=== PATIENT | female | born 1955 | race Caucasian/White ===

== ENCOUNTER → 2019-12-25 13:21 | Outpatient (BNVA) | payer OTHER, SELFPAY | PROVIDERS: PCP Internal Medicine; Visit Provider Internal Medicine Cardiovascular Disease | DX: Z76.89 Persons encountering health services in other specified circumstances (principal) ==

== ENCOUNTER 2020-01-01 09:31 | Outpatient (REF) | payer OTHER, SELFPAY ==
[2020-01-01 10:15] LABS: COVID-19 Test Negative (Negative)
== END 2020-01-01 09:32 | disposition home or self-care (01) ==
LOC: HO.EMPCOV 09:31
PROVIDERS: PCP Internal Medicine; Visit Provider Internal Medicine
DX: Z20.828 Contact with and (suspected) exposure to other viral communicable diseases (principal)
CPT/HCPCS: 87635; C9803

== ENCOUNTER 2020-01-16 06:07 | Outpatient (REF) | payer OTHER, SELFPAY ==
[2020-01-16 07:12] LABS: Glucose Urine UA NEG (NEG); Leukocyte Esterase Urine NEG (NEG); MANUAL DIFF FLAG NO; Nitrite Urine NEG (NEG); Specific Gravity - Urine 1.025 (1.005-1.025); Urine Blood TRACE (NEG); Urine Ketones NEG (NEG); Urine Protein NEG (NEG-TRACE)
[2020-01-16 07:14] LABS: Basophils Absolute Auto 0.1 X10*3/uL (0.0-0.2); Basophils Percent Auto 1.2 % (0-2); Eosinophils Absolute Auto 0.3 X10*3/uL (0.0-0.4); Eosinophils Percent Auto 4.7 % (0-4); Hematocrit 42.2 % (37-47); Imm Gran Abs Auto 0.03 X10*3/uL (0.00-0.03); Imm Gran Pct Auto 0.5 % (0.0-0.4); Lymphocytes Absolute Auto 2.1 X10*3/uL (1.2-4.9); Lymphocytes Percent Auto 32.9 % (20-40); Mean Corpuscular HGB Conc 33.2 g/dl (31.0-35.0); Mean Corpuscular Hemoglobin 29.3 pg (27.0-33.0); Mean Corpuscular Volume 88.3 fL (80-98); Mean Platelet Volume 10.8 fL (9.4-12.3); Monocytes Absolute Auto 0.6 X10*3/uL (0.1-1.2); Monocytes Percent Auto 8.8 % (2-11); Neutrophils Absolute Auto 3.4 X10*3/uL (2.0-8.3); Neutrophils Percent Auto 51.9 % (45-73); Platelet Count 253 X10*3/uL (160-400); Red Blood Count 4.78 X10*6/uL (4.20-5.50); Red Cell Distribution Width 12.7 % (11.0-16.0); White Blood Count 6.5 X10*3/uL (4.8-10.8)
[2020-01-16 07:27] LABS: Appearance Urine CLOUDY; Color Urine YELLOW
[2020-01-16 07:45] LABS: Alanine Aminotransferase 18 U/L (0-31); Albumin Level 4.5 g/dL (3.5-5.0); Alkaline Phosphatase 61 U/L (39-117); Anion Gap 12 (12-20); Aspartate Amino Transferase 20 U/L (5-31); Blood Urea Nitrogen 16 mg/dL (9-16); Calcium 9.1 mg/dL (8.4-10.2); Carbon Dioxide 24 mmol/L (22-29); Chloride 108 mmol/L (96-108); Cholesterol 146 mg/dL; Estimated Glomerular Filt Rate > 60; Glucose Random 95 mg/dL (60-115); HDL Cholesterol 59 mg/dL; LDL Cholesterol Calculated 69 mg/dl; Potassium 4.3 mmol/l (3.3-5.1); Sodium 140 mmol/L (135-145); Total Protein 6.9 g/dL (6.5-8.0); Triglycerides 91 mg/dL
[2020-01-16 07:55] LABS: Erythrocyte Sedimentation Rate 9 MM/HR (0-20)
[2020-01-16 08:06] LABS: Estimated Average Glucose 114 mg/dL; Hemoglobin A1c % 5.6 %
[2020-01-16 08:09] LABS: Free T4 (Free Thyroxine) 1.13 ng/dL (0.71-1.85)
[2020-01-16 08:19] LABS: Bacteria Urine 1+ /LPF; Squamous Epithelial Cell Urine 4+ /LPF
[2020-01-16 08:20] LABS: Mucus Urine 3+ /LPF
[2020-01-16 08:55] LABS: Folate 17.7 ng/mL (> or = 4.0); Vitamin B12 530 pg/mL (200-900)
== END 2020-01-16 06:08 | disposition home or self-care (01) ==
LOC: HO.LAB 06:07
PROVIDERS: PCP Internal Medicine; Visit Provider Internal Medicine
DX: E78.00 Pure hypercholesterolemia, unspecified (principal); I47.1 Supraventricular tachycardia
CPT/HCPCS: 36415; 80053; 80061; 81001; 82306; 82607; 82746; 83036; 84439; 84443; 85025; 85652

== ENCOUNTER → 2020-01-21 15:00 | Outpatient (BNV) | payer OTHER, SELFPAY | PROVIDERS: PCP Internal Medicine; Visit Provider Internal Medicine Medical Oncology | DX: D47.2 Monoclonal gammopathy (principal) | CPT/HCPCS: 99213; 99214 ==

== ENCOUNTER → 2020-01-23 08:22 | Outpatient (BNVA) | payer OTHER, SELFPAY | PROVIDERS: PCP Internal Medicine; Visit Provider Student in an Organized Health Care Education/Training Program | DX: Z76.89 Persons encountering health services in other specified circumstances (principal) ==

== ENCOUNTER 2020-01-24 06:11 | Outpatient (REF) | payer OTHER, SELFPAY ==
[2020-01-24 06:57] LABS: MANUAL DIFF FLAG NO
[2020-01-24 07:02] LABS: Basophils Absolute Auto 0.1 X10*3/uL (0.0-0.2); Basophils Percent Auto 1.3 % (0-2); Eosinophils Absolute Auto 0.2 X10*3/uL (0.0-0.4); Eosinophils Percent Auto 3.9 % (0-4); Imm Gran Abs Auto 0.02 X10*3/uL (0.00-0.03); Imm Gran Pct Auto 0.3 % (0.0-0.4); Lymphocytes Percent Auto 32.3 % (20-40); Mean Corpuscular HGB Conc 32.6 g/dl (31.0-35.0); Mean Corpuscular Hemoglobin 28.7 pg (27.0-33.0); Mean Corpuscular Volume 88.3 fL (80-98); Mean Platelet Volume 10.3 fL (9.4-12.3); Monocytes Absolute Auto 0.5 X10*3/uL (0.1-1.2); Monocytes Percent Auto 8.3 % (2-11); Neutrophils Absolute Auto 3.3 X10*3/uL (2.0-8.3); Neutrophils Percent Auto 53.9 % (45-73); Platelet Count 252 X10*3/uL (160-400); Red Blood Count 4.87 X10*6/uL (4.20-5.50); White Blood Count 6.2 X10*3/uL (4.8-10.8)
[2020-01-24 07:20] LABS: Appearance Urine HAZY; Color Urine YELLOW; Glucose Urine UA NEG (NEG); Leukocyte Esterase Urine NEG (NEG); Nitrite Urine NEG (NEG); PH 5.5 (5.0-8.0); Specific Gravity - Urine >= 1.030 (1.005-1.025); Urine Blood TRACE (NEG); Urine Ketones NEG (NEG); Urine Protein 1+ MG/DL (NEG-TRACE)
[2020-01-24 07:27] LABS: Squamous Epithelial Cell Urine 2+ /LPF; WBC Urine 0 /HPF (0-4)
[2020-01-24 07:28] LABS: Bacteria Urine TRACE /LPF; Mucus Urine 1+ /LPF
[2020-01-24 07:38] LABS: Alanine Aminotransferase 22 U/L (0-31); Albumin Level 4.5 g/dL (3.5-5.0); Alkaline Phosphatase 59 U/L (39-117); Anion Gap 13 (12-20); Aspartate Amino Transferase 24 U/L (5-31); Bilirubin Total 1.1 mg/dL (0.0-1.0); Blood Urea Nitrogen 16 mg/dL (9-16); C Reactive Protein 0.12 mg/dL (< or = 0.50); Calcium 9.2 mg/dL (8.4-10.2); Carbon Dioxide 24 mmol/L (22-29); Chloride 107 mmol/L (96-108); Estimated Glomerular Filt Rate > 60; Glucose Random 95 mg/dL (60-115); Sodium 140 mmol/L (135-145); Total Protein 7.1 g/dL (6.5-8.0)
[2020-01-24 09:09] LABS: Erythrocyte Sedimentation Rate 10 MM/HR (0-20)
[2020-01-24 09:22] LABS: Creatinine Urine 305.73 mg/dL; Protein/Creatinine Ratio, Ur 0.09 (<0.2); Total Protein Urine Random 26 mg/dL (<12)
--- NOTE | 2020-01-24 10:20 | XR_ITS ---
EXAMINATION: XR CHEST CLINICAL INFORMATION: Spontaneous ecchymosis. COMPARISON: 02/23/2018 chest radiographs. TECHNIQUE: 2 views of the chest were obtained. FINDINGS: No significant abnormality is noted involving the heart, lungs, mediastinum, bony thorax or soft tissues. XR/XR chest 2V IMPRESSION: No acute cardiopulmonary process.
[2020-01-27 13:32] LABS: Antibody to SS-A Antigen <1.0 NEG AI (<1.0 NEG); Antibody to SS-B Antigen <1.0 NEG AI (<1.0 NEG); Myeloperoxidase Antibody <1.0 AI; Proteinase 3 PR3 Antibodies <1.0 AI
[2020-01-27 15:52] LABS: Anti Nuclear Antibody Screen NEGATIVE (NEGATIVE)
[2020-01-28 14:47] LABS: Neutrophil Cyto Ab Screen NEGATIVE (NEGATIVE)
[2020-01-31 03:43] LABS: Cryoglobulin, Qual Negative (Negative)
== END 2020-01-24 06:12 | disposition home or self-care (01) ==
LOC: HO.LAB 06:11
PROVIDERS: PCP Internal Medicine; Visit Provider Student in an Organized Health Care Education/Training Program
DX: R23.3 Spontaneous ecchymoses (principal)
CPT/HCPCS: 36415; 71046; 80053; 81001; 82595; 84156; 85025; 85652; 86021; 86038; 86039; 86140; 86235

== ENCOUNTER 2020-01-30 06:54 | Outpatient (REF) | payer OTHER, SELFPAY ==
[2020-01-31 14:12] LABS: IgA 151 mg/dL (70-320); IgG 1111 mg/dL (600-1540); IgM 52 mg/dL (50-300)
== END 2020-01-30 06:55 | disposition home or self-care (01) ==
LOC: HO.LAB 06:54
PROVIDERS: PCP Internal Medicine; Visit Provider Internal Medicine Medical Oncology
DX: D47.2 Monoclonal gammopathy (principal)
CPT/HCPCS: 36415; 82784; 86334

== ENCOUNTER → 2020-02-05 11:22 | Outpatient (BNVA) | payer OTHER, SELFPAY | PROVIDERS: PCP Internal Medicine; Referring Provider Internal Medicine; Visit Provider Student in an Organized Health Care Education/Training Program | DX: Z76.89 Persons encountering health services in other specified circumstances (principal) ==

== ENCOUNTER → 2020-03-24 14:56 | Outpatient (BNVA) | payer OTHER, SELFPAY | PROVIDERS: PCP Internal Medicine; Visit Provider Internal Medicine Cardiovascular Disease ==

== ENCOUNTER 2020-04-07 09:27 | Outpatient (REF) | payer OTHER, SELFPAY ==
[2020-04-07 10:47] LABS: Glucose Urine UA NEG (NEG); Leukocyte Esterase Urine NEG (NEG); Nitrite Urine NEG (NEG); Specific Gravity - Urine 1.025 (1.005-1.025); Urine Blood NEG (NEG); Urine Ketones NEG (NEG); Urine Protein NEG (NEG-TRACE)
[2020-04-07 10:50] LABS: Appearance Urine HAZY; Color Urine YELLOW
[2020-04-07 11:06] LABS: RBC Urine 0 /HPF (0); Renal Epithelial Cells Urine TRACE /LPF; Squamous Epithelial Cell Urine 3+ /LPF; WBC Urine 0 /HPF (0-4)
[2020-04-07 11:13] LABS: Magnesium 2.1 mg/dL (1.6-2.6)
[2020-04-07 11:52] LABS: Creatinine Urine 138.71 mg/dL; Microalbum/Creatinine Ratio Ur 8.6 ug/mg cr
[2020-04-07 12:04] LABS: Erythrocyte Sedimentation Rate 7 MM/HR (0-20)
== END 2020-04-07 09:28 | disposition home or self-care (01) ==
LOC: HO.LAB 09:27
PROVIDERS: Student in an Organized Health Care Education/Training Program; PCP Internal Medicine; Visit Provider Internal Medicine
DX: E78.00 Pure hypercholesterolemia, unspecified (principal); R23.3 Spontaneous ecchymoses; R80.9 Proteinuria, unspecified; E11.65 Type 2 diabetes mellitus with hyperglycemia; I10 Essential (primary) hypertension
CPT/HCPCS: 36415; 81001; 82043; 83735; 85652

== ENCOUNTER → 2020-05-12 09:32 | Outpatient (REF) | payer OTHER, SELFPAY | LOC: HO.SL 09:32 | PROVIDERS: PCP Internal Medicine; Visit Provider Internal Medicine | DX: G47.10 Hypersomnia, unspecified (principal) | CPT/HCPCS: 95806 ==

== ENCOUNTER → 2020-05-21 15:01 | Outpatient (BNVA) | payer OTHER, SELFPAY | PROVIDERS: PCP Internal Medicine; Visit Provider Hospitalist ==

== ENCOUNTER 2020-05-28 11:01 | Outpatient (REF) | payer OTHER, SELFPAY ==
[2020-05-28 11:44] LABS: MANUAL DIFF FLAG NO
[2020-05-28 11:51] LABS: Basophils Absolute Auto 0.1 X10*3/uL (0.0-0.2); Basophils Percent Auto 1.2 % (0-2); Eosinophils Absolute Auto 0.3 X10*3/uL (0.0-0.4); Eosinophils Percent Auto 2.6 % (0-4); Hemoglobin 14.4 g/dl (12.0-16.0); Imm Gran Abs Auto 0.03 X10*3/uL (0.00-0.03); Imm Gran Pct Auto 0.3 % (0.0-0.4); Lymphocytes Absolute Auto 3.3 X10*3/uL (1.2-4.9); Lymphocytes Percent Auto 35.3 % (20-40); Mean Corpuscular HGB Conc 32.7 g/dl (31.0-35.0); Mean Corpuscular Hemoglobin 29.4 pg (27.0-33.0); Mean Corpuscular Volume 89.8 fL (80-98); Mean Platelet Volume 10.3 fL (9.4-12.3); Monocytes Absolute Auto 0.9 X10*3/uL (0.1-1.2); Monocytes Percent Auto 9.5 % (2-11); Neutrophils Absolute Auto 4.8 X10*3/uL (2.0-8.3); Neutrophils Percent Auto 51.1 % (45-73); Platelet Count 254 X10*3/uL (160-400); White Blood Count 9.5 X10*3/uL (4.8-10.8)
[2020-05-28 12:49] LABS: Erythrocyte Sedimentation Rate 8 MM/HR (0-20)
[2020-05-29 14:01] LABS: Anti Nuclear Antibody Screen NEGATIVE (NEGATIVE)
[2020-06-02 22:56] LABS: Angiotensin Converting Enzyme 22 U/L (9-67)
== END 2020-05-28 11:02 | disposition home or self-care (01) ==
LOC: HO.LAB 11:01
PROVIDERS: PCP Internal Medicine; Visit Provider Hospitalist
DX: R05 Cough (principal); J30.9 Allergic rhinitis, unspecified; R91.1 Solitary pulmonary nodule
CPT/HCPCS: 36415; 82164; 82785; 85025; 85652; 86003; 86038; 86039

== ENCOUNTER → 2020-06-15 19:57 | Outpatient (REF) | payer OTHER, SELFPAY | LOC: HO.SL 19:57 | PROVIDERS: PCP Internal Medicine; Visit Provider Hospitalist | DX: R40.0 Somnolence (principal); G47.34 Idiopathic sleep related nonobstructive alveolar hypoventilation; I47.1 Supraventricular tachycardia | CPT/HCPCS: 95810 ==

== ENCOUNTER 2020-07-02 08:59 | Outpatient (REF) | payer OTHER, SELFPAY ==
--- NOTE | 2020-07-02 13:25 | PFT_ITS ---
Forced vital capacity, FEV1, TOE53-18, and MVV are all normal. Post bronchodilator therapy, there is no change. Total lung capacity and residual volume normal. Diffusion capacity normal. CONCLUSION: Normal pulmonary function test. No evidence of obstructive or restrictive pulmonary disorder. MD DUGLAS Topete/MODL / [id number]
== END 2020-07-02 09:00 | disposition home or self-care (01) ==
LOC: HO.RESP 08:59
PROVIDERS: PCP Internal Medicine; Visit Provider Hospitalist
DX: R05 Cough (principal)
CPT/HCPCS: 94060; 94727; 94729

== ENCOUNTER 2020-07-09 20:59 | Emergency (ER) | payer OTHER, SELFPAY ==
[2020-07-09 21:04] VITALS: BP 170/78; PULSE 84; RESP 18; TEMP 36.8; O2SAT 98; BMI 27.4
[2020-07-09] MEDS: Fluorescein Sodium STRIP 1 STRIP EYE-BOTH (21:40)
[2020-07-09] MEDS: Tetracaine HCl/PF 0.5% Oph Sol 4 ML DROPS 2 DROP EYE-LEFT (21:41)
--- NOTE | 2020-07-09 21:49 | ED.EYEPROB ---
HPI - Eye Problem General Chief complaint: Eye Problems Stated complaint: eye scratch Time Seen by Provider: 07/09/20 21:36 History of Present Illness HPI Narrative: Patient is a 64-year-old female presents today with having right eye pain. Patient was sent to see the arm rest builder this morning. Was noted to have a corneal abrasion. Was given antibiotic ointment. Had some drops at the time. Subsequent to that patient went home and the pain has gotten worse. She has not been taking any pain medicine that she has an allergies NSAIDs. Patient from home. No systemic complaints. No fever no chills. No change in vision. Related Data Home Medications Medication Instructions Recorded Confirmed estradiol 10 mcg vaginal insert mcg VAGINAL 2XW 12/25/19 07/02/20 multivitamin,qv-nexn-opvlblng 1 tab PO DAILY 12/25/19 07/02/20 fexofenadine [Janet] 180 mg PO DAILY 01/21/20 07/02/20 Previous Rx's Medication Instructions Recorded rosuvastatin 5 mg tablet 5 mg PO DAILY #90 tab 02/06/20 eflornithine 13.9 % topical cream 1 appl TOPICAL BID #3 tube 04/02/20 azelastine 205.5 mcg (0.15 %) 2 spray INTRANASAL BID 30 Days #30 05/21/20 nasal spray ml levothyroxine 50 mcg tablet 50 mcg PO QAM #90 tab 05/21/20 montelukast 10 mg tablet 10 mg PO BEDTIME 30 Days #30 tab 05/21/20 metoprolol succinate 25 mg 37.5 mg PO DAILY #135 tab 06/01/20 tablet,extended release 24 hr Allergies Allergy/AdvReac Type Severity Reaction Status Date / Time cefaclor [From Ceclor] Allergy Severe RASH & Verified 07/02/20 10:09 HIVES ibuprofen [Ibuprofen] Allergy Severe HIVES Verified 07/02/20 10:09 NSAIDS (Non-Steroidal Allergy Severe HIVES Verified 07/02/20 10:09 Anti-Inflamma [Nsaids] propantheline Allergy Severe HIVES Verified 07/02/20 10:09 [From Pro-Banthine] aspirin [Aspirin] Allergy Unknown HIVES Verified 07/02/20 10:09 penciclovir [From Denavir] Allergy Unknown THROAT Verified 07/02/20 10:09 SWELLING Review of Systems Review of Systems: Constitutional: No Weight loss, No Fever, No Chills, No Night Sweats, No Fatigue, No Malaise ENT/Mouth: No Hearing loss, No Ear Pain, No Nasal Congestion, No Sinus Pain, No Hoarseness, No sore throat, No Rhinorrhea, No Swallowing Difficulty Eyes: Positive Eye Pain, No Swelling, No Redness, No Foreign Body, No Discharge, No Vision Changes Cardiovascular: No Chest Pain, No SOB, No Dyspnea on Exertion, No Orthopnea, No Edema, No Palpitations Respiratory: No Cough, No Sputum, No Wheezing, No Smoke Exposure, No Dyspnea Gastrointestinal: No Nausea, No Vomiting, No Diarrhea, No Constipation, No abdominal Pain, No Hematochezia, No Melena Genitourinary: no irregular bleeding, No Dysuria, No Urinary Frequency, No Hematuria, No Urinary Incontinence, No Urgency, No Flank Pain, No Urinary Flow Changes, No Hesitancy Musculoskeletal: No joint pain, No Myalgias, No Joint Swelling Skin: No Skin Lesions, No rash Neuro: No Weakness, No Numbness, No Paresthesias, No Loss of Consciousness, No Dizziness, No Headache Psych: No Anxiety/Panic, No Depression, No SI/HI/AH/VH, No Social Issues, Heme/Lymph: No Bruising, No Bleeding,No Lymphadenopathy Endocrine: No Polyuria, No Polydipsia, No Temperature Intolerance PMFSH Past Medical History Medical History Asthma CAD (coronary artery disease) Chronic allergic rhinitis Diverticular disease Has daytime drowsiness HTN (hypertension) Hyperlipidemia Hypothyroid Meniere disease MGUS (monoclonal gammopathy of unknown significance) Nocturnal hypoxia ELLIOT (obstructive sleep apnea) Osteopenia Pulmonary nodule, left PVC (premature ventricular contraction) SVT (supraventricular tachycardia) Surgical History History of cholecystectomy History of endometrial ablation History of laparotomy Hx of section Hx of colonoscopy Family History Family History Father CVD (cardiovascular disease) Mother No problems noted. Brother CVD (cardiovascular disease) Social History Social History Alcohol intake: current Alcohol intake frequency: a few times a month Alcohol type: wine Advance Directives: No Advance Directives Information Provided: Yes Physical Exam Vital Signs: Vital Signs: Last Vital Signs Temp 98.2 F 07/09/20 21:04 Pulse 84 07/09/20 21:04 Resp 18 07/09/20 21:04 BP 170/78 H 07/09/20 21:04 Pulse Ox 98 07/09/20 21:04 Body Mass Index 27.4 Appearance: Alert. Oriented X3. No acute distress. Eyes: Pupils equal, round and reactive to light. Positive corneal abrasion in the right eye at the 6 o'clock position approximately 2 mm x 2 mm in size. ENT: Pharynx normal. Neck: Normal inspection. Neck supple. No lymph nodes noted. No crepitus CVS: Normal heart rate and rhythm. Pulses normal. Normal S1 and S2 Respiratory: No respiratory distress. Breath sounds normal. No Wheezing. No rales Abdomen: Soft and nontender. No rigidity. No distention. good BS x4 Skin: Skin warm and dry. Normal skin color. Normal skin turgor. Extremities: No lower extremity edema. Neurovascular intact to all extremities. No Lacerations. No Rash Neuro: Oriented X 3. No motor deficit. No sensory deficit. Moving all extermities. No slurred speech MDM - Eye Problem MDM Narrative Medical decision making narrative: Patient did not want any narcotics. Positive corneal abrasion. Positive uptake by floor seen staining. Patient's visual acuity grossly intact. Will discharge patient home. Will give additional tetracaine while in the emergency department. Patient already has antibiotic eyedrop. Tetanus is up-to-date. In stable condition. Differential Diagnosis Differential diagnosis: Likely corneal abrasion Discharge Plan Discharge Clinical Impression: Abrasion, corneal Patient Disposition: Home, Self-Care Instructions: Corneal Abrasion (ED) Prescriptions: No Action rosuvastatin 5 mg tablet 5 mg PO DAILY Qty: 90 RF: 3 levothyroxine 50 mcg tablet 50 mcg PO QAM Qty: 90 RF: 3 metoprolol succinate 25 mg tablet extended release 24 hr 37.5 mg PO DAILY Qty: 135 RF: 3 fexofenadine [Janet] 180 mg Tablet 180 mg PO DAILY RF: 0 Vaniqa 13.9 % cream 1 appl topical BID Qty: 3 RF: 0 montelukast [Singulair] 10 mg tablet 10 mg PO BEDTIME 30 Days Qty: 30 RF: 11 azelastine 205.5 mcg (0.15 %) spray,non-aerosol 2 spray intranasal BID 30 Days Qty: 30 RF: 11 Imvexxy Maintenance Pack 10 mcg insert vaginal 2XW RF: 0 Complete Multivitamin Tablet 1 tab PO DAILY RF: 0 Referrals: Physician,Unknown [Physician] - 2 days (Your eye doctor)
--- NOTE | 2020-07-09 22:17 | PC.NURSE ---
DR ALEJO AT BEDSIDE TO PERFORM EYE EXAM WITH WOODLAMP.
== END 2020-07-09 22:20 | disposition home or self-care (01) ==
PROVIDERS: Emergency Provider Emergency Medicine Emergency Medical Services; PCP Internal Medicine
DX: S05.01XA Injury of conjunctiva and corneal abrasion without foreign body, right eye, initial encounter (principal); H57.11 Ocular pain, right eye; I25.10 Atherosclerotic heart disease of native coronary artery without angina pectoris; X58.XXXA Exposure to other specified factors, initial encounter; Y93.9 Activity, unspecified; Y92.9 Unspecified place or not applicable; Y99.9 Unspecified external cause status; Z79.899 Other long term (current) drug therapy
CPT/HCPCS: 99284

== ENCOUNTER 2020-07-23 12:03 | Outpatient (REF) | payer OTHER, SELFPAY ==
--- NOTE | ~2020-07-23 | CT_ITS ---
EXAMINATION: CT ABDOMEN AND PELVIS WITH CONTRAST CLINICAL INFORMATION: Diarrhea, left lower quadrant abdominal pain. History of diverticulitis. COMPARISON: CT abdomen and pelvis 10/29/2018 TECHNIQUE: Multidetector volumetric images were obtained from the superior aspect of the liver through the pubic symphysis following administration 85 mL of Omnipaque 350 intravenous contrast. Sagittal and coronal reformatted images were obtained on the technologist's workstation. Oral contrast: No This CT examination was performed using dose optimization techniques as appropriate, variously including the following: *Automated exposure control *Adjustment of mA and/or kV according to patient size (this includes techniques or standardized protocols for targeted exams where dose is matched to indication/reason for exam; i.e. extremities or head) *Use of iterative reconstruction technique DLP: 440 mGy-cm FINDINGS: LUNG BASES: The visualized lung bases are unremarkable. LIVER, GALLBLADDER, AND BILIARY TREE: The liver is normal in size, shape, and attenuation. No focal hepatic lesion or biliary ductal dilatation is present. The gallbladder has been surgically removed. PANCREAS: Unremarkable. SPLEEN: Unremarkable. There is small accessory splenule inferior to the hilum ADRENAL GLANDS: Unremarkable. KIDNEYS AND URETERS: The kidneys are normal in size, shape, and attenuation. No hydronephrosis, hydroureter, or calculi seen. No perinephric stranding. BLADDER: Unremarkable. GASTROINTESTINAL TRACT: There is diffuse sigmoid and scattered rest of colon diverticulosis without mural thickening or pericolic fat stranding. The small bowel loops are normal caliber. The stomach is distended with oral contrast and recently ingested food. ABDOMINAL WALL: No significant hernia is appreciated. LYMPH NODES: Normal. VASCULAR: Unremarkable. PELVIC VISCERA: The uterus is anteverted and appears unremarkable. No adnexal mass or free fluid seen. OSSEOUS STRUCTURES: Degenerative disc changes with vacuum disc phenomena L4-L5, L3-L4 disc levels with facet arthropathy at the L5-S1 and L4-L5 disc levels. There is mild dextrorotoscoliosis of dorso-lumbar spine. CT/CT abdomen pelvis w con IMPRESSION: No acute intra-abdominal process seen. Diffuse sigmoid and scattered rest of colon diverticulosis. No evidence of diverticulitis. No bowel obstruction, free air or fluid levels.
[2020-07-23 13:00] LABS: MANUAL DIFF FLAG NO
[2020-07-23 13:06] LABS: Basophils Absolute Auto 0.1 X10*3/uL (0.0-0.2); Basophils Percent Auto 0.8 % (0-2); Eosinophils Absolute Auto 0.2 X10*3/uL (0.0-0.4); Eosinophils Percent Auto 1.9 % (0-4); Hematocrit 43.9 % (37-47); Hemoglobin 14.4 g/dl (12.0-16.0); Imm Gran Abs Auto 0.02 X10*3/uL (0.00-0.03); Imm Gran Pct Auto 0.2 % (0.0-0.4); Lymphocytes Absolute Auto 2.4 X10*3/uL (1.2-4.9); Lymphocytes Percent Auto 27.8 % (20-40); Mean Corpuscular HGB Conc 32.8 g/dl (31.0-35.0); Mean Corpuscular Hemoglobin 29.1 pg (27.0-33.0); Mean Corpuscular Volume 88.9 fL (80-98); Mean Platelet Volume 10.4 fL (9.4-12.3); Monocytes Absolute Auto 0.7 X10*3/uL (0.1-1.2); Monocytes Percent Auto 8.3 % (2-11); Neutrophils Absolute Auto 5.2 X10*3/uL (2.0-8.3); Platelet Count 272 X10*3/uL (160-400); Red Blood Count 4.94 X10*6/uL (4.20-5.50); Red Cell Distribution Width 12.6 % (11.0-16.0); White Blood Count 8.6 X10*3/uL (4.8-10.8)
[2020-07-23 13:49] LABS: Appearance Urine HAZY; Color Urine YELLOW; Erythrocyte Sedimentation Rate 7 MM/HR (0-20); Glucose Urine UA NEG (NEG); Leukocyte Esterase Urine NEG (NEG); Nitrite Urine NEG (NEG); PH 5.5 (5.0-8.0); Specific Gravity - Urine 1.025 (1.005-1.025); Urine Blood NEG (NEG); Urine Ketones 5 MG/DL (NEG); Urine Protein NEG (NEG-TRACE)
[2020-07-23 13:52] LABS: Alanine Aminotransferase 17 U/L (0-31); Albumin Level 4.6 g/dL (3.5-5.0); Alkaline Phosphatase 67 U/L (39-117); Amylase 92 U/L (28-100); Anion Gap 13 (12-20); Aspartate Amino Transferase 23 U/L (5-31); Bilirubin Direct 0.5 mg/dL (0.0-0.5); Bilirubin Total 1.1 mg/dL (0.0-1.0); Blood Urea Nitrogen 14 mg/dL (9-16); C Reactive Protein 0.11 mg/dL (< or = 0.50); Calcium 9.9 mg/dL (8.4-10.2); Carbon Dioxide 26 mmol/L (22-29); Chloride 105 mmol/L (96-108); Estimated Glomerular Filt Rate > 60; Glucose Random 70 mg/dL (60-115); Lipase 72 U/L (8-78); Potassium 3.8 mmol/L (3.3-5.1); Sodium 140 mmol/L (135-145); Total Protein 7.2 g/dL (6.5-8.0)
[2020-07-23 14:10] LABS: Squamous Epithelial Cell Urine 2+ /LPF
[2020-07-23] MEDS: Barium Sulfate Oral (Berry) 450 ML ORAL.SUSP 900 ML PO (16:30)
== END 2020-07-23 12:04 | disposition home or self-care (01) ==
LOC: HO.CT 12:03
PROVIDERS: PCP Internal Medicine; Visit Provider Internal Medicine
DX: E11.65 Type 2 diabetes mellitus with hyperglycemia (principal); I10 Essential (primary) hypertension; R80.9 Proteinuria, unspecified; R19.7 Diarrhea, unspecified; R10.32 Left lower quadrant pain; Z87.19 Personal history of other diseases of the digestive system
CPT/HCPCS: 36415; 74177; 80048; 80076; 81001; 82150; 83690; 85025; 85652; 86140

== ENCOUNTER 2020-09-11 14:53 | Outpatient (REF) | payer OTHER, SELFPAY ==
--- NOTE | ~2020-09-11 | MM_ITS ---
EXAMINATION: BONE DENSITOMETRY CLINICAL INDICATION: Osteoporosis. COMPARISON: Previous BD dated 05/22/2015 and baseline BD dated 10/16/2008. TECHNIQUE: Using a [employer] DXA System (software version: 13.1) manufactured by [employer], dual-energy x-ray absorptiometry was performed of the lumbar spine and left hip. The images are of good technical quality. Summary results are attached. FINDINGS: AP SPINE L1-L2 (excluding L3 and L4): The data of L1-L4 has been changed to exclude the L3 and L4 vertebral bodies, because dextrocurvature and degenerative changes at these levels may cause overestimation of lumbar spine density. Current: BMD 0.996 g/cm2, Z-score 0.0, T-score -1.4, osteopenia, 3.1% decrease from previous, 9.6% decrease from baseline (<5% change is not significant). Prior: BMD 1.028 g/cm2. Baseline: BMD 1.102 g/cm2. LEFT FEMUR, NECK: Current: BMD 0.699 g/cm2, Z-score -1.1, T-score -2.4, osteopenia. Prior: BMD 0.778 g/cm2. Baseline: BMD 0.872 g/cm2. LEFT FEMUR, TOTAL: Current: BMD 0.831 g/cm2, Z-score -0.3, T-score -1.4, osteopenia, 4.2% decrease from previous, 12.2% decrease from baseline (<5% change is not significant). Prior: BMD 0.867 g/cm2. Baseline: BMD 0.946 g/cm2. IDENTIFIED RISK FACTORS: Height loss, secondary osteoporosis, menopause. HISTORY OF FRACTURE: None listed. MEDICATIONS: Vitamin D. MM/XR DEXA axial skeleton IMPRESSION: 1. DIAGNOSIS: Osteopenia based on the lowest T-score value of -2.4 in the femoral neck applying World Health Organization criteria. 2. 10-YEAR FRACTURE RISK PREDICTION, FRAX: Major osteoporotic fracture (clinical spine, forearm, hip or shoulder) 12.9%. Hip fracture 2.7%. 3. Treatment Recommendations: NOF guidelines recommend consideration for treatment in postmenopausal women and men age 50 and older presenting with the following: -A hip or vertebral (clinical or morphometric) fracture. -T-score less than or equal to -2.5 at the femoral neck or spine after appropriate evaluation to exclude secondary causes. -Low bone mass at the hip or spine and a 10-year fracture probability by FRAX of greater than or equal to 3% for hip fracture or greater than or equal to 20% for major osteoporotic fracture based on the [place] adapted WHO algorithm. 4. Other Recommendations: All treatment decisions require clinical judgment and consideration of individual patient factors, including patient preferences, comorbidities, previous drug use, risk factors not captured in the FRAX model (e.g. frailty, falls, vitamin D deficiency, increased bone turnover, interval significant decline in bone density) and possible under or overestimation of fracture risk by FRAX. Additional medical evaluation for secondary cause of low bone mineral density may be appropriate. FUTURE SCAN RECOMMENDATION: People with diagnosed cases of osteoporosis or at high risk for fracture should have regular bone mineral density tests. For patients eligible for Medicare, routine testing is allowed once every 2 years. The testing frequency can be increased to one year for patients who have rapidly progressing disease, those who are receiving or discontinuing medical therapy to restore bone mass, or have additional risk factors.
== END 2020-09-11 14:54 | disposition home or self-care (01) ==
LOC: HO.MAMMO 14:53
PROVIDERS: Visit Provider Obstetrics & Gynecology Female Pelvic Medicine and Reconstructive Surgery
DX: Z13.820 Encounter for screening for osteoporosis (principal); M85.80 Other specified disorders of bone density and structure, unspecified site; Z78.0 Asymptomatic menopausal state; Z79.899 Other long term (current) drug therapy
CPT/HCPCS: 77080

== ENCOUNTER 2020-12-01 15:27 | Outpatient (REF) | payer OTHER, SELFPAY ==
--- NOTE | ~2020-12-01 | MM_ITS ---
EXAMINATION: MM SCREENING DIGITAL BREAST TOMOSYNTHESIS, BILATERAL CLINICAL INFORMATION: Screening. Asymptomatic. Family history breast cancer, sister. Due for yearly. The lifetime risk of breast cancer based on the Tyrer-Cuzick Model is 10%. COMPARISON: Mammography: 10/25/2019, 10/29/2018, 10/12/2017, 10/11/2016 TECHNIQUE: Digital breast tomosynthesis is performed in both the craniocaudal and mediolateral oblique views along with computer-aided detection (CAD). Synthesized 2D images are generated from the tomosynthesis. FINDINGS: There are scattered areas of fibroglandular density (ACR BI-RADS breast composition Category b). There are no significant masses, abnormal calcifications, or other abnormalities. Parenchymal pattern is similar to prior exams. There is no developing density or architectural abnormality. Incidental deodorant artifact is seen overlying the upper right axilla on MLO view. Otherwise, the axilla and skin contours are unremarkable. MM/MM tomosynthesis screening BI IMPRESSION: No mammographic evidence of malignancy. ASSESSMENT: BI-RADS 2: Benign RECOMMENDATION: Routine annual mammography screening. This patient's information was entered into a reminder system with a target due date for their next mammogram.
== END 2020-12-01 15:28 | disposition home or self-care (01) ==
LOC: HO.MAMMO 15:27
PROVIDERS: PCP Internal Medicine; Visit Provider Internal Medicine
DX: Z12.31 Encounter for screening mammogram for malignant neoplasm of breast (principal)
CPT/HCPCS: 77063; 77067

== ENCOUNTER 2020-12-31 07:26 | Outpatient (REF) | payer OTHER, SELFPAY ==
[2020-12-31 07:36] LABS: MANUAL DIFF FLAG NO
[2020-12-31 08:21] LABS: Basophils Absolute Auto 0.1 X10*3/uL (0.0-0.2); Basophils Percent Auto 1.5 % (0-2); Eosinophils Absolute Auto 0.4 X10*3/uL (0.0-0.4); Eosinophils Percent Auto 5.3 % (0-4); Hematocrit 40.9 % (37.0-47.0); Hemoglobin 13.5 g/dl (12.0-16.0); Imm Gran Abs Auto 0.02 X10*3/uL (0.00-0.03); Imm Gran Pct Auto 0.3 % (0.0-0.4); Lymphocytes Absolute Auto 1.9 X10*3/uL (1.2-4.9); Lymphocytes Percent Auto 28.8 % (20-40); Mean Corpuscular Hemoglobin 29.1 pg (27.0-33.0); Mean Corpuscular Volume 88.1 fL (80.0-98.0); Mean Platelet Volume 10.5 fL (9.4-12.3); Monocytes Absolute Auto 0.7 X10*3/uL (0.1-1.2); Neutrophils Absolute Auto 3.6 x10*3/uL (2.0-8.3); Neutrophils Percent Auto 54.1 % (45-73); Platelet Count 237 X10*3/uL (160-400); Red Blood Count 4.64 X10*6/uL (4.20-5.50); White Blood Count 6.6 X10*3/uL (4.8-10.8)
[2020-12-31 08:36] LABS: Estimated Average Glucose 108 mg/dL; Hemoglobin A1c % 5.4 %
[2020-12-31 08:46] LABS: Alanine Aminotransferase 25 U/L (0-31); Albumin Level 4.4 g/dL (3.5-5.0); Alkaline Phosphatase 67 U/L (39-117); Anion Gap 12 (12-20); Aspartate Amino Transferase 26 U/L (5-31); Blood Urea Nitrogen 14 mg/dL (9-16); C Reactive Protein 0.21 mg/dL (< or = 0.50); Calcium 9.5 mg/dL (8.4-10.2); Carbon Dioxide 25 mmol/L (22-29); Chloride 107 mmol/L (96-108); Cholesterol 149 mg/dL; Estimated Glomerular Filt Rate > 60; Glucose Random 97 mg/dL (60-115); HDL Cholesterol 57 mg/dL; LDL Cholesterol Calculated 74 mg/dl; Potassium 4.2 mmol/L (3.3-5.1); Sodium 140 mmol/L (135-145); Triglycerides 91 mg/dL
[2020-12-31 09:07] LABS: Thyroid Stimulating Hormone 2.08 uIU/mL (0.32-4.0); Vitamin D 25-OH Total 37.1 ng/mL (>30)
[2020-12-31 09:08] LABS: Erythrocyte Sedimentation Rate 7 MM/HR (0-20)
[2020-12-31 09:43] LABS: Folate > 20.0 ng/mL (> or = 4.0); Vitamin B12 610 pg/mL (200-900)
== END 2020-12-31 07:27 | disposition home or self-care (01) ==
LOC: HO.LAB 07:26
PROVIDERS: PCP Internal Medicine; Visit Provider Internal Medicine
DX: I10 Essential (primary) hypertension (principal); E78.00 Pure hypercholesterolemia, unspecified
CPT/HCPCS: 36415; 80053; 80061; 82306; 82607; 82746; 83036; 84439; 84443; 85025; 85652; 86140

== ENCOUNTER → 2021-01-14 15:25 | Outpatient (BNVA) | payer OTHER, SELFPAY | PROVIDERS: PCP Internal Medicine; Visit Provider Hospitalist ==

== ENCOUNTER → 2021-03-09 11:25 | Outpatient (REF) | payer OTHER, SELFPAY ==
--- NOTE | 2021-03-09 11:30 | HM_ITS ---
Total monitoring time 13 days and 21 hours. Underlying rhythm is sinus. Minimum heart rate 54/Min. Maximum 125/Min. Average 75/Min. Rare supraventricular ectopy with minimal burden. 25 supraventricular episodes noted. Longest 8 beats. Rare ventricular ectopy with minimal burden. No patient events. MTDD
== END ==
LOC: HO.CARD 11:25
PROVIDERS: PCP Internal Medicine; Visit Provider Internal Medicine Cardiovascular Disease
DX: I49.3 Ventricular premature depolarization (principal); I47.1 Supraventricular tachycardia; R00.2 Palpitations
CPT/HCPCS: 93246

== ENCOUNTER → 2021-05-05 09:43 | Outpatient (BNVA) | payer OTHER, SELFPAY | PROVIDERS: PCP Internal Medicine; Visit Provider Hospitalist | DX: G47.33 Obstructive sleep apnea (adult) (pediatric) (principal); J30.9 Allergic rhinitis, unspecified | CPT/HCPCS: 99212 ==

== ENCOUNTER 2021-09-09 08:00 | Outpatient (RCR) | payer OTHER, SELFPAY ==
[2021-08-04 08:58] VITALS: BP 142/79; PULSE 72; O2SAT 96
--- NOTE | 2021-08-04 12:46 | MHC.PT.EP ---
[facility] [place] Office [place] Office [place] Office [address] Radha Llanos [address] [phone] F: [phone] F: [phone] F: [phone] F: [phone] Physical Therapy Plan of Care Date of Evaluation: Date of Surgery: Diagnosis: STIFFNESS IN Rt THORACIC / LB Assessment: 65 YO FEMALE REF TO PT FOR Rt THORACIC STIFFNESS AND PAIN. SHE HAS A H/O SCOLIOSIS , C-CURVE LEFT WITH RESULTANT MECHANICAL AND SOFT TISSUE IMBALANCE. 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 OBJECTIVE FINDINGS INCLUDE: DECR POSTURAL AWARENESS, (+) SOFT TISSUE RESTRICTION Rt THORACOLUMBAR PS MM / Rt QL; DECR LOBO HIP ROTAT FLEXIB, AND FLUCTUATING SHARP TO ACHY PAIN. FUNCTIONALLY, Pt IS LIMITED W STANDING, IN/OUT OF SHOWER, STAIR MGMT, RESISTIVE THER EXER, FITNESS WALKING, AND TRANSITIONAL MVMTS. Pt WOULD BENEFIT FROM PT TO ADDRESS THE ABOVE FINDINGS, PAIN MGMT, PROGR HEP, AND DEV SELF- SX MGMT STRATEGIES. Frequency and Duration: The patient will be seen 2 X wk X 5 wks Short Term Goals: *Pt'S Rt THORACOLUMB PAIN AND TISSUE TENSION DECR (INFLUENCED BY SCOLIOSIS) TO 2-3/10 IN 2 WKS *Pt DEMON WFL AROM IN LOBO HIP ROTAT , TRUNK AROM IN 2 WKS * Pt DEMON IMPROVED FUNCT SQUAT AND POSTURAL SELF-CORRECT TECHN IN 2 WKS *Pt SIMUL 3:3 ADLs /BED MOB/ WORK POSITIONING W PROPER MECHANICS IN 2 WKS Retirement Goals: Pt INDEP W HEP PROGRESSION AND SELF-SX MGMT STRATEGIES IN 5 WKS Pt RESUME REG ADLs/ FITNESS EVIDENT W IMPROVED OSWESTRY SCORE BY 5-8 POINTS (AT EVAL 18/50 ) IN 5 WKS Treatment Plan: Modalities to reduce pain, spasms and effusion. Manual therapy to restore motion and function. Therapeutic exercise to improve strength and flexibility. Neuromuscular re-education for posture and balance. Therapeutic activities to return to functional activities of daily living. Electronically signed by: Nancy Greco,PT Please sign and return to therapist. Thank you for your referral.
--- NOTE | 2021-09-09 10:36 | MHC.PT.DC ---
[facility] [place] Office [place] Office [place] Office [address] Radha Llanos [address] [phone] F: [phone] F: [phone] F: [phone] F: [phone] Physical Therapy Discharge Report Diagnosis: STIFFNESS IN Rt THORACIC / LB Date of Surgery: Date of Evaluation: 08/04/21 Date of Discharge: 09/09/21 Treatments to Date: 5 Cancellations to Date: No Shows to Date: Discharge Status: Achieved Goals Improved Function Independent with HEP Discharge Summary: Pt PROGRESSED WELL IN PT- [facility]NA HAS MET HER PT GOALS, NOTING HER THORACOLUMBAR PAIN HAS RELATIVELY RESOLVED- HER OSWESTRY SCORE TODAY WAS 12/50, AT EVAL 18/50. SHE BENEFITTED FROM ADD'L REVIEW OF PROGR HEP AND REALLY EMPHASIZED SELF-PACING TO ENHANCE ECCENTRIC COMPONENETS OF STRENGTHENING- SHE IS MOTIVATED AND COMPLIANT W HER SELF- MGMT. Electronically signed by: Nancy Greco,PT Please sign and return to therapist. Thank you for your referral.
== END 2021-09-09 10:38 | disposition home or self-care (01) ==
LOC: HO.PT 08:00
PROVIDERS: Visit Provider Nurse Practitioner Family
DX: M25.69 Stiffness of other specified joint, not elsewhere classified (principal)
CPT/HCPCS: 97110; 97112; 97162; 97530

== ENCOUNTER 2021-09-10 14:29 | Outpatient (REF) | payer OTHER, SELFPAY ==
--- NOTE | ~2021-09-10 | XR_ITS ---
EXAMINATION: XR KNEE, RIGHT XR KNEE, LEFT CLINICAL INFORMATION: Pain right knee COMPARISON: Left knee radiograph from 04/03/2019 TECHNIQUE: 3 views of the right knee 3 views of the left neck FINDINGS: RIGHT: No acute visible fracture or dislocation. Mild multicompartment degenerative changes. Periarticular aspect along the superior inferior margins of the patella. A fabella is noted in the posterior compartment. Mild narrowing of the lateral patellofemoral compartment. Joint spaces and alignment are otherwise maintained. Trace knee joint effusion. Soft tissues are unremarkable. LEFT: No acute visible fracture or dislocation. Mild multicompartment degenerative changes. Mild spurring the tibial spines. Mild narrowing of the lateral patellofemoral compartment. Periarticular osteophyte along the superior margin of the patella. A fabella is noted in the posterior compartment. Joint spaces and alignment are maintained. Trace knee joint effusion. Soft tissues are unremarkable. XR/XR knee LT 3V IMPRESSION: 1. No acute visible fracture or dislocation. 2. Bilateral mild multicompartment degenerative changes. 3. Bilateral trace knee joint effusions.
--- NOTE | ~2021-09-10 | XR_ITS ---
EXAMINATION: XR KNEE, RIGHT XR KNEE, LEFT CLINICAL INFORMATION: Pain right knee COMPARISON: Left knee radiograph from 04/03/2019 TECHNIQUE: 3 views of the right knee 3 views of the left neck FINDINGS: RIGHT: No acute visible fracture or dislocation. Mild multicompartment degenerative changes. Periarticular aspect along the superior inferior margins of the patella. A fabella is noted in the posterior compartment. Mild narrowing of the lateral patellofemoral compartment. Joint spaces and alignment are otherwise maintained. Trace knee joint effusion. Soft tissues are unremarkable. LEFT: No acute visible fracture or dislocation. Mild multicompartment degenerative changes. Mild spurring the tibial spines. Mild narrowing of the lateral patellofemoral compartment. Periarticular osteophyte along the superior margin of the patella. A fabella is noted in the posterior compartment. Joint spaces and alignment are maintained. Trace knee joint effusion. Soft tissues are unremarkable. XR/XR knee RT 3V IMPRESSION: 1. No acute visible fracture or dislocation. 2. Bilateral mild multicompartment degenerative changes. 3. Bilateral trace knee joint effusions.
--- NOTE | ~2021-09-10 | XR_ITS ---
EXAMINATION: XR ANKLE, LEFT CLINICAL INFORMATION: Instability left ankle COMPARISON: None TECHNIQUE: AP, lateral, and mortise views of the left ankle. FINDINGS: No acute visible fracture or dislocation. The ankle mortise is symmetric. Joint spaces and alignment are maintained. No large ankle joint effusion. Soft tissues are unremarkable. XR/XR ankle LT min 3V IMPRESSION: No acute visible fracture or dislocation.
[2021-09-10 15:35] LABS: TSH reflex Free T4 1.56 uIU/mL (0.32-4.0); Vitamin D 25-OH Total 43.1 ng/mL (>30)
== END 2021-09-10 14:30 | disposition home or self-care (01) ==
LOC: HO.LAB 14:29
PROVIDERS: PCP Internal Medicine; Visit Provider Nurse Practitioner Family
DX: E03.9 Hypothyroidism, unspecified (principal); M25.561 Pain in right knee; M25.562 Pain in left knee; M25.372 Other instability, left ankle
CPT/HCPCS: 36415; 73562; 73610; 82306; 83735; 84443

== ENCOUNTER 2021-09-22 08:23 | Outpatient (REF) | payer OTHER, SELFPAY ==
[2021-09-22 08:46] LABS: MANUAL DIFF FLAG NO
[2021-09-22 09:14] LABS: Basophils Absolute Auto 0.1 X10*3/uL (0.0-0.2); Basophils Percent Auto 1.8 % (0-2); Eosinophils Absolute Auto 0.2 X10*3/uL (0.0-0.4); Eosinophils Percent Auto 3.2 % (0-4); Imm Gran Abs Auto 0.02 X10*3/uL (0.00-0.03); Imm Gran Pct Auto 0.3 % (0.0-0.4); Lymphocytes Absolute Auto 1.9 X10*3/uL (1.2-4.9); Lymphocytes Percent Auto 30.9 % (20-40); Mean Corpuscular HGB Conc 32.6 g/dl (31.0-35.0); Mean Corpuscular Hemoglobin 28.9 pg (27.0-33.0); Mean Corpuscular Volume 88.8 fL (80.0-98.0); Mean Platelet Volume 10.6 fL (9.4-12.3); Monocytes Absolute Auto 0.6 X10*3/uL (0.1-1.2); Monocytes Percent Auto 8.8 % (2-11); Neutrophils Absolute Auto 3.4 x10*3/uL (2.0-8.3); Platelet Count 242 X10*3/uL (160-400); Red Blood Count 4.84 X10*6/uL (4.20-5.50); Red Cell Distribution Width 12.8 % (11.0-16.0); White Blood Count 6.2 X10*3/uL (4.8-10.8)
[2021-09-22 09:43] LABS: Alanine Aminotransferase 18 U/L (0-31); Albumin Level 4.4 g/dL (3.5-5.0); Alkaline Phosphatase 70 U/L (39-117); Anion Gap 13 (12-20); Aspartate Amino Transferase 20 U/L (5-31); Bilirubin Total 0.9 mg/dL (0.0-1.0); Blood Urea Nitrogen 14 mg/dL (9-16); C Reactive Protein 0.19 mg/dL (< or = 0.50); Calcium 9.5 mg/dL (8.4-10.2); Carbon Dioxide 27 mmol/L (22-29); Chloride 104 mmol/L (96-108); Estimated Glomerular Filt Rate > 60; Glucose Random 104 mg/dL (60-115); Iron 99 mcg/dL (30-160); Percent Iron Saturation 33 % (15-50); Potassium 4.1 mmol/L (3.3-5.1); Sodium 140 mmol/L (135-145); Total Iron Binding Capacity 300 mcg/dL (228-428); Total Protein 7.1 g/dL (6.5-8.0); Unsaturated Iron Binding 201 ug/dL
[2021-09-22 10:16] LABS: Erythrocyte Sedimentation Rate 9 MM/HR (0-20)
[2021-09-22 11:59] LABS: Appearance Urine CLEAR; Color Urine YELLOW; Glucose Urine UA NEG (NEG); Leukocyte Esterase Urine TRACE (NEG); Nitrite Urine NEG (NEG); Specific Gravity - Urine 1.025 (1.005-1.025); Urine Blood NEG (NEG); Urine Ketones 5 MG/DL (NEG); Urine Protein NEG (NEG-TRACE)
[2021-09-22 12:16] LABS: Creatinine Urine 197.27 mg/dL; Protein/Creatinine Ratio, Ur 0.07 (<0.2); Total Protein Urine Random 13 mg/dL (<12)
[2021-09-22 12:52] LABS: Squamous Epithelial Cell Urine 3+ /LPF
[2021-09-22 12:53] LABS: Bacteria Urine 1+ /LPF; RBC Urine 0 /HPF (0); WBC Urine 0-2 /HPF (0-4)
== END 2021-09-22 08:24 | disposition home or self-care (01) ==
LOC: HO.LAB 08:23
PROVIDERS: PCP Internal Medicine; Visit Provider Internal Medicine Rheumatology
DX: M79.604 Pain in right leg (principal); M79.605 Pain in left leg; D47.2 Monoclonal gammopathy
CPT/HCPCS: 36415; 80053; 81001; 82550; 83540; 84156; 85025; 85652; 86140

== ENCOUNTER 2021-10-06 10:44 | Outpatient (REF) | payer OTHER, SELFPAY ==
--- NOTE | ~2021-10-06 | XR_ITS ---
EXAMINATION: XR LUMBOSACRAL SPINE CLINICAL INFORMATION: Stiffness. COMPARISON: None TECHNIQUE: AP and lateral views of the lumbar spine and lateral view of the lumbosacral junction. FINDINGS: There is bony demineralization. There is a moderately severe rotatory lumbar dextroscoliosis. There is multi-level thoracolumbar degenerative disc disease. This is particularly pronounced at L3-L4 and L4-L5, with vacuum disc phenomenon. No acute fracture or spondylolisthesis is seen. This multi-level thoracolumbar spondylosis. The posterior elements are intact. There is facet arthropathy at L5-S1. There are right upper quadrant surgical clips. XR/XR lumbar spine 2-3V IMPRESSION: 1. There is multi-level thoracolumbar degenerative disc disease, most pronounced at L3-L4 and L4-L5, where it is marked. 2. There is facet arthropathy at L5-S1. 3. There is a moderately severe rotatory lumbar dextroscoliosis.
== END 2021-10-06 10:45 | disposition home or self-care (01) ==
LOC: HO.XRAY 10:44
PROVIDERS: PCP Internal Medicine; Visit Provider Nurse Practitioner Family
DX: M25.69 Stiffness of other specified joint, not elsewhere classified (principal)
CPT/HCPCS: 72100

== ENCOUNTER 2021-11-05 13:01 | Outpatient (REF) | payer OTHER, SELFPAY ==
--- NOTE | ~2021-11-05 | MR_ITS ---
EXAMINATION: MR THORACIC AND LUMBAR SPINE WITHOUT CONTRAST CLINICAL INFORMATION: Pain in right leg. COMPARISON: None TECHNIQUE: Multiplanar multisequence MRI of the thoracic and lumbar spine were performed without contrast. FINDINGS: Thoracic spine: The thoracic vertebral bodies maintain normal heights and alignment. There is levoscoliotic curvature within the mid thoracic spine and dextroscoliotic curvature at the thoracolumbar junction. There is mild disc height loss which is accentuated along the inner margin of the curvature. There is no bone marrow edema. The thoracic cord signal appears normal. Several prominent perineural cysts are noted bilaterally. There is no significant disc herniation. The spinal canal is patent. No cord compression is seen. There is no significant narrowing of the neural foramina. The imaged extraspinal soft tissues are unremarkable. Lumbar spine: The lumbar vertebral bodies maintain normal heights. There is dextroscoliotic curvature at the thoracolumbar junction and levoscoliotic curvature at the lumbosacral junction. There is multilevel intervertebral disc height loss most significantly at L3-L4 and L4-L5, accentuated along the inner margins of the curvature. Subchondral endplate edema seen at L3-L4 and L4-L5. The distal spinal cord appears normal. The conus medullaris terminates normally at the L2 level. The extraspinal soft tissues are within normal limits. L1-L2: Right-sided foraminal/extraforaminal fissuring. No spinal canal or neural foraminal stenosis. L2-L3: Mild disc bulging with mild facet arthropathy. No spinal canal stenosis. No neural foraminal stenosis. L3-L4: Disc bulging with facet arthropathy resulting in mild narrowing of the right subarticular zone. Mild to moderate right and mild left neural foraminal stenosis. No spinal canal stenosis. L4-L5: Disc bulging with moderate right facet arthropathy. Moderate right neural foraminal stenosis with compression of the exiting right L4 nerve root. No spinal canal stenosis. L5-S1: Disc bulging with severe facet arthropathy. Prominent osteophytic ridging contacts the extraforaminal right L5 nerve root segment. Moderate right neural foraminal stenosis with abutment of the exiting right L5 nerve root. MR/MR thoracic spine wo con IMPRESSION: Thoracic spine: Mild degenerative spondylosis without significant narrowing of the spinal canal or neural foramina. Normal cord signal. Lumbar spine: Multilevel degenerative spondylosis without significant narrowing of the spinal canal. At L3-L4 there is mild to moderate right neural foraminal stenosis. At L4-L5 there is moderate right neural foraminal stenosis with compression of the exiting right L4 nerve root. At L5-S1 there is osteophytic ridging contacting the extraforaminal right L5 nerve root segment and moderate right-sided neural foraminal stenosis.
== END 2021-11-05 13:02 | disposition home or self-care (01) ==
LOC: HO.MRI 13:01
PROVIDERS: Visit Provider Nurse Practitioner Family
DX: M25.69 Stiffness of other specified joint, not elsewhere classified (principal); M79.605 Pain in left leg; M79.604 Pain in right leg
CPT/HCPCS: 72146; 72148

== ENCOUNTER 2021-11-17 11:42 | Outpatient (REF) | payer OTHER, SELFPAY ==
--- NOTE | ~2021-11-17 | XR_ITS ---
EXAMINATION: XR LUMBOSACRAL SPINE WITH OBLIQUES CLINICAL INFORMATION: M25.69 - Stiffness of other specified joint, not elsewhere classified COMPARISON: MR lumbar spine 11/05/2021, radiographs lumbar spine 10/06/2021. TECHNIQUE: Lumbar spine is imaged in 7 views including lateral projections in flexion and extension. FINDINGS: There is prominent dextrocurvature lumbar spine with straightening of the lumbar lordosis. There are multilevel degenerative disc changes with disc narrowing and variable lumbar vertebral body spurring. There is multilevel facet degeneration. Disc narrowing greatest L4-L5 and L5-S1. There is no vertebral compression or destructive process. There is borderline spondylolisthesis at L2 on L3 which is similar between flexion and extension. No instability with flexion or extension. No spondylolysis. The SI joints and visualized sacrum are unremarkable. XR/XR lumbar spine 6V w bending IMPRESSION: -Prominent dextrocurvature with multilevel degenerative disc and degenerative facet changes. -Borderline grade 0-1 spondylolisthesis L2-L3. No instability with flexion or extension. No spondylolysis.
== END 2021-11-17 11:43 | disposition home or self-care (01) ==
LOC: HO.XRAY 11:42
PROVIDERS: Absent Provider Internal Medicine Rheumatology; PCP Internal Medicine; Visit Provider Internal Medicine
DX: M25.69 Stiffness of other specified joint, not elsewhere classified (principal)
CPT/HCPCS: 72114

== ENCOUNTER 2021-12-02 15:43 | Outpatient (REF) | payer OTHER, SELFPAY ==
--- NOTE | ~2021-12-02 | MM_ITS ---
EXAMINATION: MM SCREENING DIGITAL BREAST TOMOSYNTHESIS, BILATERAL CLINICAL INFORMATION: Screening. Asymptomatic. Family history breast cancer, sister. The lifetime risk of breast cancer based on the Tyrer-Cuzick Model is 9%. COMPARISON: Mammography: 12/01/2020, 10/25/2019, 10/19/2018, 10/12/2017, 10/11/2016 TECHNIQUE: Digital breast tomosynthesis is performed in both the craniocaudal and mediolateral oblique views along with computer-aided detection (CAD). Synthesized 2D images are generated from the tomosynthesis. FINDINGS: There are scattered areas of fibroglandular density (ACR BI-RADS breast composition Category b). Parenchymal pattern is similar to prior studies and there is no interval mass or developing density or architectural abnormality. Smooth nodular asymmetry medial periareolar left breast on CC view is stable from prior studies. There are no abnormal calcifications. The axilla and skin contours are unremarkable. No significant changes. MM/MM tomosynthesis screening BI IMPRESSION: No mammographic evidence of malignancy. ASSESSMENT: BI-RADS 2: Benign RECOMMENDATION: Routine annual mammography screening. This patient's information was entered into a reminder system with a target due date for their next mammogram.
== END 2021-12-02 15:44 | disposition home or self-care (01) ==
LOC: HO.MAMMO 15:43
PROVIDERS: PCP Internal Medicine; Visit Provider Obstetrics & Gynecology Female Pelvic Medicine and Reconstructive Surgery
DX: Z12.31 Encounter for screening mammogram for malignant neoplasm of breast (principal)
CPT/HCPCS: 77063; 77067

== ENCOUNTER 2022-01-03 12:58 | Outpatient (REF) | payer OTHER, SELFPAY ==
--- NOTE | ~2022-01-03 | US_ITS ---
EXAMINATION: US LOWER EXTREMITY VENOUS (REFLUX EXAM), BILATERAL CLINICAL INDICATION: Chronic venous insufficiency with lower extremity varicose veins COMPARISON: None. TECHNIQUE: Color flow triplex imaging and compression Doppler was performed to evaluate both the deep and the superficial systems bilaterally. To evaluate the superficial system, the examination was performed in the upright position. Color-flow Doppler ultrasound and compression ultrasound were utilized. In addition, maneuvers were utilized to demonstrate reflux. FINDINGS: 1. DEEP VENOUS ULTRASOUND OF THE RIGHT LOWER EXTREMITY: Common Femoral Vein: Compressible, normal respiratory variation and augmented flow. Femoral Vein: Compressible, normal color flow and augmentation. Popliteal Vein: Compressible, normal augmentation. Deep Reflux: There is no evidence of reflux in the deep system in either the common femoral vein or the popliteal vein. There is no evidence of a Markham's cyst. 2. SUPERFICIAL ULTRASOUND WITH DOPPLER OF RIGHT LOWER EXTREMITY: GREAT SAPHENOUS VEIN: Saphenofemoral Junction: 0.8 cm; Reflux: 0 ms Proximal Thigh: 0.6 cm; Reflux: 0 ms Mid Thigh: 0.6 cm; Reflux: 1252 ms Above Knee: 0.5 cm; Reflux: 0 ms At Knee: 0.5 cm; Reflux: 0 ms Below Knee: 0.5 cm; Reflux: 0 ms Mid Calf: 0.4 cm; Reflux: 0 ms Ankle: 0.3 cm; Reflux: 2648 ms DUPLICATED MEDIAL GREAT SAPHENOUS VEIN: Diameter: 0.4 cm Reflux: None DUPLICATED LATERAL GREAT SAPHENOUS VEIN: Diameter: 0.4 cm Reflux: None SMALL SAPHENOUS VEIN: Proximal: 0.3 cm; Reflux: 0 ms Distal: 0.2 cm; Reflux: 0 ms VEIN OF GIACOMINI: None Imaged. PERFORATORS: Location: None Imaged Size: NA Reflux: NA VARICOSITIES: Location: None significant Size: NA Reflux: NA 3. DEEP VENOUS ULTRASOUND OF THE LEFT LOWER EXTREMITY: Common Femoral Vein: Compressible, normal respiratory variation and augmented flow. Femoral Vein: Compressible, normal color flow and augmentation. Popliteal Vein: Compressible, normal augmentation. Deep Reflux: There is no evidence of reflux in the deep system in either the common femoral vein or the popliteal vein. There is no evidence of a Markham's cyst. 4. SUPERFICIAL ULTRASOUND WITH DOPPLER OF LEFT LOWER EXTREMITY: GREAT SAPHENOUS VEIN: Saphenofemoral Junction: 0.7 cm; Reflux: 0 ms Proximal Thigh: 0.7 cm; Reflux: 0 ms Mid Thigh: 0.4 cm; Reflux: 0 ms Above Knee: 0.5 cm; Reflux: 0 ms At Knee: 0.5 cm; Reflux: 0 ms Below Knee: 0.4 cm; Reflux: 0 ms Mid Calf: 0.3 cm; Reflux: 0 ms Ankle: 0.2 cm; Reflux: 0 ms DUPLICATED MEDIAL GREAT SAPHENOUS VEIN: Diameter: None Imaged Reflux: NA DUPLICATED LATERAL GREAT SAPHENOUS VEIN: Diameter: 0.3 cm Reflux: None SMALL SAPHENOUS VEIN: Proximal: 0.2 cm; Reflux: 0 ms Distal: 0.2 cm; Reflux: 0 ms VEIN OF GIACOMINI: None Imaged. PERFORATORS: Location: Calf Size: 0.2 cm Reflux: None VARICOSITIES: Location: None Imaged Size: NA Reflux: NA US/US venous duplex LE BI IMPRESSION: Right: Focal areas of reflux seen in the right great saphenous vein in the mid thigh and ankle. No significant varicose veins Left: No significant superficial venous reflux in the left lower extremity
== END 2022-01-03 12:59 | disposition home or self-care (01) ==
LOC: HO.US 12:58
PROVIDERS: Visit Provider Surgery Vascular Surgery
DX: I83.12 Varicose veins of left lower extremity with inflammation (principal)
CPT/HCPCS: 93970

== ENCOUNTER 2022-01-19 07:18 | Outpatient (REF) | payer OTHER, SELFPAY ==
[2022-01-19 07:56] LABS: MANUAL DIFF FLAG NO
[2022-01-19 08:11] LABS: Basophils Absolute Auto 0.1 X10*3/uL (0.0-0.2); Basophils Percent Auto 1.2 % (0-2); Eosinophils Absolute Auto 0.2 X10*3/uL (0.0-0.4); Eosinophils Percent Auto 2.7 % (0-4); Imm Gran Abs Auto 0.06 X10*3/uL (0.00-0.03); Imm Gran Pct Auto 0.7 % (0.0-0.4); Lymphocytes Absolute Auto 2.9 X10*3/uL (1.2-4.9); Lymphocytes Percent Auto 33.4 % (20-40); Mean Corpuscular HGB Conc 33.3 g/dl (31.0-35.0); Mean Corpuscular Volume 86.9 fL (80.0-98.0); Mean Platelet Volume 9.9 fL (9.4-12.3); Monocytes Absolute Auto 0.8 X10*3/uL (0.1-1.2); Monocytes Percent Auto 9.1 % (2-11); Neutrophils Absolute Auto 4.6 x10*3/uL (2.0-8.3); Neutrophils Percent Auto 52.9 % (45-73); Platelet Count 278 X10*3/uL (160-400); Red Blood Count 5.18 X10*6/uL (4.20-5.50); Red Cell Distribution Width 12.9 % (11.0-16.0); White Blood Count 8.7 X10*3/uL (4.8-10.8)
[2022-01-19 08:42] LABS: Alanine Aminotransferase 23 U/L (0-31); Albumin Level 4.7 g/dL (3.5-5.0); Alkaline Phosphatase 67 U/L (39-117); Anion Gap 11 (12-20); Aspartate Amino Transferase 25 U/L (5-31); Blood Urea Nitrogen 17 mg/dL (9-16); C Reactive Protein 0.13 mg/dL (< or = 0.50); Calcium 9.6 mg/dL (8.4-10.2); Carbon Dioxide 27 mmol/L (22-29); Chloride 105 mmol/L (96-108); Cholesterol 145 mg/dL; Estimated Glomerular Filt Rate > 60; Glucose Random 94 mg/dL (60-115); HDL Cholesterol 63 mg/dL; LDL Cholesterol Calculated 65 mg/dl; Potassium 4.2 mmol/L (3.3-5.1); Sodium 139 mmol/L (135-145); Total Protein 7.3 g/dL (6.5-8.0); Triglycerides 88 mg/dL
[2022-01-19 08:54] LABS: Erythrocyte Sedimentation Rate 5 MM/HR (0-20)
[2022-01-19 08:57] LABS: Thyroid Stimulating Hormone 1.79 uIU/mL (0.32-4.0); Vitamin D 25-OH Total 41.6 ng/mL (>30)
[2022-01-19 09:27] LABS: Bilirubin Total 1.1 mg/dL (0.0-1.0); Free T4 (Free Thyroxine) 1.17 ng/dL (0.71-1.85)
[2022-01-19 09:30] LABS: Folate 17.3 ng/mL (> or = 4.0); Vitamin B12 555 pg/mL (200-900)
== END 2022-01-19 07:19 | disposition home or self-care (01) ==
LOC: HO.LAB 07:18
PROVIDERS: PCP Internal Medicine; Visit Provider Internal Medicine
DX: E78.00 Pure hypercholesterolemia, unspecified (principal)
CPT/HCPCS: 36415; 80053; 80061; 82306; 82607; 82746; 84439; 84443; 85025; 85652; 86140

== ENCOUNTER → 2022-01-27 10:53 | Outpatient (BNVA) | payer OTHER, SELFPAY | PROVIDERS: PCP Internal Medicine; Visit Provider Dietitian, Registered | DX: E66.9 Obesity, unspecified (principal) | CPT/HCPCS: 97802 ==

== ENCOUNTER → 2022-02-09 07:23 | Outpatient (REF) | payer OTHER, SELFPAY ==
--- NOTE | 2022-02-09 07:27 | HM_ITS ---
* Total monitoring time 3 days. * Underlying rhythm is sinus. Average ventricular rate 78/Min. Range 56 to 121/Min. * No significant bradycardia or pauses. * Rare PACs and PVCs. * No sustained arrhythmias. * No events in patient diary. MTDD
== END ==
LOC: HO.CARD 07:23
PROVIDERS: PCP Internal Medicine; Visit Provider Nurse Practitioner Family
DX: R00.2 Palpitations (principal)
CPT/HCPCS: 93242

== ENCOUNTER 2022-02-09 11:00 | Outpatient (RCR) | payer OTHER, SELFPAY ==
--- NOTE | 2021-12-29 11:58 | MHC.PT.EP ---
[facility] [place] Office [place] Office [place] Office [address] Radha Llanos [address] [phone] F: [phone] F: [phone] F: [phone] F: [phone] Physical Therapy Plan of Care Date of Evaluation: Date of Surgery: Diagnosis: intervertebral disc disorders with radiculopathy, lumbar region core strengthening for LBP Assessment: 66 y/o LHD female referred to PT with LBP. She has a PMH significant for scoliosis, osteopenia, , and asthma. REcent MRI shows disc herniations impacting L4 and L5 nerve roots. Currently she reports most pain and difficulty with sleeping, standing, and lifting. Examination shows decreased postural awareness, scoliosis, decreased hip/core strength, decreased hip/lumbar AROM, and increased pain. S/s consistent with lumbar derangement and poor lumbar stability. Recommend PT 2x/week for 6 weeks to address impairments, implement HEP, and optimize functional mobility. Frequency and Duration: The patient will be seen 2x/week for 6 weeks Short Term Goals: 3 weeks 1. Compliant with HEP 2. Demonstrate proper TrA activation without cues in hooklying to faciliate decrease in back pain 3. Reports 50% decrease in back pain with standing and lifting Usp Goals: 6 weeks Pt I with HEP and self management of sx Improve Oswestry to < 12/50 demonstrating improved funcitonal status (IR 17/50) Pt will be able to stand to wash dishes with pain < 3/10 Treatment Plan: Modalities to reduce pain, spasms and effusion. Manual therapy to restore motion and function. Therapeutic exercise to improve strength and flexibility. Neuromuscular re-education for posture and balance. Therapeutic activities to return to functional activities of daily living. Electronically signed by: Amina Berman PT Please sign and return to therapist. Thank you for your referral.
--- NOTE | 2022-02-09 11:55 | MHC.PT.DC ---
[facility] [place] Office [place] Office [place] Office [address] Radha Llanos [address] [phone] F: [phone] F: [phone] F: [phone] F: [phone] Physical Therapy Discharge Report Diagnosis: intervertebral disc disorders with radiculopathy, lumbar region core strengthening for LBP Date of Surgery: Date of Evaluation: 12/29/21 Date of Discharge: 02/09/22 Treatments to Date: 6 Cancellations to Date: 0 No Shows to Date: 0 Discharge Status: Improved Function Independent with HEP Discharge Summary: We reviewed HEP and minimal corrections needed for correct MERCY technique. SHe demonstrates improved TrA activation as well as less pain overall, however she still gets pain with prolonged standing. Placing a foot on a step stool has helped decreased pain with washing dishes but if she does not have the stool, pain returns. Discussed importance of continuing with HEP and performing counter stretch when she needs to be standing for prolonged periods. Oswestry has improved to 8/50 from 17. No further questions at this time and she is appropriate for d/c. Electronically signed by: Amina Berman PT Please sign and return to therapist. Thank you for your referral.
== END 2022-02-09 11:55 | disposition home or self-care (01) ==
LOC: HO.PT 11:00
PROVIDERS: Visit Provider Internal Medicine
DX: M51.16 Intervertebral disc disorders with radiculopathy, lumbar region (principal)
CPT/HCPCS: 97014; 97110; 97112; 97162

== ENCOUNTER → 2022-02-22 11:11 | Outpatient (BNVA) | payer OTHER, SELFPAY | PROVIDERS: PCP Internal Medicine; Referring Provider Internal Medicine; Visit Provider Internal Medicine Cardiovascular Disease | DX: Z13.89 Encounter for screening for other disorder (principal) ==

== ENCOUNTER → 2022-02-25 09:54 | Outpatient (BNVA) | payer OTHER, SELFPAY | PROVIDERS: PCP Internal Medicine; Visit Provider Internal Medicine | DX: M51.16 Intervertebral disc disorders with radiculopathy, lumbar region (principal) ==

== ENCOUNTER → 2022-03-02 09:00 | Outpatient (REF) | payer OTHER, SELFPAY ==
--- NOTE | 2022-03-02 09:03 | CA_ITS ---
Acquisition Time: 2022-03-02 09:13:17 Total Exercise Time: 00:06:19 Test Indications: I25.10 Medications: See H Protocol: GENE Max HR: 153 BPM 100% of Pred: 153 BPM Max BP: 162/090 mmHG Max Work Load: 7.4 METS Exercise stress test with exercise 6 min 19 sec of Gene protocol, achieving 100% MPHR, with mild sob, no chest discomfort, with islated PACs and atrial cuplets, with normotensive response to exercise, without EKG changes meeting criteria for ischemia. Test reviewed with Dr Almendarez Referred By: Jose Almendarez Overread By: YADY KRISHNA
== END ==
LOC: HO.CARD 09:00
PROVIDERS: PCP Internal Medicine; Visit Provider Internal Medicine Cardiovascular Disease
DX: I25.10 Atherosclerotic heart disease of native coronary artery without angina pectoris (principal)
CPT/HCPCS: 93017

== ENCOUNTER → 2022-04-15 10:40 | Outpatient (BNVA) | payer OTHER, SELFPAY | PROVIDERS: PCP Internal Medicine; Visit Provider Internal Medicine | DX: M47.816 Spondylosis without myelopathy or radiculopathy, lumbar region (principal); M25.69 Stiffness of other specified joint, not elsewhere classified; M41.9 Scoliosis, unspecified | CPT/HCPCS: 64450 ==

== ENCOUNTER → 2022-05-06 09:10 | Outpatient (BNVA) | payer OTHER, SELFPAY | PROVIDERS: PCP Internal Medicine; Visit Provider Internal Medicine | DX: Z13.89 Encounter for screening for other disorder (principal) ==

== ENCOUNTER 2022-06-15 05:56 | Outpatient (REF) | payer OTHER, SELFPAY ==
--- NOTE | ~2022-06-15 | FL_ITS ---
EXAMINATION: XR FLUOROSCOPY WITH IMAGES CLINICAL INFORMATION: M53.3 - Sacrococcygeal disorders, not elsewhere classified COMPARISON: Radiographs lumbar spine 11/17/2021 TECHNIQUE: Fluoroscopy Supervised By: Dr. Reed Sauceda. Fluoroscopy Time: 0.1 minutes. Cumulative Dose: 1.80 mGy. DAP: 0.178 Gycm2. Images: 2. FINDINGS: Spinal needle overlies mid left SI joint. There are degenerative changes lower lumbar spine with disc narrowing and vertebral spurring. FL/FL guidance in treatment room IMPRESSION: Fluoroscopy for pain management procedure.
== END 2022-06-15 05:57 | disposition home or self-care (01) ==
LOC: CF 05:56
PROVIDERS: Visit Provider Internal Medicine
DX: M53.3 Sacrococcygeal disorders, not elsewhere classified (principal)
CPT/HCPCS: 27096; J1040; J2795; Q9965

== ENCOUNTER → 2022-06-29 09:52 | Outpatient (BNVA) | payer OTHER, SELFPAY | PROVIDERS: PCP Internal Medicine; Visit Provider Neurological Surgery ==

== ENCOUNTER → 2022-07-15 08:14 | Outpatient (BNVA) | payer OTHER, SELFPAY | PROVIDERS: PCP Internal Medicine; Visit Provider Internal Medicine ==

== ENCOUNTER 2022-08-17 07:43 | Outpatient (REF) | payer OTHER, SELFPAY ==
--- NOTE | ~2022-08-17 | FL_ITS ---
EXAMINATION: XR FLUOROSCOPY WITH IMAGES CLINICAL INFORMATION: Pain COMPARISON: None available. TECHNIQUE: Fluoroscopy Supervised By: Dr. Sauceda. Fluoroscopy Time: 0.5 minutes. Cumulative Dose: 9.60 mGy. DAP: 0.912 Gycm2. Images: 4. FINDINGS: Sequential imaging demonstrates needle placement. The Lumbosacral junction of bilateral pedicles. FL/FL guidance in treatment room IMPRESSION: Fluoroscopy for pain management procedure.
== END 2022-08-17 07:44 | disposition home or self-care (01) ==
LOC: CF 07:43
PROVIDERS: PCP Internal Medicine; Visit Provider Internal Medicine
DX: M47.816 Spondylosis without myelopathy or radiculopathy, lumbar region (principal)
CPT/HCPCS: 64493; 64494; J1040

== ENCOUNTER 2022-08-30 11:00 | Outpatient (RCR) | payer OTHER, SELFPAY | END 2022-10-06 09:36 | disposition home or self-care (01) | LOC: HO.PT 11:00 | PROVIDERS: PCP Internal Medicine; Visit Provider Internal Medicine | DX: M53.3 Sacrococcygeal disorders, not elsewhere classified (principal); M51.16 Intervertebral disc disorders with radiculopathy, lumbar region; M47.816 Spondylosis without myelopathy or radiculopathy, lumbar region | CPT/HCPCS: 97110; 97140; 97162; 97530 ==

== ENCOUNTER 2022-09-14 08:56 | Day surgery (SDC) | payer OTHER, SELFPAY ==
--- NOTE | ~2022-09-14 | FL_ITS ---
EXAMINATION: XR FLUOROSCOPY WITH IMAGES CLINICAL INFORMATION: L3 medial branch SPRINT, right. COMPARISON: None available. TECHNIQUE: Fluoroscopy Supervised By: Dr. Reed Sauceda. Fluoroscopy Time: 0.2 minutes. Cumulative Dose: 2.74 mGy. DAP: 0.424 Gycm2. Images: 2. FINDINGS: Images demonstrate needle placement and wire projecting over the right posterior lateral lower lumbar spine overlying L5 and S1 FL/FL guidance in OR IMPRESSION: Fluoroscopic guidance for pain management procedure.
[2022-09-14 09:15] VITALS: BMI 29.7
[2022-09-14] MEDS: LORazepam 1 MG TABLET PO (09:37)
[2022-09-14 09:53] VITALS: BP 150/73; PULSE 71; RESP 18; TEMP 36.6; O2SAT 99
--- NOTE | 2022-09-14 09:59 | MHC.SHP ---
Pre-Procedural Eval Section A Date of Service: 09/14/22 The patient is an INPATIENT: No Changes since office visit: Yes Patient answered all questions The History & Physical has been completed within 30 days and I have reviewed it.: No Section B Chief Complaint: Spondylosis, lumbar, intractable back pain Relevant Family History (Specify if Yes): No Relevant Social History: Other (specify) Present Medications: see Short Stay Collaborative assessment Medical History: No relevant PMH History of Previous Operations: No relevant previous surgery Allergies: Allergies Allergy/AdvReac Type Severity Reaction Status Date / Time cefaclor [From Ceclor] Allergy Severe RASH & Verified 08/17/22 07:55 HIVES ibuprofen [Ibuprofen] Allergy Severe HIVES Verified 08/17/22 07:55 NSAIDS (Non-Steroidal Allergy Severe HIVES Verified 08/17/22 07:55 Anti-Inflamma [Nsaids] propantheline Allergy Severe HIVES Verified 08/17/22 07:55 [From Pro-Banthine] aspirin [Aspirin] Allergy Unknown HIVES Verified 08/17/22 07:55 Review of Systems Sugical H&P ROS: Negative: Constitution, Cardiovascular and Respiratory Exam Surgical H&P Exam: Normal: HEENT, Normal: Heart and Normal: Lungs Plan Diagnosis/Plan: Unchanged I have reviewed the history and physical and performed a pertinent physical examination on my patient. No changes have occurred unless specified. Proceed with right temporary L3 medial branch nerve stimulator placement. Time Spent With Patient Time: Total time managing care of this patient today ____ minutes.
--- NOTE | 2022-09-14 10:00 | P.BOP_ITS ---
Brief Operative Note Date of Service: 09/14/22 Pre-op diagnosis: Lumbar spondylosis, intractable low back pain Post-op diagnosis: same Procedure: Temporary right L4 medial branch nerve stimulator placement Implants: Sprint temporary PNS system Surgeon: Reed Sauceda MD Anesthesia: local Was an Advertising Production Manager used for this Procedure?: No Estimated blood loss (mL): 1 Pathology: none sent Condition: stable Disposition: same day
--- NOTE | 2022-09-14 10:00 | W.PM.OPN ---
Operative Note Operative Note Date of Service: 09/14/22 Narrative: Lumbar Medial Branch Nerve Stimulation Lead Placement, SPR (Sprint) System, right L4 ? After the risks, benefits and alternatives were discussed with the patient and informed consent was obtained, patient was placed in the prone position and padded to foster comfort. The skin overlying the lumbosacral spine was prepped and draped in sterile fashion. Fluoroscopy was used to identify the spinous process and lamina in the center of the patient?s region of pain. After identifying and marking the intended target along the course of the medial branch nerve, the skin around the planned entry point and the subcutaneous tissues were injected with lidocaine 1%. An introducer needle and stimulating probe were assembled, inserted and advanced along the intended course of the medial branch nerve as it traverses the lamina medial and inferior to the zygapophyseal joint, taking care to maintain the proper depth of insertion as the introducer is advanced under fluoroscopic guidance. The introducer needle was delivered to a location in proximity to the nerve. Multiple stimulation parameters were used to deliver stimulation to the target medial branch nerve in concert with stimulating at multiple positions around the nerve. Nerve target acquisition was confirmed noting generation of paresthesias in the paravertebral regions corresponding to the level being stimulated. Various electrical parameter combinations were tested, and the lead location was adjusted (physically relocated) until the patient indicated paresthesia/muscle tension overlapping the distribution of the patient?s typical region of pain. The introducer needle was first placed at the right L3 medial branch followed by the right L4 medial branch. The patient endorsed more comprehensive coverage of her usual pain at the right L4 level. The stimulating probe was removed from the introducer and a percutaneous lead was guided through the needle and delivered to a location in similar proximity to the right L4 nerve. Final location was verified with electrical stimulation and documented with fluoroscopy. The introducer needle was removed, and the exposed end of the percutaneous lead was attached to an external stimulator unit. Various electrical parameter combinations were again tested until the patient indicated paresthesia or muscle tension overlapping the distribution of the patient?s typical region of pain. After confirming that lead impedance was in the normal range, the external unit was detached, the needle was removed, and the lead was anchored at the skin. The lead was threaded into the connector block and electrical continuity and desired patient response was confirmed. The connector block was attached to the external stimulator unit. The site was covered with a sterile occlusive dressing. The patient was observed for stability of vital signs and comfort.
[2022-09-14 10:45] VITALS: BP 129/74; PULSE 63; RESP 16; TEMP 37.4; O2SAT 97
== END 2022-09-14 11:23 | disposition home or self-care (01) ==
PROVIDERS: PCP Internal Medicine; Visit Provider Internal Medicine
PROC: (CPT 64555; principal; 2022-09-14 10:30)
DX: M47.816 Spondylosis without myelopathy or radiculopathy, lumbar region (principal); G89.4 Chronic pain syndrome; I25.10 Atherosclerotic heart disease of native coronary artery without angina pectoris; I10 Essential (primary) hypertension; J45.909 Unspecified asthma, uncomplicated; G47.33 Obstructive sleep apnea (adult) (pediatric); Z88.1 Allergy status to other antibiotic agents; Z88.8 Allergy status to other drugs, medicaments and biological substances
CPT/HCPCS: 64555; C1778

== ENCOUNTER → 2022-09-14 08:56 | Outpatient (BNV) | payer OTHER, SELFPAY | PROVIDERS: PCP Internal Medicine; Visit Provider Internal Medicine | DX: M47.816 Spondylosis without myelopathy or radiculopathy, lumbar region (principal) | CPT/HCPCS: 64555 ==

== ENCOUNTER 2022-09-19 08:17 | Outpatient (AMB) | payer OTHER, SELFPAY ==
--- NOTE | 2022-09-19 08:24 | MHC.OFFVIS ---
Intake Vital Signs 09/19/22 08:25 Height 5 ft 1.5 in Weight 160 lb BMI 29.7 BP 185/92 H Blood Pressure Location Lt brachial Position Sitting Respiration 14 Pulse 74 Pulse Source Pulse Oximeter Pulse Oximetry (%) 93 Oxygen Delivery Method Room Air Intake Visit Reasons: s/p arlet facet/ Right L3 Sprint Allergies cefaclor [From Ceclor] Allergy (Severe, Verified 09/19/22 08:26) RASH & HIVES ibuprofen [Ibuprofen] Allergy (Severe, Verified 09/19/22 08:26) HIVES NSAIDS (Non-Steroidal Anti-Inflamma [Nsaids] Allergy (Severe, Verified 09/19/22 08:26) HIVES propantheline [From Pro-Banthine] Allergy (Severe, Verified 09/19/22 08:26) HIVES aspirin [Aspirin] Allergy (Unknown, Verified 09/19/22 08:26) HIVES Medication List - Last Reconciled 09/19/22 by Gisele Torres LPN cholecalciferol (vitamin D3) 25 mcg PO DAILY levothyroxine 50 mcg PO QAM loratadine (Claritin) 10 mg PO DAILY metoprolol succinate ER 37.5 mg (1.5 x 25 mg) PO DAILY 90 days multivitamin 1 tab PO DAILY omeprazole 20 mg PO DAILY penciclovir 1% (Denavir) 1 appl topical Q2H PRN rosuvastatin 5 mg PO DAILY HPI s/p arlet facet/ Right L3 Sprint HPI Details 66-year-old female presenting today for a status post bilateral facet injection and Right L3 Sprint. The patient reports excellent relief following the procedure the next day which has since worn off. She keeps the device functional for about 12 hours a day. She changed the dressing the day at home. She endorses appropriate paresthesia coverage at an intensity of 58. She noticed a mild pressure sensation from the device. The paresthesia in her lower back and upper thighs region becomes more unbearable if she increases the device intensity. Past procedures: 09/14/22: Lumbar Medial Branch Nerve Stimulation Lead Placement, SPR (Sprint) System, right L4: Therapy ongoing 08/17/22: Lumbar Intra-articular Facet Injections, Bilateral, L4/L5, L5/S1: More than 70% relief for 3 weeks 06/15/2022: Sacroiliac Joint Injection, Left: 90% relief. 04/15/2022: Left middle cluneal nerve block, ultrasound-guided- >70% relief for 2 weeks. [facility] Medical History (Updated 07/21/22 @ 15:55 by Glory Varghese MD) Asthma CAD (coronary artery disease) Chronic allergic rhinitis Diverticular disease Has daytime drowsiness HTN (hypertension) Hyperlipidemia Hypothyroid Meniere disease MGUS (monoclonal gammopathy of unknown significance) Nocturnal hypoxia ELLIOT (obstructive sleep apnea) Osteopenia Pulmonary nodule, left PVC (premature ventricular contraction) SVT (supraventricular tachycardia) Surgical History History of cholecystectomy History of endometrial ablation History of laparotomy Hx of section Hx of colonoscopy Family History Father CVD (cardiovascular disease) Mother No problems noted. Brother CVD (cardiovascular disease) Sister Breast cancer Social History Household Members: Spouse Housing: House Are you a primary neonatal intensive care unit nurse to a significant other at home: No Do you presently have visiting nurse or other home services: No Alcohol intake: current Alcohol intake frequency: a few times a month Alcohol type: wine Patient Tobacco Use Status: Never used Tobacco e-Cigarette/Vaping Use: Never Used Second Hand Smoke Exposure: No service: No Current occupational status: employed Cognitive needs: No Hearing needs: No Vision needs: Yes Review of Systems Const All systems reviewed & are unremarkable except as noted in HPI and below Physical Exam Vital Signs: Last Vital Signs Pulse 74 09/19/22 08:25 Resp 14 09/19/22 08:25 BP 185/92 H 09/19/22 08:25 Pulse Ox 93 09/19/22 08:25 Oxygen Delivery Method Room Air 09/19/22 08:25 BMI result Body Mass Index 29.7 General: Appears afebrile. Alert and oriented. Mood and affect appropriate. Follows and participates in conversation appropriately. Respiratory effort is unlabored. Able to transition from sit to stand unassisted. Ambulates with bilaterally normal heel strike and toe off. Site is clean, dry and intact. Results Reviewed Results Reviewed: No imaging is available for review. Assessment & Plan Assessment & Plan (1) Lumbar spondylosis: Code(s): M47.816 - Spondylosis without myelopathy or radiculopathy, lumbar region Plan Ordered a lumbar x-ray to assess lead position in setting of loss of efficacy as well as proximal thigh paresthesias. If lead is in position, the patient will follow up in seven weeks for Sprint removal. On evaluation today, the site is clean, dry and intact. The dressing was changed today in the office. Scribed for Dr. Sauceda by Case Metcalf, medical office assistant, on 09/19/2022. I, Dr. Sauceda, have personally reviewed and agree with the information entered by the scribe. Orders: Orders XR lumbar spine 1V Today M47.816 - Spondylosis without myelopathy or radiculopathy, lumbar region Coding Level of Care Code Est Pt Level 3 (00004) Diagnoses Lumbar spondylosis M47.816
[2022-09-19 08:25] VITALS: BP 185/92; PULSE 74; RESP 14; O2SAT 93; BMI 29.7
== END 2022-09-19 09:02 | disposition home or self-care (01) ==
PROVIDERS: PCP Internal Medicine; Visit Provider Internal Medicine
DX: M47.816 Spondylosis without myelopathy or radiculopathy, lumbar region (principal)
CPT/HCPCS: 99024

== ENCOUNTER 2022-09-19 08:17 | Outpatient (REF) | payer OTHER, SELFPAY ==
--- NOTE | ~2022-09-19 | XR_ITS ---
EXAMINATION: XR LUMBOSACRAL SPINE CLINICAL INFORMATION: Lumbar spondylosis without myelopathy. COMPARISON: Lumbar spine radiographs dated 11/17/2021. TECHNIQUE: AP and lateral views of the lumbosacral spine. FINDINGS: There is bony demineralization. There is a marked thoracolumbar rotatory dextroscoliosis. There is mild leftward disc space narrowing at L1-L2 and L2-L3. There is marked disc space narrowing at L3-L4 and L4-L5, with vacuum disc phenomenon. At L5-S1, there is a 4 mm anterolisthesis. No acute fracture or spondylolisthesis is seen. There is multi-level thoracolumbar spondylosis. There is facet arthropathy, most pronounced at L4-L5 and L5-S1. There are right upper quadrant surgical clips. Electrodes overlap the abdomen and pelvis. XR/XR lumbar spine 2-3V IMPRESSION: 1. There is a marked thoracolumbar rotatory dextroscoliosis. 2. There is multi-level thoracolumbar degenerative disc disease and spondylosis. Degenerative disc disease is most pronounced at L3-L4 and L4-L5, where it is severe, with vacuum phenomenon. 3. Facet arthropathy is most pronounced at L4-L5 and L5-S1.
== END 2022-09-19 08:18 | disposition home or self-care (01) ==
LOC: HO.XRAY 08:17
PROVIDERS: PCP Internal Medicine; Visit Provider Internal Medicine
DX: M47.816 Spondylosis without myelopathy or radiculopathy, lumbar region (principal); Z79.899 Other long term (current) drug therapy
CPT/HCPCS: 72100

== ENCOUNTER 2022-10-12 10:28 | Day surgery (SDC) | payer OTHER, SELFPAY ==
[2022-10-10 09:31] VITALS: BMI 29.7
--- NOTE | ~2022-10-12 | FL_ITS ---
INDICATION: Intraoperative fluoroscopy. FLUOROSCOPY: Fluoroscopy Time: 0.3 minutes Dose/air kerma: 6.07 mGy Images saved: 4 FINDINGS: Multiple intraoperative fluoroscopic images are submitted during reported lumbar medial branch block. Correlation with operative report.. Evaluation is limited secondary to fluoroscopic technique. IMPRESSION: Intra-operative fluoroscopic imaging provided by radiology during reported lumbar medial branch block. Please refer to operative note for further information.
[2022-10-12 11:16] VITALS: BP 148/89; PULSE 76; RESP 15; TEMP 37.1; O2SAT 95
[2022-10-12] MEDS: Lactated Ringers 1,000 ML 100 ML IVCONT (11:19)
--- NOTE | 2022-10-12 11:30 | P.CONAN_ITS ---
Documented by User: Cynthia Cedillo NP 10/10/22 13:21 HPI - Anesthesia Eval Consult details Narrative: 67yo F for Left Lumbar three medial branch SPRINT PNS Follows [facility] cardio for palps/SVT. Last seen 02/2022. Stable for 1 year f/u. [facility] Active Problems Active Problems: All Active Problems (Updated 07/21/22 @ 15:55 by Glory Varghese MD) Sacroiliac joint pain (Acute) CAD (coronary artery disease) (Acute) SVT (supraventricular tachycardia) (Acute) Obesity (BMI 30.0-34.9) (Acute) Bilateral leg pain (Acute) Annual physical exam (Acute) Lumbar spondylosis (Acute) Scoliosis deformity of spine (Acute) Intervertebral disc disorder with radiculopathy of lumbar region (Acute) Varicose veins of left lower extremity with inflammation (Acute) Varicose veins of leg with pain (Acute) Bilateral knee pain (Acute) Back stiffness (Acute) Left ankle gives out (Acute) Impacted cerumen, bilateral (Acute) GERD (gastroesophageal reflux disease) (Acute) Hypothyroid (Acute) Annual physical exam (Acute) Oral ulcer (Acute) ELLIOT (obstructive sleep apnea) (Acute) Nocturnal hypoxia (Acute) Chronic allergic rhinitis (Acute) Has daytime drowsiness (Acute) Hypersomnia (Acute) Proteinuria (Acute) Petechial rash (Acute) MGUS (monoclonal gammopathy of unknown significance) (Acute) Cough (Acute) Palpitations (Acute) SVT (supraventricular tachycardia) (Acute) PVC (premature ventricular contraction) (Acute) Hyperlipidemia (Acute) HTN (hypertension) (Acute) Past Medical History Medical History Asthma CAD (coronary artery disease) Chronic allergic rhinitis Diverticular disease GERD (gastroesophageal reflux disease) Has daytime drowsiness HTN (hypertension) Hyperlipidemia Hypothyroid Meniere disease MGUS (monoclonal gammopathy of unknown significance) Nocturnal hypoxia ELLIOT (obstructive sleep apnea) Osteopenia Pulmonary nodule, left PVC (premature ventricular contraction) SVT (supraventricular tachycardia) Family History Family History Father CVD (cardiovascular disease) Mother No problems noted. Brother CVD (cardiovascular disease) Sister Breast cancer Surgical History Surgical History History of cholecystectomy History of endometrial ablation History of laparotomy Hx of section Hx of colonoscopy Social History Social History Household Members: Spouse Housing: House Are you a primary daytime caregiver to a significant other at home: No Do you presently have visiting nurse or other home services: No Alcohol intake: current Alcohol intake frequency: a few times a month Alcohol type: wine Patient Tobacco Use Status: Never used Tobacco e-Cigarette/Vaping Use: Never Used Second Hand Smoke Exposure: No Use of substances other than those prescribed or required for medical reasons: No Are you DNR?: No Advance Directives: No Advance Directives Information Provided: Yes service: No Current occupational status: employed Cognitive needs: No Hearing needs: No Vision needs: Yes Meds Allergies Allergy/AdvReac Type Severity Reaction Status Date / Time cefaclor [From Ceclor] Allergy Severe RASH & Verified 10/12/22 10:43 HIVES NSAIDS (Non-Steroidal Allergy Severe HIVES Verified 10/12/22 10:43 Anti-Inflamma [Nsaids] propantheline Allergy Severe HIVES Verified 10/12/22 10:43 [From Pro-Banthine] aspirin [Aspirin] Allergy Unknown HIVES Verified 10/12/22 10:43 Home Medications Medication Instructions Recorded Confirmed Last Taken Type penciclovir 1 % topical cream 1 appl topical Q2H PRN Cold Sores 01/26/21 10/12/22 Unknown History (Denavir) omeprazole 20 mg capsule,delayed 20 mg PO DAILY 05/05/21 10/12/22 Unknown History release multivitamin 1 tab PO DAILY 11/15/21 10/12/22 Unknown History cholecalciferol (vitamin D3) 25 25 mcg PO DAILY 01/13/22 10/12/22 Unknown History mcg (1,000 unit) capsule loratadine 10 mg tablet (Claritin) 10 mg PO DAILY 01/20/22 10/12/22 10/12/22 07:15 History Exam Exam Date and Time: October 10, 2022 1317 Height,Weight and Vital Signs: Height 5 ft 1.5 in Weight 72.575 kg Narrative Narrative: Exercise Stress 02/2022 Protocol: AURELIANO ? Max HR: 153 BPM? 100% of? Pred: 153 BPM Max BP: 162/090 mmHG Max Work Load: 7.4 METS ? Exercise stress test with exercise 6 min 19 sec of Aureliano protocol, achieving ?100% MPHR, with mild sob, no chest discomfort, with islated PACs and atrial ?cuplets, with normotensive response to exercise, without EKG changes meeting ?criteria for ischemia. Test reviewed with Dr Erickson Britton 01/2022 * Total monitoring time 3 days. * Underlying rhythm is sinus.? Average ventricular rate 78/Min.? Range 56 to 121/Min. * No significant bradycardia or pauses. * Rare PACs and PVCs. * No sustained arrhythmias. * No events in patient diary. Assessment and Plan Assessment Anesthesia Assessment: Chart Reviewed Documented by User: Diamond Stewart DO 10/12/22 11:35 [facility] Past Medical History Medical History Asthma CAD (coronary artery disease) Chronic allergic rhinitis Diverticular disease GERD (gastroesophageal reflux disease) Has daytime drowsiness HTN (hypertension) Hyperlipidemia Hypothyroid Meniere disease MGUS (monoclonal gammopathy of unknown significance) Nocturnal hypoxia ELLIOT (obstructive sleep apnea) Osteopenia Pulmonary nodule, left PVC (premature ventricular contraction) SVT (supraventricular tachycardia) Family History Family History Father CVD (cardiovascular disease) Mother No problems noted. Brother CVD (cardiovascular disease) Sister Breast cancer Family history of problems with anesthesia: No Surgical History Surgical History History of cholecystectomy History of endometrial ablation History of laparotomy Hx of section Hx of colonoscopy History of Problems with Anesthesia: Yes (PONV with GA) Social History Social History Household Members: Spouse Housing: House Are you a primary daytime caregiver to a significant other at home: No Do you presently have visiting nurse or other home services: No Alcohol intake: current Alcohol intake frequency: a few times a month Alcohol type: wine Patient Tobacco Use Status: Never used Tobacco e-Cigarette/Vaping Use: Never Used Second Hand Smoke Exposure: No Use of substances other than those prescribed or required for medical reasons: No Are you DNR?: No Advance Directives: No Advance Directives Information Provided: Yes service: No Current occupational status: employed Cognitive needs: No Hearing needs: No Vision needs: Yes Meds Allergies Allergy/AdvReac Type Severity Reaction Status Date / Time cefaclor [From Ceclor] Allergy Severe RASH & Verified 10/12/22 10:43 HIVES NSAIDS (Non-Steroidal Allergy Severe HIVES Verified 10/12/22 10:43 Anti-Inflamma [Nsaids] propantheline Allergy Severe HIVES Verified 10/12/22 10:43 [From Pro-Banthine] aspirin [Aspirin] Allergy Unknown HIVES Verified 10/12/22 10:43 Home Medications Medication Instructions Recorded Confirmed Last Taken Type penciclovir 1 % topical cream 1 appl topical Q2H PRN Cold Sores 01/26/21 10/12/22 Unknown History (Denavir) omeprazole 20 mg capsule,delayed 20 mg PO DAILY 05/05/21 10/12/22 Unknown History release multivitamin 1 tab PO DAILY 11/15/21 10/12/22 Unknown History cholecalciferol (vitamin D3) 25 25 mcg PO DAILY 01/13/22 10/12/22 Unknown History mcg (1,000 unit) capsule loratadine 10 mg tablet (Claritin) 10 mg PO DAILY 01/20/22 10/12/22 10/12/22 07:15 History Exam Exam Date and Time: October 12, 2022 1130 Height,Weight and Vital Signs: Height 5 ft 1.5 in Weight 72.575 kg Vital Signs Temperature 98.7 F 10/12/22 11:16 Pulse Rate 76 10/12/22 11:16 Respiratory Rate 15 10/12/22 11:16 Blood Pressure 148/89 H 10/12/22 11:16 Pulse Oximetry 95 10/12/22 11:16 Oxygen Delivery Method Room Air 10/12/22 11:16 Temperature 98.7 F 10/12/22 11:16 Pulse Rate 76 10/12/22 11:16 Respiratory Rate 15 10/12/22 11:16 Blood Pressure 148/89 H 08/30/23 11:16 Pulse Oximetry 95 10/12/22 11:16 Oxygen Delivery Method Room Air 10/12/22 11:16 Airway Mallampati Class: I TM Dist: >3cm Neck ROM: Full Loose/Missing/Broken Teeth: No Heart: S1S2 Lungs: CTAB Assessment and Plan Assessment Anesthesia Assessment: Anesthesia Plan Discussed and Chart Reviewed Final Anesthetic Review Family History of Problems with Anesthesia: No History of Problems with Anesthesia: Yes (PONV with GA) NPO: Yes ASA Class: III Final Preanesthetic Review: No Changes in Pt Med Stat, Meds/Allgs Chart Reviewed, Consent Obtained/Reviewed and Anes Risks/Benef Reviewed Patient Risk: Intermediate Procedure Risk: Low Anesthetic Plan Anesthetic Plan: MAC: and Agree w/ Assess. and Plan Disposition: Standard PACU
--- NOTE | 2022-10-12 11:48 | MHC.SHP ---
Pre-Procedural Eval Section A Date of Service: 10/12/22 The patient is an INPATIENT: No Changes since office visit: Yes Patient answered all questions The History & Physical has been completed within 30 days and I have reviewed it.: No Section B Chief Complaint: Spondylosis without myelopathy or radiculopathy, Relevant Family History (Specify if Yes): No Relevant Social History: None Present Medications: see Short Stay Collaborative assessment Medical History: No relevant PMH History of Previous Operations: No relevant previous surgery Allergies: Allergies Allergy/AdvReac Type Severity Reaction Status Date / Time cefaclor [From Ceclor] Allergy Severe RASH & Verified 10/12/22 10:43 HIVES NSAIDS (Non-Steroidal Allergy Severe HIVES Verified 10/12/22 10:43 Anti-Inflamma [Nsaids] propantheline Allergy Severe HIVES Verified 10/12/22 10:43 [From Pro-Banthine] aspirin [Aspirin] Allergy Unknown HIVES Verified 10/12/22 10:43 Review of Systems Sugical H&P ROS: Negative: Constitution, Cardiovascular and Respiratory Exam Surgical H&P Exam: Normal: HEENT, Normal: Heart and Normal: Lungs Plan Diagnosis/Plan: Unchanged I have reviewed the history and physical and performed a pertinent physical examination on my patient. No changes have occurred unless specified. Proceed with left L3 versus L4 medial branch nerve stimulator placement. Time Spent With Patient Time: Total time managing care of this patient today ____ minutes.
--- NOTE | 2022-10-12 11:49 | PM.OP ---
Brief Operative Note Date of Service: 10/12/22 Pre-op diagnosis: Intractable back pain Post-op diagnosis: same Procedure: Temporary left L4 medial branch nerve stimulator placement Surgeon: Reed Sauceda MD Anesthesia: MAC Was an Log Chain Worker used for this Procedure?: No Estimated blood loss (mL): 1 Pathology: none sent Condition: stable Disposition: PACU
[2022-10-12 12:40] VITALS: BP 112/70; PULSE 69; RESP 16; TEMP 36.1; O2SAT 97
[2022-10-12 12:55] VITALS: BP 113/68; PULSE 70; RESP 14; O2SAT 97
--- NOTE | 2022-10-12 12:59 | W.PM.OPN ---
Operative Note Operative Note Date of Service: 10/12/22 Narrative: Lumbar Medial Branch Nerve Stimulation Lead Placement, SPR (Sprint) System, Left L4 ? After the risks, benefits and alternatives were discussed with the patient and informed consent was obtained, patient was placed in the prone position and padded to foster comfort. The skin overlying the lumbosacral spine was prepped and draped in sterile fashion. Fluoroscopy was used to identify the spinous process and lamina in the center of the patient?s region of pain. After identifying and marking the intended target along the course of the medial branch nerve, the skin around the planned entry point and the subcutaneous tissues were injected with lidocaine 1%. An introducer needle and stimulating probe were assembled, inserted and advanced along the intended course of the medial branch nerve as it traverses the lamina medial and inferior to the zygapophyseal joint, taking care to maintain the proper depth of insertion as the introducer is advanced under fluoroscopic guidance. The introducer needle was delivered to a location in proximity to the nerve. Multiple stimulation parameters were used to deliver stimulation to the target medial branch nerve in concert with stimulating at multiple positions around the nerve. Nerve target acquisition was confirmed noting generation of paresthesias in the paravertebral regions corresponding to the level being stimulated. Various electrical parameter combinations were tested, and the lead location was adjusted (physically relocated) until the patient indicated paresthesia/muscle tension overlapping the distribution of the patient?s typical region of pain. The stimulating probe was removed from the introducer and a percutaneous lead was guided through the needle and delivered to a location in similar proximity to the nerve. Final location was verified with electrical stimulation and documented with fluoroscopy. The introducer needle was removed, and the exposed end of the percutaneous lead was attached to an external stimulator unit. Various electrical parameter combinations were again tested until the patient indicated paresthesia or muscle tension overlapping the distribution of the patient?s typical region of pain. After confirming that lead impedance was in the normal range, the external unit was detached, the needle was removed, and the lead was anchored at the skin. The lead was threaded into the connector block and electrical continuity and desired patient response was confirmed. The connector block was attached to the external stimulator unit. The site was covered with a sterile occlusive dressing. The patient was observed for stability of vital signs and comfort.
[2022-10-12 13:10] VITALS: BP 128/69; PULSE 71; RESP 16; TEMP 36.4; O2SAT 98
== END 2022-10-12 13:30 | disposition home or self-care (01) ==
PROVIDERS: PCP Internal Medicine; Visit Provider Internal Medicine
PROC: (CPT 64555; principal; 2022-10-12 12:10)
DX: M47.816 Spondylosis without myelopathy or radiculopathy, lumbar region (principal); I25.10 Atherosclerotic heart disease of native coronary artery without angina pectoris; D47.2 Monoclonal gammopathy; I10 Essential (primary) hypertension; I47.1 Supraventricular tachycardia; H81.09 Meniere's disease, unspecified ear; J45.909 Unspecified asthma, uncomplicated; G47.33 Obstructive sleep apnea (adult) (pediatric); E66.9 Obesity, unspecified; Z68.29 Body mass index [BMI] 29.0-29.9, adult; Z79.899 Other long term (current) drug therapy; Z88.1 Allergy status to other antibiotic agents; Z88.8 Allergy status to other drugs, medicaments and biological substances; Z98.890 Other specified postprocedural states
CPT/HCPCS: 64555; C1778; J2250

== ENCOUNTER → 2022-10-12 10:28 | Outpatient (BNV) | payer OTHER, SELFPAY | PROVIDERS: PCP Internal Medicine; Visit Provider Internal Medicine | DX: M47.816 Spondylosis without myelopathy or radiculopathy, lumbar region (principal) | CPT/HCPCS: 64555 ==

== ENCOUNTER 2022-10-21 08:25 | Outpatient (AMB) | payer OTHER, SELFPAY ==
--- NOTE | 2022-10-21 08:53 | MHC.OFFVIS ---
Intake Vital Signs 10/21/22 09:11 BP 132/84 Blood Pressure Location Rt brachial Position Sitting Respiration 14 Pulse 86 Pulse Source Pulse Oximeter Pulse Oximetry (%) 96 Oxygen Delivery Method Room Air Intake Visit Reasons: s/p Left L3 Sprint Allergies cefaclor [From Ceclor] Allergy (Severe, Verified 10/12/22 10:43) RASH & HIVES NSAIDS (Non-Steroidal Anti-Inflamma [Nsaids] Allergy (Severe, Verified 10/12/22 10:43) HIVES propantheline [From Pro-Banthine] Allergy (Severe, Verified 10/12/22 10:43) HIVES aspirin [Aspirin] Allergy (Unknown, Verified 10/12/22 10:43) HIVES HPI s/p Left L3 Sprint HPI Details 67-year-old female who presents today to the office for a status post left L3 Sprint. The patient reports about 50% relief following the procedure. She states that her pain has improved. She had a fall on the carpeted stairs while climbing. She denies any injuries from the fall. She used to catch the stair railing but failed to do so this time. She suspects that her fall and gait issues are secondary to her knees, ankles, or back. She has also visited Dr. Paiz, who reviewed her imaging. She has been performing back stretching exercises at home. Past procedures: 10/12/22: Lumbar Medial Branch Nerve Stimulation Lead Placement, SPR (Sprint) System, Left L4: 50% relief. 09/14/22: Lumbar Medial Branch Nerve Stimulation Lead Placement, SPR (Sprint) System, right L4: Therapy ongoing 08/17/22: Lumbar Intra-articular Facet Injections, Bilateral, L4/L5, L5/S1: More than 70% relief for 3 weeks 06/15/2022: Sacroiliac Joint Injection, Left: 90% relief. 04/15/2022: Left middle cluneal nerve block, ultrasound-guided- >70% relief for 2 weeks. [facility] Medical History Asthma CAD (coronary artery disease) Chronic allergic rhinitis Diverticular disease GERD (gastroesophageal reflux disease) Has daytime drowsiness HTN (hypertension) Hyperlipidemia Hypothyroid Meniere disease MGUS (monoclonal gammopathy of unknown significance) Nocturnal hypoxia ELLIOT (obstructive sleep apnea) Osteopenia Pulmonary nodule, left PVC (premature ventricular contraction) SVT (supraventricular tachycardia) Surgical History History of cholecystectomy History of endometrial ablation History of laparotomy Hx of section Hx of colonoscopy Family History Father CVD (cardiovascular disease) Mother No problems noted. Brother CVD (cardiovascular disease) Sister Breast cancer Social History Household Members: Spouse Housing: House Are you a primary personal care service provider to a significant other at home: No Do you presently have visiting nurse or other home services: No Alcohol intake: current Alcohol intake frequency: a few times a month Alcohol type: wine Patient Tobacco Use Status: Never used Tobacco e-Cigarette/Vaping Use: Never Used Second Hand Smoke Exposure: No service: No Current occupational status: employed Cognitive needs: No Hearing needs: No Vision needs: Yes Review of Systems Const All systems reviewed & are unremarkable except as noted in HPI and below Physical Exam Vital Signs: Last Vital Signs Pulse 86 10/21/22 09:11 Resp 14 10/21/22 09:11 BP 132/84 10/21/22 09:11 Pulse Ox 96 10/21/22 09:11 Oxygen Delivery Method Room Air 10/21/22 09:11 General: Appears afebrile. Alert and oriented. Mood and affect appropriate. Follows and participates in conversation appropriately. Respiratory effort is unlabored. Able to transition from sit to stand unassisted. Ambulates with bilaterally normal heel strike and toe off. Able to stand on the toes and heels but feels subjectively different on the right side compared to the left side. Site is clean, dry and intact. Results Reviewed Results Reviewed: 09/19/22: XR LUMBOSACRAL SPINE FINDINGS: There is bony demineralization. There is a marked thoracolumbar rotatory dextroscoliosis. There is mild leftward disc space narrowing at L1-L2 and L2-L3. There is marked disc space narrowing at L3-L4 and L4-L5, with vacuum disc phenomenon. At L5-S1, there is a 4 mm anterolisthesis. No acute fracture or spondylolisthesis is seen. There is multi-level thoracolumbar spondylosis. There is facet arthropathy, most pronounced at L4-L5 and L5-S1. There are right upper quadrant surgical clips. Electrodes overlap the abdomen and pelvis. IMPRESSION: 1. There is a marked thoracolumbar rotatory dextroscoliosis. 2. There is multi-level thoracolumbar degenerative disc disease and spondylosis. Degenerative disc disease is most pronounced at L3-L4 and L4-L5, where it is severe, with vacuum phenomenon. 3. Facet arthropathy is most pronounced at L4-L5 and L5-S1. Assessment & Plan Assessment & Plan (1) Lumbar spondylosis: Code(s): M47.816 - Spondylosis without myelopathy or radiculopathy, lumbar region (2) Scoliosis deformity of spine: Code(s): M41.9 - Scoliosis, unspecified (3) Intervertebral disc disorder with radiculopathy of lumbar region: Code(s): M51.16 - Intervertebral disc disorders with radiculopathy, lumbar region Plan The site is clean, dry and intact. Dressing was changed today in the office. We will reach out to Dr. Paiz to discuss limited decompression at the right L3-L4 fragment as possible treatment options to improve back and gait imbalance issues. For time being, the patient can continue gentle exercises at home. Scribed for Dr. Sauceda by Case Metcalf, medical sales consultant, on 10/21/2022. I, Dr. Sauceda, have personally reviewed and agree with the information entered by the scribe. Coding Level of Care Code Est Pt Level 4 (90200) Diagnoses Lumbar spondylosis M47.816 Scoliosis deformity of spine M41.9 Intervertebral disc disorder with radiculopathy of lumbar region M51.16
[2022-10-21 09:11] VITALS: BP 132/84; PULSE 86; RESP 14; O2SAT 96
== END 2022-10-21 09:23 | disposition home or self-care (01) ==
PROVIDERS: PCP Internal Medicine; Visit Provider Internal Medicine
DX: M47.816 Spondylosis without myelopathy or radiculopathy, lumbar region (principal); M41.9 Scoliosis, unspecified; M51.16 Intervertebral disc disorders with radiculopathy, lumbar region
CPT/HCPCS: 99024

== ENCOUNTER → 2022-10-21 08:25 | Outpatient (BNVA) | payer OTHER, SELFPAY | PROVIDERS: PCP Internal Medicine; Visit Provider Internal Medicine ==

== ENCOUNTER → 2022-10-25 10:07 | Outpatient (BNVA) | payer OTHER, SELFPAY | PROVIDERS: PCP Internal Medicine; Visit Provider Nurse Practitioner Family ==

== ENCOUNTER → 2022-10-28 08:29 | Outpatient (BNVA) | payer OTHER, SELFPAY | PROVIDERS: PCP Internal Medicine; Visit Provider Internal Medicine ==

== ENCOUNTER 2022-10-28 08:36 | Outpatient (AMB) | payer OTHER, SELFPAY ==
--- NOTE | 2022-10-28 08:39 | A.OFFVIS_ITS ---
Intake Intake Visit Reasons: Sprint Dressing Change Allergies cefaclor [From Ceclor] Allergy (Severe, Verified 10/28/22 08:39) RASH & HIVES NSAIDS (Non-Steroidal Anti-Inflamma [Nsaids] Allergy (Severe, Verified 10/28/22 08:39) HIVES propantheline [From Pro-Banthine] Allergy (Severe, Verified 10/28/22 08:39) HIVES aspirin [Aspirin] Allergy (Unknown, Verified 10/28/22 08:39) HIVES HPI Sprint Dressing Change HPI Details 67-year-old female who presents today to the office for a sprint dressing change. Past procedures: 10/12/22: Lumbar Medial Branch Nerve Sti mulation Lead Placement, SPR (Sprint) System, Left L4: 50% relief. 09/14/22: Lumbar Medial Branch Nerve Sti mulation Lead Placement, SPR (Sprint) System, right L4: Therapy ongoing 08/17/22: Lumbar Intra-articular Facet I njections, Bilateral, L4/L5, L5/S1: More than 70% relief for 3 weeks 06/15/2022: Sacroiliac Joint Injection, Left: 90% relief. 04/15/2022: Left middle cluneal nerve bl ock, ultrasound-guided- >70% relief for 2 weeks. [facility] Medical History Asthma CAD (coronary artery disease) Chronic allergic rhinitis Diverticular disease GERD (gastroesophageal reflux disease) Has daytime drowsiness HTN (hypertension) Hyperlipidemia Hypothyroid Meniere disease MGUS (monoclonal gammopathy of unknown significance) Nocturnal hypoxia ELLIOT (obstructive sleep apnea) Osteopenia Pulmonary nodule, left PVC (premature ventricular contraction) SVT (supraventricular tachycardia) Surgical History History of cholecystectomy History of endometrial ablation History of laparotomy Hx of section Hx of colonoscopy Family History Father CVD (cardiovascular disease) Mother No problems noted. Brother CVD (cardiovascular disease) Sister Breast cancer Social History Household Members: Spouse Housing: House Are you a primary healthcare network pricing consultant to a significant other at home: No Do you presently have visiting nurse or other home services: No Alcohol intake: current Alcohol intake frequency: a few times a month Alcohol type: wine Patient Tobacco Use Status: Never used Tobacco e-Cigarette/Vaping Use: Never Used Second Hand Smoke Exposure: No service: No Current occupational status: employed Cognitive needs: No Hearing needs: No Vision needs: Yes Review of Systems Const All systems reviewed & are unremarkable except as noted in HPI and below Physical Exam General: Appears afebrile. Alert and oriented. Mood and affect appropriate. Follows and participates in conversation appropriately. Respiratory effort is unlabored. Able to transition from sit to stand unassisted. Ambulates with bilaterally normal heel strike and toe off. Redness and small amount of purulent discharge noted on the left lead site. Left lead removed with tip intact. No tenderness to palpation around the site. Results Reviewed Results Reviewed: No imaging is available for review. Assessment & Plan Assessment & Plan (1) Lumbar spondylosis: Code(s): M47.816 - Spondylosis without myelopathy or radiculopathy, lumbar region (2) Scoliosis deformity of spine: Code(s): M41.9 - Scoliosis, unspecified Qualifiers: Spinal region: thoracolumbar Scoliosis type: idiopathic Plan Left lead removed with tip intact. Right lead dressed. Recommend continuing amoxicillin 500 mg twice daily for a total of 10 days. We will revisit left lead placement 1 her superficial infection has cleared. Scribed for Dr. Sauceda by Case Metcalf, medical claims representative, on 10/28/2022. I, Dr. Sauceda, have personally reviewed and agree with the information entered by the scribe. Medications: Refilled amoxicillin 500 mg PO BID 10 tabs 0RF Coding Level of Care Code Est Pt Level 3 (40838) Diagnoses Lumbar spondylosis M47.816 Scoliosis deformity of spine M41.9 Spinal region: thoracolumbar Scoliosis type: idiopathic
== END 2022-10-28 08:51 | disposition home or self-care (01) ==
PROVIDERS: PCP Internal Medicine; Visit Provider Internal Medicine
DX: M47.816 Spondylosis without myelopathy or radiculopathy, lumbar region (principal); M41.9 Scoliosis, unspecified
CPT/HCPCS: 99213

== ENCOUNTER → 2022-11-01 08:31 | Outpatient (BNVA) | payer OTHER, SELFPAY | PROVIDERS: PCP Internal Medicine; Visit Provider Internal Medicine ==

== ENCOUNTER → 2022-11-03 16:00 | Outpatient (BNVA) | payer OTHER, SELFPAY | PROVIDERS: PCP Internal Medicine; Visit Provider Internal Medicine | DX: Z48.01 Encounter for change or removal of surgical wound dressing (principal) | CPT/HCPCS: 99211 ==

== ENCOUNTER → 2022-11-11 08:18 | Outpatient (BNVA) | payer OTHER, SELFPAY | PROVIDERS: PCP Internal Medicine; Visit Provider Internal Medicine ==

== ENCOUNTER 2022-12-05 14:58 | Outpatient (REF) | payer OTHER, SELFPAY | END 2022-12-05 14:59 | disposition home or self-care (01) | LOC: HO.MAMMO 14:58 | PROVIDERS: PCP Internal Medicine; Visit Provider Internal Medicine | DX: Z12.31 Encounter for screening mammogram for malignant neoplasm of breast (principal) | CPT/HCPCS: 77063; 77067 ==

== ENCOUNTER → 2022-12-05 15:00 | Outpatient (BNV) | payer OTHER, SELFPAY | PROVIDERS: PCP Internal Medicine; Visit Provider Radiology Diagnostic Radiology | DX: Z12.31 Encounter for screening mammogram for malignant neoplasm of breast (principal) | CPT/HCPCS: 77063; 77067 ==

== ENCOUNTER 2023-01-04 11:44 | Day surgery (SDC) | payer OTHER, SELFPAY ==
[2023-01-02 10:57] VITALS: BMI 29.7
--- NOTE | 2023-01-03 09:14 | HO.ANESPROP2 ---
HPI - Anesthesia Eval Consult details Narrative: 67yo F for Left REPEAT L3 Medial Branch SPRINT PNS s/p same 09/2022 with MAC Follows [facility] cardio for palps/SVT. Last seen 02/2022. Stable for 1 year f/u. [facility] Active Problems All Active Problems (Updated 10/28/22 @ 10:07 by Reed Sauceda MD) Sacroiliac joint pain (Acute) SVT (supraventricular tachycardia) (Acute) Obesity (BMI 30.0-34.9) (Acute) Bilateral leg pain (Acute) Annual physical exam (Acute) Lumbar spondylosis (Acute) Scoliosis deformity of spine (Acute) Intervertebral disc disorder with radiculopathy of lumbar region (Acute) Varicose veins of left lower extremity with inflammation (Acute) Varicose veins of leg with pain (Acute) Bilateral knee pain (Acute) Back stiffness (Acute) Left ankle gives out (Acute) Impacted cerumen, bilateral (Acute) GERD (gastroesophageal reflux disease) (Acute) Annual physical exam (Acute) Oral ulcer (Acute) Hypersomnia (Acute) Proteinuria (Acute) Petechial rash (Acute) MGUS (monoclonal gammopathy of unknown significance) (Acute) Cough (Acute) Palpitations (Acute) CAD (coronary artery disease) (Acute) Hypothyroid (Acute) ELLIOT (obstructive sleep apnea) (Acute) Nocturnal hypoxia (Acute) Chronic allergic rhinitis (Acute) Has daytime drowsiness (Acute) SVT (supraventricular tachycardia) (Acute) PVC (premature ventricular contraction) (Acute) Hyperlipidemia (Acute) HTN (hypertension) (Acute) Past Medical History Medical History Asthma CAD (coronary artery disease) Chronic allergic rhinitis Diverticular disease GERD (gastroesophageal reflux disease) Has daytime drowsiness HTN (hypertension) Hyperlipidemia Hypothyroid Meniere disease MGUS (monoclonal gammopathy of unknown significance) Nocturnal hypoxia ELLIOT (obstructive sleep apnea) Osteopenia Pulmonary nodule, left PVC (premature ventricular contraction) SVT (supraventricular tachycardia) Family History Family History Father CVD (cardiovascular disease) Mother No problems noted. Brother CVD (cardiovascular disease) Sister Breast cancer Family history of problems with anesthesia: No Surgical History Surgical History History of cholecystectomy History of endometrial ablation History of laparotomy Hx of section Hx of colonoscopy History of Problems with Anesthesia: Yes (PONV with GA) Social History Household Members: Spouse Housing: House Are you a primary residential care facility manager to a significant other at home: No Do you presently have visiting nurse or other home services: No Alcohol intake: current Alcohol intake frequency: a few times a month Alcohol type: wine Patient Tobacco Use Status: Never used Tobacco e-Cigarette/Vaping Use: Never Used Second Hand Smoke Exposure: No Advance Directives: No Advance Directives Information Provided: Yes service: No Current occupational status: employed Cognitive needs: No Hearing needs: No Vision needs: Yes Meds Allergies Allergy/AdvReac Type Severity Reaction Status Date / Time cefaclor [From Ceclor] Allergy Severe RASH & Verified 10/28/22 08:39 HIVES NSAIDS (Non-Steroidal Allergy Severe HIVES Verified 10/28/22 08:39 Anti-Inflamma [Nsaids] propantheline Allergy Severe HIVES Verified 10/28/22 08:39 [From Pro-Banthine] aspirin [Aspirin] Allergy Unknown HIVES Verified 10/28/22 08:39 Home Medications Medication Instructions Recorded Confirmed Last Taken Type omeprazole 20 mg capsule,delayed 20 mg PO DAILY 05/05/21 01/02/23 Unknown History release multivitamin 1 tab PO DAILY 11/15/21 01/02/23 Unknown History cholecalciferol (vitamin D3) 25 25 mcg PO DAILY 01/13/22 01/02/23 Unknown History mcg (1,000 unit) capsule loratadine 10 mg tablet (Claritin) 10 mg PO DAILY 01/20/22 01/02/23 10/12/22 07:15 History Exam Height,Weight and Vital Signs: Height 5 ft 1.5 in Weight 72.575 kg Pertinent Lab Results Pertinent Lab Results: Laboratory Tests 07/21/22 14:31 WBC 8.1 RBC 4.77 Hgb 14.0 Hct 42.3 Plt Count 250 Sodium 142 Potassium 4.0 Chloride 107 Carbon Dioxide 27 BUN 17 H Creatinine 0.78 Narrative Narrative: Exercise Stress 02/2022 Protocol: AURELIANO ? Max HR: 153 BPM? 100% of? Pred: 153 BPM Max BP: 162/090 mmHG Max Work Load: 7.4 METS ? Exercise stress test with exercise 6 min 19 sec of Aureliano protocol, achieving ?100% MPHR, with mild sob, no chest discomfort, with islated PACs and atrial ?cuplets, with normotensive response to exercise, without EKG changes meeting ?criteria for ischemia. Test reviewed with Dr Almendarez Holrosalino 01/2022 Total monitoring time 3 days. Underlying rhythm is sinus.? Average ventricular rate 78/Min.? Range 56 to 121/Min. No significant bradycardia or pauses. Rare PACs and PVCs. No sustained arrhythmias. No events in patient diary. Assessment and Plan Assessment Anesthesia Assessment: Chart Reviewed Final Anesthetic Review Family History of Problems with Anesthesia: No History of Problems with Anesthesia: Yes (PONV with GA)
--- NOTE | ~2023-01-04 | FL_ITS ---
EXAMINATION: XR FLUOROSCOPY WITH IMAGES CLINICAL INFORMATION: SPRINT. COMPARISON: None available. TECHNIQUE: Fluoroscopy Supervised By: Dr. Reed Sauceda. Fluoroscopy Time: 0.1 minute. Cumulative Dose: 3.85 mGy. DAP: 0.573 Gycm2. Images: 3. FINDINGS: Initial image demonstrates needle projecting over the posterior elements at the L4 level. Second image does not demonstrate surgical instrument. Third image demonstrates lead or wire projecting over a lower lumbar vertebral body. FL/FL guidance in OR IMPRESSION: Fluoroscopy guidance for pain management procedure
[2023-01-04 12:02] VITALS: BMI 29.6
[2023-01-04] MEDS: Lactated Ringers 1,000 ML 100 ML IVCONT (12:07)
[2023-01-04 12:21] VITALS: BP 150/84; PULSE 75; RESP 18; TEMP 36.8; O2SAT 97
--- NOTE | 2023-01-04 12:51 | P.CONAN_ITS ---
[facility] Active Problems Active Problems: All Active Problems (Updated 10/28/22 @ 10:07 by Reed Sauceda MD) Sacroiliac joint pain (Acute) SVT (supraventricular tachycardia) (Acute) Obesity (BMI 30.0-34.9) (Acute) Bilateral leg pain (Acute) Annual physical exam (Acute) Lumbar spondylosis (Acute) Scoliosis deformity of spine (Acute) Intervertebral disc disorder with radiculopathy of lumbar region (Acute) Varicose veins of left lower extremity with inflammation (Acute) Varicose veins of leg with pain (Acute) Bilateral knee pain (Acute) Back stiffness (Acute) Left ankle gives out (Acute) Impacted cerumen, bilateral (Acute) GERD (gastroesophageal reflux disease) (Acute) Annual physical exam (Acute) Oral ulcer (Acute) Hypersomnia (Acute) Proteinuria (Acute) Petechial rash (Acute) MGUS (monoclonal gammopathy of unknown significance) (Acute) Cough (Acute) Palpitations (Acute) CAD (coronary artery disease) (Acute) Hypothyroid (Acute) ELLIOT (obstructive sleep apnea) (Acute) Nocturnal hypoxia (Acute) Chronic allergic rhinitis (Acute) Has daytime drowsiness (Acute) SVT (supraventricular tachycardia) (Acute) PVC (premature ventricular contraction) (Acute) Hyperlipidemia (Acute) HTN (hypertension) (Acute) Past Medical History Medical History GERD (gastroesophageal reflux disease) ELLIOT (obstructive sleep apnea) Nocturnal hypoxia Chronic allergic rhinitis Has daytime drowsiness Asthma MGUS (monoclonal gammopathy of unknown significance) Diverticular disease Osteopenia Hypothyroid Meniere disease Pulmonary nodule, left PVC (premature ventricular contraction) Hyperlipidemia HTN (hypertension) CAD (coronary artery disease) SVT (supraventricular tachycardia) Family History Family History Father CVD (cardiovascular disease) Mother No problems noted. Brother CVD (cardiovascular disease) Sister Breast cancer Family history of problems with anesthesia: No Surgical History Surgical History Hx of section History of cholecystectomy History of laparotomy Hx of colonoscopy History of endometrial ablation History of Problems with Anesthesia: Yes (PONV with GA) Social History Household Members: Spouse Housing: House Are you a primary manager intensive care to a significant other at home: No Do you presently have visiting nurse or other home services: No Alcohol intake: current Alcohol intake frequency: a few times a month Alcohol type: wine Patient Tobacco Use Status: Former Tobacco user e-Cigarette/Vaping Use: Never Used Second Hand Smoke Exposure: No Are you DNR?: No Advance Directives: No Advance Directives Information Provided: Yes Nutrition Risks: No Nutritional Risk service: No Current occupational status: employed Cognitive needs: No Hearing needs: No Vision needs: Yes Meds Allergies Allergy/AdvReac Type Severity Reaction Status Date / Time cefaclor [From Ceclor] Allergy Severe RASH & Verified 01/04/23 12:21 HIVES NSAIDS (Non-Steroidal Allergy Severe HIVES Verified 01/04/23 12:21 Anti-Inflamma [Nsaids] propantheline Allergy Severe HIVES Verified 01/04/23 12:21 [From Pro-Banthine] aspirin [Aspirin] Allergy Unknown HIVES Verified 01/04/23 12:21 Active Medications: Current Medications Albuterol Sulfate (Albuterol Sulfate (0.083%) 2.5 Mg/3 Ml Vial.Neb) 2.5 mg INHALE ONCE PRN PRN Reason: Shortness of Breath/Wheezing Lactated Ringer's (Lr) 1,000 mls @ 100 mls/hr IVCONT .Q10H RYLAN Last Admin: 01/04/23 12:07 Dose: 100 mls/hr Home Medications Medication Instructions Recorded Confirmed Last Taken Type omeprazole 20 mg capsule,delayed 20 mg PO DAILY 05/05/21 01/02/23 Unknown History release multivitamin 1 tab PO DAILY 11/15/21 01/02/23 Unknown History cholecalciferol (vitamin D3) 25 25 mcg PO DAILY 01/13/22 01/02/23 Unknown History mcg (1,000 unit) capsule loratadine 10 mg tablet (Claritin) 10 mg PO DAILY 01/20/22 01/02/23 10/12/22 07:15 History Exam Height,Weight and Vital Signs: Height 5 ft 1.5 in Weight 72.121 kg Last Vital Signs Temp 98.2 F 01/04/23 12:21 Pulse 75 01/04/23 12:21 Resp 18 01/04/23 12:21 BP 150/84 H 01/04/23 12:21 Pulse Ox 97 01/04/23 12:21 O2 Del Method Room Air 01/04/23 12:21 Airway Mallampati Class: II TM Dist: >3cm Neck ROM: Full Loose/Missing/Broken Teeth: No Heart: RRR Lungs: CTA Assessment and Plan Assessment Anesthesia Assessment: Anesthesia Plan Discussed and Chart Reviewed Final Anesthetic Review Family History of Problems with Anesthesia: No History of Problems with Anesthesia: Yes (PONV with GA) NPO: Yes ASA Class: III Final Preanesthetic Review: Meds/Allgs Chart Reviewed, Consent Obtained/Reviewed and Anes Risks/Benef Reviewed Patient Risk: Intermediate Procedure Risk: Low Anesthetic Plan Anesthetic Plan: MAC: Disposition: Standard PACU
--- NOTE | 2023-01-04 13:39 | PC.NURSE ---
patient had poor venous access. needed to use AC for placement. one attempt, one insertion.
[2023-01-04 14:13] VITALS: BP 128/72; PULSE 74; RESP 18; TEMP 36.8; O2SAT 96
[2023-01-04 14:28] VITALS: BP 123/76; PULSE 76; RESP 18; TEMP 36.8; O2SAT 99
--- NOTE | 2023-01-04 16:55 | P.BOP_ITS ---
Brief Operative Note Date of Service: 01/04/23 Pre-op diagnosis: Intractable low back pain Post-op diagnosis: same Procedure: Temporary left L3 medial branch nerve stimulator placement Implants: Sprint temporary PNS system Surgeon: Reed Sauceda MD Anesthesia: MAC Was an Repairer Typewriter used for this Procedure?: No Estimated blood loss (mL): 1 Pathology: none sent Condition: stable Disposition: PACU
--- NOTE | 2023-01-04 16:55 | MHC.SHP ---
Pre-Procedural Eval Section A Date of Service: 01/04/23 The patient is an INPATIENT: No Changes since office visit: Yes Patient answered all questions The History & Physical has been completed within 30 days and I have reviewed it.: No Section B Chief Complaint: Spondylosis without myelopathy or radiculopathy, Relevant Family History (Specify if Yes): No Relevant Social History: None Present Medications: see Short Stay Collaborative assessment Medical History: No relevant PMH History of Previous Operations: No relevant previous surgery Allergies: Allergies Allergy/AdvReac Type Severity Reaction Status Date / Time cefaclor [From Ceclor] Allergy Severe RASH & Verified 01/04/23 12:21 HIVES NSAIDS (Non-Steroidal Allergy Severe HIVES Verified 01/04/23 12:21 Anti-Inflamma [Nsaids] propantheline Allergy Severe HIVES Verified 01/04/23 12:21 [From Pro-Banthine] aspirin [Aspirin] Allergy Unknown HIVES Verified 01/04/23 12:21 Review of Systems Sugical H&P ROS: Negative: Constitution, Cardiovascular and Respiratory Exam Surgical H&P Exam: Normal: HEENT, Normal: Heart and Normal: Lungs Plan Diagnosis/Plan: Unchanged I have reviewed the history and physical and performed a pertinent physical examination on my patient. No changes have occurred unless specified. Time Spent With Patient Time: Total time managing care of this patient today ____ minutes.
--- NOTE | 2023-01-04 16:56 | W.PM.OPN ---
Operative Note Operative Note Date of Service: 01/04/23 Narrative: Lumbar Medial Branch Nerve Stimulation Lead Placement, SPR (Sprint) System, left L3 medial branch ? After the risks, benefits and alternatives were discussed with the patient and informed consent was obtained, patient was placed in the prone position and padded to foster comfort. The skin overlying the lumbosacral spine was prepped and draped in sterile fashion. Fluoroscopy was used to identify the spinous process and lamina in the center of the patient?s region of pain. After identifying and marking the intended target along the course of the medial branch nerve, the skin around the planned entry point and the subcutaneous tissues were injected with lidocaine 1%. An introducer needle and stimulating probe were assembled, inserted and advanced along the intended course of the medial branch nerve as it traverses the lamina medial and inferior to the zygapophyseal joint, taking care to maintain the proper depth of insertion as the introducer is advanced under fluoroscopic guidance. The introducer needle was delivered to a location in proximity to the nerve. Multiple stimulation parameters were used to deliver stimulation to the target medial branch nerve in concert with stimulating at multiple positions around the nerve. Nerve target acquisition was confirmed noting generation of paresthesias in the paravertebral regions corresponding to the level being stimulated. Various electrical parameter combinations were tested, and the lead location was adjusted (physically relocated) until the patient indicated paresthesia/muscle tension overlapping the distribution of the patient?s typical region of pain. The stimulating probe was removed from the introducer and a percutaneous lead was guided through the needle and delivered to a location in similar proximity to the nerve. Final location was verified with electrical stimulation and documented with fluoroscopy. The introducer needle was removed, and the exposed end of the percutaneous lead was attached to an external stimulator unit. Various electrical parameter combinations were again tested until the patient indicated paresthesia or muscle tension overlapping the distribution of the patient?s typical region of pain. After confirming that lead impedance was in the normal range, the external unit was detached, the needle was removed, and the lead was anchored at the skin. The lead was threaded into the connector block and electrical continuity and desired patient response was confirmed. The connector block was attached to the external stimulator unit. The site was covered with a sterile occlusive dressing. The patient was observed for stability of vital signs and comfort.
== END 2023-01-04 15:11 | disposition home or self-care (01) ==
PROVIDERS: PCP Internal Medicine; Visit Provider Internal Medicine
PROC: (CPT 64555; principal; 2023-01-04 13:20)
DX: M47.816 Spondylosis without myelopathy or radiculopathy, lumbar region (principal); M41.9 Scoliosis, unspecified; M51.16 Intervertebral disc disorders with radiculopathy, lumbar region; G47.33 Obstructive sleep apnea (adult) (pediatric); I25.10 Atherosclerotic heart disease of native coronary artery without angina pectoris; J45.909 Unspecified asthma, uncomplicated; I10 Essential (primary) hypertension; D47.2 Monoclonal gammopathy; M85.80 Other specified disorders of bone density and structure, unspecified site; H81.09 Meniere's disease, unspecified ear; E78.5 Hyperlipidemia, unspecified; E03.9 Hypothyroidism, unspecified; Z79.1 Long term (current) use of non-steroidal anti-inflammatories (NSAID); Z79.899 Other long term (current) drug therapy; Z98.890 Other specified postprocedural states; Z88.8 Allergy status to other drugs, medicaments and biological substances; Z88.1 Allergy status to other antibiotic agents
CPT/HCPCS: 64555; C1778; J2250; J2704; J3010

== ENCOUNTER → 2023-01-04 11:44 | Outpatient (BNV) | payer OTHER, SELFPAY | PROVIDERS: PCP Internal Medicine; Visit Provider Internal Medicine | DX: M47.816 Spondylosis without myelopathy or radiculopathy, lumbar region (principal) | CPT/HCPCS: 64555 ==

== ENCOUNTER 2023-01-13 08:41 | Outpatient (AMB) | payer OTHER, SELFPAY ==
--- NOTE | 2023-01-13 08:55 | A.OFFVIS_ITS ---
Intake Vital Signs 01/13/23 08:56 Height 5 ft 1.5 in BP 135/84 Blood Pressure Location Lt brachial Position Sitting Respiration 12 Pulse 63 Pulse Source Pulse Oximeter Pulse Oximetry (%) 97 Oxygen Delivery Method Room Air Intake Visit Reasons: S/p (L) L3 MB Sprint 01/04/23/lvm Allergies cefaclor [From Ceclor] Allergy (Severe, Verified 01/13/23 09:00) RASH & HIVES NSAIDS (Non-Steroidal Anti-Inflamma [Nsaids] Allergy (Severe, Verified 01/13/23 09:00) HIVES propantheline [From Pro-Banthine] Allergy (Severe, Verified 01/13/23 09:00) HIVES aspirin [Aspirin] Allergy (Unknown, Verified 01/13/23 09:00) HIVES Medication List - Last Reconciled 01/13/23 by Gisele Torres LPN amlodipine 2.5 mg PO DAILY cholecalciferol (vitamin D3) 25 mcg PO DAILY levothyroxine (Synthroid) 50 mcg PO QAM loratadine (Claritin) 10 mg PO DAILY metoprolol succinate ER 37.5 mg (1.5 x 25 mg) PO DAILY 90 days multivitamin 1 tab PO DAILY omeprazole 20 mg PO DAILY penciclovir 1% (Denavir) 1 appl topical Q2H PRN rosuvastatin 5 mg PO DAILY HPI S/p (L) L3 MB Sprint 01/04/23/lvm HPI Details 67-year-old female who presents today to the office for a status post left L3 MB sprint. The patient reports moderate relief following the procedure. She states that her pain is improved and tolerable. She discontinued using the device for three days since 01/07/2023. The patient reports redness around the dressing on the left side. She changed the dressing at home. She reports pain in her shoulder. She has a history of arthritis. She had two injections in the past with moderate benefit. She is not able to take NSAIDs medication. Past procedures: 01/04/23: Lumbar Medial Branch Nerve Sti mulation Lead Placement, SPR (Sprint) System, left L3 medial branch: 10/12/22: Lumbar Medial Branch Nerve Sti mulation Lead Placement, SPR (Sprint) System, Left L4: 50% relief. 09/14/22: Lumbar Medial Branch Nerve Sti mulation Lead Placement, SPR (Sprint) System, right L4: Therapy ongoing 08/17/22: Lumbar Intra-articular Facet I njections, Bilateral, L4/L5, L5/S1: More than 70% relief for 3 weeks 06/15/2022: Sacroiliac Joint Injection, Left: 90% relief. 04/15/2022: Left middle cluneal nerve bl ock, ultrasound-guided- >70% relief for 2 weeks. [facility] Medical History GERD (gastroesophageal reflux disease) ELLIOT (obstructive sleep apnea) Nocturnal hypoxia Chronic allergic rhinitis Has daytime drowsiness Asthma MGUS (monoclonal gammopathy of unknown significance) Diverticular disease Osteopenia Hypothyroid Meniere disease Pulmonary nodule, left PVC (premature ventricular contraction) Hyperlipidemia HTN (hypertension) CAD (coronary artery disease) SVT (supraventricular tachycardia) Surgical History Hx of section History of cholecystectomy History of laparotomy Hx of colonoscopy History of endometrial ablation Family History Father CVD (cardiovascular disease) Mother No problems noted. Brother CVD (cardiovascular disease) Sister Breast cancer Social History Household Members: Spouse Housing: House Are you a primary care management associate to a significant other at home: No Do you presently have visiting nurse or other home services: No Alcohol intake: current Alcohol intake frequency: a few times a month Alcohol type: wine Patient Tobacco Use Status: Former Tobacco user e-Cigarette/Vaping Use: Never Used Second Hand Smoke Exposure: No service: No Current occupational status: employed Cognitive needs: No Hearing needs: No Vision needs: Yes Review of Systems Const All systems reviewed & are unremarkable except as noted in HPI and below Physical Exam Vital Signs: Last Vital Signs Pulse 63 01/13/23 08:56 Resp 12 01/13/23 08:56 BP 135/84 01/13/23 08:56 Pulse Ox 97 01/13/23 08:56 Oxygen Delivery Method Room Air 01/13/23 08:56 General: Appears afebrile. Alert and oriented. Mood and affect appropriate. Follows and participates in conversation appropriately. Respiratory effort is unlabored. Able to transition from sit to stand unassisted. Ambulates with bilaterally normal heel strike and toe off. Discharge noted around lead insertion site with surrounding erythema. Results Reviewed Results Reviewed: No imaging is available for review. Assessment & Plan Assessment & Plan (1) Lumbar spondylosis: Code(s): M47.816 - Spondylosis without myelopathy or radiculopathy, lumbar region Plan The dressing was changed today. Recommend amoxicillin 875 B.I.D. The patient will take amoxicillin (875 BID) for the next seven days. The patient will follow up on 01/16/2023 to check the improvement in the discharge and redness. If it is not better, we will plan on removing the lead.? Scribed for Dr. Sauceda by Case Metcalf, pediatrician/medical doctor, on 01/13/2023. I, Dr. Sauceda, have personally reviewed and agree with the information entered by the scribe. Medications: New amoxicillin 875 mg PO BID 14 tabs 0RF Coding Level of Care Code Est Pt Level 3 (07856) Diagnoses Lumbar spondylosis M47.816
[2023-01-13 08:56] VITALS: BP 135/84; PULSE 63; RESP 12; O2SAT 97
== END 2023-01-13 09:19 | disposition home or self-care (01) ==
PROVIDERS: PCP Internal Medicine; Visit Provider Internal Medicine
DX: M47.816 Spondylosis without myelopathy or radiculopathy, lumbar region (principal)
CPT/HCPCS: 99024

== ENCOUNTER → 2023-01-13 08:41 | Outpatient (BNVA) | payer OTHER, SELFPAY | PROVIDERS: PCP Internal Medicine; Visit Provider Internal Medicine ==

== ENCOUNTER 2023-01-31 14:50 | Outpatient (AMB) | payer OTHER, SELFPAY ==
[2023-01-31 14:52] VITALS: BP 120/76; PULSE 69; O2SAT 97; BMI 29.7
--- NOTE | 2023-01-31 14:52 | MHC.PC.OV ---
Vital Signs 01/31/23 14:52 Height 5 ft 1.5 in Weight 160 lb BMI 29.7 BP 120/76 Blood Pressure Location Lt brachial Position Sitting Pulse 69 Pulse Source Pulse Oximeter Pulse Oximetry (%) 97 Oxygen Delivery Method Room Air Intake Visit Reasons: Annual physical Librarian Assistant Required: No Accompanied by: Self / Same As Patient Allergies cefaclor [From Ceclor] Allergy (Severe, Verified 01/31/23 14:52) RASH & HIVES NSAIDS (Non-Steroidal Anti-Inflamma [Nsaids] Allergy (Severe, Verified 01/31/23 14:52) HIVES propantheline [From Pro-Banthine] Allergy (Severe, Verified 01/31/23 14:52) HIVES aspirin [Aspirin] Allergy (Unknown, Verified 01/31/23 14:52) HIVES Medication List - Last Reconciled 01/31/23 by Edward Webber MD amlodipine 2.5 mg PO DAILY cholecalciferol (vitamin D3) 25 mcg PO DAILY levothyroxine (Synthroid) 50 mcg PO QAM loratadine (Claritin) 10 mg PO DAILY metoprolol succinate ER 37.5 mg (1.5 x 25 mg) PO DAILY 90 days multivitamin 1 tab PO DAILY omeprazole 20 mg PO DAILY penciclovir 1% (Denavir) 1 appl topical Q2H PRN rosuvastatin 5 mg PO DAILY Tobacco use date assessed: 01/31/23 Fall risk assessment: No Falls in past year Last assessed Fall Risk: 01/31/23 Dental Screening Dental Screen Date: 01/31/23 Did you have a dental visit in the last 12 months?: Yes Did you have a dental problem in the last 6 months where you did not have access to dental care?: No Was dental information given to patient?: Patient has dentist HPI Annual physical HPI Details 67-year-old overweight female with hypertension obstructive sleep apnea hypercholesterolemia hypothyroidism GERD and MGUS coming in for physical exam last seen in January 2022. Patient's colonoscopy is up-to-date September 2017 mammogram up-to-date bone density last done in August 2020 having osteopenia. Patient has chronic low back pain and found to have lumbar spondylosis patient goes to pain management has had injections and has had nerve stimulation lead placement. Patient follows up with hematology oncology also seen July 2022 continue to monitor checking for immunoglobulins. In February patient did have a stress test done negative history of SVT on metoprolol- stimulators taken out L side had infection so taken out. cannot tolerate CPAP PFS Medical History (Updated 01/31/23 @ 15:20 by Edward Webber MD) GERD (gastroesophageal reflux disease) ELLIOT (obstructive sleep apnea) Nocturnal hypoxia Chronic allergic rhinitis Has daytime drowsiness Asthma MGUS (monoclonal gammopathy of unknown significance) Diverticular disease Osteopenia Hypothyroid Meniere disease Pulmonary nodule, left PVC (premature ventricular contraction) Hyperlipidemia HTN (hypertension) CAD (coronary artery disease) SVT (supraventricular tachycardia) Surgical History Hx of section History of cholecystectomy History of laparotomy Hx of colonoscopy History of endometrial ablation Family History Father CVD (cardiovascular disease) Mother No problems noted. Brother CVD (cardiovascular disease) Sister Breast cancer Social History (Updated 01/31/23 @ 15:22 by Edward Webber MD) Household Members: Spouse Housing: House Are you a primary workforce investment act career manager to a significant other at home: No Do you presently have visiting nurse or other home services: No Alcohol intake: current Alcohol intake frequency: a few times a month Alcohol type: wine Comment: 1 drink 3-4 x a week Patient Tobacco Use Status: Former Tobacco user Years Smoked: 1969 e-Cigarette/Vaping Use: Never Used Second Hand Smoke Exposure: No service: No Current occupational status: employed Cognitive needs: No Hearing needs: No Vision needs: Yes Questionnaire PHQ-9 Over the last 2 weeks, how often have you been bothered by any of the following problems? 1. Little interest or pleasure in doing things: not at all 2. Feeling down, depressed, or hopeless: not at all 3. Trouble falling or staying asleep, or sleeping too much: not at all 4. Feeling tired or having little energy: not at all 5. Poor appetite or overeating: not at all 6. Feeling bad about yourself - or that you are a failure or have let yourself or your family down: not at all 7. Trouble concentrating on things, such as reading the newspaper or watching television: not at all 8. Moving or speaking so slowly that other people could have noticed. Or the opposite - being so fidgety or restless that you have been moving around a lot more than usual: not at all 9. Thoughts that you would be better off or of hurting yourself in some way: not at all Total score: 0 03852 - PHQ-9 Billing: Yes Source: Developed by Drs. Wesley Covarrubias, Shanika Smart, Corona Collado and colleagues, with an educational grazyna from [email or web address]. Thrive Questionnaire Date Thrive assessed: 01/31/23 I am a: Patient What is your living situation today?: I have a steady place to live Within the past 12 months, did the food you bought not last and you didn't have the money to get more?: Never true Within the past 12 months, did you worry whether your food would run out before you got money to buy more?: Never true Do you have trouble paying for medicines?: No Do you have trouble getting transportation to medical appointments?: No Do you have trouble paying your heating and electricity bill?: No Do you have trouble taking care of your child, family member or friend?: No Do you have trouble with day-to-day activities such as bathing, preparing meals, shopping, managing finances, etc.?: No Are you currently unemployed and looking for a job?: No Are you interested in more education?: No Please select the resources that you would like help with: None Currently or been in a relationship where the following occur: no concerns reported AUDIT C Alcohol Use Questionnaire (AUDIT-C) 1. How often do you have a drink containing alcohol?: 2-3 times a week 2. How many drinks containing alcohol do you have on a typical day when you are drinking?: 1 or 2 3. How often do you have six or more drinks on one occasion?: Never Total Score: 3 NAHOMY-7 AMB Questionnaire NAHOMY-7 Date NAHOMY - 7 assessed: 01/31/23 Feeling nervous, anxious, or on edge: 0 = Not at all Not being able to stop or control worryin = Not at all Worrying too much about different things: 0 = Not at all Trouble relaxin = Not at all Being so restless that it is hard to sit still: 0 = Not at all Becoming easily annoyed or irritable: 0 = Not at all Feeling afraid as if something awful might happen: 0 = Not at all Total NAHOMY-7 score (0-4 normal; 5-9 mild; 10-14 moderate; 15-21 severe): 0 Source: Developed by Drs. Wesley Covarrubias, Shanika Smart, Corona Collado and colleagues, with an educational grazyna from [email or web address]. NAHOMY-7 Assessment Billing NAHOMY-7 Assessment Tool: NAHOMY-7 Assessment 88260 Review of Systems Const Denies poor appetite and Denies weakness Eyes Denies no additional complaints ENT Reports Normal hearing present, Denies dizziness, Denies nasal congestion, Denies tinnitus and Denies sore throat Card Denies chest pain, Denies syncope, Denies rapid heart rate and Denies dyspnea Resp Denies cough and Denies dyspnea GI Denies change in stool character, Reports constipation, Denies diarrhea, Denies nausea and Denies vomiting Denies urinary frequency, Denies difficulty voiding and Denies dysuria Neuro Reports Normal hearing present, Denies confusion, Denies dizziness, Denies syncope and Denies weakness Psych Denies confusion Physical exam (Primary Care) Vital Signs: Last Vital Signs Pulse 69 01/31/23 14:52 BP 120/76 01/31/23 14:52 Pulse Ox 97 01/31/23 14:52 Oxygen Delivery Method Room Air 01/31/23 14:52 BMI result Body Mass Index 29.7 Tobacco/Smoking Status: Tobacco use Status Tobacco use date assessed 01/31/23 01/31/23 14:55 Patient Tobacco Use Status Former Tobacco user 01/31/23 14:55 e-Cigarette/Vaping Use Never Used 01/31/23 14:55 PHQ-9: PHQ-9 Score PHQ-9: Total score 0 01/31/23 15:01 Thrive Assessment: Date of Thrive Assessment Date Thrive assessed 01/31/23 01/31/23 15:01 Currently or been in a relationship where the following occur: no concerns reported Const General: No confusion Orientation/consciousness: No confusion HENMT Head: Yes normocephalic Ears: external ears normal and TM's normal bilaterally Face and sinus: Yes normal facial exam Mouth: moist mucous membranes Throat: Yes tonsils normal Eyes Conjunctivae: conjunctivae normal Pupils: Equal, round and reactive pupils present and Pupil accommodation reflex normal Direct Ophthalmoscopy: normal light reflex Neck Neck: No lymphadenopathy Thyroid: Thyroid normal Chest Chest palpation & inspection: normal inspection of the chest Resp Effort & Inspection: normal respiratory effort and no audible wheezes Auscultation: clear to auscultation bilaterally, no crackles, no wheezes and lung sounds not diminished Cardio Rate: regular rate Rhythm: regular rhythm Peripheral pulses: radial pulses present and dorsalis pedis present GI Other: Guaiac negative stools Palpation (GI): no masses Auscultation: normal bowel sounds and normoactive bowel sounds Skin General skin exam: no rashes or lesions noted Rashes: no rashes Neuro General: No confusion Cranial nerves: Yes Equal, round and reactive pupils present and Yes Normal hearing present Cognition (Neuro): normal cognition Gait exam (Neuro): Normal gait present Motor exam (neuro): 5/5 motor strength present throughout Deep tendon reflexes (DTR's): Right brachioradialis reflex intensity grade: 2+, Left brachioradialis reflex intensity grade: 2+, Right patellar reflex intensity grade: 2+ and Left patellar reflex intensity grade: 2+ Extrem General: No edema Assessment and Plan Assessment & Plan (1) Annual physical exam: Code(s): Z00.00 - Encounter for general adult medical examination without abnormal findings (2) Hypothyroid: Code(s): E03.9 - Hypothyroidism, unspecified Plan: Continue with thyroid medication (3) ELLIOT (obstructive sleep apnea): Code(s): G47.33 - Obstructive sleep apnea (adult) (pediatric) (4) SVT (supraventricular tachycardia): Code(s): I47.1 - Supraventricular tachycardia Plan: Follows up with Cardiology on metoprolol 37.5 mg once a day (5) HTN (hypertension): Code(s): I10 - Essential (primary) hypertension Qualifiers: Hypertension type: essential hypertension Qualified Code(s): I10 - Essential (primary) hypertension Plan: Continue with blood pressure medication. Decrease salt intake and exercise continue with metoprolol and amlodipine 2.5 mg once a day (6) Hyperlipidemia: Code(s): E78.5 - Hyperlipidemia, unspecified Qualifiers: Hyperlipidemia type: pure hypercholesterolemia Qualified Code(s): E78.00 - Pure hypercholesterolemia, unspecified Plan: Avoid fried foods, chicken skin, eggs, butter margarine, pastries and meat. Be it pork or beef they have a lot of cholesterol LDL goal of less than 100 and triglyceride of less than 150 on rosuvastatin 5 mg once a day (7) MGUS (monoclonal gammopathy of unknown significance): Code(s): D47.2 - Monoclonal gammopathy Plan: Patient follows up for surveillance under hematology oncology (8) GERD (gastroesophageal reflux disease): Code(s): K21.9 - Gastro-esophageal reflux disease without esophagitis Plan: Avoid the foods that causes that usually spicy foods, tomato products, juices, coffee, soda and foods that your sensitive to. After eating do not lie down, allow 3-4 hours before in lie down. And keep the head of bed above 30 degrees to avoid the acid from going up. On omeprazole (9) Lumbar spondylosis: Code(s): M47.816 - Spondylosis without myelopathy or radiculopathy, lumbar region Plan: Patient being followed up by pain management for lead placement on the nerve (10) Osteopenia: Code(s): M85.80 - Other specified disorders of bone density and structure, unspecified site Orders: Orders Complete Blood Count Auto Diff Today K21.9 - Gastro-esophageal reflux disease without esophagitis Comprehensive Met. Panel Today K21.9 - Gastro-esophageal reflux disease without esophagitis Vitamin B12 and Folate Today K21.9 - Gastro-esophageal reflux disease without esophagitis Vitamin D 25-OH Total Today K21.9 - Gastro-esophageal reflux disease without esophagitis C Reactive Protein Today M47.816 - Spondylosis without myelopathy or radiculopathy, lumbar region Magnesium Today M47.816 - Spondylosis without myelopathy or radiculopathy, lumbar region XR DEXA axial skeleton Today M81.0 - Age-related osteoporosis without current pathological fracture, M85.80 - Other specified disorders of bone density and structure, unspecified site Free T4 (Free Thyroxine) Today K21.9 - Gastro-esophageal reflux disease without esophagitis Thyroid Stimulating Hormone Today K21.9 - Gastro-esophageal reflux disease without esophagitis Lipid Panel Today E78.00 - Pure hypercholesterolemia, unspecified, K21.9 - Gastro-esophageal reflux disease without esophagitis Erythrocyte Sedimentation Rate Today M47.816 - Spondylosis without myelopathy or radiculopathy, lumbar region Phosphorus Today M47.816 - Spondylosis without myelopathy or radiculopathy, lumbar region Coding Level of Care Code Est Pt Prev Care >65y(55705) Diagnoses Annual physical exam Z00.00 Hypothyroid E03.9 ELLIOT (obstructive sleep apnea) G47.33 SVT (supraventricular tachycardia) I47.1 Essential hypertension I10 Hypertension type: essential hypertension Pure hypercholesterolemia E78.00 Hyperlipidemia type: pure hypercholesterolemia MGUS (monoclonal gammopathy of unknown significance) D47.2 GERD (gastroesophageal reflux disease) K21.9 Lumbar spondylosis M47.816 Osteopenia M85.80 Additional Codes NAHOMY-7 Assessment Billing - NAHOMY-7 Assessment Tool: NAHOMY-7 Assessment [id number] ([id number])
== END 2023-01-31 15:47 | disposition home or self-care (01) ==
PROVIDERS: PCP Internal Medicine; Visit Provider Internal Medicine
DX: Z00.00 Encounter for general adult medical examination without abnormal findings (principal); E03.9 Hypothyroidism, unspecified; G47.33 Obstructive sleep apnea (adult) (pediatric); I47.1 Supraventricular tachycardia; I10 Essential (primary) hypertension; E78.00 Pure hypercholesterolemia, unspecified; D47.2 Monoclonal gammopathy; K21.9 Gastro-esophageal reflux disease without esophagitis; M47.816 Spondylosis without myelopathy or radiculopathy, lumbar region; M85.80 Other specified disorders of bone density and structure, unspecified site
CPT/HCPCS: 99397

== ENCOUNTER 2023-02-01 07:17 | Outpatient (REF) | payer OTHER, SELFPAY ==
[2023-02-01 07:29] LABS: MANUAL DIFF FLAG NO
[2023-02-01 07:50] LABS: Basophils Absolute Auto 0.1 X10*3/uL (0.0-0.2); Basophils Percent Auto 1.1 % (0-2); Eosinophils Absolute Auto 0.2 X10*3/uL (0.0-0.4); Eosinophils Percent Auto 2.3 % (0-4); Hematocrit 42.8 % (37.0-47.0); Hemoglobin 14.2 g/dl (12.0-16.0); Imm Gran Abs Auto 0.02 X10*3/uL (0.00-0.03); Imm Gran Pct Auto 0.3 % (0.0-0.4); Lymphocytes Percent Auto 30.4 % (20-40); Mean Corpuscular HGB Conc 33.2 g/dl (31.0-35.0); Mean Corpuscular Hemoglobin 28.9 pg (27.0-33.0); Mean Corpuscular Volume 87.2 fL (80.0-98.0); Mean Platelet Volume 10.6 fL (9.4-12.3); Monocytes Absolute Auto 0.7 X10*3/uL (0.1-1.2); Neutrophils Absolute Auto 3.7 x10*3/uL (2.0-8.3); Neutrophils Percent Auto 55.9 % (45-73); Platelet Count 246 X10*3/uL (160-400); Red Blood Count 4.91 X10*6/uL (4.20-5.50); Red Cell Distribution Width 12.9 % (11.0-16.0); White Blood Count 6.6 X10*3/uL (4.8-10.8)
[2023-02-01 08:13] LABS: Alanine Aminotransferase 18 U/L (0-31); Albumin Level 4.4 g/dL (3.5-5.0); Alkaline Phosphatase 70 U/L (39-117); Anion Gap 11 (12-20); Aspartate Amino Transferase 21 U/L (5-31); Bilirubin Total 1.1 mg/dL (0.0-1.0); Blood Urea Nitrogen 16 mg/dL (9-16); C Reactive Protein 0.22 mg/dL (< or = 0.50); Calcium 9.7 mg/dL (8.4-10.2); Carbon Dioxide 27 mmol/L (22-29); Chloride 107 mmol/L (96-108); Cholesterol 149 mg/dL (<200); Estimated Glomerular Filt Rate > 60; Glucose Random 102 mg/dL (60-115); HDL Cholesterol 55 mg/dL (>40); LDL Cholesterol Calculated 73 mg/dL (<100); Magnesium 2.1 mg/dL (1.6-2.6); Potassium 3.9 mmol/L (3.3-5.1); Sodium 141 mmol/L (135-145); Total Protein 7.4 g/dL (6.5-8.0); Triglycerides 106 mg/dL (<150)
[2023-02-01 08:31] LABS: Free T4 (Free Thyroxine) 1.02 ng/dL (0.71-1.85); Thyroid Stimulating Hormone 1.87 uIU/mL (0.32-4.0); Vitamin D 25-OH Total 42.8 ng/mL (>30)
[2023-02-01 08:34] LABS: Erythrocyte Sedimentation Rate 6 MM/HR (0-20)
[2023-02-01 08:42] LABS: Folate 14.1 ng/mL (> or = 4.0); Vitamin B12 531 pg/mL (200-900)
== END 2023-02-01 07:18 | disposition home or self-care (01) ==
LOC: HO.LAB 07:17
PROVIDERS: PCP Internal Medicine; Visit Provider Internal Medicine
DX: K21.9 Gastro-esophageal reflux disease without esophagitis (principal); E78.00 Pure hypercholesterolemia, unspecified; M47.816 Spondylosis without myelopathy or radiculopathy, lumbar region
CPT/HCPCS: 36415; 80053; 80061; 82306; 82607; 82746; 83735; 84100; 84439; 84443; 85025; 85652; 86140

== ENCOUNTER 2023-03-02 08:24 | Outpatient (AMB) | payer OTHER, SELFPAY ==
[2023-03-02 08:28] VITALS: BP 120/74; PULSE 68; BMI 30.3
--- NOTE | 2023-03-02 08:28 | MHC.OFFVIS ---
Intake Vital Signs 03/02/23 08:28 Height 5 ft 1.5 in Weight 163 lb 2.273 oz BMI 30.3 BP 120/74 Blood Pressure Location Lt brachial Position Sitting Pulse 68 Intake Visit Reasons: 1 yr fu Intake Note: 1 year follow=up with ekg feeling ok Communication Skills Instructor Required: No Allergies cefaclor [From Ceclor] Allergy (Severe, Verified 01/31/23 14:52) RASH & HIVES NSAIDS (Non-Steroidal Anti-Inflamma [Nsaids] Allergy (Severe, Verified 01/31/23 14:52) HIVES propantheline [From Pro-Banthine] Allergy (Severe, Verified 01/31/23 14:52) HIVES aspirin [Aspirin] Allergy (Unknown, Verified 01/31/23 14:52) HIVES Medication List - Last Reconciled 03/02/23 by Jose Almendarez MD amlodipine 2.5 mg PO DAILY cholecalciferol (vitamin D3) 25 mcg PO DAILY levothyroxine (Synthroid) 50 mcg PO QAM loratadine (Claritin) 10 mg PO DAILY metoprolol succinate ER 37.5 mg (1.5 x 25 mg) PO DAILY multivitamin 1 tab PO DAILY omeprazole 20 mg PO DAILY penciclovir 1% (Denavir) 1 appl topical Q2H PRN rosuvastatin 5 mg PO DAILY HPI HPI Comments History of Present Illness Details Nori comes for follow up. She has been doing well. She occasionally gets prolonged palpitations about every 2 weeks. Symptoms subside usually very quickly. She also gets occasional fluttering in her chest. EKG strip shows PACs. She also has intermittent episodes of chest tightness not exertional in nature happens randomly. Sometimes after exposure to cold air sometimes while she is cooking. She is taking all her medications. Dealing with back issues. Her last LDL was 73. Blood pressure is generally well controlled on low-dose amlodipine. [facility] Medical History (Updated 03/02/23 @ 08:56 by Jose Almendarez MD) GERD (gastroesophageal reflux disease) ELLIOT (obstructive sleep apnea) Nocturnal hypoxia Chronic allergic rhinitis Has daytime drowsiness Asthma MGUS (monoclonal gammopathy of unknown significance) Diverticular disease Osteopenia Hypothyroid Meniere disease Pulmonary nodule, left PVC (premature ventricular contraction) Hyperlipidemia HTN (hypertension) CAD (coronary artery disease) Surgical History Hx of section History of cholecystectomy History of laparotomy Hx of colonoscopy History of endometrial ablation Family History Father CVD (cardiovascular disease) Mother No problems noted. Brother CVD (cardiovascular disease) Sister Breast cancer Social History Household Members: Spouse Housing: House Are you a primary rn complex care to a significant other at home: No Do you presently have visiting nurse or other home services: No Alcohol intake: current Alcohol intake frequency: a few times a month Alcohol type: wine Comment: 1 drink 3-4 x a week Patient Tobacco Use Status: Former Tobacco user Years Smoked: 1969 e-Cigarette/Vaping Use: Never Used Second Hand Smoke Exposure: No service: No Current occupational status: employed Cognitive needs: No Hearing needs: No Vision needs: Yes Review of Systems Const Denies chills, Denies fatigue, Denies fever(s), Denies frequent falls, Denies weakness, Denies weight gain and Denies weight loss ENT Denies dizziness Card Denies chest pain, Denies leg edema, Denies lightheadedness, Denies palpitations, Denies dyspnea, Denies dyspnea on exertion, Denies orthopnea and Denies other (loss of consciousness) Resp Denies cough, Denies dyspnea and Denies dyspnea on exertion GI Denies hematochezia and Denies change in stool character Musc Denies abnormal gait, Denies muscle weakness, Denies numbness, Denies radiating pain into limb and Denies tingling Neuro Denies abnormal gait, Denies dizziness, Denies frequent falls, Denies numbness, Denies tingling and Denies weakness Endo Denies fatigue and Denies palpitations Physical Exam Vital Signs: Last Vital Signs Pulse 68 03/02/23 08:28 BP 120/74 03/02/23 08:28 BMI result Body Mass Index 30.3 Const General: cooperative, comfortable, alert and awake Nutritional Appearance: overweight Orientation/consciousness: patient oriented x3 Limitations: no limitations Resp Effort & Inspection: normal respiratory effort Auscultation: clear to auscultation bilaterally Cardio Jugular venous distension: no JVD Rate: regular rate Rhythm: regular rhythm Heart sounds: S1 normal heart sound present and S2 normal heart sound present Neuro General: patient oriented x3 and no focal motor deficits Psych Appearance: grossly normal Office Procedures EKG Details: EKG shows normal sinus rhythm with poor R-wave progression [id number], Complete Assessment & Plan Assessment & Plan (1) CAD (coronary artery disease): Comment: nonobstructive by CTA March 2017 Code(s): I25.10 - Atherosclerotic heart disease of [place] coronary artery without angina pectoris Plan: Nonobstructive CAD without any new symptoms. Her intermittent chest tightness could be due to muscular spasm and/or coronary spasm. She had a stress test last year which was within normal limits. She has no exertional concerning symptoms at current point in time. Continue current therapy. Continue aggressive risk factor modification. Blood pressure is well optimized. Continue current statin therapy with well optimized LDL. Continue low-dose aspirin therapy. Encouraged to continue to participate in physical activity to improve aerobic capacity. (2) SVT (supraventricular tachycardia): Code(s): I47.1 - Supraventricular tachycardia Plan: Supraventricular tachycardia with persistent intermittent symptoms. She is done well overall with metoprolol therapy. She has had no markedly prolonged episodes or ED presentation for SVT. We discussed about vagal maneuvers. Avoidance of stimulants was discussed. Continue metoprolol therapy. She also has symptoms related to isolated PACs, these are benign and no further workup is indicated. Will follow up in the clinic 1 year's time after an echocardiogram. Thank you for allowing me to partake in her care Coding Level of Care Code Est Pt Level 4 (64739) Diagnoses CAD (coronary artery disease) I25.10 SVT (supraventricular tachycardia) I47.1 CPT Codes EKG - CPT: 86985-[id number], Complete ([id number])
== END 2023-03-02 08:55 | disposition home or self-care (01) ==
PROVIDERS: Visit Provider Internal Medicine Cardiovascular Disease
DX: I25.10 Atherosclerotic heart disease of native coronary artery without angina pectoris (principal); I47.10 Supraventricular tachycardia, unspecified
CPT/HCPCS: 93010; 99214

== ENCOUNTER → 2023-03-02 08:24 | Outpatient (BNVA) | payer OTHER, SELFPAY | PROVIDERS: Visit Provider Internal Medicine Cardiovascular Disease | DX: I25.10 Atherosclerotic heart disease of native coronary artery without angina pectoris (principal); I47.10 Supraventricular tachycardia, unspecified | CPT/HCPCS: 93005 ==

== ENCOUNTER 2023-03-14 14:56 | Outpatient (REF) | payer OTHER, SELFPAY ==
--- NOTE | ~2023-03-14 | MM_ITS ---
EXAMINATION: BONE DENSITOMETRY CLINICAL INDICATION: Age-related osteoporosis without current pathological fracture. COMPARISON: Previous BD dated 09/11/2020 and baseline BD dated 10/16/2008. TECHNIQUE: Using a [employer]works DXA System (software version: 13.1) manufactured by [employer], dual-energy x-ray absorptiometry was performed of the lumbar spine and left hip. The images are of good technical quality. Summary results are attached. FINDINGS: LEFT FEMUR, NECK: Current: BMD 0.533 g/cm2, Z-score -2.2, T-score -3.6, osteoporosis. Prior: BMD 0.699 g/cm2. Baseline: BMD 0.872 g/cm2. LEFT FEMUR, TOTAL: Current: BMD 0.710 g/cm2, Z-score -1.2, T-score -2.4, osteopenia, 14.6% decrease from previous, 24.9% decrease from baseline (<5% change is not significant). Prior: BMD 0.831 g/cm2. Baseline: BMD 0.946 g/cm2. AP SPINE L1-L2 (excluding L3 and L4): The data of L1-L4 has been changed to exclude the L3 and L4 vertebral bodies, because degenerative sclerosis at these levels may cause overestimation of lumbar spine density. Current: BMD 0.923 g/cm2, Z-score -0.7, T-score -2.0, osteopenia, 7.3% decrease from previous, 16.2% decrease from baseline (<5% change is not significant). Prior: BMD 0.996 g/cm2. Baseline: BMD 1.102 g/cm2. IDENTIFIED RISK FACTORS: Menopause, height loss, intestinal/bowel disease. HISTORY OF FRACTURE: None listed. MEDICATIONS: Vitamin D. MM/XR DEXA axial skeleton IMPRESSION: 1. DIAGNOSIS: Osteoporosis based on the lowest T-score value of -3.6 in the femoral neck applying World Health Organization criteria. 2. 10-YEAR FRACTURE RISK PREDICTION, FRAX: According to the guidelines, FRAX calculation should only be performed on patients in the osteopenia bone density category. Therefore, FRAX was not performed on this patient. 3. Treatment Recommendations: NOF guidelines recommend consideration for treatment in postmenopausal women and men age 50 and older presenting with the following: -A hip or vertebral (clinical or morphometric) fracture. -T-score less than or equal to -2.5 at the femoral neck or spine after appropriate evaluation to exclude secondary causes. -Low bone mass at the hip or spine and a 10-year fracture probability by FRAX of greater than or equal to 3% for hip fracture or greater than or equal to 20% for major osteoporotic fracture based on the [place] adapted WHO algorithm. 4. Other Recommendations: All treatment decisions require clinical judgment and consideration of individual patient factors, including patient preferences, comorbidities, previous drug use, risk factors not captured in the FRAX model (e.g. frailty, falls, vitamin D deficiency, increased bone turnover, interval significant decline in bone density) and possible under or overestimation of fracture risk by FRAX. Additional medical evaluation for secondary cause of low bone mineral density may be appropriate. FUTURE SCAN RECOMMENDATION: People with diagnosed cases of osteoporosis or at high risk for fracture should have regular bone mineral density tests. For patients eligible for Medicare, routine testing is allowed once every 2 years. The testing frequency can be increased to one year for patients who have rapidly progressing disease, those who are receiving or discontinuing medical therapy to restore bone mass, or have additional risk factors.
== END 2023-03-14 14:57 | disposition home or self-care (01) ==
LOC: HO.MAMMO 14:56
PROVIDERS: PCP Internal Medicine; Visit Provider Internal Medicine
DX: Z13.820 Encounter for screening for osteoporosis (principal); Z78.0 Asymptomatic menopausal state; M81.0 Age-related osteoporosis without current pathological fracture; M85.80 Other specified disorders of bone density and structure, unspecified site
CPT/HCPCS: 77080

== ENCOUNTER 2023-06-27 14:42 | Outpatient (REF) | payer OTHER, SELFPAY ==
[2023-06-27 14:54] LABS: MANUAL DIFF FLAG NO
[2023-06-27 15:29] LABS: Basophils Absolute Auto 0.1 X10*3/uL (0.0-0.2); Eosinophils Absolute Auto 0.2 X10*3/uL (0.0-0.4); Eosinophils Percent Auto 2.6 % (0-4); Hematocrit 42.3 % (37.0-47.0); Hemoglobin 14.1 g/dl (12.0-16.0); Imm Gran Abs Auto 0.04 X10*3/uL (0.00-0.03); Imm Gran Pct Auto 0.5 % (0.0-0.4); Lymphocytes Absolute Auto 2.6 X10*3/uL (1.2-4.9); Lymphocytes Percent Auto 30.9 % (20-40); Mean Corpuscular HGB Conc 33.3 g/dl (31.0-35.0); Mean Corpuscular Hemoglobin 29.3 pg (27.0-33.0); Mean Corpuscular Volume 87.8 fL (80.0-98.0); Mean Platelet Volume 10.7 fL (9.4-12.3); Monocytes Absolute Auto 0.7 X10*3/uL (0.1-1.2); Monocytes Percent Auto 7.9 % (2-11); Neutrophils Absolute Auto 4.8 x10*3/uL (2.0-8.3); Neutrophils Percent Auto 57.1 % (45-73); Platelet Count 242 X10*3/uL (160-400); Red Blood Count 4.82 X10*6/uL (4.20-5.50); Red Cell Distribution Width 13.2 % (11.0-16.0); White Blood Count 8.4 X10*3/uL (4.8-10.8)
[2023-06-27 15:53] LABS: Alanine Aminotransferase 18 U/L (0-31); Albumin Level 4.5 g/dL (3.5-5.0); Alkaline Phosphatase 67 U/L (39-117); Anion Gap 12 (12-20); Aspartate Amino Transferase 21 U/L (5-31); Bilirubin Direct 0.2 mg/dL (0.0-0.5); Bilirubin Total 0.6 mg/dL (0.0-1.0); Blood Urea Nitrogen 18 mg/dL (9-16); Calcium 9.9 mg/dL (8.4-10.2); Carbon Dioxide 25 mmol/L (22-29); Chloride 109 mmol/L (96-108); Estimated Glomerular Filt Rate > 60; Glucose Random 111 mg/dL (60-115); Lipase 50 U/L (8-78); Potassium 3.8 mmol/L (3.3-5.1); Sodium 142 mmol/L (135-145); Total Protein 7.4 g/dL (6.5-8.0)
[2023-06-27 16:00] LABS: Appearance Urine Clear; Color Urine Yellow; Glucose Urine UA Negative (Negative); Leukocyte Esterase Urine Negative (Negative); Nitrite Urine Negative (Negative); PH 5.5 (5.0-9.0); Specific Gravity - Urine 1.025 (1.005-1.025); Urine Blood Negative (Negative); Urine Ketones Negative (Negative); Urine Protein Negative (Neg-Trace)
== END 2023-06-27 14:43 | disposition home or self-care (01) ==
LOC: HO.LAB 14:42
PROVIDERS: Visit Provider Internal Medicine
DX: R10.32 Left lower quadrant pain (principal)
CPT/HCPCS: 36415; 80048; 80076; 81003; 83690; 85025

== ENCOUNTER 2023-06-28 11:28 | Outpatient (REF) | payer OTHER, SELFPAY ==
--- NOTE | ~2023-06-28 | CT_ITS ---
EXAMINATION: CT ABDOMEN AND PELVIS WITH CONTRAST CLINICAL INFORMATION: LLQ pain COMPARISON: CT abdomen/pelvis 07/23/2020 TECHNIQUE: Multidetector volumetric images were obtained from the superior aspect of the liver through the pubic symphysis following administration 85 mL of Omnipaque 350 intravenous contrast. Sagittal and coronal reformatted images were obtained on the technologist's workstation. Oral contrast: Yes This CT examination was performed using dose optimization techniques as appropriate, variously including the following: *Automated exposure control *Adjustment of mA and/or kV according to patient size (this includes techniques or standardized protocols for targeted exams where dose is matched to indication/reason for exam; i.e. extremities or head) *Use of iterative reconstruction technique DLP: 559 mGy-cm FINDINGS: LUNG BASES: Bibasilar atelectasis. No pleural effusion. Normal-sized heart without pericardial effusion. Mild coronary arterial calcifications. LIVER, GALLBLADDER, AND BILIARY TREE: The liver is normal in size, shape, and attenuation. No focal hepatic lesion or biliary ductal dilatation is present. Status post cholecystectomy. PANCREAS: Unremarkable. SPLEEN: Unremarkable. ADRENAL GLANDS: Unremarkable. KIDNEYS AND URETERS: The kidneys are normal in size, shape, and attenuation. No hydronephrosis, hydroureter, or calculi seen. No perinephric stranding. BLADDER: Unremarkable. GASTROINTESTINAL TRACT: The small and large bowel are nondilated. Mild scattered sigmoid diverticulosis without evidence for acute diverticulitis. Normal appendix. ABDOMINAL WALL: No significant hernia is appreciated. LYMPH NODES: Normal. VASCULAR: Tortuous abdominal aorta is nonaneurysmal. Mild scattered atheromatous calcifications. PELVIC VISCERA: CT appearance of the uterus. No adnexal masses. OSSEOUS STRUCTURES: No acute or suspicious osseous abnormality. Moderate multilevel thoracolumbar spondylosis. CT/CT abdomen pelvis w IV con IMPRESSION: 1. No acute abnormality within the abdomen or pelvis. 2. Mild scattered sigmoid diverticulosis without evidence for acute diverticulitis. Fleischner guidelines were followed.
[2023-06-28] MEDS: iohexoL 350 MG/ML 100 ML INFUS..BTL 85 ML IV (14:37)
[2023-06-28] MEDS: Barium Sulfate Oral (Vanilla) 450 ML ORAL.SUSP 900 ML PO (14:39)
== END 2023-06-28 11:29 | disposition home or self-care (01) ==
LOC: HO.CT 11:28
PROVIDERS: PCP Internal Medicine; Visit Provider Internal Medicine
DX: R10.32 Left lower quadrant pain (principal)
CPT/HCPCS: 74177; Q9967

== ENCOUNTER 2023-07-24 12:57 | Outpatient (REF) | payer OTHER, SELFPAY ==
--- NOTE | ~2023-07-24 | US_ITS ---
EXAMINATION: US PELVIS CLINICAL INFORMATION: Postmenopausal bleeding, CT abdomen and pelvis 06/28/2023 COMPARISON: None available. TECHNIQUE: Transabdominal ultrasound images only were obtained. Patient declined transvaginal ultrasound images. Limited visualization due to bowel gas. FINDINGS: The uterus is anteverted and measures 7.4 x 2.4 x 3.3 cm. No discrete fibroids are appreciated. Endometrium is poorly visualized, but the mid segment of endometrium appears to contain a small amount of free fluid and demonstrates a double wall thickness of 2 mm. No significant free fluid. Right ovary measures 1.4 x 0.8 x 0.8 cm, volume 0.5 mL. Left ovary measures 1.4 x 1.5 x 0.8 cm, volume 0.91 mL. Bilateral ovaries are grossly unremarkable on limited images. US/US pelvic complete IMPRESSION: Endometrium is poorly visualized, but the mid segment of endometrium appears to contain a small amount of free fluid and demonstrates a double wall thickness of 2 mm. Transvaginal ultrasound images recommended for further evaluation. Per roof bolter patient declined transvaginal exam and will discuss with provider and reschedule for transvaginal if agrees to consent.
== END 2023-07-24 12:58 | disposition home or self-care (01) ==
LOC: HO.US 12:57
PROVIDERS: PCP Internal Medicine; Visit Provider Obstetrics & Gynecology Female Pelvic Medicine and Reconstructive Surgery
DX: N95.0 Postmenopausal bleeding (principal)
CPT/HCPCS: 76856

== ENCOUNTER 2023-07-27 12:01 | Outpatient (REF) | payer OTHER, SELFPAY ==
[2023-07-27 12:24] LABS: MANUAL DIFF FLAG NO
[2023-07-27 12:46] LABS: Basophils Absolute Auto 0.1 X10*3/uL (0.0-0.2); Basophils Percent Auto 1.1 % (0-2); Eosinophils Absolute Auto 0.2 X10*3/uL (0.0-0.4); Eosinophils Percent Auto 2.3 % (0-4); Hematocrit 42.6 % (37.0-47.0); Hemoglobin 14.1 g/dl (12.0-16.0); Imm Gran Abs Auto 0.04 X10*3/uL (0.00-0.03); Imm Gran Pct Auto 0.5 % (0.0-0.4); Lymphocytes Absolute Auto 2.2 X10*3/uL (1.2-4.9); Lymphocytes Percent Auto 26.3 % (20-40); Mean Corpuscular HGB Conc 33.1 g/dl (31.0-35.0); Mean Corpuscular Hemoglobin 29.4 pg (27.0-33.0); Mean Corpuscular Volume 88.8 fL (80.0-98.0); Mean Platelet Volume 10.6 fL (9.4-12.3); Monocytes Absolute Auto 0.6 X10*3/uL (0.1-1.2); Monocytes Percent Auto 6.9 % (2-11); Neutrophils Absolute Auto 5.2 x10*3/uL (2.0-8.3); Neutrophils Percent Auto 62.9 % (45-73); Platelet Count 241 X10*3/uL (160-400); Red Cell Distribution Width 13.2 % (11.0-16.0); White Blood Count 8.3 X10*3/uL (4.8-10.8)
[2023-07-27 13:26] LABS: Alanine Aminotransferase 20 U/L (0-31); Albumin Level 4.4 g/dL (3.5-5.0); Alkaline Phosphatase 68 U/L (39-117); Anion Gap 10 (12-20); Aspartate Amino Transferase 23 U/L (5-31); Bilirubin Total 0.9 mg/dL (0.0-1.0); Blood Urea Nitrogen 21 mg/dL (9-16); Calcium 9.6 mg/dL (8.4-10.2); Carbon Dioxide 28 mmol/L (22-29); Chloride 105 mmol/L (96-108); Estimated Glomerular Filt Rate > 60; Glucose Random 163 mg/dL (60-115); Potassium 3.8 mmol/L (3.3-5.1); Sodium 139 mmol/L (135-145); Total Protein 7.3 g/dL (6.5-8.0)
[2023-07-27 13:37] LABS: Free T4 (Free Thyroxine) 1.18 ng/dL (0.71-1.85); Thyroid Stimulating Hormone 1.44 uIU/mL (0.32-4.0)
== END 2023-07-27 12:02 | disposition home or self-care (01) ==
LOC: HO.LAB 12:01
PROVIDERS: PCP Internal Medicine; Visit Provider Internal Medicine
DX: E03.9 Hypothyroidism, unspecified (principal)
CPT/HCPCS: 36415; 80053; 84439; 84443; 85025

== ENCOUNTER 2023-08-08 17:49 | Emergency (ER) | payer OTHER, SELFPAY ==
--- NOTE | ~2023-08-08 | CT_ITS ---
EXAMINATION: CT ABDOMEN AND PELVIS WITH CONTRAST CLINICAL INFORMATION: Left lower quadrant pain; history of diverticulitis COMPARISON: CT abdomen/pelvis 06/28/2023 TECHNIQUE: Multiple axial images were obtained from the superior aspect of the liver through the pubic symphysis after the administration of 85 mL of intravenous Omnipaque. Images were evaluated on independent dedicated 3-D workstation and 3-D images were reconstructed with concurrent radiologist supervision and subsequently interpreted. Oral contrast was not administered. This CT examination was performed using dose optimization techniques as appropriate, variously including the following: *Automated exposure control *Adjustment of mA and/or kV according to patient size (this includes techniques or standardized protocols for targeted exams where dose is matched to indication/reason for exam; i.e. extremities or head) *Use of iterative reconstruction technique DLP: 580 mGy-cm FINDINGS: LUNG BASES: Bibasilar atelectatic changes. CARDIOMEDIASTINUM: The visualized heart is normal in size without pericardial effusion. No coronary artery calcification. LIVER: Homogeneous in attenuation. Normal in size. GALLBLADDER: Absent BILIARY SYSTEM: No intrahepatic or extrahepatic biliary ductal dilation, likely related to postcholecystectomy state. CBD measures up to 1 cm. PANCREAS: Homogeneous in attenuation. SPLEEN: Normal in size. GENITOURINARY: Bilateral kidneys demonstrate symmetric enhancement. No perinephric fluid collection. No renal calculi. No hydroureteronephrosis. ADRENAL GLANDS: Unremarkable. REPRODUCTIVE: Uterus and and bilateral adnexa are unremarkable. GASTROINTESTINAL: The visualized alimentary tract is normal in course. Descending and sigmoid diverticular disease without diverticulitis. No evidence of obstruction. APPENDIX: The appendix is seen in its entirety and is unremarkable. PERITONEUM: No pneumoperitoneum. No intra-abdominal fluid collection. VASCULATURE: The abdominal aorta is normal in course and caliber. LYMPH NODES: No pathologically enlarged abdominal or pelvic lymph nodes. SOFT TISSUES/MUSCULOSKELETAL: Multilevel degenerative changes of the lumbar spine, worst at L4-S1 with mild extra scoliosis resulting in moderate right L4-L5 and L5-S1 neural foraminal stenosis. No acute fracture or focal osseous lesion. CT/CT abdomen pelvis w IV con IMPRESSION: 1. No acute abdominal or pelvic pathology. 2. Diverticular disease without diverticulitis. Fleischner guidelines were followed.
--- NOTE | 2023-08-08 18:07 | ED.GENADULT ---
HPI - General Adult General Chief complaint: Abdominal Pain Stated complaint: abd pain Time Seen by Provider: 08/08/23 18:28 Source: patient Mode of arrival: ambulatory Limitations: no limitations History of Present Illness ED Provider: jayla GARCIA narrative: Patient with history of diverticulosis, IBS complaining of increased left lower quadrant pain with diarrhea for last 3 days having 7-8 times watery stool no blood in the stool patient does have IBS but feel this pain is different than usual IBS pain more localized to left lower quadrant does have chills no fever does have nausea no vomiting patient does not feel hungry patient had a CT scan done on 07/06 which was negative for diverticulitis Related Data Home Medications ?Medication ?Instructions ?Recorded ?Confirmed omeprazole 20 mg capsule,delayed 20 mg PO DAILY 05/05/21 07/24/23 release multivitamin 1 tab PO DAILY 11/15/21 07/24/23 cholecalciferol (vitamin D3) 25 25 mcg PO DAILY 01/13/22 07/24/23 mcg (1,000 unit) capsule loratadine 10 mg tablet (Claritin) 10 mg PO DAILY 01/20/22 07/24/23 Previous Rx's ?Medication ?Instructions ?Recorded rosuvastatin 5 mg tablet 5 mg PO DAILY #90 tabs 01/24/23 amlodipine 2.5 mg tablet 2.5 mg PO DAILY #90 tabs 01/31/23 metoprolol succinate 25 mg 50 mg (2 x 25 mg) PO DAILY 90 days 03/22/23 tablet,extended release 24 hr #180 ea levothyroxine 50 mcg tablet 50 mcg PO QAM #90 tabs 06/08/23 (Synthroid) penciclovir 1 % topical cream 1 appl topical Q2H PRN Cold Sores 06/12/23 (Denavir) #5 grams Allergies Allergy/AdvReac Type Severity Reaction Status Date / Time cefaclor [From Ceclor] Allergy Severe RASH & Verified 08/08/23 18:14 HIVES NSAIDS (Non-Steroidal Allergy Severe HIVES Verified 08/08/23 18:14 Anti-Inflamma [Nsaids] propantheline Allergy Severe HIVES Verified 08/08/23 18:14 [From Pro-Banthine] aspirin [Aspirin] Allergy Unknown HIVES Verified 08/08/23 18:14 Review of Systems Review of Systems: Yes all other systems are reviewed and are negative PMFSH Past Medical History Medical History GERD (gastroesophageal reflux disease) ELLIOT (obstructive sleep apnea) Nocturnal hypoxia Chronic allergic rhinitis Has daytime drowsiness Asthma MGUS (monoclonal gammopathy of unknown significance) Diverticular disease Osteopenia Hypothyroid Meniere disease Pulmonary nodule, left PVC (premature ventricular contraction) Hyperlipidemia HTN (hypertension) CAD (coronary artery disease) Surgical History Hx of section History of cholecystectomy History of laparotomy Hx of colonoscopy History of endometrial ablation Family History Family History Father CVD (cardiovascular disease) Mother No problems noted. Brother CVD (cardiovascular disease) Sister Breast cancer Social History Social History Household Members: Spouse Housing: House Are you a primary manager home healthcare to a significant other at home: No Do you presently have visiting nurse or other home services: No Alcohol intake: current Alcohol intake frequency: a few times a month Alcohol type: wine Comment: 1 drink 3-4 x a week Patient Tobacco Use Status: Former Tobacco user Years Smoked: 1970 Smoked in Last 30 Days: No e-Cigarette/Vaping Use: Never Used Second Hand Smoke Exposure: No Advance Directives: No Advance Directives Information Provided: No Do you have a plan to hurt others: No Plan service: No Current occupational status: employed Cognitive needs: No Hearing needs: No Vision needs: Yes Physical Exam ED Vital Signs: Vital Signs - 24 hr 08/08/23 18:09 08/08/23 19:04 08/08/23 21:36 Temperature 98.5 F 97.9 F Pulse Rate 88 95 Respiratory Rate 18 16 16 Blood Pressure 201/91 H 147/89 H Pulse Oximetry 100 95 Oxygen Delivery Method Room Air Room Air 08/08/23 22:04 08/08/23 22:33 08/08/23 22:43 Temperature 97.9 F 97.9 F 97.9 F Pulse Rate 97 98 98 Respiratory Rate 13 15 15 Blood Pressure 143/81 H 140/84 H 140/84 H Pulse Oximetry 98 94 94 Oxygen Delivery Method Room Air Room Air Room Air BMI result Body Mass Index 31.4 Appearance: Alert. Oriented X3. No acute distress. Eyes: No pallor or icterus ENT: Pharynx normal. Oral Mucosa moist Neck: Normal inspection. Neck supple. CVS: Normal heart rate and rhythm. Pulses normal. Respiratory: No respiratory distress. Equal air entry bilateral, no wheezing/rales/rhonchi Abdomen: Soft and deep tenderness left lower quadrant with guarding no rebound tenderness. Bowel sounds are present, no mass palpable, no CVA tenderness Skin: Skin warm and dry. Normal skin color. Normal skin turgor. Extremities: No lower extremity edema. No calf tenderness Neuro: Oriented X 3. No motor deficit. No sensory deficit.No cerebellar signs , cranial nerves II-XII intact Course Course Course Narrative: This is a rapid medical exam performed by Falguni Mcallister NP: Additional HPI, ROS, PE not included below will be deferred to primary provider. Patient is a 67-year-old female with history of SVT, GERD, CAD, hypothyroid, ELLIOT, HTN, HLD, PVCs presenting to the ED with complaint of left lower quadrant abdominal pain, diarrhea for the past 2 days. Hx of diverticulitis in the past. Feels dizzy, fatigued. Chills, no fever. Hypertensive in triage but due to take medications now. Plan: labs, UA Medications Administered Discontinued Medications Generic Name Dose Route Start Last Admin Trade Name Freq PRN Reason Stop Dose Admin Sodium Chloride 1,000 mls @ 999 mls/hr 08/08/23 18:46 08/08/23 22:07 Ns IV 08/08/23 19:46 Infused .Q1H1M ONE Infusion Iohexol 85 ml 08/08/23 19:53 08/08/23 19:54 Iohexol 350 Mg/Ml 100 Ml Infus..Btl IV 08/08/23 19:54 85 ml ONCE ONE Administration Morphine Sulfate 4 mg 08/08/23 18:49 08/08/23 19:04 Morphine Sulfate 4 Mg/Ml Cartridge IVPUSH 08/08/23 18:50 4 mg ONCE ONE Administration Protocol Morphine Sulfate 4 mg 08/08/23 22:20 08/08/23 22:36 Morphine Sulfate 4 Mg/Ml Cartridge IVPUSH 08/08/23 22:21 4 mg ONCE ONE Administration Protocol Ondansetron HCl 4 mg 08/08/23 18:46 08/08/23 19:04 Ondansetron Hcl 4 Mg/2 Ml Vial IVPUSH 08/08/23 18:47 4 mg ONCE ONE Administration Medical Decision Making Medical Decision Making [facility] Narrative: Patient with left lower quadrant tenderness with history of diverticulosis suspected diverticulitis but had normal lactic acid and CBC count CT scan was done with IV contrast which was negative just showed diverticulosis will discharge patient home on supportive treatment advised to continue dicyclomine and follow-up with the surgeon Differential Diagnosis Differential Diagnoses: The differential diagnosis associated with the presentation includes Diverticulitis/kidney stone/colitis/UTI/mesenteric ischemia Lab Data [facility] Lab Attestation statement: I reviewed the patient's lab results. 08/08/23 18:47 08/08/23 18:47 Labs: Lab Results 08/08/23 Range/Units 18:47 WBC 9.9 (4.8-10.8) X10*3/uL RBC 4.81 (4.20-5.50) X10*6/uL Hgb 14.4 (12.0-16.0) g/dl Hct 41.9 (37.0-47.0) % MCV 87.1 (80.0-98.0) fL MCH 29.9 (27.0-33.0) pg MCHC 34.4 (31.0-35.0) g/dl RDW 13.2 (11.0-16.0) % Plt Count 219 (160-400) X10*3/uL MPV 10.3 (9.4-12.3) fL Immature Gran % (Auto) 0.5 H (0.0-0.4) % Neut % (Auto) 70.5 (45-73) % Lymph % (Auto) 19.4 L (20-40) % [place] % (Auto) 7.2 (2-11) % Eos % (Auto) 1.7 (0-4) % Baso % (Auto) 0.7 (0-2) % Lymph # (Auto) 1.9 (1.2-4.9) X10*3/uL [place] # (Auto) 0.7 (0.1-1.2) X10*3/uL Eos # (Auto) 0.2 (0.0-0.4) X10*3/uL Baso # (Auto) 0.1 (0.0-0.2) X10*3/uL Abs Immat Gran (auto) 0.05 H (0.00-0.03) X10*3/uL Absolute Neuts (auto) 7.0 (2.0-8.3) x10*3/uL Absolute Nucleated RBC 0.000 (0.0-0.012) X10*3/uL Nucleated RBC % (auto) 0.0 (0.0-0.2) /100WBC PT 11.1 (11.1-13.3) SEC INR 0.9 (0.9-1.1) Sodium 142 (135-145) mmol/L Potassium 3.5 (3.3-5.1) mmol/L Chloride 108 (96-108) mmol/L Carbon Dioxide 24 (22-29) mmol/L Anion Gap 14 (12-20) BUN 19 H (9-16) mg/dL Creatinine 0.79 (0.5-1.4) mg/dL Estim Creat Clear Calc 63.2 Estimated GFR > 60 Random Glucose 117 H (60-115) mg/dL Lactic Acid 1.1 (0.5-2.0) mmol/L Calcium 9.8 (8.4-10.2) mg/dL Total Bilirubin 0.8 (0.0-1.0) mg/dL AST 21 (5-31) U/L ALT 17 (0-31) U/L Alkaline Phosphatase 71 (39-117) U/L Total Protein 7.7 (6.5-8.0) g/dL Albumin 4.7 (3.5-5.0) g/dL Urine Color Yellow Urine Appearance Clear Urine pH 6.0 (5.0-9.0) Ur Specific [place] <= 1.005 (1.005-1.025) Urine Protein Negative (Neg-Trace) mg/dL Urine Glucose (UA) Negative (Negative) mg/dL Urine Ketones Negative (Negative) mg/dL Urine Blood Negative (Negative) Urine Nitrite Negative (Negative) Ur Leukocyte Esterase Trace H (Negative) Urine RBC 0-2 (0-2) /HPF Urine WBC 0-5 (0-5) /HPF Ur Squamous Epith Cells 0-2 (0-2) /HPF Urine Bacteria None Seen (None Seen) Hyaline Casts 0-2 (0-2) /LPF Independent Interpretation I performed an independent interpretation of an: CT Scan Radiology Impression Discussion of test interpretation with radiology: I have reviewed the radiologist's reading. Discharge Plan Discharge Clinical Impression: Acute colitis, Diverticulosis large intestine w/o perforation or abscess w/bleeding Patient Disposition: Home, Self-Care Instructions: Diverticulosis (ED), Colitis (ED) Additional Instructions: Drink plenty of fluids Continue dicyclomine for pain Report to ER if worsening of the pain/fever/blood in stool Prescriptions: No Action rosuvastatin 5 mg tablet 5 mg PO DAILY Qty: 90 3RF amlodipine 2.5 mg tablet 2.5 mg PO DAILY Qty: 90 3RF metoprolol succinate 25 mg tablet extended release 24 hr 50 mg PO DAILY 90 Days Qty: 180 3RF levothyroxine [Synthroid] 50 mcg tablet 50 mcg PO QAM Qty: 90 1RF penciclovir [Denavir] 1 % cream 1 appl topical Q2H PRN (Reason: Cold Sores) Qty: 5 2RF loratadine [Claritin] 10 mg Tablet 10 mg PO DAILY cholecalciferol (vitamin D3) 25 mcg (1,000 unit) capsule 25 mcg PO DAILY multivitamin Tablet 1 tab PO DAILY omeprazole 20 mg capsule,delayed release(DR/EC) 20 mg PO DAILY Interventions: ED Discharge Assessment Last Done: 08/08/23 22:43 Discharge Date/Time: 08/08/23 22:44 Print Language: Icelandic
[2023-08-08 18:09] VITALS: BP 201/91; PULSE 88; RESP 18; TEMP 36.9; O2SAT 100; BMI 31.4
[2023-08-08 18:56] LABS: MANUAL DIFF FLAG NO
[2023-08-08 19:01] LABS: Basophils Absolute Auto 0.1 X10*3/uL (0.0-0.2); Basophils Percent Auto 0.7 % (0-2); Eosinophils Absolute Auto 0.2 X10*3/uL (0.0-0.4); Eosinophils Percent Auto 1.7 % (0-4); Hematocrit 41.9 % (37.0-47.0); Hemoglobin 14.4 g/dl (12.0-16.0); Imm Gran Abs Auto 0.05 X10*3/uL (0.00-0.03); Imm Gran Pct Auto 0.5 % (0.0-0.4); Lymphocytes Absolute Auto 1.9 X10*3/uL (1.2-4.9); Lymphocytes Percent Auto 19.4 % (20-40); Mean Corpuscular HGB Conc 34.4 g/dl (31.0-35.0); Mean Corpuscular Hemoglobin 29.9 pg (27.0-33.0); Mean Corpuscular Volume 87.1 fL (80.0-98.0); Mean Platelet Volume 10.3 fL (9.4-12.3); Monocytes Absolute Auto 0.7 X10*3/uL (0.1-1.2); Monocytes Percent Auto 7.2 % (2-11); Neutrophils Percent Auto 70.5 % (45-73); Platelet Count 219 X10*3/uL (160-400); Red Blood Count 4.81 X10*6/uL (4.20-5.50); Red Cell Distribution Width 13.2 % (11.0-16.0); White Blood Count 9.9 X10*3/uL (4.8-10.8)
[2023-08-08 19:03] LABS: Appearance Urine Clear; Color Urine Yellow; Glucose Urine UA Negative (Negative); Leukocyte Esterase Urine Trace (Negative); Nitrite Urine Negative (Negative); Specific Gravity - Urine <= 1.005 (1.005-1.025); UMIC TRIGGER UACC YES; Urine Blood Negative (Negative); Urine Ketones Negative (Negative); Urine Protein Negative (Neg-Trace)
[2023-08-08 19:04] VITALS: RESP 16
[2023-08-08] MEDS: Morphine Sulfate 4 MG/ML CARTRIDGE IVPUSH ×2 (19:04→22:36)
[2023-08-08] MEDS: ondansetron HCL 4 MG/2 ML VIAL IVPUSH (19:04)
[2023-08-08] MEDS: 0.9 % Sodium Chloride 1,000 ML 999 ML IV (19:05)
[2023-08-08 19:06] LABS: Bacteria Urine None Seen (None Seen); Hyaline Casts Urine 0-2 /LPF (0-2); RBC Urine 0-2 /HPF (0-2); Squamous Epithelial Cell Urine 0-2 /HPF (0-2); WBC Urine 0-5 /HPF (0-5)
[2023-08-08 19:08] LABS: INTERNATIONAL NORM RATIO 0.9 (0.9-1.1); Prothrombin Time 11.1 SEC (11.1-13.3)
[2023-08-08 19:10] LABS: Lactic Acid 1.1 mmol/L (0.5-2.0)
[2023-08-08 19:20] LABS: Alanine Aminotransferase 17 U/L (0-31); Albumin Level 4.7 g/dL (3.5-5.0); Alkaline Phosphatase 71 U/L (39-117); Anion Gap 14 (12-20); Aspartate Amino Transferase 21 U/L (5-31); Bilirubin Total 0.8 mg/dL (0.0-1.0); Blood Urea Nitrogen 19 mg/dL (9-16); Calcium 9.8 mg/dL (8.4-10.2); Carbon Dioxide 24 mmol/L (22-29); Chloride 108 mmol/L (96-108); Creatinine Clr Calc Pharmacy 63.2; Estimated Glomerular Filt Rate > 60; Glucose Random 117 mg/dL (60-115); Potassium 3.5 mmol/L (3.3-5.1); Sodium 142 mmol/L (135-145); Total Protein 7.7 g/dL (6.5-8.0)
[2023-08-08] MEDS: iohexoL 350 MG/ML 100 ML INFUS..BTL 85 ML IV (19:54)
--- NOTE | 2023-08-08 21:07 | PC.NURSE ---
Pt took Metoprolol 50mg from home per MD.
--- NOTE | 2023-08-08 21:21 | MHC.EDTECH ---
pt ambulated to commode without assistance
[2023-08-08 21:36] VITALS: BP 147/89; PULSE 95; RESP 16; TEMP 36.6; O2SAT 95
[2023-08-08 22:04] VITALS: BP 143/81; PULSE 97; RESP 13; TEMP 36.6; O2SAT 98
[2023-08-08 22:33] VITALS: BP 140/84; PULSE 98; RESP 15; TEMP 36.6; O2SAT 94
[2023-08-08 22:43] VITALS: BP 140/84; PULSE 98; RESP 15; TEMP 36.6; O2SAT 94
== END 2023-08-08 22:44 | disposition home or self-care (01) ==
PROVIDERS: Registered Nurse Emergency; Emergency Provider Internal Medicine; PCP Internal Medicine
DX: K52.9 Noninfective gastroenteritis and colitis, unspecified (principal); K57.30 Diverticulosis of large intestine without perforation or abscess without bleeding; R10.32 Left lower quadrant pain; R11.2 Nausea with vomiting, unspecified; Z87.891 Personal history of nicotine dependence; Z79.899 Other long term (current) drug therapy
CPT/HCPCS: 36415; 74177; 80053; 81001; 81003; 83605; 85025; 85610; 87040; 96361; 96374; 96375; 96376; 99284; 99285; J2270; J2405; Q9967

== ENCOUNTER 2023-08-10 10:51 | Outpatient (REF) | payer OTHER, SELFPAY ==
--- NOTE | ~2023-08-10 | US_ITS ---
EXAMINATION: US PELVIS CLINICAL INFORMATION: Postmenopausal bleeding. COMPARISON: CT abdomen/pelvis 08/08/2023. Pelvic ultrasound 07/24/2023. TECHNIQUE: Ultrasound of the pelvis is performed using both transabdominal and transvaginal transducers along with Doppler. Transvaginal imaging is performed due to inadequate visualization transabdominally. FINDINGS: Anteverted anteflexed uterus measuring 5.2 x 2.2 x 2.8 cm. No discrete uterine mass is seen. The endometrium is not well delineated, suboptimally visualized. There is a 0.2 x 0.2 x 0.4 cm cystic appearing observation along the central uterus, uncertain if this is within the myometrium vs endometrium. The ovaries are symmetric and atrophic with preserved color flow at the moment of this examination. The right ovary measures 1.1 x 1.2 x 1.2 cm, 0.8 mL. The left ovary measures 1.6 x 0.8 x 1.1 cm, 0.7 mL. No adnexal mass. No free fluid. US/US pelvic and transvaginal IMPRESSION: 1. Nondiagnostic evaluation of the endometrium. 2. Indeterminate cystic appearing observation in the central uterus, uncertain if location is endometrial or myometrial. Recommend further evaluation with a pelvic MRI with and without IV contrast.
[2023-08-10 12:41] LABS: C Reactive Protein 0.17 mg/dL (< or = 0.50); Erythrocyte Sedimentation Rate 10 MM/HR (0-20)
== END 2023-08-10 10:52 | disposition home or self-care (01) ==
LOC: HO.US 10:51
PROVIDERS: Absent Provider Internal Medicine; PCP Internal Medicine; Visit Provider Obstetrics & Gynecology Female Pelvic Medicine and Reconstructive Surgery
DX: R19.7 Diarrhea, unspecified (principal); N95.0 Postmenopausal bleeding
CPT/HCPCS: 36415; 76830; 76856; 85652; 86140

== ENCOUNTER 2023-08-10 15:34 | Outpatient (REF) | payer OTHER, SELFPAY ==
[2023-08-10 16:46] LABS: CDiff Gene PCR NEGATIVE (Negative)
[2023-08-10 18:09] LABS: Leukocytes Stool Qualitative NEGATIVE (NEGATIVE)
[2023-08-11 12:18] LABS: Adenovirus F 40/41 Not Detected (Not Detect.); Astrovirus Not Detected (Not Detect.); Campylobacter Not Detected (Not Detect.); Cryptosporidium Not Detected (Not Detect.); Cyclospora cayetanensis Not Detected (Not Detect.); E. coli EAEC Not Detected (Not Detect.); E. coli EPEC Not Detected (Not Detect.); E. coli ETEC Not Detected (Not Detect.); E. coli STEC Not Detected (Not Detect.); Entamoeba histolytica Not Detected (Not Detect.); Giardia lamblia Not Detected (Not Detect.); Norovirus GI/GII Not Detected (Not Detect.); Plesiomonas shigelloides Not Detected (Not Detect.); Rotavirus A Not Detected (Not Detect.); Salmonella Not Detected (Not Detect.); Sapovirus Not Detected (Not Detect.); Shigella sp./EIEC Not Detected (Not Detect.); Vibrio Not Detected (Not Detect.); Vibrio Cholerae Not Detected (Not Detect.); Yersinia enterocolitica Not Detected (Not Detect.)
[2023-08-21 18:08] LABS: Calprotectin, Fecal 60 mcg/g
== END 2023-08-10 15:35 | disposition home or self-care (01) ==
LOC: HO.LNP 15:34
PROVIDERS: Visit Provider Internal Medicine
DX: R19.7 Diarrhea, unspecified (principal)
CPT/HCPCS: 83993; 87329; 87493; 87507; 89055

== ENCOUNTER 2023-08-23 10:17 | Outpatient (REF) | payer OTHER, SELFPAY ==
--- NOTE | ~2023-08-23 | FL_ITS ---
EXAMINATION: XR FLUOROSCOPY WITH IMAGES CLINICAL INFORMATION: Sacrococcygeal disorder. COMPARISON: None available. TECHNIQUE: Fluoroscopy Supervised By: Dr. Reed Sauceda. Fluoroscopy Time: 0.1 minutes. Cumulative Dose: 2.35 mGy. DAP: 0.0198 Gy-cm2. Images: 2. FINDINGS: Intraoperative fluoroscopy and spot films were performed during a procedure in the OR. Single needle seen overlying the region of the mid left SI joint. Please correlate with Dr. Rede Sauceda' report for complete details. FL/FL guidance in treatment room IMPRESSION: Intraoperative fluoroscopy and spot films were obtained. Please see Dr. Reed Sauceda' report for complete details.
== END 2023-08-23 10:18 | disposition home or self-care (01) ==
LOC: HO.LNP 10:17
PROVIDERS: Visit Provider Internal Medicine
DX: R19.7 Diarrhea, unspecified (principal)
CPT/HCPCS: 87329

== ENCOUNTER 2023-08-24 13:51 | Outpatient (AMB) | payer OTHER, SELFPAY ==
[2023-08-24 14:05] VITALS: BP 167/88; PULSE 72; O2SAT 99
--- NOTE | 2023-08-24 14:05 | MHC.OFFVIS ---
Vital Signs 08/24/23 14:05 08/24/23 14:31 BP 167/88 H 158/93 H Blood Pressure Location Lt brachial Rt brachial Position Sitting Sitting Pulse 72 76 Pulse Source Pulse Oximeter Pulse Oximeter Pulse Oximetry (%) 99 96 Oxygen Delivery Method Room Air Room Air Comment pre-op post-op Intake Visit Reasons: (L) L4-L5 Facet Joint Inj AND SI Inj Intake Note: pain 6/10 Allergies cefaclor [From Ceclor] Allergy (Severe, Verified 08/08/23 18:14) RASH & HIVES NSAIDS (Non-Steroidal Anti-Inflamma [Nsaids] Allergy (Severe, Verified 08/08/23 18:14) HIVES propantheline [From Pro-Banthine] Allergy (Severe, Verified 08/08/23 18:14) HIVES aspirin [Aspirin] Allergy (Unknown, Verified 08/08/23 18:14) HIVES HPI HPI (L) L4-L5 Facet Joint Inj AND SI Inj: Details: Patient presents for scheduled procedure. Denies any recent cough, cold, infection, fever or other significant changes in medical history since last office visit. [facility] Medical History GERD (gastroesophageal reflux disease) ELLIOT (obstructive sleep apnea) Nocturnal hypoxia Chronic allergic rhinitis Has daytime drowsiness Asthma MGUS (monoclonal gammopathy of unknown significance) Diverticular disease Osteopenia Hypothyroid Meniere disease Pulmonary nodule, left PVC (premature ventricular contraction) Hyperlipidemia HTN (hypertension) CAD (coronary artery disease) Surgical History Hx of section History of cholecystectomy History of laparotomy Hx of colonoscopy History of endometrial ablation Family History Father CVD (cardiovascular disease) Mother No problems noted. Brother CVD (cardiovascular disease) Sister Breast cancer Social History Household Members: Spouse Housing: House Are you a primary healthcare sales representative to a significant other at home: No Do you presently have visiting nurse or other home services: No Alcohol intake: current Alcohol intake frequency: a few times a month Alcohol type: wine Comment: 1 drink 3-4 x a week Patient Tobacco Use Status: Former Tobacco user Years Smoked: 1969 e-Cigarette/Vaping Use: Never Used Second Hand Smoke Exposure: No service: No Current occupational status: employed Cognitive needs: No Hearing needs: No Vision needs: Yes Physical Exam Vital Signs: Last Vital Signs Pulse 76 08/24/23 14:31 BP 158/93 H 08/24/23 14:31 Pulse Ox 96 08/24/23 14:31 Oxygen Delivery Method Room Air 08/24/23 14:31 Office Procedures Joint Injection/Drain Joint Injection/Drain Details: Sacroiliac Joint Injection, Left The procedure, its benefits, and its risks were explained and written informed consent was obtained from the patient. Immediately prior to starting the procedure, a time-out safety check was conducted. The patient's identification, procedure name, procedure site, and procedure laterality were confirmed with the patient. ? Patient was placed prone on the fluoroscopy table and the lumbosacral area was prepped using ChloraPrep and draped with sterile drapein standard fashion. The C-arm was rotated in a contralateral oblique fashion until the medial border of the iliac crest no longer foreshadowed the posterior sacroiliac joint line. The skin and subcutaneous tissue was anesthetized using 1 mL of 0.75% plain lidocaine with 1.5-inch 25-gauge needle in the middle region of the joint line.?A 3.5-inch 22-gauge spinal needle with small bend on the tip was slowly advanced towards the joint line, coaxial to the x-ray beam. Once bony content was obtained, the needle was easily slid into the intra-articular space.? Intra-articular needle position was confirmed using lateral fluoroscopy.? A total volume of 2.5mL of solution containing 40 mg triamcinilone and rest 0.5% of ropivacaine was injected intra-articularly. The stylet was reinserted and needle was removed. The patient tolerated the procedure well. Patient denied any lower extremity weakness or numbness. Patient was observed for 30 min and was discharged after fulfilling the standard discharge criteria. Coding 37781 - Sacroiliac Procedure code (CPT) selection complete Assessment & Plan Assessment & Plan (1) Sacroiliac joint pain: Code(s): M53.3 - Sacrococcygeal disorders, not elsewhere classified Category: Medical (2) Lumbar spondylosis: Code(s): M47.816 - Spondylosis without myelopathy or radiculopathy, lumbar region Category: Medical Plan Patient is status post left therapeutic SIJ injection. Patient tolerated procedure well and was discharged home in stable condition with discharge instructions. All questions were answered. We will follow-up via telephone or in clinic to assess response to therapy. A follow-up appointment was made during today's visit. Orders: Orders FL guidance in treatment room Today M47.816 - Spondylosis without myelopathy or radiculopathy, lumbar region, M53.3 - Sacrococcygeal disorders, not elsewhere classified Coding Level of Care Code Procedure Only Diagnoses Sacroiliac joint pain M53.3 Lumbar spondylosis M47.816 CPT Codes Coding - Joint 9: 01898 - Sacroiliac ([id number])
[2023-08-24 14:31] VITALS: BP 158/93; PULSE 76; O2SAT 96
== END 2023-08-24 14:31 | disposition home or self-care (01) ==
LOC: HO.PMCPRC 13:51
PROVIDERS: PCP Internal Medicine; Visit Provider Internal Medicine
DX: M53.3 Sacrococcygeal disorders, not elsewhere classified (principal); M47.816 Spondylosis without myelopathy or radiculopathy, lumbar region
CPT/HCPCS: 27096

== ENCOUNTER → 2023-08-24 13:51 | Outpatient (BNVA) | payer OTHER, SELFPAY | PROVIDERS: PCP Internal Medicine; Visit Provider Internal Medicine | DX: M53.3 Sacrococcygeal disorders, not elsewhere classified (principal); M47.816 Spondylosis without myelopathy or radiculopathy, lumbar region | CPT/HCPCS: 27096; J2795; J3301; Q9967 ==

== ENCOUNTER 2023-09-09 10:53 | Observation (INO) | payer OTHER, SELFPAY ==
[2023-09-09] VITALS (9 sets, daily range): BP systolic 114–165; BP diastolic 66–91; PULSE 71–88; RESP 16–20; TEMP 36.3–36.9; O2SAT 93–98; BMI 30.5
--- NOTE | ~2023-09-09 | CT_ITS ---
CT ANGIOGRAM WITH CONTRAST CT ANGIOGRAM BRAIN WITH CONTRAST CLINICAL INFORMATION: Left eye vision loss. COMPARISON: None available. TECHNIQUE: Test bolus sequences followed by intravenous administration 70 mL of Omnipaque 350. Helical imaging was performed in the axial plane from the thoracic inlet to the skull vertex. Delayed postcontrast imaging of the head was also performed. The data was processed at the chemical engineering technologist workstation for generation of MIP sequences. Angled MIPs and volume rendered reformatted images were also generated at an offline 3D workstation under concurrent supervision. Stenoses are assessed in accordance with NASCET criteria unless otherwise indicated. This CT examination was performed using dose optimization techniques as appropriate, variously including the following: *Automated exposure control *Adjustment of mA and/or kV according to patient size (this includes techniques or standardized protocols for targeted exams where dose is matched to indication/reason for exam; i.e. extremities or head) *Use of iterative reconstruction technique FINDINGS: BRAIN: [There is no intracranial hemorrhage, hydrocephalus, extra-axial surface collection, midline shift, or other herniation pattern. Hu to white matter differentiation is diffusely maintained without evidence of an evolved acute territorial infarct. The basilar cisterns are preserved. No significant soft tissue abnormality. No acute osseous abnormality. The paranasal sinuses and the mastoid air cells are well aerated.] CERVICAL SOFT TISSUES AND LUNG APICES: The imaged upper lungs are clear. There is multilevel cervical spondylosis. No significant soft tissue findings within the neck. NECK CTA: [There is a classic 3 vessel configuration of the aortic arch. Proximal arch vessels are non-stenotic. The vertebral arteries are codominant. No significant ostial stenosis is visualized on either side. Both vertebral arteries are widely patent throughout their extracranial cervical course. Both common and internal carotid arteries are normal in course and caliber.] BRAIN CTA: [There is normal opacification of major intracranial arteries. No focal flow-limiting stenosis nor discrete proximal large artery occlusion. No aneurysm. Timing of the contrast bolus allows assessment of the major dural venous sinuses, which all opacify normally] CT/CT angio head neck IMPRESSION: * No acute intracranial findings. No acute territorial infarcts and no intracranial hemorrhage. * No acute arterial occlusions and no significant arterial stenoses within the head or neck.
--- NOTE | ~2023-09-09 | MR_ITS ---
EXAMINATION: MR BRAIN WITHOUT CONTRAST CLINICAL INFORMATION: TIA versus CVA. Left eye vision loss. COMPARISON: CT angiography head and neck 09/09/2023. TECHNIQUE: MRI of the brain was obtained using routine sequences without contrast. FINDINGS: Diffusion-weighted images demonstrate no evidence of acute infarcts. No intrarenal hemorrhage or tumors are noted. Mild diffuse commensurate prominence of ventricles and sulci is visualized. A minimal number scattered supratentorial subcortical and periventricular white matter punctate T2 hyperintensities are visualized and are of uncertain clinical significance as similar findings are a frequently encountered asymptomatic finding. Susceptibility weighted images reveal no evidence of acute or chronic hemorrhage within the brain parenchyma. The craniocervical junction cerebellar tonsils are normal in appearance. Normal appearance of the pituitary. No suspicious marrow abnormalities identified. Normal flow-related signal intensity is identified in the major intracranial vessels and dural sinuses. The orbits and globes are normal in appearance. No significant mucosal thickening or retained secretions noted within the paranasal sinuses, mastoid air cells and middle ear cavities. MR/MR head/brain wo con IMPRESSION: Normal unenhanced MRI of the brain. No intracranial hemorrhage or acute infarcts.
--- NOTE | 2023-09-09 10:56 | ECG_ITS ---
Test Reason : STROKE SYMPTOMS Blood Pressure : / mmHG Vent. Rate : 089 BPM Atrial Rate : 089 BPM P-R Int : 172 ms QRS Dur : 078 ms QT Int : 350 ms P-R-T Axes : 046 018 059 degrees QTc Int : 425 ms Sinus rhythm with Premature atrial complexes Possible Anterior infarct , age undetermined Abnormal ECG When compared with ECG of 24-FEB-2018 07:53, Premature atrial complexes are now Present Vent. rate has increased BY 32 BPM Referred By: Eva Lopez Electronically Signed By:MARCOS LEE
--- NOTE | 2023-09-09 11:24 | ED_ITS ---
HPI - Neuro Symptoms/Deficit General Chief Complaint: Stroke Stated Complaint: vision problems Time Seen by Provider: 09/09/23 10:56 Source: patient and old records reviewed Mode of arrival: ambulatory Limitations: no limitations History of Present Illness ED Provider: STEPHANIE GARCIA Narrative: 67 yo female with PMH of SVT, GERD, MGUS, CAD, hypothyroidism, ELLIOT, PVC, HTN, HLD not on thinners or aspirin who reports around 10am she bent down to pick something up when she suddenly loss vision in L center of eye it was completely black and lasted 20 seconds. She denies headache, numbness, weakness, nausea. She has never had issues with her eyes or loss of vision before. It was central and did not move. She notes 1 week of mild R foot tingling she attributed to chronic back issues. She notes the loss of vision lasted 20 seconds and has resolved Onset (ago): hour(s) (10am) Timing confirmed by: other (self) Location: other (eye) History of same: No Severity: mild Quality: other (non moving central loss of vision) Relieving factors: none Exacerbating factors: time Context: sudden onset On Anticoagulants: No Associated symptoms: denies other symptoms Treatments Prior to Arrival: none Related Data Home Medications ?Medication ?Instructions ?Recorded ?Confirmed omeprazole 20 mg capsule,delayed 20 mg PO DAILY 05/05/21 07/24/23 release multivitamin 1 tab PO DAILY 11/15/21 07/24/23 cholecalciferol (vitamin D3) 25 25 mcg PO DAILY 01/13/22 07/24/23 mcg (1,000 unit) capsule loratadine 10 mg tablet (Claritin) 10 mg PO DAILY 01/20/22 07/24/23 Previous Rx's ?Medication ?Instructions ?Recorded rosuvastatin 5 mg tablet 5 mg PO DAILY #90 tabs 01/24/23 metoprolol succinate 25 mg 50 mg (2 x 25 mg) PO DAILY 90 days 03/22/23 tablet,extended release 24 hr #180 ea levothyroxine 50 mcg tablet 50 mcg PO QAM #90 tabs 06/08/23 (Synthroid) penciclovir 1 % topical cream 1 appl topical Q2H PRN Cold Sores 06/12/23 (Denavir) #5 grams oxycodone 10 mg tablet 10 mg PO ONCE PRN pain #1 tab 08/25/23 lorazepam 1 mg tablet (Ativan) 1 mg PO BID PRN anxiety #5 tabs 08/28/23 Allergies Allergy/AdvReac Type Severity Reaction Status Date / Time cefaclor [From Ceclor] Allergy Severe RASH & Verified 09/09/23 11:02 HIVES NSAIDS (Non-Steroidal Allergy Severe HIVES Verified 09/09/23 11:02 Anti-Inflamma [Nsaids] propantheline Allergy Severe HIVES Verified 09/09/23 11:02 [From Pro-Banthine] aspirin [Aspirin] Allergy Unknown HIVES Verified 09/09/23 11:02 adhesive tape Allergy Rash Verified 09/09/23 11:02 Review of Systems 2 Review of Systems: Constitutional : No Fever, No Chills, No Fatigue ENT/Mouth : No sore throat, No Rhinorrhea Eyes: No Eye Pain, No Swelling, No Redness, pos loss of vision Cardiovascular : No Chest Pain, No SOB, No Dyspnea on Exertion Respiratory : No Cough, No Sputum Gastrointestinal : No Nausea, No Vomiting, No Diarrhea, No abdominal Pain Genitourinary : No Dysuria, No Urinary Frequency, No Hematuria, Musculoskeletal : No joint pain, No Myalgias, No Joint Swelling Skin : No Skin Lesions, No rash Neuro : No Weakness, No Numbness, No Dizziness, no Headache Psych : No Anxiety/Panic, No Depression All other systems reviewed and are negative PMFSH Past Medical History Medical History GERD (gastroesophageal reflux disease) ELLIOT (obstructive sleep apnea) Nocturnal hypoxia Chronic allergic rhinitis Has daytime drowsiness Asthma MGUS (monoclonal gammopathy of unknown significance) Diverticular disease Osteopenia Hypothyroid Meniere disease Pulmonary nodule, left PVC (premature ventricular contraction) Hyperlipidemia HTN (hypertension) CAD (coronary artery disease) Surgical History Hx of section History of cholecystectomy History of laparotomy Hx of colonoscopy History of endometrial ablation Family History Family History Father CVD (cardiovascular disease) Mother No problems noted. Brother CVD (cardiovascular disease) Sister Breast cancer Social History Social History Household Members: Spouse Housing: House Are you a primary healthcare architect to a significant other at home: No Do you presently have visiting nurse or other home services: No Alcohol intake: current Alcohol intake frequency: a few times a month Alcohol type: wine Comment: 1 drink 3-4 x a week Patient Tobacco Use Status: Former Tobacco user Years Smoked: 1969 e-Cigarette/Vaping Use: Never Used Second Hand Smoke Exposure: No Advance Directives: No Advance Directives Information Provided: Yes Do you have a plan to hurt others: No Plan service: No Current occupational status: employed Cognitive needs: No Hearing needs: No Vision needs: Yes Physical Exam 2 Vital Signs: Vital Signs: Last Vital Signs Temp 98.4 F 09/09/23 12:15 Pulse 83 09/09/23 12:15 Resp 18 09/09/23 12:15 BP 165/91 H 09/09/23 12:15 Pulse Ox 98 09/09/23 12:15 O2 Del Method Room Air 09/09/23 12:15 BMI result Body Mass Index 30.5 Appearance: Alert. Oriented X3. No acute distress. Eyes: Pupils equal, round and reactive to light. ENT: Pharynx normal. Neck: Normal inspection. Neck supple. CVS: Normal heart rate and rhythm. Pulses normal. Respiratory: No respiratory distress. Breath sounds normal. Abdomen: Soft and nontender. Skin: Skin warm and dry. Normal skin color. Normal skin turgor. Extremities: No lower extremity edema. No calf ttp Neuro: Oriented X 3. No motor deficit. No sensory deficit. Course Course Course Narrative: allergy to aspirin held Medications Administered Discontinued Medications Generic Name Dose Route Start Last Admin Trade Name Mendel PRN Reason Stop Dose Admin Iohexol 100 ml 09/09/23 13:01 09/09/23 13:01 Iohexol 350 Mg/Ml 100 Ml Infus..Btl IV 09/09/23 13:02 70 ml ONCE ONE Administration Lorazepam 0.5 mg 09/09/23 11:29 09/09/23 11:36 Lorazepam 2 Mg/Ml Vial IVPUSH 09/09/23 11:30 0.5 mg STAT STA Administration Lorazepam 1 mg 09/09/23 12:14 09/09/23 12:19 Lorazepam 2 Mg/Ml Vial IVPUSH 09/09/23 12:15 1 mg STAT STA Administration Procedures Procedure Narrative Procedure Narrative: nedside US - no retinal detachment or vitreous hemorrhage noted L eye on bedside US Medical Decision Making Medical Decision Making [facility] Narrative: 67 yo female with PMH of SVT, GERD, MGUS, CAD, hypothyroidism, ELLIOT, PVC, HTN, HLD not on thinners or aspirin who comes in with c/o transient central loss of vision when she bent forward outside no headache n/v no numbness or weakness lasted 15 seconds. This has never happened before. At this time eye pressure 20 no eye pain, NIH 0, EKG, no afib, CTA head and neck, no vitreous hemorrhage or retinal detachment seen on US - will work up as possible TIA/stroke. NIH 0 not a candidate for TNK and no symptoms now Differential Diagnosis Differential Diagnoses: The differential diagnosis associated with the presentation includes TIA, emboli, retinal detachment, vitreous hemorrhage, ocular migraine Admission/Observation Consideration of admission/observation: Escalation of care including admission/observation considered admit for further workup Consult Healthcare Provider Management of the patient was discussed with: Hospitalist (will admit) Lab Data [facility] Lab Attestation statement: I reviewed the patient's lab results. 09/09/23 11:20 09/09/23 11:20 Labs: Lab Results 09/09/23 Range/Units 11:20 WBC 10.7 (4.8-10.8) X10*3/uL RBC 5.32 (4.20-5.50) X10*6/uL Hgb 15.6 (12.0-16.0) g/dl Hct 46.9 (37.0-47.0) % MCV 88.2 (80.0-98.0) fL MCH 29.3 (27.0-33.0) pg MCHC 33.3 (31.0-35.0) g/dl RDW 13.2 (11.0-16.0) % Plt Count 250 (160-400) X10*3/uL MPV 9.8 (9.4-12.3) fL Immature Gran % (Auto) 0.7 H (0.0-0.4) % Neut % (Auto) 70.7 (45-73) % Lymph % (Auto) 18.2 L (20-40) % [place] % (Auto) 7.7 (2-11) % Eos % (Auto) 1.8 (0-4) % Baso % (Auto) 0.9 (0-2) % Lymph # (Auto) 1.9 (1.2-4.9) X10*3/uL [place] # (Auto) 0.8 (0.1-1.2) X10*3/uL Eos # (Auto) 0.2 (0.0-0.4) X10*3/uL Baso # (Auto) 0.1 (0.0-0.2) X10*3/uL Abs Immat Gran (auto) 0.07 H (0.00-0.03) X10*3/uL Absolute Neuts (auto) 7.6 (2.0-8.3) x10*3/uL Absolute Nucleated RBC 0.000 (0.0-0.012) X10*3/uL Nucleated RBC % (auto) 0.0 (0.0-0.2) /100WBC ESR 7 (0-20) MM/HR PT 11.8 (11.1-13.3) SEC INR 1.0 (0.9-1.1) Sodium 140 (135-145) mmol/L Potassium 3.6 (3.3-5.1) mmol/L Chloride 106 (96-108) mmol/L Carbon Dioxide 21 L (22-29) mmol/L Anion Gap 17 (12-20) BUN 18 H (9-16) mg/dL Creatinine 0.87 (0.5-1.4) mg/dL Estim Creat Clear Calc 56.6 Estimated GFR > 60 Random Glucose 140 H (60-115) mg/dL Estimat Average Glucose 111 mg/dL Hemoglobin A1c % 5.5 (<6.0) % Calcium 9.9 (8.4-10.2) mg/dL Magnesium 1.9 (1.6-2.6) mg/dL Total Bilirubin 1.3 H (0.0-1.0) mg/dL Direct Bilirubin 0.4 (0.0-0.5) mg/dL AST 30 (5-31) U/L ALT 33 H (0-31) U/L Alkaline Phosphatase 69 (39-117) U/L Troponin I High Sens < 2.7 (<3.5-17.0) ng/L C-Reactive Protein < 0.10 (< or = 0.50) mg/dL Total Protein 7.4 (6.5-8.0) g/dL Albumin 4.4 (3.5-5.0) g/dL Triglycerides 106 (<150) mg/dL Cholesterol 161 (<200) mg/dL LDL Cholesterol, Calc 74 (<100) mg/dL HDL Cholesterol 66 (>40) mg/dL Lipase 51 (8-78) U/L TSH 2.15 (0.32-4.0) uIU/mL Independent Interpretation I performed an independent interpretation of an: EKG, Ultrasound and CT Scan (normal ) Interpretation: Rate: 89 Rhythm: NSR [place]: normal Normal P waves. Normal TUCKER. Normal QRS complex. ST T wave : no MARGARITO, normal qTC: 425 prior studies: no acute ischemia The study has been interpreted contemporaneously by me. . Radiology Impression Discussion of test interpretation with radiology: I have reviewed the radiologist's reading. External Record Review External record reviewed: Inpatient record NIH Stroke Scale Internal: Initial- Upon Arrival Level of Consciousness: Alert Level of Consciousness Questions: Answers both questions correctly Level of Consciousness Commands: Performs both tasks correctly Best Gaze: Normal Visual: No visual loss Facial Palsy: Normal Motor Arm (Right): No drift Motor Arm (Left): No drift Motor Leg (Right): No drift Motor Leg (Left): No drift Limb Ataxia: Absent Sensory: Normal Best Language: No aphasia Dysarthia: Normal Extinction and Inattention: No abnormality Score: 0 Discharge Plan Discharge Clinical Impression: Transient visual loss of left eye Patient Disposition: Admitted As Inpatient Prescriptions: No Action rosuvastatin 5 mg tablet 5 mg PO DAILY Qty: 90 3RF metoprolol succinate 25 mg tablet extended release 24 hr 50 mg PO DAILY 90 Days Qty: 180 3RF levothyroxine [Synthroid] 50 mcg tablet 50 mcg PO QAM Qty: 90 1RF penciclovir [Denavir] 1 % cream 1 appl topical Q2H PRN (Reason: Cold Sores) Qty: 5 2RF oxycodone 10 mg tablet 10 mg PO ONCE PRN (Reason: pain) Qty: 1 0RF Rx Instructions: Partial Fill upon patient request. lorazepam [Ativan] 1 mg tablet 1 mg PO BID PRN (Reason: anxiety) Qty: 5 0RF loratadine [Claritin] 10 mg Tablet 10 mg PO DAILY cholecalciferol (vitamin D3) 25 mcg (1,000 unit) capsule 25 mcg PO DAILY multivitamin Tablet 1 tab PO DAILY omeprazole 20 mg capsule,delayed release(DR/EC) 20 mg PO DAILY Print Language: Nigerien
[2023-09-09 11:31] LABS: MANUAL DIFF FLAG NO
[2023-09-09 11:32] LABS: Basophils Absolute Auto 0.1 X10*3/uL (0.0-0.2); Basophils Percent Auto 0.9 % (0-2); Eosinophils Absolute Auto 0.2 X10*3/uL (0.0-0.4); Eosinophils Percent Auto 1.8 % (0-4); Hematocrit 46.9 % (37.0-47.0); Hemoglobin 15.6 g/dl (12.0-16.0); Imm Gran Abs Auto 0.07 X10*3/uL (0.00-0.03); Imm Gran Pct Auto 0.7 % (0.0-0.4); Lymphocytes Absolute Auto 1.9 X10*3/uL (1.2-4.9); Lymphocytes Percent Auto 18.2 % (20-40); Mean Corpuscular HGB Conc 33.3 g/dl (31.0-35.0); Mean Corpuscular Hemoglobin 29.3 pg (27.0-33.0); Mean Corpuscular Volume 88.2 fL (80.0-98.0); Mean Platelet Volume 9.8 fL (9.4-12.3); Monocytes Absolute Auto 0.8 X10*3/uL (0.1-1.2); Monocytes Percent Auto 7.7 % (2-11); Neutrophils Absolute Auto 7.6 x10*3/uL (2.0-8.3); Neutrophils Percent Auto 70.7 % (45-73); Platelet Count 250 X10*3/uL (160-400); Red Blood Count 5.32 X10*6/uL (4.20-5.50); Red Cell Distribution Width 13.2 % (11.0-16.0); White Blood Count 10.7 X10*3/uL (4.8-10.8)
[2023-09-09] MEDS: LORazepam 2 MG/ML VIAL 0.5 MG IVPUSH (11:36)
[2023-09-09 11:37] LABS: Prothrombin Time 11.8 SEC (11.1-13.3)
[2023-09-09 12:04] LABS: Troponin-I High Sensitivity < 2.7 ng/L (<3.5-17.0)
[2023-09-09 12:06] LABS: Alanine Aminotransferase 33 U/L (0-31); Albumin Level 4.4 g/dL (3.5-5.0); Alkaline Phosphatase 69 U/L (39-117); Anion Gap 17 (12-20); Aspartate Amino Transferase 30 U/L (5-31); Bilirubin Direct 0.4 mg/dL (0.0-0.5); Bilirubin Total 1.3 mg/dL (0.0-1.0); Blood Urea Nitrogen 18 mg/dL (9-16); C Reactive Protein < 0.10 mg/dL (< or = 0.50); Calcium 9.9 mg/dL (8.4-10.2); Carbon Dioxide 21 mmol/L (22-29); Chloride 106 mmol/L (96-108); Creatinine Clr Calc Pharmacy 56.6; Estimated Glomerular Filt Rate > 60; Glucose Random 140 mg/dL (60-115); Lipase 51 U/L (8-78); Magnesium 1.9 mg/dL (1.6-2.6); Potassium 3.6 mmol/L (3.3-5.1); Sodium 140 mmol/L (135-145); Total Protein 7.4 g/dL (6.5-8.0)
[2023-09-09 12:16] LABS: TSH reflex Free T4 2.15 uIU/mL (0.32-4.0)
[2023-09-09] MEDS: LORazepam 2 MG/ML VIAL 1 MG IVPUSH (12:19)
[2023-09-09 12:20] LABS: Erythrocyte Sedimentation Rate 7 MM/HR (0-20)
[2023-09-09 12:32] LABS: Cholesterol 161 mg/dL (<200); HDL Cholesterol 66 mg/dL (>40); LDL Cholesterol Calculated 74 mg/dL (<100); Triglycerides 106 mg/dL (<150)
[2023-09-09 12:40] LABS: Estimated Average Glucose 111 mg/dL; Hemoglobin A1C 149.2118 umol/L; Hemoglobin A1c % 5.5 % (<6.0)
[2023-09-09] MEDS: iohexoL 350 MG/ML 100 ML INFUS..BTL IV (13:01)
--- NOTE | 2023-09-09 14:13 | PM.IMHP ---
History of Present Illness Date of Service: 09/09/23 Attending physician on admission: Gera Gonsalez Chief Complaint: Acute vision loss Pt is a 67-year-old female with a PMH significant for?HTN, HLD/CAD, hypothyroidism, IBS, diverticulitis, Meniere disease, scoliosis, degenerative joint disease, lumbar spondylolysis, and MGUS who presents to the ED for evaluation of acute sided central vision loss. Patient returned yesterday from a vacation to [place] for which she took a direct flight to and from [place]. This morning patient went outside to get accumulated mail that her neighbor dropped off. She notes it was very bright outside. 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 Reports it looked like a round [place] river in the center of her vision that was 3/4 black. Full effect of episode lasted approximately 20-30 seconds, after which vision slowly started to return. Reports vision back to baseline after approximately 20-30 minutes. Denies any other acute medical complaints. Denies sudden headache at time of vision loss, but reports later a very mild headache. No concomitant numbness, tingling, or weakness in extremities. Denies dysarthria, facial droop, fogginess and thinking. No chest pain/pressure, palpitations. No fever, chills, nausea, vomiting, abdominal pain. Patient reports has had chronic intermittent right lower extremity numbness and tingling for the past year that she has attributed to her chronic back issues. Of note, pt has allergy to aspirin. Also reports remote hx of multiple intractable nose bleeds in 2007 that spontaneoulsy resolved without clear etiology. Last saw surveyor in November where I exam, including dilation, was unremarkable. In the ED pt was hypertensive up to 165/91, vitals otherwise WNL. Labs were grossly unremarkable and around baseline for patient. No leukocytosis. Stable H&H. No significant electrolyte abnormalities. Renal function baseline. Mildly elevated bilirubin of 1.3, around baseline. Lipid profile WNL. CT of head negative for acute intracranial findings including acute territorial infarct or intracranial hemorrhage. CTA of head/neck found no acute arterial occlusions in the significant arterial stenosis. EKG demonstrated sinus rhythm with PACs but no evidence of significant ST elevations or depressions. Pt was treated with lorazepam. Pt will be admitted to the hospital under observation for treatment and further evaluation of transient acute vision loss concerning for TIA vs CVA vs ocular migraine. Review of Systems Review of Systems: Painless central left vision loss Mild headache Chronic intermittent right lower extremity numbness and tingling Denies hemiparesis, currently no numbness or tingling in extremities No dysarthria, difficulty word finding, facial droop, or fogginess thinking Denies chest pain/pressure, palpitations Shortness a breath or difficulty breathing Denies fever, chills, nausea, vomiting, abdominal pain [facility] Medical History GERD (gastroesophageal reflux disease) ELLIOT (obstructive sleep apnea) Nocturnal hypoxia Chronic allergic rhinitis Has daytime drowsiness Asthma MGUS (monoclonal gammopathy of unknown significance) Diverticular disease Osteopenia Hypothyroid Meniere disease Pulmonary nodule, left PVC (premature ventricular contraction) Hyperlipidemia HTN (hypertension) CAD (coronary artery disease) Family History Father CVD (cardiovascular disease) Mother No problems noted. Brother CVD (cardiovascular disease) Sister Breast cancer Surgical History Hx of section History of cholecystectomy History of laparotomy Hx of colonoscopy History of endometrial ablation Social History Household Members: Spouse Housing: House Are you a primary care connector to a significant other at home: No Do you presently have visiting nurse or other home services: No Alcohol intake: current Alcohol intake frequency: a few times a month Alcohol type: wine Comment: 1 drink 3-4 x a week Patient Tobacco Use Status: Former Tobacco user Years Smoked: 1969 e-Cigarette/Vaping Use: Never Used Second Hand Smoke Exposure: No Advance Directives: No Advance Directives Information Provided: Yes Do you have a plan to hurt others: No Plan service: No Current occupational status: employed Cognitive needs: No Hearing needs: No Vision needs: Yes Meds Allergies Allergy/AdvReac Type Severity Reaction Status Date / Time cefaclor [From Ceclor] Allergy Severe RASH & Verified 09/09/23 11:02 HIVES NSAIDS (Non-Steroidal Allergy Severe HIVES Verified 09/09/23 11:02 Anti-Inflamma [Nsaids] propantheline Allergy Severe HIVES Verified 09/09/23 11:02 [From Pro-Banthine] aspirin [Aspirin] Allergy Unknown HIVES Verified 09/09/23 11:02 adhesive tape Allergy Rash Verified 09/09/23 11:02 Home Medications ?Medication ?Instructions ?Recorded ?Confirmed ?Last Taken ?Type omeprazole 20 mg capsule,delayed 20 mg PO DAILY@0630 05/05/21 07/24/23 Unknown History release multivitamin 1 tab PO DAILY 11/15/21 07/24/23 Unknown History cholecalciferol (vitamin D3) 25 25 mcg PO DAILY 01/13/22 07/24/23 Unknown History mcg (1,000 unit) capsule loratadine 10 mg tablet (Claritin) 10 mg PO DAILY 01/20/22 07/24/23 10/12/22 07:15 History levothyroxine 50 mcg tablet 50 mcg PO DAILY@0600 09/09/23 Unknown History (Synthroid) Physical Exam Vital Signs and Narrative: Vital Signs: Last Vital Signs Temp 98.4 F 09/09/23 12:15 Pulse 83 09/09/23 12:15 Resp 18 09/09/23 12:15 BP 165/91 H 09/09/23 12:15 Pulse Ox 98 09/09/23 12:15 O2 Del Method Room Air 09/09/23 12:15 BMI result Body Mass Index 30.5 Constitutional: Alert, in no acute distress. Mental Status: Oriented to person, place and time. Eyes: Pupils are equal, round, and reactive to light. Ear, Nose, and Throat: Oropharynx clear, mucous membranes moist. Ears and nose without deformities. Trachea midline. Respiratory: Clear to auscultation bilaterally. No wheezing, rales, or rhonchi. Cardiovascular: S1, S2 regular. No murmurs, rubs, or gallops. Gastrointestinal: Abdomen soft, non-tender, non-distended. Normal bowel sounds. Neurologic: Cranial nerves II-XII are grossly intact bilaterally. No focal neurological deficits. Moves all extremities spontaneously. Sensation to light touch intact of face, upper and lower extremities bilaterally. Strength of upper and lower extremities intact and symmetrical bilaterally. Skin: Warm, dry. Extremities: No edema. Psychiatric: Normal mood and affect. Results Labs 09/09/23 11:20 09/09/23 11:20 Labs: Laboratory Results - last 24 hr 09/09/23 11:20 MCV 88.2 MCH 29.3 MCHC 33.3 RDW 13.2 Plt Count 250 MPV 9.8 Immature Gran % (Auto) 0.7 H Neut % (Auto) 70.7 Lymph % (Auto) 18.2 L [place] % (Auto) 7.7 Eos % (Auto) 1.8 Baso % (Auto) 0.9 Lymph # (Auto) 1.9 [place] # (Auto) 0.8 Eos # (Auto) 0.2 Baso # (Auto) 0.1 Abs Immat Gran (auto) 0.07 H Absolute Neuts (auto) 7.6 Absolute Nucleated RBC 0.000 Nucleated RBC % (auto) 0.0 ESR 7 PT 11.8 INR 1.0 Anion Gap 17 Estim Creat Clear Calc 56.6 Estimated GFR > 60 Random Glucose 140 H Estimat Average Glucose 111 Hemoglobin A1c % 5.5 Calcium 9.9 Magnesium 1.9 Total Bilirubin 1.3 H Direct Bilirubin 0.4 AST 30 ALT 33 H Alkaline Phosphatase 69 Troponin I High Sens < 2.7 C-Reactive Protein < 0.10 Total Protein 7.4 Albumin 4.4 Triglycerides 106 Cholesterol 161 LDL Cholesterol, Calc 74 HDL Cholesterol 66 Lipase 51 TSH 2.15 Imaging Radiologist's Impressions: Impressions Head/Neck CTA 09/09/23 13:00 IMPRESSION: * No acute intracranial findings. No acute territorial infarcts and no intracranial hemorrhage. * No acute arterial occlusions and no significant arterial stenoses within the head or neck. Assessment and Plan (1) Transient visual loss of left eye: Status: Acute Plan Pt is a 67-year-old female with a PMH significant for?HTN, HLD/CAD, hypothyroidism, IBS, diverticulitis, Meniere disease, scoliosis, degenerative joint disease, lumbar spondylolysis, and MGUS who presents to the ED for evaluation of acute sided central vision loss. Pt will be admitted to the hospital under observation for treatment and further evaluation of transient acute vision loss concerning for TIA vs CVA vs ocular migraine. Transient vision loss of left eye Pt with acute painless central vision loss Full effect of episode last 20-30 seconds, vision fully restored after 20-30 minutes Patient denies any other acute medical complaint Concerning for TIA vs CVA vs ocular/complex migraine CT head negative CTA of head/neck negative Lipid profile WNL Patient allergic to aspirin Continue statin MRI of head/brain Echocardiogram bubble study PT/OT evaluation Neurology consult Monitor on telemetry HTN Continue metoprolol HLD/CAD Continue statin IBS Continue PPI Hypothyroidism Continue levothyroxine Full Code Attending:?Dr. Gonsalez DVT Prophylaxis: Lovenox Patient be admitted to the hospital under observation for treatment and further workup for transient acute vision loss concerning for TIA versus CVA versus ocular/complex migraine. Quality Stroke Does the patient have a stroke diagnosis?: No VTE Prior VTE?: No VTE Risk Level:: Medical - moderate - high VTE Device Contraindication: Treatment Not Indicated VTE Drug Contraindication: N/A - Med Ordered
[2023-09-09] MEDS: 0.9 % Sodium Chloride Flush 3 ML SYRINGE IVFLUSH (16:03)
--- NOTE | 2023-09-09 16:32 | PHA.MEDREC ---
Pharmacy Consult ? Medication Reconciliation Pharmacy has completed the medication reconciliation.
[2023-09-09] MEDS: Omeprazole 20 MG CAPSULE.DR PO (21:24)
[2023-09-09] MEDS: Atorvastatin Calcium 20 MG TABLET PO (21:25)
[2023-09-09] MEDS: Cholecalciferol (Vitamin D3) 25 MCG TABLET PO (21:25)
[2023-09-09] MEDS: Metoprolol Succinate ER 12.5 MG HALFTAB.ER.24H PO (22:01)
[2023-09-09] MEDS: Metoprolol Succinate ER 12.5 MG HALFTAB.ER.24H 37.5 MG PO (22:03)
[2023-09-10] MEDS: Levothyroxine Sodium 50 MCG TABLET PO (06:49)
[2023-09-10 07:12] VITALS: BP 134/98; PULSE 67; RESP 18; TEMP 36.2; O2SAT 96
[2023-09-10] MEDS: 0.9 % Sodium Chloride Flush 3 ML SYRINGE IVFLUSH (09:40)
[2023-09-10 11:10] VITALS: BP 112/65; PULSE 79; RESP 18; TEMP 36.4; O2SAT 96
[2023-09-10 11:14] VITALS: BP 112/65; PULSE 79; RESP 18; TEMP 36.4; O2SAT 96
--- NOTE | 2023-09-10 11:44 | P.CNNE_ITS ---
History of Present Illness Data of Consult Service Date: 09/10/23 Primary Care Provider: Edward Webber MD [facility] Reason for consult: transient visual disturbance This is a 67-year-old female with h/o ?HTN, HLD/ mild CAD, hypothyroidism, IBS, diverticulitis, Meniere disease, scoliosis, degenerative joint disease, lumbar spondylolysis, and MGUS who presented to the ED for evaluation of acute left sided central vision loss for 20 secs.followed by mild headache. 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 Reports it looked like a round [place] in the center of her vision that was 3/4 black. Full effect of episode lasted approximately 20-30 seconds, after which vision slowly started to return within a minute. Denies any other acute medical complaints. Denies sudden headache at time of vision loss, but reports later a very mild headache. No concomitant numbness, tingling, or weakness in extremities. Denies dysarthria, facial droop, fogginess and thinking. No chest pain/pressure, palpitations. No fever, chills, nausea, vomiting, abdominal pain. Patient reports has had chronic intermittent right lower extremity numbness and tingling for the past year that she has attributed to her chronic back issues. Of note, pt has allergy to aspirin. Also reports remote hx of multiple intractable nose bleeds in 2007 that spontaneoulsy resolved without clear etiology. Last saw presentation manager in November where I exam, including dilation, was unremarkable. CTA of head and neck, MRI brain normal. ESR 7-10She has a history of headaches with her menstrual cycles in the past but with no visual phenomena. She also has a family history of migraines without aura. [facility] Past Medical History Medical History GERD (gastroesophageal reflux disease) ELLIOT (obstructive sleep apnea) Nocturnal hypoxia Chronic allergic rhinitis Has daytime drowsiness Asthma MGUS (monoclonal gammopathy of unknown significance) Diverticular disease Osteopenia Hypothyroid Meniere disease Pulmonary nodule, left PVC (premature ventricular contraction) Hyperlipidemia HTN (hypertension) CAD (coronary artery disease) Family History Family History Father CVD (cardiovascular disease) Mother No problems noted. Brother CVD (cardiovascular disease) Sister Breast cancer Surgical History Surgical History Hx of section History of cholecystectomy History of laparotomy Hx of colonoscopy History of endometrial ablation Social History Social History Household Members: Spouse Housing: House Are you a primary skin care specialist to a significant other at home: No Do you presently have visiting nurse or other home services: No Alcohol intake: current Alcohol intake frequency: a few times a month Alcohol type: wine Comment: 1 drink 3-4 x a week Patient Tobacco Use Status: Former Tobacco user Years Smoked: 1969 e-Cigarette/Vaping Use: Never Used Second Hand Smoke Exposure: No service: No Current occupational status: employed Cognitive needs: No Hearing needs: No Vision needs: Yes Meds Allergies Allergy/AdvReac Type Severity Reaction Status Date / Time cefaclor [From Ceclor] Allergy Severe RASH & Verified 09/09/23 11:02 HIVES NSAIDS (Non-Steroidal Allergy Severe HIVES Verified 09/09/23 11:02 Anti-Inflamma [Nsaids] propantheline Allergy Severe HIVES Verified 09/09/23 11:02 [From Pro-Banthine] aspirin [Aspirin] Allergy Unknown HIVES Verified 09/09/23 11:02 adhesive tape Allergy Rash Verified 09/09/23 11:02 Active Medications: Current Medications Acetaminophen (Acetaminophen 325 Mg Tablet) 650 mg PO Q6H PRN PRN Reason: Pain, Mild (Pain Scale 1-3), fever or headache Atorvastatin Calcium (Atorvastatin Calcium 20 Mg Tablet) 20 mg PO BEDTIME [facility] Last Admin: 09/09/23 21:25 Dose: 20 mg Benzonatate (Benzonatate 100 Mg Capsule) 100 mg PO TID PRN PRN Reason: Cough Enoxaparin Sodium (Enoxaparin Sodium 40 Mg/0.4 Ml Syringe) 40 mg SUBCUT Q24H [facility] Last Admin: 09/09/23 16:04 Dose: Not Given Levothyroxine Sodium (Levothyroxine Sodium 50 Mcg Tablet) 50 mcg PO DAILY@0600 [facility] Last Admin: 09/10/23 06:49 Dose: 50 mcg Loratadine (Loratadine 10 Mg Tablet) 10 mg PO DAILY PRN PRN Reason: Allergy Symptoms Magnesium Hydroxide (Milk Of Magnesia 30 Ml Oral.Susp) 30 ml PO DAILY PRN PRN Reason: Constipation Melatonin (Melatonin 3 Mg Tablet) 6 mg PO BEDTIME PRN PRN Reason: Insomnia Metoprolol Succinate (Metoprolol Succinate Er 12.5 Mg Halftab.Er.24h) 12.5 mg PO DAILY@1600 [facility]YLAN; Protocol Last Admin: 09/09/23 22:01 Dose: 12.5 mg Metoprolol Succinate (Metoprolol Succinate Er 12.5 Mg Halftab.Er.24h) 37.5 mg PO DAILY@1800 RYLAN; Protocol Last Admin: 09/09/23 22:03 Dose: 37.5 mg Non-Formulary Medication (Estradiol) 10 mcg VAGINAL WESA@2100 [facility] Omeprazole (Omeprazole 20 Mg Capsule.Dr) 20 mg PO BEDTIME [facility] Last Admin: 09/09/23 21:24 Dose: 20 mg Ondansetron HCl (Ondansetron Hcl 4 Mg/2 Ml Vial) 4 mg IVPUSH Q8H PRN PRN Reason: Nausea and Vomiting Sodium Chloride (0.9 % Sodium Chloride Flush 3 Ml Syringe) [facility] Admin: 09/10/23 09:40 Dose: 3 ml Vitamin D (Cholecalciferol (Vitamin D3) 25 Mcg Tablet) 25 mcg PO BEDTIME [facility] Last Admin: 09/09/23 21:25 Dose: 25 mcg Home Medications ?Medication ?Instructions ?Recorded ?Confirmed ?Last Taken ?Type omeprazole 20 mg capsule,delayed 20 mg PO DAILY@0630 05/05/21 09/09/23 09/08/23 History release cholecalciferol (vitamin D3) 25 25 mcg PO DAILY 01/13/22 09/09/23 09/08/23 History mcg (1,000 unit) capsule loratadine 10 mg tablet (Claritin) 10 mg PO DAILY PRN Allergy Symptoms 01/20/22 09/09/23 10/12/22 07:15 History acetaminophen 325 mg tablet 650 mg PO Q6H PRN Pain 09/09/23 09/09/23 Unknown History (Tylenol) estradiol 10 mcg vaginal tablet 10 mcg vaginal WESA@2100 09/09/23 09/09/23 Unknown History levothyroxine 50 mcg tablet 50 mcg PO DAILY@0600 09/09/23 09/09/2309/08/24 History (Synthroid) metoprolol succinate 25 mg 12.5 mg PO DAILY@1600 09/09/23 09/09/23 09/08/23 History tablet,extended release 24 hr metoprolol succinate 25 mg 37.5 mg PO DAILY@1800 09/09/23 09/09/23 09/08/23 History tablet,extended release 24 hr Physical Exam 2 Vital Signs: Vital Signs: Last Vital Signs Temp 97.6 F 09/10/23 11:14 Pulse 79 09/10/23 11:14 Resp 18 09/10/23 11:14 BP 112/65 09/10/23 11:14 Pulse Ox 96 09/10/23 11:14 O2 Del Method Room Air 09/10/23 11:14 BMI result Body Mass Index 30.5 Neuro: Other: Normal neurological examination Results Labs 09/09/23 11:20 09/09/23 11:20 Labs: BMP 09/09/23 11:20 Sodium 140 Potassium 3.6 Chloride 106 Carbon Dioxide 21 L BUN 18 H Creatinine 0.87 Calcium 9.9 Liver Function 09/09/23 Range/Units 11:20 Total Bilirubin 1.3 H (0.0-1.0) mg/dL Direct Bilirubin 0.4 (0.0-0.5) mg/dL AST 30 (5-31) U/L ALT 33 H (0-31) U/L Alkaline Phosphatase 69 (39-117) U/L Albumin 4.4 (3.5-5.0) g/dL Assessment and Plan (1) Transient visual loss of left eye: Status: Acute Her symptoms are not those transient monocular blindness such as with a vascular event but rather a very transient central and paracentral scotoma in the left eye that is more likely to be a migraine phenomena. Workup for vascular disease shows no intracranial or neck occlusive disease or stenosis. Her sedimentation rate is normal x2. MRI does not show any abnormalities. Recommendations: She can be discharged with no change in her current medications. If she wishes to take aspirin 81 mg a day and that should be fine, but it's not really indicated for this episode. She should have a routine eye exam and when it scheduled in a couple of months. If symptoms recur or. She has been instructed to observe them carefully checking each eye and seeing if she develops any positive phenomena such as zigzag lines and bright spots that would be more indicative of a migraine. The patient has been reassured. No further neurological workup or followup is necessary Procedures Date of Service Date of Service: 09/10/23
--- NOTE | 2023-09-10 12:22 | P.DS_ITS ---
DS: Providers Provider Date of Service: 09/10/23 Date of admission: 09/09/23 15:04 Date of discharge: 09/10/23 Primary care physician: Edward Webber MD Consults: 09/09/23 15:08 Consult to Neurology Routine Consulting Provider: [facility] Reason for consultation: Acute vision loss, ?TIA vs CVA DS: Diagnosis Discharge Diagnosis (1) Transient visual loss of left eye: Status: Acute DS: Summary Hospital Course Hospital Course: 67-year-old female with a PMH significant for?HTN, HLD/CAD, hypothyroidism, IBS, diverticulitis, Meniere disease, scoliosis, degenerative joint disease, lumbar spondylolysis, and MGUS who presents to the ED for evaluation of acute sided central vision loss. Patient returned yesterday from a vacation to [place] for which she took a direct flight to and from [place]. This morning patient went outside to get accumulated mail that her neighbor dropped off. She notes it was very bright outside. 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 Reports it looked like a round nenana in the center of her vision that was 3/4 black. Full effect of episode lasted approximately 20-30 seconds, after which vision slowly started to return. Reports vision back to baseline after approximately 20-30 minutes. Denies any other acute medical complaints. Denies sudden headache at time of vision loss, but reports later a very mild headache. No concomitant numbness, tingling, or weakness in extremities. Denies dysarthria, facial droop, fogginess and thinking. No chest pain/pressure, palpitations. No fever, chills, nausea, vomiting, abdominal pain. Patient reports has had chronic intermittent right lower extremity numbness and tingling for the past year that she has attributed to her chronic back issues. Of note, pt has allergy to aspirin. Also reports remote hx of multiple intractable nose bleeds in 2007 that spontaneoulsy resolved without clear etiology. Last saw site identification specialist in November where I exam, including dilation, was unremarkable. In the ED pt was hypertensive up to 165/91, vitals otherwise WNL. Labs were grossly unremarkable and around baseline for patient. No leukocytosis. Stable H&H. No significant electrolyte abnormalities. Renal function baseline. Mildly elevated bilirubin of 1.3, around baseline. Lipid profile WNL. CT of head negative for acute intracranial findings including acute territorial infarct or intracranial hemorrhage. CTA of head/neck found no acute arterial occlusions in the significant arterial stenosis. EKG demonstrated sinus rhythm with PACs but no evidence of significant ST elevations or depressions. Pt was treated with lorazepam. Pt will be admitted to the hospital under observation for treatment and further evaluation of transient acute vision loss concerning for TIA vs CVA vs ocular migraine. Hospital Course Patient admitted to telemetry where monitor failed to demonstrate acute dysrh ythmias. Initial workup with CTA of head neck failed to demonstrate any abnormality; MRI of the head was unremarkable. Seen in consultation by Neurology who felt this was more a migrainous phenomena and not an embolic event. Currently she is symptom free and will follow up with Neurology and PCP as scheduled. She will follow for symptoms as outlined by Neurology. Time Attestation Discharge Coordination Time (in mins): 35 Quality: Safe Use of Opioids Does Pt have an Active Cancer Diagnosis on the Problem List?: No Quality: Stroke Does the patient have a stroke diagnosis?: No Physical Exam Vital Signs: Vital Signs: Last Vital Signs Temp 97.6 F 09/10/23 11:14 Pulse 79 09/10/23 11:14 Resp 18 09/10/23 11:14 BP 112/65 09/10/23 11:14 Pulse Ox 96 09/10/23 11:14 O2 Del Method Room Air 09/10/23 11:14 BMI result Body Mass Index 30.5 Const: Other: Awake alert no acute distress. Vision normal Resp: Other: Clear to auscultation bilaterally no rales rhonchi or wheezes Cardio: Other: No S4; positive S1-S2; no S3 murmurs rubs or gallops GI: Other: Soft nontender nondistended normoactive bowel sounds Neuro: Other: Cranial nerves 2-12 grossly intact as tested. Motor is 5/5 all extremities. Sensation is intact. Cognition appropriate, gait steady Extrem: Other: No edema bilaterally DS: Data Data Completed and Pending Labs on day of discharge: Laboratory Results - last 24 hr 09/09/23 11:20 Estimat Average Glucose 111 Hemoglobin A1c % 5.5 Triglycerides 106 Cholesterol 161 LDL Cholesterol, Calc 74 HDL Cholesterol 66 Discharge Plan Discharge Anticipated Discharge Date/Time: 09/10/23 12:20 Patient Disposition: Home, Self-Care Discharge Diagnosis: Transient visual loss of left eye Referrals: Po,Edward Pompa MD [Primary Care Provider] - 1 Week Discharge Medications: Continued rosuvastatin 5 mg tablet 5 mg PO DAILY Qty: 90 3RF penciclovir [Denavir] 1 % cream 1 appl topical Q2H PRN (Reason: Cold Sores) Qty: 5 2RF loratadine [Claritin] 10 mg Tablet 10 mg PO DAILY PRN (Reason: Allergy Symptoms) levothyroxine [Synthroid] 50 mcg tablet 50 mcg PO DAILY@0600 acetaminophen [Tylenol] 325 mg Tablet 650 mg PO Q6H PRN (Reason: Pain) metoprolol succinate 25 mg tablet extended release 24 hr 12.5 mg PO DAILY@1600 estradiol 10 mcg tablet 10 mcg vaginal WESA@2100 metoprolol succinate 25 mg tablet extended release 24 hr 37.5 mg PO DAILY@1800 cholecalciferol (vitamin D3) 25 mcg (1,000 unit) capsule 25 mcg PO DAILY omeprazole 20 mg capsule,delayed release(DR/EC) 20 mg PO DAILY@0630 Discharge Orders: Discharge Order (Routine); Ordered 09/10/23 Ordered By: Gera Gonsalez Diet: Advance to usual diet Activity on Discharge: As tolerated Stand Alone Forms: Patient Portal Discharge page Print Language: Indonesian Care Plan Goals: Resume all medication as taken previous to hospital Health Concerns: If symptoms reoccur or different symptoms you need to document these for follow- up with Neurology Plan of Treatment: Follow up with PCP next available Assessment: See discharge summary
--- NOTE | 2023-09-10 13:20 | MHC.CM.PN ---
PT DISCHARGED PRIOR TO BEING SEEN BY CM PER EMR, PT LIVES WITH HER AND IS FULLY INDEPENDENT
== END 2023-09-10 13:04 | disposition home or self-care (01) ==
LOC: HO.ED 14:11 → HO.EDOVER 15:20 → HO.IMC 16:40
PROVIDERS: Admitting Provider Student in an Organized Health Care Education/Training Program; Emergency Provider Emergency Medicine; PCP Internal Medicine; Visit Provider Hospitalist
DX: H53.122 Transient visual loss, left eye (principal); R51.9 Headache, unspecified; R20.0 Anesthesia of skin; D47.2 Monoclonal gammopathy; I10 Essential (primary) hypertension; I25.10 Atherosclerotic heart disease of native coronary artery without angina pectoris; E78.5 Hyperlipidemia, unspecified; E03.9 Hypothyroidism, unspecified; H81.09 Meniere's disease, unspecified ear; M41.9 Scoliosis, unspecified; M19.90 Unspecified osteoarthritis, unspecified site; M47.896 Other spondylosis, lumbar region; Z79.899 Other long term (current) drug therapy
CPT/HCPCS: 36415; 70496; 70498; 70551; 80048; 80061; 80076; 83036; 83690; 83735; 84443; 84484; 85025; 85610; 85652; 86140; 93005; 96374; 96375; 97162; 99222; 99285; J2060; Q9967

== ENCOUNTER → 2023-09-09 10:56 | Outpatient (BNV) | payer OTHER, SELFPAY | PROVIDERS: Admitting Provider Student in an Organized Health Care Education/Training Program; Emergency Provider Emergency Medicine; PCP Internal Medicine; Visit Provider Internal Medicine | DX: R94.31 Abnormal electrocardiogram [ECG] [EKG] (principal) | CPT/HCPCS: 93010 ==

== ENCOUNTER → 2023-09-09 15:04 | Outpatient (BNV) | payer OTHER, SELFPAY | PROVIDERS: Admitting Provider Student in an Organized Health Care Education/Training Program; Emergency Provider Emergency Medicine; PCP Internal Medicine; Visit Provider Student in an Organized Health Care Education/Training Program | DX: H53.122 Transient visual loss, left eye (principal) | CPT/HCPCS: 99222; 99239 ==

== ENCOUNTER → 2023-09-09 15:04 | Outpatient (BNV) | payer OTHER, SELFPAY | PROVIDERS: Admitting Provider Student in an Organized Health Care Education/Training Program; Emergency Provider Emergency Medicine; PCP Internal Medicine; Visit Provider Psychiatry & Neurology Neurology | DX: H53.122 Transient visual loss, left eye (principal) | CPT/HCPCS: 99222 ==

== ENCOUNTER 2023-09-15 14:52 | Outpatient (REF) | payer OTHER, SELFPAY ==
[2023-09-15 16:27] LABS: Erythrocyte Sedimentation Rate 7 MM/HR (0-20)
[2023-09-15 16:39] LABS: C Reactive Protein 0.14 mg/dL (< or = 0.50)
[2023-09-18 21:52] LABS: Gliadin Deamidated IgA Ab <1.0 U/mL; Gliadin Deamidated IgG Ab <1.0 U/mL; Transglutaminase Ab IgG <1.0 U/mL; Transglutaminase IgA <1.0 U/mL
[2023-09-27 12:42] LABS: Endomysial IgA Antibody Negative (Negative)
== END 2023-09-15 14:53 | disposition home or self-care (01) ==
LOC: HO.LAB 14:52
PROVIDERS: Absent Provider Internal Medicine; PCP Internal Medicine; Visit Provider Internal Medicine
DX: K52.9 Noninfective gastroenteritis and colitis, unspecified (principal)
CPT/HCPCS: 36415; 85652; 86140; 86231; 86258; 86364

== ENCOUNTER 2023-09-15 15:35 | Outpatient (AMB) | payer OTHER, SELFPAY ==
--- NOTE | 2023-09-15 15:36 | MHC.PC.OV ---
Vital Signs 09/15/23 15:37 09/15/23 16:06 Height 5 ft 1 in Weight 72.121 kg BMI 30.0 BP 136/90 H 128/80 Blood Pressure Location Rt brachial Rt brachial Position Sitting Sitting Pulse 71 Pulse Source Pulse Oximeter Pulse Oximetry (%) 97 Oxygen Delivery Method Room Air Intake Visit Reasons: [facility] 09/09 Loss of Vision L eye Intake Note: Patient is here for hospital discharge follow up. Patient was discharged from [facility] on 09/10/2023 Blueprint Reproducer Required: No Allergies cefaclor [From Ceclor] Allergy (Severe, Verified 09/15/23 15:37) RASH & HIVES NSAIDS (Non-Steroidal Anti-Inflamma [Nsaids] Allergy (Severe, Verified 09/15/23 15:37) HIVES propantheline [From Pro-Banthine] Allergy (Severe, Verified 09/15/23 15:37) HIVES aspirin [Aspirin] Allergy (Unknown, Verified 09/15/23 15:37) HIVES adhesive tape Allergy (Verified 09/15/23 15:37) Rash Medication List - Last Reconciled 09/15/23 by Frieda Calzada PA-C acetaminophen (Tylenol) 650 mg PO Q6H PRN cholecalciferol (vitamin D3) 25 mcg PO DAILY estradiol 10 mcg vaginal WESA@2100 levothyroxine (Synthroid) 50 mcg PO DAILY@0600 loratadine (Claritin) 10 mg PO DAILY PRN metoprolol succinate ER 37.5 mg PO DAILY@1800 metoprolol succinate ER 12.5 mg PO DAILY@1600 omeprazole 20 mg PO DAILY@0630 penciclovir 1% (Denavir) 1 appl topical Q2H PRN rosuvastatin 5 mg PO DAILY Tobacco use date assessed: 09/15/23 Fall risk assessment: No Falls in past year Last assessed Fall Risk: 09/15/23 Dental Screening Dental Screen Date: 09/15/23 HPI [facility] 09/09 Loss of Vision L eye HPI Details 67-year-old female with past medical history of hypertension, hyperlipidemia, obstructive sleep apnea, hypothyroid, MGUS, SVT, and GERD last seen by Dr. Webber 01/2023 coming in for hospital follow up.? In review of the notes, patient was seen in [facility] ED 09/09/2023 for sudden painless left eye central vision loss.? Labs, EKG, CT of the head, and CTA of head and neck were within normal limits and patient was admitted for monitoring.? MRI of the head was unremarkable and patient was consulted by Neurology who felt this is migraine related and not an embolic event.? Recommended follow up with Neurology outpatient and discharged home 09/10/2023.? Patient follows with pain management for back and SI injections.? Patient was also seen in the ER 08/10/2023 for colitis and diverticulosis treated conservatively and discharged home.? Patient was seen by Hematology Oncology 07/24/2023 considered to be stable.? DEXA scan completed 03/15/2023 showed osteoporosis.? Seen by Cardiology 03/02/2023 considered stable on current medication regimen and follow up in 1 year. Today she tells she has been having diarrhea for the last few months, she does have a history of IBS but notes the diarrhea has gotten worse. She also mentions in the last few days she has had a runny nose with watery eyes along with postnasal drip she did take a rapid COVID test which was negative. She has had no issues with her vision since the initial hospital visit and has scheduled a visit to follow up with the eye doctor on Monday. Was seen by Neurology inpatient and was told she did not need to follow up. Repeat echo ordered by Cardiology while inpatient. TCM TCM Information Date of Discharge 09/11/23 Discharged From [facility] Interactive Contact Date (Reference documentation from this date) 09/15/23 [facility] Medical History TIA (transient ischemic attack) GERD (gastroesophageal reflux disease) ELLIOT (obstructive sleep apnea) Nocturnal hypoxia Chronic allergic rhinitis Has daytime drowsiness Asthma MGUS (monoclonal gammopathy of unknown significance) Diverticular disease Osteopenia Hypothyroid Meniere disease Pulmonary nodule, left PVC (premature ventricular contraction) Hyperlipidemia HTN (hypertension) CAD (coronary artery disease) Surgical History Hx of section History of cholecystectomy History of laparotomy Hx of colonoscopy History of endometrial ablation Family History Father CVD (cardiovascular disease) Mother No problems noted. Brother CVD (cardiovascular disease) Sister Breast cancer Social History Household Members: Spouse Housing: House Are you a primary healthcare educator to a significant other at home: No Do you presently have visiting nurse or other home services: No Alcohol intake: current Alcohol intake frequency: a few times a month Alcohol type: wine Comment: 1 drink 3-4 x a week Patient Tobacco Use Status: Former Tobacco user Years Smoked: 1969 e-Cigarette/Vaping Use: Never Used Second Hand Smoke Exposure: No service: No Current occupational status: employed Cognitive needs: No Hearing needs: No Vision needs: Yes Questionnaire Thrive Questionnaire Date Thrive assessed: 01/31/23 AUDIT C Alcohol Use Questionnaire (AUDIT-C) 1. How often do you have a drink containing alcohol?: 2-3 times a week 2. How many drinks containing alcohol do you have on a typical day when you are drinking?: 1 or 2 3. How often do you have six or more drinks on one occasion?: Never Total Score: 3 NAHOMY-7 AMB Questionnaire NAHOMY-7 Date NAHOMY - 7 assessed: 01/31/23 Source: Developed by Drs. Wesley Covarrubias, Shanika Smart, Corona Collado and colleagues, with an educational grazyna from [employer]. Review of Systems Const Denies body aches, Denies chills, Denies fever(s), Denies headache(s) and Denies poor appetite Eyes Reports as per HPI ENT Reports as per HPI, Denies dizziness and Denies headache(s) Card Denies chest pain, Denies syncope, Denies edema, Denies irregular heart rhythm, Denies lightheadedness and Denies dyspnea Resp Denies cough and Denies dyspnea GI Denies abdominal pain and Reports diarrhea Reports no additional complaints Musc Reports no additional complaints and Denies abnormal gait Skin/Breast Reports system reviewed and no additional complaints, except as documented Neuro Denies abnormal gait, Denies dizziness, Denies syncope and Denies headache(s) Psych Reports no additional complaints Physical exam (Primary Care) Vital Signs: Last Vital Signs Pulse 71 09/15/23 15:37 BP 128/80 09/15/23 16:06 Pulse Ox 97 09/15/23 15:37 Oxygen Delivery Method Room Air 09/15/23 15:37 BMI result Body Mass Index 30.0 Tobacco/Smoking Status: Tobacco use Status Tobacco use date assessed 09/15/23 09/15/23 15:41 Patient Tobacco Use Status Former Tobacco user 09/15/23 15:41 e-Cigarette/Vaping Use Never Used 09/15/23 15:41 Thrive Assessment: Date of Thrive Assessment Date Thrive assessed 01/31/23 09/15/23 15:41 Const General: cooperative, healthy appearing, comfortable and no acute distress Orientation/consciousness: patient oriented x3 HENMT Head: Yes normocephalic Ears: hearing grossly normal bilaterally General nose exam: Normal external nose present Eyes General: appearance normal, both eyes and all related structures Conjunctivae: conjunctivae normal Neck Neck: Yes full ROM and Yes no lymphadenopathy Resp Effort & Inspection: normal respiratory effort Auscultation: clear to auscultation bilaterally, no crackles, no rales, no rhonchi and no wheezes Cardio Rate: regular rate Rhythm: regular rhythm Skin General skin exam: no rashes or lesions noted Neuro General: patient oriented x3 Gait exam (Neuro): Normal gait present Extrem General: Yes normal to inspection, Yes full ROM and No edema Psych Affect: normal affect Attitude: cooperative Insight: Good insight present (Psych) Judgement: Good judgement present (Psych) Assessment and Plan Assessment & Plan (1) Transient visual loss of left eye: Code(s): H53.122 - Transient visual loss, left eye Plan: Patient has not had any recurrence of transient visual loss. 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 Is scheduled to see eye doctor this Monday. (2) Osteoporosis: Code(s): M81.0 - Age-related osteoporosis without current pathological fracture Plan: Patient will begin taking calcium and vitamin-D [id number]. (3) Diarrhea: Code(s): R19.7 - Diarrhea, unspecified Plan: Patient reached out to her art installer who has been following the diarrhea. Managed on medications. Plan Runny nose and watery eyes appear to be allergic patient may take [id number] antihistamine and use nasal sprays as needed. This note was constructed using voice recognition software. While every effort has been made to ensure accuracy and pediatric physician, still areas may have been included sometimes these areas may affect the content or meeting of the given symptoms. Total time spent caring for the patient today was 20 minutes. This includes time spent before the visit reviewing the chart, time spent during the visit, and time spent after the visit and documentation. Coding Level of Care Code Est Pt Level 4 (32602) Diagnoses Transient visual loss of left eye H53.122 Osteoporosis M81.0 Diarrhea R19.7
[2023-09-15 15:37] VITALS: BP 136/90; PULSE 71; O2SAT 97
[2023-09-15 16:06] VITALS: BP 128/80
== END 2023-09-15 16:45 | disposition home or self-care (01) ==
PROVIDERS: PCP Internal Medicine
DX: H53.122 Transient visual loss, left eye (principal); M81.0 Age-related osteoporosis without current pathological fracture; R19.7 Diarrhea, unspecified
CPT/HCPCS: 99214

== ENCOUNTER → 2023-09-27 14:53 | Outpatient (REF) | payer OTHER, SELFPAY ==
--- NOTE | 2023-09-27 14:57 | CA_ITS ---
Transthoracic Echocardiogram Patient (Last, First, Middle): Kristine Pires, Gender: Female Date of : 1955 Age: 67 Procedure Date: 09/27/2023 Procedure Type: Transthoracic Echocardiogram Location: OP Height: 157.48 cm Weight: 72.58 kg BSA: 1.74 m2 Heart Rate: bpm BP: 136 / 80 mmHg Health Education Director: TO Referring MD: Jose Almendarez MD Symptoms: H53.122 - Transient visual loss, left eye Study Quality: Adequate ECG Rhythm: Sinus Conclusions: - The left ventricular systolic function is normal. The calculated ejection fraction is 58% by biplane method. - No obvious valvular pathology seen on this study. Findings Left Ventricle Normal left ventricular cavity size. There is normal left ventricular wall thickness. The left ventricular systolic function is normal. The calculated ejection fraction is 58% by biplane method. There is no evidence of regional wall motion abnormalities. Diastolic function is normal for age. Right Ventricle Normal right ventricular cavity size and systolic function. Atria Both atria are normal in size. Aortic Valve There is a normal trileaflet aortic valve. There is no aortic valve stenosis. There is no aortic valve regurgitation. Mitral Valve The mitral valve appears normal. There is trace mitral valve regurgitation. There is no mitral valve stenosis. Pulmonic Valve The pulmonic valve is likely normal. Tricuspid Valve Normal tricuspid valve structure. There is mild tricuspid valve regurgitation. There is no evidence of pulmonary hypertension. Great Vessels The asc aorta is normal in size. Venous The inferior vena cava is normal in size and collapses greater than 50% with inspiration. Pericardium/Pleural There is no evidence of pericardial effusion. Prior Study Comparison No significant change compared to prior study dated: 10/09/2019. Recommendations, Care & Conclusions No obvious valvular pathology seen on this study. Measurements 2D Linear Measurements IVSd: 0.99 0.6-0.9/0.6-1.0 cm LVIDd: 4.53 3.9-5.3/4.2-5.9 cm LVIDd Index: 2.60 2.4-3.2/2.2-3.1 cm/m2 LVIDs: 2.57 2.0-3.6 cm LVPWd: 0.83 0.7-1.1 cm LA Diam: 3.50 2.7-3.8/3.0-4.0 cm LAIDs Index: 2.01 1.5-2.3 cm/m2 LV Mass: 169.49 67-162/88-224 g LV Mass Index: 97.41 43-95/49-115 g/m2 LVOT Diam: 2.10 3.0+(-)1.3 cm 2D Systolic Function EF 4C: 58.00 >55% EF 2C: 58.90 >55% EF BiP: 58.00 >55% Mitral Valve MV Pk E: 0.53 MV PK A: 0.42 MV Decel Time: 262.00 E/A: 1.30 E'Lateral: 7.29 E'Medial: 5.55 E/E' Med: 9.60 E/E' Lat: 7.30 PHT: 77.00 MVA PHT: 2.86 Decel [place]: 2.03 Aortic Valve AoV Pk Jerry: 1.28 AoV Mn Jerry: 0.89 AoV VTI: 0.27 AoV Pk Grad: 7.00 Aov Mn Grad: 4.00 ARABELLA Cont.VTI: 2.35 LVOT LVOT Pk Jerry: 0.86 LVOT Mn Jerry: 0.58 LVOT VTI: 0.18 LVOT Pk Grad: 3.00 LVOT Mn Grad: 2.00 LVOT Diam: 2.10 LVOT Area: 3.46 Diastolic Function MV Pk E: 0.53 MV Pk A: 0.42 E/A: 1.30 E'Medial: 5.55 E/E' Med: 9.60 E' Laterial: 7.29 E/E' Lat: 7.30 Right Ventricle TAPSE (mm): 18.40 TVS' Jerry: 9.31 Tricuspid Valve TR Pk Jerry: 2.36 TR Pk Grad: 22.00 RA Press: 3.00 RVSP: 25.00 Great Vessels Aorta Sinus of Valsalva: 2.97 2.0-3.[address] Ridge: 2.63 1.7-3.4 cm Ao Asc: 3.50 2.1-3.4 cm Updated in Other Vendor System with Status of Final Jamel Bush MD electronically signed on 09/29/2023 10:44:27 AM with status of Final
== END ==
LOC: HO.CARD 14:53
PROVIDERS: PCP Internal Medicine; Visit Provider Internal Medicine Cardiovascular Disease
DX: H53.122 Transient visual loss, left eye (principal); G45.9 Transient cerebral ischemic attack, unspecified
CPT/HCPCS: 93306

== ENCOUNTER → 2023-09-27 14:57 | Outpatient (BNV) | payer OTHER, SELFPAY | PROVIDERS: PCP Internal Medicine; Visit Provider Internal Medicine | DX: I36.1 Nonrheumatic tricuspid (valve) insufficiency (principal) | CPT/HCPCS: 93306 ==

== ENCOUNTER → 2023-11-29 09:30 | Outpatient (REF) | payer OTHER, SELFPAY ==
--- NOTE | 2023-11-29 09:33 | HM_ITS ---
* Total monitoring time 4 days and 12 hours. * Frequent supraventricular ectopy with a burden of 8.7%. Brief runs noted. * Rare ventricular ectopy. * No significant pauses or high-grade AV blocks. * No patient markers or diary events. MTDD
== END ==
LOC: HO.CARD 09:30
PROVIDERS: PCP Internal Medicine; Visit Provider Nurse Practitioner Family
DX: I48.0 Paroxysmal atrial fibrillation (principal)
CPT/HCPCS: 93242

== ENCOUNTER → 2023-11-29 09:33 | Outpatient (BNV) | payer OTHER, SELFPAY | PROVIDERS: PCP Internal Medicine; Visit Provider Internal Medicine | DX: I47.10 Supraventricular tachycardia, unspecified (principal) | CPT/HCPCS: 93244 ==

== ENCOUNTER 2023-12-05 13:00 | Outpatient (RCR) | payer OTHER, SELFPAY | END 2024-01-19 09:24 | disposition home or self-care (01) | LOC: HO.PT 13:00 | PROVIDERS: PCP Internal Medicine; Visit Provider Internal Medicine | DX: M53.3 Sacrococcygeal disorders, not elsewhere classified (principal); M41.9 Scoliosis, unspecified; M47.816 Spondylosis without myelopathy or radiculopathy, lumbar region | CPT/HCPCS: 97110; 97161; 97530 ==

== ENCOUNTER 2023-12-13 15:41 | Outpatient (REF) | payer OTHER, SELFPAY ==
--- NOTE | ~2023-12-13 | MM_ITS ---
EXAMINATION: MM SCREENING DIGITAL BREAST TOMOSYNTHESIS, BILATERAL CLINICAL INFORMATION: Screening. Asymptomatic. COMPARISON: Mammography: Comparison is made with available priors TECHNIQUE: Digital breast mammography with tomosynthesis is performed in both the craniocaudal and mediolateral oblique views along with computer-aided detection (CAD). FINDINGS: There are scattered areas of fibroglandular density (ACR BI-RADS breast composition Category b). There are no significant masses, abnormal calcifications, or other abnormalities. MM/MM tomosynthesis screening BI IMPRESSION: No mammographic evidence of malignancy. ASSESSMENT: BI-RADS BI-RADS 1 - Negative RECOMMENDATION: Routine annual mammography screening. 1 year F/U This examination should not preclude the clinical evaluation of a suspicious palpable abnormality. This patient's information was entered into a reminder system with a target due date for their next mammogram. Electronically signed by: Damaris Lopez DO 12/15/2023 10:04 AM EDJustina
== END 2023-12-13 15:42 | disposition home or self-care (01) ==
LOC: HO.MAMMO 15:41
PROVIDERS: Absent Provider Obstetrics & Gynecology Female Pelvic Medicine and Reconstructive Surgery; PCP Internal Medicine; Visit Provider Internal Medicine
DX: Z12.31 Encounter for screening mammogram for malignant neoplasm of breast (principal)
CPT/HCPCS: 77063; 77067

== ENCOUNTER → 2023-12-13 16:00 | Outpatient (BNV) | payer OTHER, SELFPAY | PROVIDERS: Absent Provider Obstetrics & Gynecology Female Pelvic Medicine and Reconstructive Surgery; PCP Internal Medicine; Visit Provider Internal Medicine | DX: Z12.31 Encounter for screening mammogram for malignant neoplasm of breast (principal) | CPT/HCPCS: 77063; 77067 ==

== ENCOUNTER 2023-12-19 13:13 | Outpatient (AMB) | payer OTHER, SELFPAY ==
[2023-12-19 13:38] VITALS: BP 170/90; PULSE 102; BMI 30.6
--- NOTE | 2023-12-19 13:38 | MHC.OFFVIS ---
Vital Signs 12/19/23 13:38 Height 5 ft 1 in Weight 161 lb 13.109 oz BMI 30.6 BP 170/90 H Blood Pressure Location Rt brachial Position Sitting Pulse 102 H Intake Visit Reasons: follow-up with ekg dx afib Intake Note: Pt c/o of a lot of palpitations. Does get lightheaded. 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 Required: No Accompanied by: self Allergies cefaclor [From Ceclor] Allergy (Severe, Verified 09/15/23 15:37) RASH & HIVES NSAIDS (Non-Steroidal Anti-Inflamma [Nsaids] Allergy (Severe, Verified 09/15/23 15:37) HIVES propantheline [From Pro-Banthine] Allergy (Severe, Verified 09/15/23 15:37) HIVES aspirin [Aspirin] Allergy (Unknown, Verified 09/15/23 15:37) HIVES adhesive tape Allergy (Verified 09/15/23 15:37) Rash Medication List - Last Reconciled 12/19/23 by Jose Almendarez MD acetaminophen (Tylenol) 650 mg PO Q6H PRN cholecalciferol (vitamin D3) 25 mcg PO DAILY levothyroxine 25 mcg PO DAILY loratadine (Claritin) 10 mg PO DAILY PRN metoprolol succinate ER 37.5 mg PO DAILY@1800 metoprolol succinate ER 12.5 mg PO DAILY@1600 metoprolol tartrate 12.5 mg (1/2 x 25 mg) PO DAILY PRN omeprazole 20 mg PO DAILY@0630 penciclovir 1% (Denavir) 1 appl topical Q2H PRN rosuvastatin 5 mg PO DAILY HPI Comments Details: Nori comes for follow-up after recent diagnose of atrial fibrillation. After discussion she was started on oral anticoagulation with Eliquis but she has not started taking oral anticoagulation therapy due to her fear of bleeding risk. She says she had prior history of significant epistaxis about 10 years ago but has had no recurrent epistaxis since then. She also says she has high fall risk although she works full-time currently and has not had significant falls are during the last couple of weeks. Patient however is significantly bothered by persistent symptoms of palpitations. She has significantly increased burden of PACs which she was recorded on her EKG device although she also has intermittent episodes of prolonged palpitation and thinks that she has been atrial fibrillation although she did not confirmed with the EKG. As a result she has a lot of high anxiety state at this point time. She comes in today anxious and a blood pressure is elevated systolic 170. 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 Denies any exertional symptoms of chest pain or shortness of breath. No lightheadedness, syncope. No neurologic events. [facility] Medical History TIA (transient ischemic attack) GERD (gastroesophageal reflux disease) ELLIOT (obstructive sleep apnea) Nocturnal hypoxia Chronic allergic rhinitis Has daytime drowsiness Asthma MGUS (monoclonal gammopathy of unknown significance) Diverticular disease Osteopenia Hypothyroid Meniere disease Pulmonary nodule, left PVC (premature ventricular contraction) Hyperlipidemia HTN (hypertension) CAD (coronary artery disease) Surgical History Hx of section History of cholecystectomy History of laparotomy Hx of colonoscopy History of endometrial ablation Family History Father CVD (cardiovascular disease) Mother No problems noted. Brother CVD (cardiovascular disease) Sister Breast cancer Social History Household Members: Spouse Housing: House Are you a primary hearing healthcare practitioner to a significant other at home: No Do you presently have visiting nurse or other home services: No Alcohol intake: current Alcohol intake frequency: a few times a month Alcohol type: wine Comment: 1 drink 3-4 x a week Patient Tobacco Use Status: Former Tobacco user Years Smoked: 1969 e-Cigarette/Vaping Use: Never Used Second Hand Smoke Exposure: No service: No Current occupational status: employed Cognitive needs: No Hearing needs: No Vision needs: Yes Review of Systems Const Denies chills, Denies fatigue, Denies fever(s), Denies weight gain and Denies weight loss ENT Denies dizziness Card Denies chest pain, Denies leg edema, Reports lightheadedness, Reports palpitations, Reports dyspnea on exertion, Denies orthopnea and Denies other Resp Denies cough and Reports dyspnea on exertion GI Denies hematochezia and Denies change in stool character Musc Denies abnormal gait, Denies muscle weakness, Denies numbness, Denies radiating pain into limb and Denies tingling Neuro Denies abnormal gait, Denies dizziness, Denies numbness and Denies tingling Endo Denies fatigue and Reports palpitations Physical Exam Vital Signs: Last Vital Signs Pulse 102 H 12/19/23 13:38 BP 170/90 H 12/19/23 13:38 BMI result Body Mass Index 30.6 Const General: cooperative, comfortable, alert and awake Nutritional Appearance: overweight Orientation/consciousness: patient oriented x3 Limitations: no limitations Resp Effort & Inspection: normal respiratory effort Auscultation: clear to auscultation bilaterally Cardio Jugular venous distension: no JVD Rate: regular rate Rhythm: abnormal rhythm with ectopic beats Heart sounds: S1 normal heart sound present and S2 normal heart sound present Neuro General: patient oriented x3 and no focal motor deficits Psych Appearance: grossly normal Office Procedures EKG Details: EKG shows normal sinus rhythm with PACs 12650-[id number], Complete Assessment & Plan Assessment & Plan (1) Paroxysmal atrial fibrillation: Code(s): I48.0 - Paroxysmal atrial fibrillation Category: Medical Plan: Patient with highly symptomatic paroxysmal atrial fibrillation and also highly symptomatic PACs at this point time. This has raised her stress level and anxiety level. At this point time given her symptom nature will continue pursue rhythm control approach. Will increase metoprolol to 50 mg daily. Will add flecainide 50 mg b.i.d. to her regimen. She does not have any significant structural heart issues at this point time. We discussed about management of atrial fibrillation details. Can gradually maximize flecainide dose. If she has failure to antiarrhythmic drug therapy will consider ablation. This was discussed with her. Also strongly recommend her to be on oral anticoagulant therapy to reduce thromboembolic risk. She is very hesitant to start oral anticoagulation therapy will will think about it. CHADSVASc score of 3. A blood pressure is elevated on today's exam most likely related to anxiety and white coat hypertension. Advised to monitor blood pressure at home maintain a log. If she continues to persistently have elevated blood pressure will be a target for treatment. She is encouraged to avoid stimulants. Will follow up in the clinic in 1 week for EKG in 3 months with me. Thank you for allowing me to partake in his care Medications: New metoprolol succinate ER (Toprol XL) 50 mg PO DAILY 90 tabs 3RF flecainide 50 mg PO Q12H 180 tabs 2RF Coding Level of Care Code Est Pt Level 4 (52866) Complex EM visit Add On G2211 Diagnoses Paroxysmal atrial fibrillation I48.0 CPT Codes EKG - CPT: 03620-[id number], Complete ([id number])
== END 2023-12-19 14:21 | disposition home or self-care (01) ==
LOC: HO.HCS 13:13
PROVIDERS: PCP Internal Medicine; Visit Provider Internal Medicine Cardiovascular Disease
DX: I48.0 Paroxysmal atrial fibrillation (principal)
CPT/HCPCS: 93010; 99214

== ENCOUNTER → 2023-12-19 13:13 | Outpatient (BNVA) | payer OTHER, SELFPAY | PROVIDERS: PCP Internal Medicine; Visit Provider Internal Medicine Cardiovascular Disease | DX: I48.0 Paroxysmal atrial fibrillation (principal); Z79.01 Long term (current) use of anticoagulants; Z79.899 Other long term (current) drug therapy | CPT/HCPCS: 93005 ==

== ENCOUNTER 2024-02-09 14:43 | Outpatient (AMB) | payer OTHER, SELFPAY ==
--- NOTE | 2024-02-09 15:00 | MHC.PC.OV ---
Vital Signs 02/09/24 15:08 Height 5 ft 1 in Weight 159 lb 6 oz BMI 30.1 BP 138/86 Blood Pressure Location Lt brachial Position Sitting Pulse 72 Pulse Source Pulse Oximeter Pulse Oximetry (%) 96 Oxygen Delivery Method Room Air Intake Visit Reasons: pe Allergies cefaclor [From Ceclor] Allergy (Severe, Verified 09/15/23 15:37) RASH & HIVES NSAIDS (Non-Steroidal Anti-Inflamma [Nsaids] Allergy (Severe, Verified 09/15/23 15:37) HIVES propantheline [From Pro-Banthine] Allergy (Severe, Verified 09/15/23 15:37) HIVES aspirin [Aspirin] Allergy (Unknown, Verified 09/15/23 15:37) HIVES adhesive tape Allergy (Verified 09/15/23 15:37) Rash Medication List - Last Reconciled 02/09/24 by Edward Webber MD acetaminophen (Tylenol) 650 mg PO Q6H PRN calcium carbonate (Calcium 500) 500 mg PO DAILY cholecalciferol (vitamin D3) 25 mcg PO DAILY flecainide 50 mg PO Q12H levothyroxine 25 mcg PO DAILY loratadine (Claritin) 10 mg PO DAILY PRN metoprolol succinate ER (Toprol XL) 50 mg PO DAILY omeprazole 20 mg PO DAILY@0630 penciclovir 1% (Denavir) 1 appl topical Q2H PRN rosuvastatin 5 mg PO DAILY Tobacco use date assessed: 09/15/23 Dental Screening Dental Screen Date: 09/15/23 HPI pe HPI Details The patient is a 68-year-old female presenting with management concerns related to atrial fibrillation. She reports a history of arrhythmias, described as PVCs and atrial fibrillation, initially detected ten years ago following nasal bleeding, which caused significant anxiety exacerbating her symptoms. Recent exacerbations of irregular heart rhythms occurred following a COVID-19 vaccination, alongside fever episodes. Previous monitoring revealed an 8.7% burden on a Holter monitor. The initiation of Flexinite was noted to have reduced the frequency of arrhythmias. In addition, she reports having essential hypertension diagnosed at a separate occasion, currently managed with metoprolol 50 mg once daily. She also suffers from scoliosis, experiencing significant back pain particularly involving the sciatic nerve distribution. Treatment thus far included physical therapy, nocturnal exercises, and episodic cortisone injections with questionable efficacy, evidenced by transient facial flushing post-injection. For her history of GERD, she has been on omeprazole for two to three years, yet expressed concern regarding long-term use due to calcium absorption debates, subsequently maintaining calcium supplementation. - Received COVID-19 and flu vaccinations. - Regular exercise regimen including treadmill, stationary bike, and light weights. 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 - Intake of garlic suggested to contribute to easy bleeding yet part of cultural dietary habits. - Calcium and vitamin D supplementation discussed. - Recommendations to avoid eating late at night to manage GERD. - Works three days a week, maintains regular physical activity including treadmill and biking. - Consumes a diet rich in garlic as part of her [facility]. - Reduction in alcohol intake to minimal wine consumption, primarily red wine. - Lives with her , reports having supportive family dynamics. - Cardiovascular: Reports occasional chest pain and dizziness. - Neurological: Denies any syncope episodes. - Musculoskeletal: Complains of severe sciatica and back pain; scoliosis noted. - Gastrointestinal: Experiences heartburn managed with omeprazole; history of irritable bowel syndrome, alleviated by calcium. - Dermatological: Notices itching and rash with pinpoint red spots; dry skin bothersome particularly during winter months. - Diagnostics: Heart rhythm assessment with recordings available from a wearable device. [facility] Medical History TIA (transient ischemic attack) GERD (gastroesophageal reflux disease) ELLIOT (obstructive sleep apnea) Nocturnal hypoxia Chronic allergic rhinitis Has daytime drowsiness Asthma MGUS (monoclonal gammopathy of unknown significance) Diverticular disease Osteopenia Hypothyroid Meniere disease Pulmonary nodule, left PVC (premature ventricular contraction) Hyperlipidemia HTN (hypertension) CAD (coronary artery disease) Surgical History Hx of section History of cholecystectomy History of laparotomy Hx of colonoscopy History of endometrial ablation Family History Father CVD (cardiovascular disease) Mother No problems noted. Brother CVD (cardiovascular disease) Sister Breast cancer Social History (Updated 02/09/24 @ 15:45 by Edward Webber MD) Household Members: Spouse Housing: House Are you a primary home health care respiratory therapist to a significant other at home: No Do you presently have visiting nurse or other home services: No Alcohol intake: current Alcohol intake frequency: a few times a month Alcohol type: wine Comment: 1 drink 3-4 x a week. (01/2024 1/2 glass 2-3 x a week) Patient Tobacco Use Status: Former Tobacco user Years Smoked: 1969 e-Cigarette/Vaping Use: Never Used Second Hand Smoke Exposure: No service: No Current occupational status: employed Cognitive needs: No Hearing needs: No Vision needs: Yes Questionnaire PHQ-9 Over the last 2 weeks, how often have you been bothered by any of the following problems? 1. Little interest or pleasure in doing things: not at all 2. Feeling down, depressed, or hopeless: not at all 3. Trouble falling or staying asleep, or sleeping too much: not at all 4. Feeling tired or having little energy: not at all 5. Poor appetite or overeating: not at all 6. Feeling bad about yourself - or that you are a failure or have let yourself or your family down: not at all 7. Trouble concentrating on things, such as reading the newspaper or watching television: not at all 8. Moving or speaking so slowly that other people could have noticed. Or the opposite - being so fidgety or restless that you have been moving around a lot more than usual: not at all 9. Thoughts that you would be better off or of hurting yourself in some way: not at all Total score: 0 Depression Screening Interpretation: Negative Depression Screening Done: Yes 24918 - PHQ-9 Billing: Yes Source: Developed by Drs. Wesley Covarrubias, Shanika Smart, Corona Collado and colleagues, with an educational grazyna from [employer]. Thrive Questionnaire Date Thrive assessed: 02/09/24 I am a: Patient What is your living situation today?: I have a steady place to live Within the past 12 months, did the food you bought not last and you didn't have the money to get more?: Never true Within the past 12 months, did you worry whether your food would run out before you got money to buy more?: Never true Do you have trouble paying for medicines?: No Do you have trouble getting transportation to medical appointments?: No Do you have trouble paying your heating and electricity bill?: No Do you have trouble taking care of your child, family member or friend?: No Do you have trouble with day-to-day activities such as bathing, preparing meals, shopping, managing finances, etc.?: No Are you currently unemployed and looking for a job?: No Are you interested in more education?: No Please select the resources that you would like help with: None Currently or been in a relationship where the following occur: No concerns reported THRIVE Score: 0 AUDIT C Alcohol Use Questionnaire (AUDIT-C) 1. How often do you have a drink containing alcohol?: 2-3 times a week 2. How many drinks containing alcohol do you have on a typical day when you are drinking?: 1 or 2 3. How often do you have six or more drinks on one occasion?: Never Total Score: 3 NAHOMY-7 AMB Questionnaire NAHOMY-7 Date NAHOMY - 7 assessed: 02/09/24 Feeling nervous, anxious, or on edge: 0 = Not at all Not being able to stop or control worryin = Not at all Worrying too much about different things: 0 = Not at all Trouble relaxin = Not at all Being so restless that it is hard to sit still: 0 = Not at all Becoming easily annoyed or irritable: 0 = Not at all Feeling afraid as if something awful might happen: 0 = Not at all Total NAHOMY-7 score (0-4 normal; 5-9 mild; 10-14 moderate; 15-21 severe): 0 Source: Developed by Drs. Wesley Covarrubias, Shanika Smart, Corona Collado and colleagues, with an educational grazyna from [employer]. NAHOMY-7 Assessment Billing NAHOMY-7 Assessment Tool: NHAOMY-7 Assessment 10258 Review of Systems Const Denies poor appetite and Denies weakness Eyes Denies no additional complaints ENT Reports Normal hearing present, Denies dizziness, Denies nasal congestion, Denies tinnitus and Denies sore throat Card Denies chest pain, Denies syncope, Denies rapid heart rate and Denies dyspnea Resp Denies cough and Denies dyspnea GI Denies change in stool character, Reports constipation, Denies diarrhea, Denies nausea and Denies vomiting Denies urinary frequency, Denies difficulty voiding and Denies dysuria Neuro Reports Normal hearing present, Denies confusion, Denies dizziness, Denies syncope and Denies weakness Psych Denies confusion Physical exam (Primary Care) Vital Signs: Last Vital Signs Pulse 72 02/09/24 15:08 BP 138/86 02/09/24 15:08 Pulse Ox 96 02/09/24 15:08 Oxygen Delivery Method Room Air 02/09/24 15:08 BMI result Body Mass Index 30.1 Tobacco/Smoking Status: Tobacco use Status Tobacco use date assessed 09/15/23 02/09/24 15:01 Patient Tobacco Use Status Former Tobacco user 02/09/24 15:45 e-Cigarette/Vaping Use Never Used 02/09/24 15:45 PHQ-9: PHQ-9 Score PHQ-9: Total score 0 02/09/24 15:36 Depression Screening Interpretation: Negative Thrive Assessment: Date of Thrive Assessment Date Thrive assessed 02/09/24 02/09/24 15:01 Currently or been in a relationship where the following occur: No concerns reported Const General: No confusion Orientation/consciousness: No confusion HENMT Head: Yes normocephalic Ears: external ears normal and TM's normal bilaterally Face and sinus: Yes normal facial exam Mouth: moist mucous membranes Throat: Yes tonsils normal Eyes Conjunctivae: conjunctivae normal Pupils: Equal, round and reactive pupils present and Pupil accommodation reflex normal Direct Ophthalmoscopy: normal light reflex Neck Neck: No lymphadenopathy Thyroid: Thyroid normal Chest Chest palpation & inspection: normal inspection of the chest Resp Effort & Inspection: normal respiratory effort and no audible wheezes Auscultation: clear to auscultation bilaterally, no crackles, no wheezes and lung sounds not diminished Cardio Rate: regular rate Rhythm: regular rhythm Peripheral pulses: radial pulses present and dorsalis pedis present GI Palpation (GI): no masses Auscultation: normal bowel sounds and normoactive bowel sounds Rectal Exam - Female: deferred Skin General skin exam: no rashes or lesions noted Rashes: no rashes Neuro General: No confusion Cranial nerves: Yes Equal, round and reactive pupils present and Yes Normal hearing present Cognition (Neuro): normal cognition Gait exam (Neuro): Normal gait present Motor exam (neuro): 5/5 motor strength present throughout Deep tendon reflexes (DTR's): Right brachioradialis reflex intensity grade: 2+, Left brachioradialis reflex intensity grade: 2+, Right patellar reflex intensity grade: 2+ and Left patellar reflex intensity grade: 2+ Extrem General: No edema Office Procedures Flu Questionnaire Does the patient have a severe egg allergy?: No Immunizations Fluarix Triv [id number] (PF) 45 mcg (15 mcg x 3)/0.5 mL IM syringe Performing Provider: Edward Webber MD [place] [facility] [place] [facility] Documented (not given) by: AMAN Silva on 02/09/24 15:14 Reason Not Given: Received Previously Coding Level of Care Code Est Pt Prev Care >65y(89181) Diagnoses Annual physical exam Z00.00 Paroxysmal atrial fibrillation I48.0 Age related osteoporosis, unspecified pathological fracture presence M81.0 Osteoporosis type: age-related Presence of current pathological fracture: unspecified Obesity (BMI 30.0-34.9) E66.9 Lumbar spondylosis M47.816 Gastroesophageal reflux disease without esophagitis K21.9 Esophagitis presence: without esophagitis MGUS (monoclonal gammopathy of unknown significance) D47.2 CAD (coronary artery disease) I25.10 Acquired hypothyroidism E03.9 Hypothyroidism type: acquired Essential hypertension I10 Hypertension type: essential hypertension Pure hypercholesterolemia E78.00 Hyperlipidemia type: pure hypercholesterolemia Additional Codes NAHOMY-7 Assessment Billing - NAHOMY-7 Assessment Tool: NAHOMY-7 Assessment 60807 ([id number]) PHQ-9 - 06283 - PHQ-9 Billing: Yes ([id number]) Assessment & Plan Assessment & Plan (1) Annual physical exam: Code(s): Z00.00 - Encounter for general adult medical examination without abnormal findings Category: Medical (2) Paroxysmal atrial fibrillation: Code(s): I48.0 - Paroxysmal atrial fibrillation Category: Medical Plan: Patient declines anticoagulation and continues with flecainide (3) Osteoporosis: Code(s): M81.0 - Age-related osteoporosis without current pathological fracture Category: Medical Qualifiers: Osteoporosis type: age-related Presence of current pathological fracture: unspecified Qualified Code(s): M81.0 - Age-related osteoporosis without current pathological fracture Plan: Calcium and vitamin-D and keep active (4) Obesity (BMI 30.0-34.9): Code(s): E66.9 - Obesity, unspecified Category: Medical Plan: Diet and exercise (5) Lumbar spondylosis: Code(s): M47.816 - Spondylosis without myelopathy or radiculopathy, lumbar region Category: Medical Plan: Continue to keep active and do stretches (6) GERD (gastroesophageal reflux disease): Code(s): K21.9 - Gastro-esophageal reflux disease without esophagitis Category: Medical Qualifiers: Esophagitis presence: without esophagitis Qualified Code(s): K21.9 - Gastro-esophageal reflux disease without esophagitis Plan: Avoid the foods that causes that usually spicy foods, tomato products, juices, coffee, soda and foods that your sensitive to. After eating do not lie down, allow 3-4 hours before in lie down. And keep the head of bed above 30 degrees to avoid the acid from going up. (7) MGUS (monoclonal gammopathy of unknown significance): Code(s): D47.2 - Monoclonal gammopathy Category: Medical Plan: Continuing to monitor seeing Hematology-Oncology (8) CAD (coronary artery disease): Comment: nonobstructive by CTA March 2017 Code(s): I25.10 - Atherosclerotic heart disease of [place] coronary artery without angina pectoris Category: Medical Plan: Control the cholesterol, weight, blood pressure, (9) Hypothyroid: Code(s): E03.9 - Hypothyroidism, unspecified Category: Medical Qualifiers: Hypothyroidism type: acquired Qualified Code(s): E03.9 - Hypothyroidism, unspecified Plan: Continue with thyroid medication (10) HTN (hypertension): Code(s): I10 - Essential (primary) hypertension Category: Medical Qualifiers: Hypertension type: essential hypertension Qualified Code(s): I10 - Essential (primary) hypertension Plan: Continue with blood pressure medication. Decrease salt intake and exercise on metoprolol 50 mg once a day (11) Hyperlipidemia: Code(s): E78.5 - Hyperlipidemia, unspecified Category: Medical Qualifiers: Hyperlipidemia type: pure hypercholesterolemia Qualified Code(s): E78.00 - Pure hypercholesterolemia, unspecified Plan: Avoid fried foods, chicken skin, eggs, butter margarine, pastries and meat. Be it pork or beef they have a lot of cholesterol on rosuvastatin 5 mg once a day LDL goal of less than 70 and triglyceride of less than 150 Plan - Evaluate need for possible increase in Flexinite dosage for atrial fibrillation if symptoms exacerbate. - Monitor blood pressure to assess current hypertensive management effectiveness. - Continue scoliosis management with back exercises, consider alternative sciatica interventions if cortisone injections are ineffective. - Encourage and support continuation of GERD management strategies including dietary modification and ongoing review of omeprazole necessity. - Conduct routine reviews of patient's current medication regimen to ensure comprehensive coverage of allergies and hypersensitivities. During the visit, we discussed her arrhythmia management, particularly focusing on the effectiveness and potential adjustment of Flexinite dosage. I emphasized the importance of consistent blood pressure monitoring in light of her essential hypertension. The patient's scoliosis and associated sciatica pain were addressed, considering potential alternative treatments given her experience with cortisone injections. We reviewed her current regimen of omeprazole for GERD in the context of calcium supplementation and broader lifestyle considerations. I advised her to maintain her healthy lifestyle and exercise habits, particularly stressing the avoidance of late-night meals to alleviate heartburn. The patient expressed understanding and agreement with the proposed management strategies. - Continue monitoring heart rate and rhythm using a wearable device, alert if abnormalities persist or worsen. - Maintain regular blood pressure checks, adhere to prescribed antihypertensive regimen. - Perform prescribed back exercises consistently to support scoliosis management. - Keep taking current medications, including Flexinite and omeprazole, and adjust based on medical advice. - Avoid late-night eating and known heartburn triggers to manage GERD symptoms effectively. - Ensure adequate hydration and moisturize skin regularly to manage dryness and itching. - Book follow-up appointments as advised to monitor and adjust treatment plans as necessary. Orders: Orders Influenza [id number] Immunization Today Z23 - Encounter for immunization
[2024-02-09 15:08] VITALS: BP 138/86; PULSE 72; O2SAT 96; BMI 30.1
== END 2024-02-09 16:00 | disposition home or self-care (01) ==
PROVIDERS: PCP Internal Medicine; Visit Provider Internal Medicine
DX: Z00.00 Encounter for general adult medical examination without abnormal findings (principal); I48.0 Paroxysmal atrial fibrillation; E66.9 Obesity, unspecified; Z68.30 Body mass index [BMI] 30.0-30.9, adult; M81.0 Age-related osteoporosis without current pathological fracture; M47.816 Spondylosis without myelopathy or radiculopathy, lumbar region; K21.9 Gastro-esophageal reflux disease without esophagitis; D47.2 Monoclonal gammopathy; I25.10 Atherosclerotic heart disease of native coronary artery without angina pectoris; E03.9 Hypothyroidism, unspecified; I10 Essential (primary) hypertension; E78.00 Pure hypercholesterolemia, unspecified

== ENCOUNTER → 2024-02-09 14:43 | Outpatient (BNVA) | payer OTHER, SELFPAY | PROVIDERS: PCP Internal Medicine; Visit Provider Internal Medicine | DX: Z00.00 Encounter for general adult medical examination without abnormal findings (principal); I48.0 Paroxysmal atrial fibrillation; M81.0 Age-related osteoporosis without current pathological fracture; E66.9 Obesity, unspecified; Z68.30 Body mass index [BMI] 30.0-30.9, adult; M47.816 Spondylosis without myelopathy or radiculopathy, lumbar region; K21.9 Gastro-esophageal reflux disease without esophagitis; D47.2 Monoclonal gammopathy; I25.10 Atherosclerotic heart disease of native coronary artery without angina pectoris; E03.9 Hypothyroidism, unspecified; I10 Essential (primary) hypertension; E78.00 Pure hypercholesterolemia, unspecified; Z79.899 Other long term (current) drug therapy; Z28.21 Immunization not carried out because of patient refusal | CPT/HCPCS: 96127 ==

== ENCOUNTER 2024-02-15 07:24 | Outpatient (REF) | payer OTHER, SELFPAY ==
[2024-02-15 07:36] LABS: MANUAL DIFF FLAG NO
[2024-02-15 08:06] LABS: Basophils Absolute Auto 0.1 X10*3/uL (0.0-0.2); Basophils Percent Auto 1.3 % (0-2); Eosinophils Absolute Auto 0.3 X10*3/uL (0.0-0.4); Eosinophils Percent Auto 3.7 % (0-4); Hematocrit 43.5 % (37.0-47.0); Hemoglobin 14.4 g/dl (12.0-16.0); Imm Gran Abs Auto 0.03 X10*3/uL (0.00-0.03); Imm Gran Pct Auto 0.4 % (0.0-0.4); Lymphocytes Absolute Auto 2.1 X10*3/uL (1.2-4.9); Lymphocytes Percent Auto 30.6 % (20-40); Mean Corpuscular HGB Conc 33.1 g/dl (31.0-35.0); Mean Corpuscular Hemoglobin 29.5 pg (27.0-33.0); Mean Corpuscular Volume 89.1 fL (80.0-98.0); Mean Platelet Volume 10.5 fL (9.4-12.3); Monocytes Absolute Auto 0.6 X10*3/uL (0.1-1.2); Monocytes Percent Auto 9.2 % (2-11); Neutrophils Absolute Auto 3.7 x10*3/uL (2.0-8.3); Neutrophils Percent Auto 54.8 % (45-73); Platelet Count 237 X10*3/uL (160-400); Red Blood Count 4.88 X10*6/uL (4.20-5.50); Red Cell Distribution Width 12.6 % (11.0-16.0); White Blood Count 6.8 X10*3/uL (4.8-10.8)
[2024-02-15 08:43] LABS: Alanine Aminotransferase 26 U/L (0-31); Albumin Level 4.3 g/dL (3.5-5.0); Alkaline Phosphatase 61 U/L (39-117); Anion Gap 10 (12-20); Aspartate Amino Transferase 25 U/L (5-31); Bilirubin Total 0.9 mg/dL (0.0-1.0); Blood Urea Nitrogen 17 mg/dL (9-16); C Reactive Protein 0.14 mg/dL (< or = 0.50); Calcium 9.5 mg/dL (8.4-10.2); Carbon Dioxide 26 mmol/L (22-29); Chloride 108 mmol/L (96-108); Cholesterol 149 mg/dL (<200); Estimated Glomerular Filt Rate > 60; Glucose Random 97 mg/dL (60-115); HDL Cholesterol 52 mg/dL (>40); LDL Cholesterol Calculated 78 mg/dL (<100); Potassium 4.1 mmol/L (3.3-5.1); Sodium 140 mmol/L (135-145); Triglycerides 96 mg/dL (<150)
[2024-02-15 08:48] LABS: Erythrocyte Sedimentation Rate 8 MM/HR (0-20)
[2024-02-15 08:51] LABS: Free T4 (Free Thyroxine) 1.01 ng/dL (0.71-1.85); Thyroid Stimulating Hormone 3.92 uIU/mL (0.32-4.0); Vitamin D 25-OH Total 38.6 ng/mL (>30)
[2024-02-15 09:04] LABS: Folate 12.3 ng/mL (> or = 4.0); Vitamin B12 520 pg/mL (200-900)
== END 2024-02-15 07:25 | disposition home or self-care (01) ==
LOC: HO.LAB 07:24
PROVIDERS: PCP Internal Medicine; Visit Provider Internal Medicine
DX: I48.0 Paroxysmal atrial fibrillation (principal); E78.00 Pure hypercholesterolemia, unspecified
CPT/HCPCS: 36415; 80053; 80061; 82306; 82607; 82746; 84439; 84443; 85025; 85652; 86140

== ENCOUNTER 2024-02-22 14:50 | Outpatient (AMB) | payer OTHER, SELFPAY ==
--- NOTE | 2024-02-22 14:52 | A.OFFVIS_ITS ---
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 Allergies cefaclor [From Ceclor] Allergy (Severe, Verified 02/22/24 15:29) RASH & HIVES NSAIDS (Non-Steroidal Anti-Inflamma [Nsaids] Allergy (Severe, Verified 02/22/24 15:29) HIVES propantheline [From Pro-Banthine] Allergy (Severe, Verified 02/22/24 15:29) HIVES aspirin [Aspirin] Allergy (Unknown, Verified 02/22/24 15:29) HIVES adhesive tape Allergy (Verified 02/22/24 15:29) Rash Medication List - Last Reconciled 02/22/24 by Cayden Cazares NP acetaminophen (Tylenol) 650 mg PO Q6H PRN calcium carbonate (Calcium 500) 500 mg PO DAILY cholecalciferol (vitamin D3) 25 mcg PO DAILY flecainide 50 mg PO Q12H levothyroxine 25 mcg PO DAILY loratadine (Claritin) 10 mg PO DAILY PRN metoprolol succinate ER (Toprol XL) 50 mg PO DAILY omeprazole 20 mg PO DAILY@0630 penciclovir 1% (Denavir) 1 appl topical Q2H PRN rosuvastatin 5 mg PO DAILY HPI Comments Details: This is a 68-year-old female patient presenting for an office visit with complains of chest pressure. Her medical history includes paroxysmal AFib, hyperlipidemia and hypertension. Patient is not on any anticoagulation therapy due to a past episode of epitaxis, which led her to discontinue her Eliquis. At her last visit she was started on flecainide for rhythm control approach. Today the patient reports experiencing squeezing, left-sided chest pain lasting a few seconds to a few minutes, which occurs both with exertion and at rest. She denies any associated symptoms such as shortness of breath, dizziness, palpitations, presyncope, or syncope. She is concerned about the increasing frequency of the chest pain, which sometimes occurs up to 20 times a day. While the patient has a history of GERD, she feels that this squeezing pain is different from her typical GERD episodes. She is currently taking omeprazole for this. [facility] Medical History Atypical chest pain TIA (transient ischemic attack) GERD (gastroesophageal reflux disease) ELLIOT (obstructive sleep apnea) Nocturnal hypoxia Chronic allergic rhinitis Has daytime drowsiness Asthma MGUS (monoclonal gammopathy of unknown significance) Diverticular disease Osteopenia Hypothyroid Meniere disease Pulmonary nodule, left PVC (premature ventricular contraction) Hyperlipidemia HTN (hypertension) CAD (coronary artery disease) Surgical History Hx of section History of cholecystectomy History of laparotomy Hx of colonoscopy History of endometrial ablation Family History Father CVD (cardiovascular disease) Mother No problems noted. Brother CVD (cardiovascular disease) Sister Breast cancer Social History Household Members: Spouse Housing: House Are you a primary career counselor to a significant other at home: No Do you presently have visiting nurse or other home services: No Alcohol intake: current Alcohol intake frequency: a few times a month Alcohol type: wine Comment: 1 drink 3-4 x a week. (01/2024 1/2 glass 2-3 x a week) Patient Tobacco Use Status: Former Tobacco user Years Smoked: 1969 e-Cigarette/Vaping Use: Never Used Second Hand Smoke Exposure: No service: No Current occupational status: employed Cognitive needs: No Hearing needs: No Vision needs: Yes Review of Systems ENT Denies dizziness Card Reports chest pain, Denies chest pain at rest, Denies chest pain with activity, Denies rapid heart rate, Denies pedal edema, Denies edema, Denies leg edema, Denies lightheadedness, Denies palpitations, Denies dyspnea, Denies dyspnea on exertion and Denies orthopnea Resp Denies cough, Denies dyspnea and Denies dyspnea on exertion GI Denies hematochezia and Denies change in stool character Musc Denies abnormal gait, Reports limited range of motion, Reports muscle cramps, Denies muscle weakness, Denies numbness, Denies radiating pain into limb, Denies stiffness and Denies tingling Neuro Denies abnormal gait, Denies dizziness, Denies numbness and Denies tingling Endo Denies palpitations Physical Exam Vital Signs: Last Vital Signs Pulse 69 02/22/24 14:53 BP 118/72 02/22/24 14:53 BMI result Body Mass Index 30.4 Const General: cooperative, healthy appearing, comfortable and no acute distress Orientation/consciousness: patient oriented x3 HEENT Head: Yes normal to inspection Neck Neck: Yes normal visual inspection, Yes trachea midline and Yes supple Chest Chest palpation & inspection: normal inspection of the chest Resp Effort & Inspection: normal respiratory effort Auscultation: clear to auscultation bilaterally, no crackles, no rales, no rhon chi and no wheezes Cardio Jugular venous distension: no JVD Palpation: normal PMI Rate: regular rate Rhythm: regular rhythm Heart sounds: S1 normal heart sound present, S2 normal heart sound present, no click, no gallops, no murmurs and no rubs Peripheral pulses: Peripheral pulses 2+ throughout GI Inspection: Yes normal to inspection Palpation (GI): Soft to palpation Auscultation: normal bowel sounds Skin General skin exam: no rashes or lesions noted Neuro General: patient oriented x3 Extrem General: Yes normal to inspection, No no pedal edema and No calf tenderness Psych Appearance: grossly normal Mental Status: mental status grossly normal Speech and movement: Normal speech and movement present Office Procedures EKG Details: EKG today showed underlying normal sinus rhythm at 69 beats per minute, possible anterior infarct (unchanged compared to previous EKG), [place], [place] [id number], Complete Assessment & Plan Assessment & Plan (1) Atypical chest pain: Code(s): R07.89 - Other chest pain Category: Medical Plan: 03/02/2022- patient underwent stress test with no anginal symptoms, without EKG changes, achieved 7.4 Mets. 09/27/2023- echo with normal EF 58%, no valvular disease. Given her multiple risk factors and the presenting symptom of chest discomfort, we will obtain a treadmill stress test to assess for myocardial ischemia. Further treatment if stress test is abnormal. Continue aggressive risk factor modification. Pressure today is well controlled. LDL also well-controlled on statin therapy. (2) Paroxysmal atrial fibrillation: Code(s): I48.0 - Paroxysmal atrial fibrillation Category: Medical Plan: EKG today showed normal sinus rhythm. Emphasized the risk for stroke not being on blood thinner therapy. Verbalizes understanding. Patient states her palpitations have improved significantly since the flecainide. Continue metoprolol and flecainide therapy. This note was generated using voice recognition software. While every effort has been made to ensure accuracy and proper mold mover, there may be occasional errors that could affect the content or meaning of the described symptoms. (3) CAD (coronary artery disease): Comment: nonobstructive by CTA March 2017 Code(s): I25.10 - Atherosclerotic heart disease of [place] coronary artery without angina pectoris Category: Medical Plan: Plan as above. Orders: Orders CA stress test Today R07.89 - Other chest pain AMB EKG-In Office Today I48.0 - Paroxysmal atrial fibrillation, R07.89 - Other chest pain Coding Level of Care Code Est Pt Level 4 (63006) Diagnoses Atypical chest pain R07.89 Paroxysmal atrial fibrillation I48.0 CAD (coronary artery disease) I25.10 CPT Codes EKG - CPT: 27166-[id number], Complete ([id number]) Time Spent (min) 31 Comment Time spent in reviewing the chart, test results, assessment, counseling and documentation.
[2024-02-22 14:53] VITALS: BP 118/72; PULSE 69; BMI 30.4
== END 2024-02-22 15:28 | disposition home or self-care (01) ==
PROVIDERS: PCP Internal Medicine
DX: R07.89 Other chest pain (principal); I48.0 Paroxysmal atrial fibrillation; I25.10 Atherosclerotic heart disease of native coronary artery without angina pectoris
CPT/HCPCS: 93010; 99214

== ENCOUNTER → 2024-02-22 14:50 | Outpatient (BNVA) | payer OTHER, SELFPAY | PROVIDERS: PCP Internal Medicine | DX: R07.89 Other chest pain (principal); I48.0 Paroxysmal atrial fibrillation; I25.10 Atherosclerotic heart disease of native coronary artery without angina pectoris; Z79.899 Other long term (current) drug therapy | CPT/HCPCS: 93005 ==

== ENCOUNTER → 2024-02-29 08:19 | Outpatient (REF) | payer OTHER, SELFPAY ==
--- NOTE | 2024-02-29 08:23 | CA_ITS ---
Acquisition Time: 2024-02-29 08:27:39 Total Exercise Time: 00:09:00 Test Indications: CP AFIB,PVC'S Medications: LEVOTHYROXINE METOPROLOL OMEPRAZOLE FLECAINIDE LORATADINE Protocol: GENE Max HR: 125 BPM 82% of Pred: 151 BPM Max BP: 168/80 mmHG Max Work Load: 9.2 METS Exercise Stress Test with exercise 9 mins of Gene Protocol, at Stage 3 left incline at 12% due to back issues, achieving 83% MPHR, with reports of 2/10 squeezing chest pain that stayed constant through exercise and resolved quickly in recovery, with isolated PACs, with normotensive response to exercise. Without EKG changes meeting criteria for ischemia. Will order Nuclear Stress test further evaluate the chest pain. Test reviewed with / Richar. Referred By: Cayden Cazares Electronically Signed By: Cayden Cazares
== END ==
LOC: HO.CARD 08:19
PROVIDERS: PCP Internal Medicine
DX: R07.89 Other chest pain (principal)
CPT/HCPCS: 93017

== ENCOUNTER → 2024-02-29 08:23 | Outpatient (BNV) | payer OTHER, SELFPAY | PROVIDERS: PCP Internal Medicine | DX: R07.9 Chest pain, unspecified (principal); I49.1 Atrial premature depolarization | CPT/HCPCS: 93016; 93018 ==

== ENCOUNTER 2024-04-09 15:03 | Outpatient (AMB) | payer OTHER, SELFPAY ==
[2024-04-09 15:17] VITALS: BP 124/74; PULSE 71; BMI 30.4
--- NOTE | 2024-04-09 15:17 | MHC.OFFVIS ---
Vital Signs 04/09/24 15:17 Height 5 ft 1 in Weight 160 lb 14.999 oz BMI 30.4 BP 124/74 Blood Pressure Location Lt brachial Position Sitting Pulse 71 Intake Visit Reasons: 3 mth f/up Intake Note: 3 month follow-up feeling good Digital Developer Required: No Allergies cefaclor [From Ceclor] Allergy (Severe, Verified 02/22/24 15:29) RASH & HIVES NSAIDS (Non-Steroidal Anti-Inflamma [Nsaids] Allergy (Severe, Verified 02/22/24 15:29) HIVES propantheline [From Pro-Banthine] Allergy (Severe, Verified 02/22/24 15:29) HIVES aspirin [Aspirin] Allergy (Unknown, Verified 02/22/24 15:29) HIVES adhesive tape Allergy (Verified 02/22/24 15:) Rash Medication List - Last Reconciled 04/09/24 by Jose Almendarez MD acetaminophen (Tylenol) 650 mg PO Q6H PRN calcium carbonate (Calcium 500) 500 mg PO DAILY cholecalciferol (vitamin D3) 25 mcg PO DAILY flecainide 50 mg PO Q12H levothyroxine 25 mcg PO DAILY loratadine (Claritin) 10 mg PO DAILY PRN metoprolol succinate ER (Toprol XL) 50 mg PO DAILY omeprazole 20 mg PO DAILY@0630 penciclovir 1% (Denavir) 1 appl topical Q2H PRN rosuvastatin 5 mg PO DAILY HPI Comments Details: Nori comes for follow-up. She has done very well on flecainide therapy. She says her symptoms have significantly improved on flecainide therapy. She has not had any significant prolonged palpitation irregular heartbeat consistent with atrial fibrillation. She occasionally feels fluttering in his chest. No heart failure symptoms. Denies any significant orthopnea, PND, leg edema. She also says a blood pressures been greatly controlled at this point time. She has been modifying her lifestyle with salt in his diet. She has been exercising regularly. She was still having chest pain is awaiting stress test results. [facility] Medical History Atypical chest pain TIA (transient ischemic attack) GERD (gastroesophageal reflux disease) ELLIOT (obstructive sleep apnea) Nocturnal hypoxia Chronic allergic rhinitis Has daytime drowsiness Asthma MGUS (monoclonal gammopathy of unknown significance) Diverticular disease Osteopenia Hypothyroid Meniere disease Pulmonary nodule, left PVC (premature ventricular contraction) Hyperlipidemia HTN (hypertension) CAD (coronary artery disease) Surgical History Hx of section History of cholecystectomy History of laparotomy Hx of colonoscopy History of endometrial ablation Family History Father CVD (cardiovascular disease) Mother No problems noted. Brother CVD (cardiovascular disease) Sister Breast cancer Social History Household Members: Spouse Housing: House Are you a primary child care attendant school to a significant other at home: No Do you presently have visiting nurse or other home services: No Alcohol intake: current Alcohol intake frequency: a few times a month Alcohol type: wine Comment: 1 drink 3-4 x a week. (01/2024 1/2 glass 2-3 x a week) Patient Tobacco Use Status: Former Tobacco user Years Smoked: 1969 e-Cigarette/Vaping Use: Never Used Second Hand Smoke Exposure: No service: No Current occupational status: employed Cognitive needs: No Hearing needs: No Vision needs: Yes Review of Systems Const Denies chills, Denies fatigue, Denies fever(s), Denies frequent falls, Denies weakness, Denies weight gain and Denies weight loss ENT Denies dizziness Card Denies chest pain, Denies leg edema, Denies lightheadedness, Denies palpitations, Denies dyspnea, Denies dyspnea on exertion, Denies orthopnea and Denies other (loss of consciousness) Resp Denies cough, Denies dyspnea and Denies dyspnea on exertion GI Denies hematochezia and Denies change in stool character Musc Denies abnormal gait, Denies muscle weakness, Denies numbness, Denies radiating pain into limb and Denies tingling Neuro Denies abnormal gait, Denies dizziness, Denies frequent falls, Denies numbness, Denies tingling and Denies weakness Endo Denies fatigue and Denies palpitations Physical Exam Vital Signs: Last Vital Signs Pulse 71 04/09/24 15:17 BP 124/74 04/09/24 15:17 BMI result Body Mass Index 30.4 Const General: cooperative, comfortable, alert and awake Nutritional Appearance: overweight Orientation/consciousness: patient oriented x3 Limitations: no limitations Resp Effort & Inspection: normal respiratory effort Auscultation: clear to auscultation bilaterally Cardio Jugular venous distension: no JVD Rate: regular rate Rhythm: abnormal rhythm with ectopic beats Heart sounds: S1 normal heart sound present and S2 normal heart sound present Neuro General: patient oriented x3 and no focal motor deficits Psych Appearance: grossly normal Office Procedures EKG Details: EKG shows normal sinus rhythm with poor R-wave progression most likely lead placement without any QT prolongation [id number], Complete Assessment & Plan Assessment & Plan (1) Paroxysmal atrial fibrillation: Code(s): I48.0 - Paroxysmal atrial fibrillation Category: Medical Plan: Paroxysmal atrial fibrillation highly symptomatic with significant improvement in his symptomatology with flecainide therapy. Continue flecainide therapy. We discussed about been on pocket approach with flecainide she was prolonged episodes of atrial fibrillation take additional flecainide at that point in time. Continue concomitant metoprolol therapy. He had a long discussion about need for oral anticoagulation therapy given her risk factors. She still very hesitant and scared about starting oral anticoagulant therapy. Data was discussed. Advised to consider it and she will think about it and let me know. (2) Atypical chest pain: Code(s): R07.89 - Other chest pain Category: Medical Plan: Atypical chest pain at high workload with nonobstructive CAD 6 years ago. Follow-up exercise myocardial perfusion imaging in near future. This is important as if she was any myocardial ischemia she would need an alternative antiarrhythmic drug therapy. She understands agrees. Continue risk factor modification with aggressive blood pressure control. Target goal LDL less than 70 mg/dL. (3) HTN (hypertension): Code(s): I10 - Essential (primary) hypertension Category: Medical Qualifiers: Hypertension type: essential hypertension Qualified Code(s): I10 - Essential (primary) hypertension Plan: Hypertension much better controlled on current metoprolol therapy with lifestyle modification. Continue the same. Importance of good blood pressure control was discussed and she understands. Stress mitigation strategies pursued. Low-salt diet to be pursued. Continue exercise program. Will follow up in the clinic in 6 months time, sooner p.r.n.. Thank you for allowing me to partake in her care Coding Level of Care Code Est Pt Level 4 (06743) Complex EM visit Add On G2211 Diagnoses Paroxysmal atrial fibrillation I48.0 Atypical chest pain R07.89 Essential hypertension I10 Hypertension type: essential hypertension CPT Codes EKG - CPT: 10018-[id number], Complete ([id number])
--- OUTSIDE RECORDS SUMMARY | 2024-04-09 18:53 | XMS_ITS ---
Author Organization [facility] Address [address] [place] [id number] Care Team Providers Care Faith Healer Name Role Phone Edward Webber MD Primary Care Provider UnavailWesley Iglesias Unavailable [phone] Sandee BENNETT, Chinmay Unavailable Unavailable MEDICATIONS Medication SIG (Take, Route, Fr equency, Duration) Notes Start Date End Date Status Augmentin 500-125 MG 1 tablet Orally michael ry 12 hrs for Diverticulitis for 7 days 04/19/2023 Ac tive Encounters Encounter Location Date Provider Diagnosis [facility] [address] [place] [id number] 08/23/2023 Wesley Burgos PLAN OF TREATMENT Medication Medication Name Sig Start Date Stop Date Notes Augmentin 500-125 MG 1 tablet Orally michael ry 12 hrs for Diverticulitis for 7 days 04/19/2023
--- OUTSIDE RECORDS SUMMARY | 2024-04-09 18:53 | XMS_ITS ---
Author Organization [facility] Address [address] [place] [phone] Care Team Providers Care Fruit Picker Name Role Phone Edward Webber MD Primary Care Provider Unavailabl e Wesley Burgos Unavailable [phone] Sandee BENNETT, Chinmay Unavailable Unavailable REASON FOR VISIT CUP IS WRONG Encounters Encounter Location Date Provider Diagnosis [facility] [address] [place] [phone] 08/10/2023 Wesley Burgos Diarrhea R19.7 ASSESSMENTS Encounter Date Diagnosis Assessment Notes Treatment Notes Treatment Clinical Notes 08/10/2023 Diarrhea (ICD-10 - R19.7) PLAN OF TREATMENT Pending Test Test Name Order Date Giardia Ag Stool EIA 08/10/2023
--- OUTSIDE RECORDS SUMMARY | 2024-04-09 18:53 | XMS_ITS ---
Author Organization [facility] Address [address] [place] [address] Care Team Providers Care Film Sorter Name Role Phone Edward Webber MD Primary Care Provider UnavailWesley Iglesias Unavailable [phone] Chinmay Ignacio MD Unavailable Unavailable MEDICATIONS Medication SIG (Take, Route, Frequency, Duration) Notes Start Date End Date Status Lomotil 2.5-0.025 MG 1 or 2 tablets Orally Every 4 to 6 hours as needed for diarrhea. You can also take every morning before breakfast and then before your other meals to try to prevent diarrhea in the first place for 30 days Please advise her to stop her dicyclomine when she starts using the Hyoscyamine. Thanks 09/13/2023 Active Hyoscyamine Sulfate ER 0.375 MG 1 tablet Orally every 12 hrs(Twice a day) for 30 day(s) Please advise her to stop her dicyclomine when she starts using the Hyoscyamine. Thanks 09/13/2023 Active Cholestyramine 4 GM/DOSE Use anywhere from 1/4 of a scoop to up to 1 scoop in 8 ouces of fluid Orally Once or Twice a day to control diarrhea for 30 day(s) Please advise her to stop her dicyclomine when she starts using the Hyoscyamine. Thanks 09/13/2023 Active Synthroid 25 MCG 1 tablet on an empty stomach in the morning Orally Once a day Active Zoloft 100 MG 1 tablet Orally Once a day for 30 day(s) Active Dicyclomine HCl 10 MG 1-2 Orally Every 6 hours as needed for abdominal bloating/gas/discom fort/cramps for 30 days 04/07/2016 Active Omeprazole 20 MG 1 Orally Once a day for 90 days 09/28/2022 Active Augmentin 500-125 MG 1 tablet Orally every 12 hrs for Diverticulitis for 7 days 04/19/2023 Active Omeprazole 20 MG 1 Orally Once a day for 90 days 10/20/2021 Active Cholestyramine 4 GM 1 scoop in water or orange juice Orally Once or Twice a day as needed for diarrhea for 30 day(s) 08/26/2015 Not-Taking Metoprolol Succinate Active Vitamin D 400 UNIT Orally A ctive Rosuvastatin Calcium 5 MG Oral for 90 Active Omeprazole 20 MG 1 Orally QAM for 30 day(s) 01/26/2021 Active Hyoscyamine Sulfate 0.125 MG 1-2 tablets Orally Q 4-6 hours prn abdominal discomfort for 30 days 07/24/2013 Not-Taking PROBLEMS Problem Type ICD Code Onset Dates Problem Status W/U Status Risk SNOMED Code Notes Problem Chronic diarrhea (K52.9) Active confirmed Chronic diarrhea ([id number]) Encounters Encounter Location Date Provider Diagnosis [facility] [address] [place] [phone] 09/13/2023 Wesley Burgos Chronic diarrhea K52.9 ASSESSMENTS Encounter Date Diagnosis Assessment Notes Treatment Notes Treatment Clinical Notes 09/13/2023 Chronic diarrhea (ICD-10 - K52.9) PLAN OF TREATMENT Medication Medication Name Sig Start Date Stop Date Notes Lomotil 2.5-0.025 MG 1 or 2 tablets Orally Every 4 to 6 hours as needed for diarrhea. You can also take every morning before breakfast and then before your other meals to try to prevent diarrhea in the first place for 30 days 09/13/2023 Please advise her to stop her dicyclomine when she starts using the Hyoscyamine. Thanks Hyoscyamine Sulfate ER 0.375 MG 1 tablet Orally every 12 hrs(Twice a day) for 30 day(s) 09/13/2023 Please advise her to stop her dicyclomine when she starts using the Hyoscyamine. Thanks Cholestyramine 4 GM/DOSE Use anywhere fr om 1/4 of a scoop to up to 1 scoop in 8 ouces of fluid Orally Once or Twice a day to control diarrhea for 30 day(s) 09/13/2023 Please advise her to stop her dicyclomine when she starts using the Hyoscyamine. Thanks Pending Test Test Name Order Date CRP 09/13/2023 SED RATE (ESR) 09/13/2023 CELIAC PANEL #10 09/13/2023 TRYPSIN,STOOL 09/13/2023 Pancreatic Elastase-1 09/13/2023 Fecal Fat Qualitative 09/13/2023
== END 2024-04-09 15:56 | disposition home or self-care (01) ==
PROVIDERS: PCP Internal Medicine; Visit Provider Internal Medicine Cardiovascular Disease
DX: I48.0 Paroxysmal atrial fibrillation (principal); R07.89 Other chest pain; I10 Essential (primary) hypertension
CPT/HCPCS: 93010; 99214

== ENCOUNTER → 2024-04-09 15:03 | Outpatient (BNVA) | payer OTHER, SELFPAY | PROVIDERS: PCP Internal Medicine; Visit Provider Internal Medicine Cardiovascular Disease | DX: I48.0 Paroxysmal atrial fibrillation (principal); R07.89 Other chest pain; I10 Essential (primary) hypertension; Z79.899 Other long term (current) drug therapy | CPT/HCPCS: 93005 ==

== ENCOUNTER 2024-06-27 06:29 | Outpatient (REF) | payer OTHER, SELFPAY ==
--- NOTE | ~2024-06-27 | FL_ITS ---
EXAMINATION: FL GUIDANCE ONLY HISTORY: M53.3 - Sacrococcygeal disorders, not elsewhere classified COMPARISON: None available. TECHNIQUE: Fluoroscopy time: 0.3 minutes. Cumulative Dose: 5.80 mGy. DAP: 0.0409 mGym2 Images: 2. FINDINGS: Fluoroscopic spot films of the lumbar spine demonstrate a needle in place. FL/FL guidance in treatment room IMPRESSION: Fluoroscopy during procedure. Please see procedure report for additional information. Electronically signed by: Wesley Mckoy MD 06/27/2024 01:18 PM EDT
--- OUTSIDE RECORDS SUMMARY | 2024-06-27 06:31 | XMS_ITS ---
Author Organization [facility] Address [address] [place] [address] Care Team Providers Care Electronic Intelligence Officer Name Role Phone Edward Webber MD Primary Care Provider UnavailWesley Iglesias Unavailable [phone] Chinmay Ignacio MD Unavailable Unavailable Medications Medication SIG (Take, Route, Frequency, Duration) Notes [...] abdominal discomfort for 30 days 07/24/2013 Not-Taking Problems Problem Type SNOMED Code ICD Code Onset Dates Problem Status W/U Status Risk Notes Problem Chronic diarrhea ([id number]) Chronic diarrhea (K52.9) Active confirmed Encounters Encounter Location Date Provider Diagnosis [facility] [address] [facility] [address] [place] [phone] 09/13/2023 Wesley Burgos Chronic diarrhea K52.9 Assessments Encounter Date Diagnosis (ICD Code) Assessment Notes Treatment Notes Treatment Clinical Notes Section Notes 09/13/2023 Chronic diarrhea (ICD-10 - K52.9) Plan Of Treatment Medication Medication Name Sig Start Date Stop [...] Pancreatic Elastase-1 09/13/2023 Fecal Fat Qualitative 09/13/2023 Progress Notes * SHANTANU OAKLEYDOB: [birth year] (67 yo F)Acc No.[id number]:09/13/2023 Patient:?SHANTANU OAKLEY :1955???Age:67 Y???Sex:Female Address:[address] [place] [address] * Refills? Start Cholestyramine Powder, 4 GM/DOSE, Orally, 1, Use anywhere from 1/4 of a scoop to up to 1 scoop in 8 ouces of fluid, Once or Twice a day to control diarrhea, 30 day(s), Refills=4 Start Hyoscyamine Sulfate ER Tablet Extended Release 12 Hour, 0.375 MG, Orally, 60, 1 tablet, every 12 hrs(Twice a day), 30 day(s), Refills=4 Start Lomotil Tablet, 2.5-0.025 MG, Orally, 150, 1 or 2 tablets, Every 4 to 6 hours as needed for diarrhea. You can also take every morning before breakfast and then before your other meals to try to prevent diarrhea in the first place, 30 days, Refills=4 Subjective: * Chief Complaints: * ??? * Medical History:? * Surgical History:? * Hospitalization/Major Diagno stic Procedure:? * Medications:?TakingZoloft 10 0 MG Tablet 1 tablet Orally Once a daySynthroid 25 MCG Tablet 1 tablet on an empty stomach in the morning Orally Once a dayVitamin D 400 UNIT Capsule Orally Metoprolol Succinate Omeprazole 20 MG Capsule Delayed Release 1 Orally QAMRosuvastatin Calcium 5 MG Tablet Oral Omeprazole 20 MG Capsule Delayed Release 1 Orally Once a dayOmeprazole 20 MG Capsule Delayed Release 1 Orally Once a dayDicyclomine HCl 10 MG Capsule 1-2 Orally Every 6 hours as needed for abdominal bloating/gas/discomfort/crampsAugmentin 500-125 MG Tablet 1 tablet Orally every 12 hrs for DiverticulitisTaking Zoloft 100 MG Tablet 1 tablet Orally Once a dayTaking Synthroid 25 MCG Tablet 1 tablet on an empty stomach in the morning Orally Once a dayTaking Vitamin D 400 UNIT Capsule Orally Taking Metoprolol Succinate Taking Omeprazole 20 MG Capsule Delayed Release 1 Orally QAMTaking Rosuvastatin Calcium 5 MG Tablet Oral Taking Omeprazole 20 MG Capsule Delayed Release 1 Orally Once a dayTaking Omeprazole 20 MG Capsule Delayed Release 1 Orally Once a dayTaking Dicyclomine HCl 10 MG Capsule 1-2 Orally Every 6 hours as needed for abdominal bloating/gas/discomfort/crampsTaking Augmentin 500-125 MG Tablet 1 tablet Orally every 12 hrs for DiverticulitisNot-Taking/PRNHyoscyamine Sulfate 0.125 MG Tablet 1-2 tablets Orally Q 4-6 hours prn abdominal discomfortCholestyramine 4 GM Powder 1 scoop in water or orange juice Orally Once or Twice a day as needed for diarrheaNot-Taking/PRN Hyoscyamine Sulfate 0.125 MG Tablet 1-2 tablets Orally Q 4-6 hours prn abdominal discomfortNot-Taking/PRN Cholestyramine 4 GM Powder 1 scoop in water or orange juice Orally Once or Twice a day as needed for diarrhea Objective: Assessment: * Assessment: 1.?Chronic diarrhea - K52.9 (Primary)? Plan: * Treatment: ?LAB: Fecal Fat Qualitative * Procedure Codes:? * true * Date:? Generated for Cassie singh/Danielle/Kylah on:?06/27/2024 06:31 AM EDT
--- OUTSIDE RECORDS SUMMARY | 2024-06-27 06:31 | XMS_ITS ---
Author Organization [facility] Address [address] [place] [phone] Care Team Providers Care Advertising Sales Agent Name Role Phone Edward Webber MD Primary Care Provider UnavailWesley Iglesias [phone] Sandee BENNETT, Chinmay Unavailable Unavailable Medications Medication SIG (Take, Route, Fr equency, Duration) Notes Start Date End Date Status Augmentin 500-125 MG 1 tablet Orally michael ry 12 hrs for Diverticulitis for 7 days 04/19/2023 Ac tive Encounters Encounter Location Date Provider Diagnosis [facility] [address] [phone] 08/23/2023 Wesley Burgos Plan Of Treatment Medication Medication Name Sig Start Date Stop Date Notes Augmentin 500-125 MG 1 tablet Orally michael ry 12 hrs for Diverticulitis for 7 days 04/19/2023 Progress Notes * SHANTANU OAKLEYDOB: [birth year] (67 yo F)Acc No.[id number]:08/23/2023 Patient:?SHANTANU OAKLEY :1955???Age:67 Y???Sex:Female Address:[address] [place] [id number] * Refills? Refill Augmentin Tablet, 500-125 MG, Orally, 14, 1 tablet, every 12 hrs for Diverticulitis, 7 days, Refills=0 * true * Date:? Generated for Cassie singh/Danielle/Pratimaitting on:?06/27/2024 06:30 AM EDT
--- OUTSIDE RECORDS SUMMARY | 2024-06-27 06:31 | XMS_ITS ---
Author Organization [facility] Address [address] [place] [phone] Care Team Providers Care Green Building Materials Designer Name Role Phone Edward Webber MD Primary Care Provider Unavailabl Wesley Anderson Unavailable [phone] Sandee BENNETT, Chinmay Unavailable Unavailable REASON FOR VISIT CUP IS WRONG Encounters Encounter Location Date Provider Diagnosis [facility] [address] [place] [phone] 08/10/2023 Wesley Burgos Diarrhea R19.7 Assessments Encounter Date Diagnosis (ICD Code) Assessment Notes Treatment Notes Treatment Clinical Notes Section Notes 08/10/2023 Diarrhea (ICD-10 - R19.7) Plan Of Treatment Pending Test Test Name Order Date Giardia Ag Stool EIA 08/10/2023 Progress Notes * SHANTANU OAKLEYDOB: [birth year] (67 yo F)Acc No.[id number]:08/10/2023 Patient:?SHANTANU OAKLEY :1955???Age:67 Y???Sex:Female Address:[address] [place] [address] Subjective: * Chief Complaints: * ???CUP IS WRONG * Medical History:? * Surgical History:? * Hospitalization/Major Diagno stic Procedure:? * Medications:? Objective: Assessment: * Assessment: 1.?Diarrhea - R19.7 (Primary )? Plan: * Treatment: * Procedure Codes:? * true * Date:? Generated for Cassie singh/Danielle/Kylah on:?06/27/2024 06:31 AM EDT
--- OUTSIDE RECORDS SUMMARY | 2024-06-27 06:31 | XMS_ITS | Patient Health Record ---
Author Organization [facility] Address [address] [place] [address] Care Team Providers Care Assembler Installer General Name Role Phone Edward Webber MD Primary Care Provider Wesley Sylvester Unavailable [phone] Sandee BENNETT, Chinmay Unavailable Unavailable Allergies Allergen (clinical drug ingredient) Drug/Non Drug Allergy documented on EMR Reaction Allergy Type Onset Date Status Non-steroidal anti-inflammatory agent (FN) NSAIDs Unknown Drug Allergy Active ibuprofen Ibuprofen Unknown Drug Allergy Active aspirin Aspirin Unknown Drug Allergy Active Results Component Value Reference Range Notes Calprotectin, Fecal Reviewed date:08/26/2023 05:27:49 PM Interpretation: Performing Lab:[address] [address] Notes/Report: Calprotectin, Fecal 60 Reference Range: <50 Normal 50-120 Borderline >120 Elevated Calprotectin in Crohn's disease and ulcerative colitis can be five to several thousand times above the reference population (50 mcg/g or less). Levels are usually 50 mcg/g or less in healthy patients and with irritable bowel syndrome. Repeat testing in 4-6 weeks is suggested for borderline values. THIS TEST WAS PERFORMED AT: [facility] [address] [place] [address] BEATA CERVANTES MD,PHD,KAMINI GI PANEL Reviewed date:08/26/2023 05:27:34 PM Interpretation: Performing Lab:[address] [address] Notes/Report: Campylobacter Not Detected Not Detect. Plesiomonas shigelloides Not Detected Not Detect. Salmonella Not Detected Not Detect. Vibrio Not Detected Not Detect. Vibrio Cholerae Not Detected Not Detect. Yersinia enterocolitica Not Detected Not Detect. E. coli EAEC Not Detected Not Detect. E. coli EPEC Not Detected Not Detect. E. coli ETEC Not Detected Not Detect. E. coli STEC Not Detected Not Detect. E. coli O157 Not applicable Not Detect. E. coli containing the O157 antigen are a subset of Shiga-like toxin-producing E. coli (STEC). Shigella sp./EIEC Not Detected Not Detect. Cryptosporidium Not Detected Not Detect. Cyclospora cayetanensis Not Detected Not Detect. Entamoeba histolytica Not Detected Not Detect. Giardia lamblia Not Detected Not Detect. Adenovirus F 40/41 Not Detected Not Detect. Astrovirus Not Detected Not Detect. Norovirus GI/GII Not Detected Not Detect. Rotavirus A Not Detected Not Detect. Sapovirus Not Detected Not Detect. All results must be correlated with clinical findings. Negative results do not exclude the possibility of gastrointestinal infection and should not be used as the sole basis for diagnosis, treatment, or other management decisions. Virus, bacteria, and parasite nucleic acid may persist in vivo independently of organism viability. Additionally, some organisms may be carried symptomatically. Detection of organism targets does not imply that the corresponding organisms are infectious or are the causative agents for clinical symptoms. There is a risk of false negative values due to the presence of sequence variants in the gene targets of the assay, amplification inhibitors in specimens, or inadequate numbers of organisms for amplification. The identification of several diarrheagenic E. coli pathotypes has historically relied upon phenotypic characteristics. This panel targets genetic determinants characteristic of most pathogenic strains, but may not detect all strains having phenotypic characteristics of a pathotype. The performance of this test has not been established for monitoring treatment of infection with any of the panel organisms. This assay is performed by Multiplexed PCR, utilizing the [employer] Array. CT abdomen pelvis w con Reviewed date:06/28/2023 10:49:38 PM Interpretation: Performing Lab: Notes/Report: [address] [address] [address] Scan Report Signed Patient: Kristine Pires MR#: [id number] : 1955 Acct:[id number] Age/Sex: 67 / F ADM Date: 06/28/23 Loc: HO.CT Attending Dr: Wesley Burgos MD Ordering Physician: Wesley Burgos Date of Service: 06/28/23 Procedure(s): CT abdomen pelvis w IV con Accession Number(s): [id number] cc: Edward Webber MD; Wesley Burgos EXAMINATION: CT ABDOMEN AND PELVIS WITH CONTRAST CLINICAL INFORMATION: LLQ pain COMPARISON: CT abdomen/pelvis 07/23/2020 TECHNIQUE: Multidetector volumetric images were obtained from the superior aspect of the liver through the pubic symphysis following administration 85 mL of Omnipaque 350 intravenous contrast. Sagittal and coronal reformatted images were obtained on the technologist's workstation. Oral contrast: Yes This CT examination was performed using dose optimization techniques as appropriate, variously including the following: *Automated exposure control *Adjustment of mA and/or kV according to patient size (this includes techniques or standardized protocols for targeted exams where dose is matched to indication/reason for exam; i.e. extremities or head) *Use of iterative reconstruction technique DLP: 559 mGy-cm FINDINGS: LUNG BASES: Bibasilar atelectasis. No pleural effusion. Normal-sized heart without pericardial effusion. Mild coronary arterial calcifications. LIVER, GALLBLADDER, AND BILIARY TREE: The liver is normal in size, shape, and attenuation. No focal hepatic lesion or biliary ductal dilatation is present. Status post cholecystectomy. PANCREAS: Unremarkable. SPLEEN: Unremarkable. ADRENAL GLANDS: Unremarkable. KIDNEYS AND URETERS: The kidneys are normal in size, shape, and attenuation. No hydronephrosis, hydroureter, or calculi seen. No perinephric stranding. BLADDER: Unremarkable. GASTROINTESTINAL TRACT: The small and large bowel are nondilated. Mild scattered sigmoid diverticulosis without evidence for acute diverticulitis. Normal appendix. ABDOMINAL WALL: No significant hernia is appreciated. LYMPH NODES: Normal. VASCULAR: Tortuous abdominal aorta is nonaneurysmal. Mild scattered atheromatous calcifications. PELVIC VISCERA: CT appearance of the uterus. No adnexal masses. OSSEOUS STRUCTURES: No acute or suspicious osseous abnormality. Moderate multilevel thoracolumbar spondylosis. CT/CT abdomen pelvis w IV con IMPRESSION: 1. No acute abnormality within the abdomen or pelvis. 2. Mild scattered sigmoid diverticulosis without evidence for acute diverticulitis. Fleischner guidelines were followed. Dictated By: Florinda Barros Signed By: <Electronically signed by Florinda Barros in OV> 06/28/23 1547 DD/ 1400 TD/TT: Video Game Designer: [address] [address] [address] Scan Report Signed Patient: Kristine Pires MR#: [id number] : 1955 Acct:[id number] Age/Sex: 67 / F ADM Date: 06/28/23 Loc: HO.CT Attending Dr: Wesley Burgos MD Ordering Physician: Wesley Burgos Date of Service: 06/28/23 Procedure(s): CT abdomen pelvis w IV con Accession Number(s): [id number] cc: Edward Webber MD ; Wesley Burgos EXAMINATION: CT ABDOMEN AND PELVI S WITH CONTRAST CLINICAL INFORMATION: LLQ pain COMPARISON: CT abdomen/pelvis 07/23/2020 TECHNIQUE: Multidetector volumetric images were obtained from the superior aspect of the liver through the pubic symphysis following administration 85 mL of Omnipaque 350 intravenous contrast. Sagittal and coronal reformatted images were obtained on the technologist's workstation. Oral contrast: Yes This CT examination was performed using dose optimization techniques as appropriate, various ly including the following: *Automated exposure control *Adjustment of mA and/or kV according to patient size (this includes techniques or standardized protocols for targeted exams where dose is matched to indication/reason for exam; i.e. extremities or head) *Use of iterative reconstruction technique DLP: 559 mGy-cm FINDINGS: LUNG BASES: Bibasila r atelectasis. No pleural effusion. Normal-sized heart without pericardial effusion. Mild coronary arterial calcifications. LIVER, GALLBLADDER, AND BILIARY TREE: The liver is normal in size, shape, and attenuati on. No focal hepatic lesion or biliary ductal dilatation is presen t. Status post cholecystectomy. PANCREAS: Unremarkable. SPLEEN: Unremarkable. ADRENAL GLANDS: Unremarkable. KIDNEYS AND URETERS: The kidneys are normal in size, shape, and attenuation. No hydronephrosis, hydroureter, or calculi seen. No perinephric stranding. BLADDER: Unremarkable. GASTROINTESTINAL TRA CT: The small and large bowel are nondilated. Mild scattered sigmoid diverticulosis without evidence for acute diverticulitis. Norm al appendix. ABDOMINAL WALL: No significant hernia is appreciated. LYMPH NODES: Normal. VASCULAR: Tortuous abdominal aorta is nonaneurysmal. Mild scattered atheromatous calcifications. PELVIC VISCERA: CT appearance of the uterus. No adnexal masses. OSSEOUS STRUCTURES: No acute or suspicious osseous abnormality. Moderate multilevel thoracolumbar spondylosis. CT/CT abdomen pelvis w IV con IMPRESSION: 1. No acute abnormal ity within the abdomen or pelvis. 2. Mild scattered sigmoid diverticulosis without evidence for acute diverticulitis. Fleischner guideline s were followed. Dictated By: Florinda Barros Signed By: <Electronically signed by Florinda Barros in OV> 06/28/23 1547 DD/ 1400 TD/TT: Video Game Designer: Erythrocyte Sedimentation Ra te Reviewed date:08/10/2023 01:07:18 PM Interpretation: Performing Lab:[address] [address] Notes/Report: Erythrocyte Sedimentation Rate 10 0-20 MM/HR Patients with polycythemia and many hemoglobin abnormalities may have depressed sed rates whereas patients with anemia may have elevated sed rates. Leukocytes Stool Qualitative Reviewed date:08/11/2023 12:03:45 AM Interpretation: Performing Lab:[facility], [address] [place] [phone] Notes/Report: Leukocytes Stool Qualitative NEGATIVE NEGATIVE C Reactive Protein Reviewed date:08/10/2023 01:07:26 PM Interpretation: Performing Lab:[facility], [address] [place] [phone] Notes/Report: C Reactive Protein 0.17 < or = 0.50 mg/dL CDiff Gene PCR Reviewed date:08/10/2023 05:24:22 PM Interpretation: Performing Lab:[address] [address] Notes/Report: CDiff Gene PCR NEGATIVE Negative If C. difficile strongly suspected despite one negative test, a second test may be sent vs. empiric treatment for C. difficile infection. Giardia Ag Stool EIA Reviewed date:08/25/2023 05:54:41 PM Interpretation: Performing Lab:[facility], [address] [place] [phone] Notes/Report: Giardia Ag Stool EIA SEE NOTE GIARDIA AG, EIA, STOOL Micro Number: [id number] Test Status: Final Specimen Source: Stool Specimen Quality: Adequate Giardia Result 1: Not Detected Reference Range: Not Detected NOTE: Due to intermittent shedding, one negative sample does not necessarily rule out the presence of a parasitic infection. THIS TEST WAS PERFORMED AT: [facility] [address] [place] [phone] WEN JULIO MD Erythrocyte Sedimentation Ra te Reviewed date:09/15/2023 11:19:10 PM Interpretation: Performing Lab:[facility], [address] [place] [phone] Notes/Report: Erythrocyte Sedimentation Rate 7 0-20 MM/HR Patients with polycythemia and many hemoglobin abnormalities may have depressed sed rates whereas patients with anemia may have elevated sed rates. C Reactive Protein Reviewed date:09/15/2023 11:19:19 PM Interpretation: Performing Lab:[facility], [address] [place] [phone] Notes/Report: C Reactive Protein 0.14 < or = 0.50 mg/dL Transglutaminase Ab IgG Reviewed date:09/28/2023 12:35:52 PM Interpretation: Performing Lab:[address] [address] Notes/Report: Transglutaminase Ab IgG <1.0 Value Interpretation ----- <15.0 Antibody not detected > or = 15.0 Antibody detected THIS TEST WAS PERFORMED AT: [facility] [address] [place] [phone] WEN JULIO MD Transglutaminase IgA Reviewed date:09/28/2023 12:35:59 PM Interpretation: Performing Lab:[facility], [address] [place] [phone] Notes/Report: Transglutaminase IgA <1.0 Value Interpretation ----- <15.0 Antibody not detected > or = 15.0 Antibody detected THIS TEST WAS PERFORMED AT: [facility] [address] [place] [phone] WEN JULIO MD Gliadin Ab Panel Reviewed date:09/29/2023 08:05:57 PM Interpretation: Performing Lab:[facility], [address] [place] [phone] Notes/Report: Gliadin Deamidated IgA Ab <1.0 Value Interpretation ----- <15.0 Antibody not detected > or = 15.0 Antibody detected Gliadin Deamidated IgG Ab <1.0 Value Interpretation ----- <15.0 Antibody not detected > or = 15.0 Antibody detected THIS TEST WAS PERFORMED AT: [facility] [address] [place] [phone] WEN JULIO MD Endomysial IgA rflx Titer Reviewed date:09/28/2023 12:36:44 PM Interpretation: Performing Lab:[facility], [address] [place] [phone] Notes/Report: Endomysial IgA Antibody Negative Negative THIS TEST WAS PERFORMED AT: [facility]/[address] [address] DIMAS JERRY MD,PHD Endomysial Titer TNP Reason For Referral No Information Medications Medication SIG (Take, Route, Frequency, Duration) Notes Start Date End Date Status Cholestyramine 4 GM 1 scoop in water or orange juice Orally Once or Twice a day as needed for diarrhea for 30 day(s) 08/26/2015 Not-Taking Diphenoxylate-Atropi ne 2.5-0.025 MG TAKE 1 OR 2 TABLETS BY MOUTH EVERY 4 TO 6 HOURS NEEDED FOR DIARRHEA. YOU CAN ALSO TAKE EVERY MORNING BEFORE BREAKFAST AND THEN BEFORE YOUR OTHER MEALS TO TRY TO PREVENT DIARRHEA IN THE FIRST PLACE for 11/02/2023 Active Hyoscyamine Sulfate 0.125 MG 1-2 tablets Orally Q 4-6 hours prn abdominal discomfort for 30 days 07/24/2013 Not-Taking Metoprolol Succinate Active Hyoscyamine Sulfate ER 0.375 MG 1 tablet Orally every 12 hrs(Twice a day) for 30 day(s) Please advise her to stop her dicyclomine when she starts using the Hyoscyamine. Thanks 09/13/2023 Active Vitamin D 400 UNIT Orally A ctive Rosuvastatin Calcium 5 MG Oral for 90 Active Dicyclomine HCl 10 MG 1-2 Orally Every 6 hours as needed for abdominal bloating/gas/discom fort/cramps for 30 days 04/07/2016 Active Cholestyramine 4 GM/DOSE Use anywhere from [...] the morning Orally Once a day Active Omeprazole 20 MG TAKE 1 CAPSULE BY MOUTH DAILY for 90 Active Zoloft 100 MG 1 tablet Orally Once a day for 30 day(s) Active Augmentin 500-125 MG 1 tablet Orally every 12 hrs for Diverticulitis for 7 days 04/19/2023 Active Immunizations Vaccine Route Administration Date Status Comme nts Influenza Unknown 11/13/2020 Administered Social History Alcohol Screen Question Answer Notes Did you have a drink contain ing alcohol in the past year? Yes How often did you have a dri nk containing alcohol in the past year? 2 to 3 times a week (3 points) How many drinks did you have on a typical day when you were drinking in the past year? 1 or 2 drinks (0 point) How often did you have 6 or more drinks on one occasion in the past year? Never (0 point) Points 3 Interpretation Positive Section Notes: Nonsmoker; no sig alcohol Nonsmoker; no sig alcohol Nonsmoker; no sig. alcohol Nonsmoker; no sig. alcohol Problems Problem Type SNOMED Code ICD Code Onset Dates Problem Status W/U Status Risk Notes Problem 8817089 Diverticulitis o f large intestine without perforation or abscess without bleeding (K57.32) Active confirmed Problem Diarrhea (04009712) Diarrhea (R19.7) Active confirmed Problem 577713195 Irritable bowel syndrome with diarrhea (K58.0) Active confirmed Problem 861804119 Elevated liver enzymes (R74.8) Active confirmed Problem 970873967 Gastroesophageal reflux disease, esophagitis presence not specified (K21.9) Active confirmed Problem Diverticulitis of colon (357582354) Diverticulitis of colon (K57.32) Active confirmed Problem 443710559 Abdominal pain, left lower quadrant (R10.32) Active confirmed Problem 590069125842567 History of diverticulitis (Z87.19) Active confirmed Problem 597026872 Abnormal CT scan , sigmoid colon (R93.3) Active confirmed Problem 13329705 Diarrhea, unspecified type (R19.7) Active confirmed Problem Chronic diarrhea (958406726) Chronic diarrhea (K52.9) Active confirmed Problem 43454740 Irritable bowel syndrome, unspecified type (K58.9) Active confirmed Problem Left lower quadrant pain (313767795) LLQ abdominal pain (R10.32) Active confirmed Problem 796827704 Sore mouth (K13.79) Active confirmed Encounters Encounter Location Date Provider Diagnosis [facility] [address] [place] [phone] 08/09/2023 Wesley Burgos Diarrhea R19.7 [facility] [address] [place] [phone] 08/10/2023 Wesley Burgos Diarrhea R19.7 [facility] [address] [place] [phone] 08/23/[address] [facility] [address] [place] [phone] 09/13/2023 Wesley Burgos Chronic diarrhea K52.9 Assessments Encounter Date Diagnosis (ICD Code) Assessment Notes Treatment Notes Treatment Clinical Notes Section Notes 08/09/2023 Diarrhea (ICD-10 - R19.7) 08/10/2023 Diarrhea (ICD-10 - R19.7) 09/13/2023 Chronic diarrhea (ICD-10 - K52.9) Plan Of Treatment Pending Test Test Name Order Date CHEM 7 PROFILE 07/23/2020 CHEM 7 PROFILE 06/26/2023 LIVER PROFILE 07/23/2020 LIVER PROFILE 09/26/2017 LIVER PROFILE 06/26/2023 AMYLASE 07/23/2020 LIPASE 07/23/2020 CRP 07/23/2020 CRP 08/09/2023 CRP 09/02/2014 CRP 09/13/2023 CBC w DIFF 07/23/2020 CBC w DIFF 06/26/2023 CBC w DIFF 09/02/2014 SED RATE (ESR) 09/02/2014 SED RATE (ESR) 07/23/2020 SED RATE (ESR) 08/09/2023 SED RATE (ESR) 09/13/2023 CLOSTRIDIUM DIFF TOXIN A&B (C DIFF) 03/17 CLOSTRIDIUM DIFF TOXIN A&B (C DIFF) 08/14 URINALYSIS + MICROSCOPIC 07/23/2020 URINALYSIS + MICROSCOPIC, CLEAN CATCH STOOL WBC 09/02/2014 CELIAC PANEL #10 09/13/2023 TRYPSIN,STOOL 09/13/2023 OVA & PARASITES (O&P) 09/02/2014 OVA & PARASITES (O&P) 07/23/2020 CULTURE, STOOL 07/23/2020 CULTURE, STOOL 09/02/2014 CT ABD & PELVIS WITH CONTRAST 06/26/2023 CT ABD & PELVIS WITH CONTRAST 07/23/2020 STOOL WBC 07/23/2020 STOOL WBC 08/09/2023 C DIFFICILE RFLX PCR 07/23/2020 C DIFFICILE RFLX PCR 08/09/2023 Giardia Ag Stool EIA 07/23/2020 Giardia Ag Stool EIA 08/09/2023 Giardia Ag Stool EIA 08/10/2023 Pancreatic Elastase-1 09/13/2023 Fecal Fat Qualitative 09/13/2023 Future Test Test Name Order Date UPPER GI ENDOSCOPY 09/26/2017 COLONOSCOPY 09/26/2017 Insurance Providers Payer Name Payer Address Payer Phone Subscriber Number Group Number Insured Name Patient Relationship to Insured Coverage Start Date Coverage End Date [employer] [facility] [address] [address] [place] [address] [id number] SHAYLAKRISTINE DOS SANTOS Self - patient is the insured Medical (General) History Medical History History ICD Code Colonoscopies --2009,2003, 1996--the colonoscopy in 2009 was negative for any inflammatory bowel disease, and biopsies from the ileum and colon were negative for any underlying inflammation; she was noted to have some mild sigmoid diverticulosis--no history of tubular adenomas EGD 09-26-2008--normal duoden al biopsies, neg. H.pylori, no esophagitis, minimal HH GERD Hypothyoidism Sees BREAD WRAPPER regularly--had a neg. pelvic U/ S in the Spring of 2013 Denies [place],DM,CVA,Lung disease,renal dise ase Irritable bowel syndrome wit h extensive workup over the past many years including 3 colonoscopies with negative biopsies for microscopic colitis, upper endoscopy with normal duodenal biopsies, small bowel series, CAT scans, and treatments including Lotronex. Sigmoid diverticulitis-03/2016 and 06/2017 -hospitalized for IV antibiotics Cardiac cath approx 2018 with mild CAD --no intervention-Dr. Almendarez Sleep apnea--CPAP Hypertension Negative colonoscopy in 09/2017 EGD in 09/2017 small HH--no sig esophagit is nor Stevenson's Mouth soreness for which s he has seen ENT and Pulmonary MD's, as well as her dentist, but without much relief or diagnosis Surgical History Surgery Date(Month/Year) Laparotomy for ovarian cyst C-sections Cholecystectomy Endometrial ablation
== END 2024-06-27 06:30 | disposition home or self-care (01) ==
LOC: CF 06:29
PROVIDERS: Visit Provider Internal Medicine
DX: M53.3 Sacrococcygeal disorders, not elsewhere classified (principal); M54.16 Radiculopathy, lumbar region; M54.42 Lumbago with sciatica, left side
CPT/HCPCS: 62323; J1100; J2003; J2795; J3301; Q9967

== ENCOUNTER 2024-06-27 11:47 | Outpatient (AMB) | payer OTHER, SELFPAY ==
--- NOTE | 2024-06-27 11:55 | MHC.OFFVIS ---
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 Allergies cefaclor [From Ceclor] Allergy (Severe, Verified 06/27/24 11:56) RASH & HIVES NSAIDS (Non-Steroidal Anti-Inflamma [Nsaids] Allergy (Severe, Verified 06/27/24 11:56) HIVES propantheline [From Pro-Banthine] Allergy (Severe, Verified 06/27/24 11:56) HIVES aspirin [Aspirin] Allergy (Unknown, Verified 06/27/24 11:56) HIVES adhesive tape Allergy (Verified 06/27/24 11:56) Rash Medication List - Last Reconciled 06/27/24 by Gisele Torres LPN acetaminophen (Tylenol) 650 mg PO Q6H PRN calcium carbonate (Calcium 500) 500 mg PO DAILY cholecalciferol (vitamin D3) 25 mcg PO DAILY flecainide 50 mg PO Q12H levothyroxine 25 mcg PO DAILY loratadine (Claritin) 10 mg PO DAILY PRN metoprolol succinate ER (Toprol XL) 50 mg PO DAILY omeprazole 20 mg PO DAILY@0630 penciclovir 1% (Denavir) 1 appl topical Q2H PRN rosuvastatin 5 mg PO DAILY tramadol 50 mg PO BID PRN HPI Comments Details: Patient presents for scheduled procedure. Denies any recent cough, cold, infection, fever or other significant changes in medical history since last office visit. [facility] Medical History Atypical chest pain TIA (transient ischemic attack) GERD (gastroesophageal reflux disease) ELLIOT (obstructive sleep apnea) Nocturnal hypoxia Chronic allergic rhinitis Has daytime drowsiness Asthma MGUS (monoclonal gammopathy of unknown significance) Diverticular disease Osteopenia Hypothyroid Meniere disease Pulmonary nodule, left PVC (premature ventricular contraction) Hyperlipidemia HTN (hypertension) CAD (coronary artery disease) Surgical History Hx of section History of cholecystectomy History of laparotomy Hx of colonoscopy History of endometrial ablation Family History Father CVD (cardiovascular disease) Mother No problems noted. Brother CVD (cardiovascular disease) Sister Breast cancer Social History Household Members: Spouse Housing: House Are you a primary care transition manager to a significant other at home: No Do you presently have visiting nurse or other home services: No Alcohol intake: current Alcohol intake frequency: a few times a month Alcohol type: wine Comment: 1 drink 3-4 x a week. (01/2024 1/2 glass 2-3 x a week) Patient Tobacco Use Status: Former Tobacco user Years Smoked: 1969 e-Cigarette/Vaping Use: Never Used Second Hand Smoke Exposure: No service: No Current occupational status: employed Cognitive needs: No Hearing needs: No Vision needs: Yes Physical Exam Vital Signs: Last Vital Signs Pulse 79 06/27/24 13:00 Resp 16 06/27/24 13:00 BP 130/88 06/27/24 13:00 Pulse Ox 96 06/27/24 13:00 Oxygen Delivery Method Room Air 06/27/24 13:00 Office Procedures AMB Joint Injection/Aspiration Joint Injection/Aspiration Details: Interlaminar epidural steroid injection, L3-4, left parasaggital After obtaining written consent, pre-procedure blood pressure and heart rate were stable and recorded in the nursing record. The patient was placed in the prone position. The lumbar area was widely prepped with chloraprep and draped in sterile fashion. Fluoroscopic guidance was used to identify the desired interlaminar space and for needle placement. Subcutaneous 0.5% lidocaine was used to anesthetize the skin overlying the target. A 20-gauge Burgos needle was advanced to the epidural space using loss of resistance to contrast technique under fluoroscopic AP and contralateral oblique views. There was no evidence of heme or CSF and no paresthesias were elicited with needle placement. Confirmation of epidural needle placement was performed with 1cc of omnipaque 180. Next 3 ml 0.5% lidocaine mixed with 40 mg triamcinilone was administered epidurally with no pain elicited on injection. The needle tract tubing was then cleared with 1 ml of 0.5% lidocaine. The needle was removed, skin cleansed and a sterile bandage was applied. The patient tolerated the procedure well and no complications were encountered. Following the procedure the patient's vital signs were stable. The patient was discharged home in good condition with post-procedural instructions. Time Out: Immediately prior to the procedure, the following was verbally confirmed that there is a signed consent form and that the correct patient, planned procedure, site and side are consistent with documentation and that necessary equipment and/or blood products are available prior to the start of the case. Complications: none EBL: <2 cc Coding 42292 - Caudal/Lumbar Epidural/Interlaminar with fluoroscopy Procedure code (CPT) selection complete Assessment & Plan Assessment & Plan (1) Lumbar radicular pain: Code(s): M54.16 - Radiculopathy, lumbar region Category: Medical (2) Low back pain with left-sided sciatica: Code(s): M54.42 - Lumbago with sciatica, left side Plan Patient is status post left parasagittal interlaminar L3-4 FLACO. Consider left sacroiliac joint injection for residual pain not responsive to today's intervention. Patient tolerated procedure well and was discharged home in stable condition with discharge instructions. All questions were answered. Orders: Orders FL guidance in treatment room Today M53.3 - Sacrococcygeal disorders, not elsewhere classified AMB Joint Injection/Aspiration Today M54.16 - Radiculopathy, lumbar region Coding Level of Care Code Procedure Only Diagnoses Lumbar radicular pain M54.16 Low back pain with left-sided sciatica M54.42 CPT Codes Coding - Joint 11: 96530 - Caudal/Lumbar Epidural/Interlaminar with fluoroscopy ([id number])
[2024-06-27 11:56] VITALS: BP 160/88; PULSE 75; RESP 16; O2SAT 98
[2024-06-27 13:00] VITALS: BP 130/88; PULSE 79; RESP 16; O2SAT 96
== END 2024-06-27 12:52 | disposition home or self-care (01) ==
LOC: HO.PMCPRC 11:47
PROVIDERS: PCP Internal Medicine; Visit Provider Internal Medicine
DX: M54.16 Radiculopathy, lumbar region (principal); M54.42 Lumbago with sciatica, left side
CPT/HCPCS: 62323

== ENCOUNTER 2024-07-15 10:11 | Emergency (ER) | payer OTHER, SELFPAY ==
--- NOTE | 2024-07-15 | ECG_ITS ---
Test Reason : WEAKNESS Blood Pressure : */* mmHG Vent. Rate : 62 BPM Atrial Rate : 62 BPM P-R Int : 196 ms QRS Dur : 94 ms QT Int : 418 ms P-R-T Axes : 19 8 36 degrees QTcB Int : 424 ms Normal sinus rhythm Normal ECG When compared with ECG of 09-Sep-2023 11:00, Premature atrial complexes are no longer Present Referred By: Rosas Driver Electronically Signed By: MARCOS LEE
--- NOTE | ~2024-07-15 | CT_ITS ---
EXAMINATION: CT ABDOMEN AND PELVIS WITH CONTRAST CLINICAL INFORMATION: Left lower quadrant abdominal pain. COMPARISON: 08/08/2023. TECHNIQUE: Multidetector volumetric images were obtained from the superior aspect of the liver through the pubic symphysis following administration 85 mL of Omnipaque 350 intravenous contrast. Sagittal and coronal reformatted images were obtained on the technologist's workstation. Oral contrast: No This CT examination was performed using dose optimization techniques as appropriate, variously including the following: *Automated exposure control *Adjustment of mA and/or kV according to patient size (this includes techniques or standardized protocols for targeted exams where dose is matched to indication/reason for exam; i.e. extremities or head) *Use of iterative reconstruction technique FINDINGS: LUNG BASES: Lung bases demonstrate mosaic attenuation, likely hypoventilatory changes, and dependent type atelectasis bilaterally. The heart size is normal. There is no effusion. LIVER, GALLBLADDER, AND BILIARY TREE: The unenhanced liver is normal in size and shape. There is no focal lesion. There is mild intrahepatic and extrahepatic biliary dilatation, likely reservoir effect from cholecystectomy. The gallbladder is surgically absent. PANCREAS: Unremarkable. SPLEEN: Unremarkable. ADRENAL GLANDS: Unremarkable. KIDNEYS AND URETERS: The kidneys are normal in size, shape, and attenuation. No hydronephrosis, hydroureter, or calculi seen. No perinephric stranding. BLADDER: Unremarkable. GASTROINTESTINAL TRACT: There is moderate diverticulosis of the sigmoid colon. There is no evidence of acute diverticulitis. Remainder of the colon demonstrates normal caliber, course, without evidence of wall thickening or inflammation. A normal appendix is visualized. Small bowel is normal in course and caliber without wall thickening or inflammation. The stomach is largely decompressed. The duodenal sweep is normal. The mesentery is grossly normal. ABDOMINAL WALL: No significant hernia is appreciated. LYMPH NODES: Normal. VASCULAR: Mild atheromatous calcification of the aorta and iliac arteries without aneurysm. There is mild tortuosity of the abdominal aorta. PELVIC VISCERA: The uterus and adnexa are unremarkable. OSSEOUS STRUCTURES: There is a moderate right convex thoracolumbar scoliosis with associated degenerative spondylosis. There is no suspicious nor acute bony abnormality. There are mild degenerative changes in both hip joints. CT/CT abdomen pelvis w IV con IMPRESSION: 1. No acute findings in the abdomen or pelvis. 2. Extensive sigmoid diverticulosis without evidence of acute diverticulitis. 3. Cholecystectomy. Electronically signed by: Abimael Schaffer MD 07/15/2024 02:39 PM EDT
[2024-07-15 10:31] VITALS: BP 176/89; PULSE 73; RESP 18; TEMP 36.5; O2SAT 100; BMI 29.2
--- NOTE | 2024-07-15 11:28 | ED.NAVMDI ---
HPI - Nausea/Vomiting/Diarrhea General Chief complaint: Nausea/Vomiting/Diarrhea Stated complaint: abd pain Time Seen by Provider: 07/15/24 11:06 Source: patient Mode of arrival: ambulatory Limitations: no limitations History of Present Illness ED Provider: HPI Narrative: 68-year-old woman with history of AFib on flecainide, history of cholecystectomy, remote history of diverticulitis, presenting with nausea vomiting and loose stools times daily for the past 8 days which started 1-2 days after she has received cortisone shot to left lower back. No hematemesis, no hematochezia, vomiting with p.o. intake. No recent antibiotics, no recent travels reported, no new medications elicited. No fevers or chills or dysuria. Related Data Home Medications ?Medication ?Instructions ?Recorded ?Confirmed omeprazole 20 mg capsule,delayed 20 mg PO DAILY@0630 05/05/21 06/27/24 release cholecalciferol (vitamin D3) 25 25 mcg PO DAILY 01/13/22 06/27/24 mcg (1,000 unit) capsule loratadine 10 mg tablet (Claritin) 10 mg PO DAILY PRN Allergy Symptoms 01/20/22 06/27/24 acetaminophen 325 mg tablet 650 mg PO Q6H PRN Pain 09/09/23 06/27/24 (Tylenol) levothyroxine 25 mcg capsule 25 mcg PO DAILY 12/19/23 06/27/24 calcium carbonate (Calcium 500) 500 mg PO DAILY 02/09/24 06/27/24 Previous Rx's ?Medication ?Instructions ?Recorded penciclovir 1 % topical cream 1 appl topical Q2H PRN Cold Sores 06/12/23 (Denavir) #5 grams flecainide 50 mg tablet 50 mg PO Q12H #180 tabs 12/19/23 metoprolol succinate 50 mg 50 mg PO DAILY #90 tabs 12/19/23 tablet,extended release 24 hr (Toprol XL) rosuvastatin 5 mg tablet 5 mg PO DAILY #90 tabs 01/04/24 tramadol 50 mg tablet 50 mg PO BID PRN pain #20 tabs 06/25/24 diazepam 2 mg tablet (Valium) 2 mg PO TID PRN spasms 2 days #6 07/15/24 tabs ondansetron 4 mg disintegrating 4 mg PO Q8H PRN nausea and 07/15/24 tablet vomiting #4 tabs sucralfate 100 mg/mL oral 10 ml PO QID 7 days #280 mL 07/15/24 suspension (Carafate) Allergies Allergy/AdvReac Type Severity Reaction Status Date / Time cefaclor [From Ceclor] Allergy Severe RASH & Verified 07/15/24 10:33 HIVES NSAIDS (Non-Steroidal Allergy Severe HIVES Verified 07/15/24 10:33 Anti-Inflamma [Nsaids] propantheline Allergy Severe HIVES Verified 07/15/24 10:33 [From Pro-Banthine] aspirin [Aspirin] Allergy Unknown HIVES Verified 07/15/24 10:33 adhesive tape Allergy Rash Verified 07/15/24 10:33 Review of Systems Constitutional: Constitutional: Reports as per [facility] Past Medical History Medical History Atypical chest pain TIA (transient ischemic attack) GERD (gastroesophageal reflux disease) ELLIOT (obstructive sleep apnea) Nocturnal hypoxia Chronic allergic rhinitis Has daytime drowsiness Asthma MGUS (monoclonal gammopathy of unknown significance) Diverticular disease Osteopenia Hypothyroid Meniere disease Pulmonary nodule, left PVC (premature ventricular contraction) Hyperlipidemia HTN (hypertension) CAD (coronary artery disease) Surgical History Hx of section History of cholecystectomy History of laparotomy Hx of colonoscopy History of endometrial ablation Family History Family History Father CVD (cardiovascular disease) Mother No problems noted. Brother CVD (cardiovascular disease) Sister Breast cancer Social History Social History Household Members: Spouse Housing: House Are you a primary career based intervention coordinator to a significant other at home: No Do you presently have visiting nurse or other home services: No Alcohol intake: current Alcohol intake frequency: a few times a month Alcohol type: wine Comment: 1 drink 3-4 x a week. (01/2024 1/2 glass 2-3 x a week) Patient Tobacco Use Status: Former Tobacco user Years Smoked: 1970 Smoked in Last 30 Days: No e-Cigarette/Vaping Use: Never Used Second Hand Smoke Exposure: No Use of substances other than those prescribed or required for medical reasons: No Advance Directives: No Advance Directives Information Provided: Yes Do you have a plan to hurt others: No Plan service: No Current occupational status: employed Cognitive needs: No Hearing needs: No Vision needs: Yes Physical Exam Vital Signs: Vital Signs: Last Vital Signs Temp 98.4 F 07/15/24 14:29 Pulse 88 07/15/24 14:29 Resp 20 07/15/24 14:29 BP 133/67 07/15/24 14:29 Pulse Ox 97 07/15/24 14:29 O2 Del Method Room Air 07/15/24 14:29 BMI result Body Mass Index 29.2 Const: Other: ? Gen: Overall well-appearing patient ? CV: RRR, no obvious murmurs appreciated ? Resp: No wheezing rales rhonchi no stridor moving air well ? Abd: Bowel sounds are present, tender left lower quadrant no rebound or rigidity ? Skin: Warm, dry, intact, ? Neuro: Alert and oriented x3, moving upper and lower extremities symmetrically, no obvious facial asymmetry noted Medications Administered Discontinued Medications Generic Name Dose Route Start Last Admin Trade Name Freq PRN Reason Stop Dose Admin Diazepam 2.5 mg 07/15/24 12:41 07/15/24 12:50 Diazepam 10 Mg/2 Ml Cartridge IVPUSH 07/15/24 12:42 2.5 mg STAT STA Administration Sodium Chloride 1,000 mls @ 999 mls/hr 07/15/24 11:30 07/15/24 13:21 Ns IV 07/15/24 12:30 Infused .Q1H1M RYLAN Infusion Iohexol 100 ml 07/15/24 14:17 07/15/24 14:18 Iohexol 350 Mg/Ml 100 Ml Infus..Btl IV 07/15/24 14:18 85 ml ONCE ONE Administration Ondansetron HCl 4 mg 07/15/24 11:29 07/15/24 11:30 Ondansetron Hcl 4 Mg/2 Ml Vial IVPUSH 07/15/24 11:30 4 mg ONCE ONE Administration Medical Decision Making Medical Decision Making MDM Narrative: presenting with nausea vomiting and diarrhea after steroid shot, I did not elicit any C diff risk factors, on physical examination definitely some local tenderness to the left lower quadrant without rebound or rigidity with history of diverticulitis we will obtain imaging, other considerations for workup as below, I do not suspect SBO or perforation, or potential dehydration we will correct electrolytes as needed, disposition to be determined. 15:28 patient re-evaluated, she is feeling better, discussed work with the her, we will discharge home, see discharge instructions Differential Diagnosis Differential Diagnoses: The differential diagnosis associated with the presentation includes diverticulitis, infectious colitis, SBO, IBS, inflammatory colitis, dehydration, electrolyte derangements Admission/Observation Consideration of admission/observation: Escalation of care including admission/observation considered Lab Data MDM Lab Attestation statement: I reviewed the patient's lab results. 07/15/24 11:36 07/15/24 11:36 Labs: Lab Results 07/15/24 Range/Units 11:36 WBC 8.0 (4.8-10.8) X10*3/uL RBC 4.76 (4.20-5.50) X10*6/uL Hgb 14.1 (12.0-16.0) g/dl Hct 41.8 (37.0-47.0) % MCV 87.8 (80.0-98.0) fL MCH 29.6 (27.0-33.0) pg MCHC 33.7 (31.0-35.0) g/dl RDW 13.1 (11.0-16.0) % Plt Count 231 (160-400) X10*3/uL MPV 9.6 (9.4-12.3) fL Immature Gran % (Auto) 0.5 H (0.0-0.4) % Neut % (Auto) 73.1 H (45-73) % Lymph % (Auto) 16.1 L (20-40) % Doddridge % (Auto) 7.7 (2-11) % Eos % (Auto) 1.7 (0-4) % Baso % (Auto) 0.9 (0-2) % Lymph # (Auto) 1.3 (1.2-4.9) X10*3/uL Doddridge # (Auto) 0.6 (0.1-1.2) X10*3/uL Eos # (Auto) 0.1 (0.0-0.4) X10*3/uL Baso # (Auto) 0.1 (0.0-0.2) X10*3/uL Abs Immat Gran (auto) 0.04 H (0.00-0.03) X10*3/uL Absolute Neuts (auto) 5.9 (2.0-8.3) x10*3/uL Absolute Nucleated RBC 0.000 (0.0-0.012) X10*3/uL Nucleated RBC % (auto) 0.0 (0.0-0.2) /100WBC Sodium 143 (135-145) mmol/L Potassium 4.0 (3.3-5.1) mmol/L Chloride 109 H (96-108) mmol/L Carbon Dioxide 28 (22-29) mmol/L Anion Gap 10 L (12-20) BUN 13 (9-16) mg/dL Creatinine 0.73 (0.5-1.4) mg/dL Estim Creat Clear Calc 65.1 Estimated GFR > 60 Random Glucose 103 (60-115) mg/dL Calcium 9.4 (8.4-10.2) mg/dL Magnesium 1.9 (1.6-2.6) mg/dL Total Bilirubin 1.3 H (0.0-1.0) mg/dL Direct Bilirubin 0.4 (0.0-0.5) mg/dL AST 31 (5-31) U/L ALT 36 H (0-31) U/L Alkaline Phosphatase 63 (39-117) U/L Total Protein 6.7 (6.5-8.0) g/dL Albumin 4.3 (3.5-5.0) g/dL Urine Color Yellow Urine Appearance Clear Urine pH 5.5 (5.0-9.0) Ur Specific Beason 1.020 (1.005-1.025) Urine Protein Trace (Neg-Trace) mg/dL Urine Glucose (UA) Negative (Negative) mg/dL Urine Ketones Trace (Negative) mg/dL Urine Blood Negative (Negative) Urine Nitrite Negative (Negative) Ur Leukocyte Esterase Moderate (2+) H (Negative) Urine RBC 0-2 (0-2) /HPF Urine WBC 6-10 (0-5) /HPF Ur Squamous Epith Cells 3-5 (0-2) /HPF Urine Bacteria Trace (None Seen) Hyaline Casts 0-2 (0-2) /LPF Independent Interpretation I performed an independent interpretation of an: EKG (Sixty-two BMP, otherwise normal ECG without dysrhythmia, AV olivia blocks or ST-T changes to suspect underlying ACS, my independent interpretation) Radiology Impression Discussion of test interpretation with radiology: I have reviewed the radiologist's reading. Radiologist Impression: CT/CT abdomen pelvis w IV con IMPRESSION: 1. No acute findings in the abdomen or pelvis. 2. Extensive sigmoid diverticulosis without evidence of acute diverticulitis. 3. Cholecystectomy. Prescription Management I considered prescription management with: Pain Medication Discharge Plan Discharge Clinical Impression: Increased nausea and vomiting, Abdominal pain, left lower quadrant Patient Disposition: Home, Self-Care Additional Instructions: As discussed blood work, urinalysis reassuring, CT cheilosis no diverticulitis, at home Carafate 5-10 mL 20 minutes before mealtime for the next 1 week, we spoke about diet, Zofran as needed for nausea and vomiting, as well as Valium as needed for cramps and additional nausea. Follow up with the PCP worsening issues concerns come back to the ER Prescriptions: New sucralfate [Carafate] 100 mg/mL suspension 10 ml PO QID 7 Days Qty: 280 0RF Rx Instructions: swish in mouth and swallow; use after food/drink ondansetron 4 mg tablet,disintegrating 4 mg PO Q8H PRN (Reason: nausea and vomiting) Qty: 4 0RF diazepam [Valium] 2 mg tablet 2 mg PO TID PRN (Reason: spasms) 2 Days Qty: 6 0RF No Action penciclovir [Denavir] 1 % cream 1 appl topical Q2H PRN (Reason: Cold Sores) Qty: 5 2RF rosuvastatin 5 mg tablet 5 mg PO DAILY Qty: 90 3RF tramadol 50 mg tablet 50 mg PO BID PRN (Reason: pain) Qty: 20 0RF loratadine [Claritin] 10 mg Tablet 10 mg PO DAILY PRN (Reason: Allergy Symptoms) acetaminophen [Tylenol] 325 mg Tablet 650 mg PO Q6H PRN (Reason: Pain) cholecalciferol (vitamin D3) 25 mcg (1,000 unit) capsule 25 mcg PO DAILY omeprazole 20 mg capsule,delayed release(DR/EC) 20 mg PO DAILY@0630 calcium carbonate [Calcium 500] 500 mg calcium (1,250 mg) tablet,chewable 500 mg PO DAILY levothyroxine 25 mcg capsule 25 mcg PO DAILY metoprolol succinate [Toprol XL] 50 mg tablet extended release 24 hr 50 mg PO DAILY Qty: 90 3RF flecainide 50 mg tablet 50 mg PO Q12H Qty: 180 2RF Referrals: Vanessa Mathews [Emergency Nurse] - Print Language: Azerbaijani
[2024-07-15] MEDS: ondansetron HCL 4 MG/2 ML VIAL IVPUSH (11:30)
[2024-07-15] MEDS: 0.9 % Sodium Chloride 1,000 ML 999 ML IV (11:44)
[2024-07-15 11:50] LABS: MANUAL DIFF FLAG NO
[2024-07-15 11:52] LABS: Appearance Urine Clear; Color Urine Yellow; Glucose Urine UA Negative (Negative); Leukocyte Esterase Urine Moderate (2+) (Negative); Nitrite Urine Negative (Negative); PH 5.5 (5.0-9.0); UMIC TRIGGER UACC YES; Urine Blood Negative (Negative); Urine Ketones Trace mg/dL (Negative); Urine Protein Trace mg/dL (Neg-Trace)
[2024-07-15 11:53] LABS: Basophils Absolute Auto 0.1 X10*3/uL (0.0-0.2); Basophils Percent Auto 0.9 % (0-2); Eosinophils Absolute Auto 0.1 X10*3/uL (0.0-0.4); Eosinophils Percent Auto 1.7 % (0-4); Hematocrit 41.8 % (37.0-47.0); Hemoglobin 14.1 g/dl (12.0-16.0); Imm Gran Abs Auto 0.04 X10*3/uL (0.00-0.03); Imm Gran Pct Auto 0.5 % (0.0-0.4); Lymphocytes Absolute Auto 1.3 X10*3/uL (1.2-4.9); Lymphocytes Percent Auto 16.1 % (20-40); Mean Corpuscular HGB Conc 33.7 g/dl (31.0-35.0); Mean Corpuscular Hemoglobin 29.6 pg (27.0-33.0); Mean Corpuscular Volume 87.8 fL (80.0-98.0); Mean Platelet Volume 9.6 fL (9.4-12.3); Monocytes Absolute Auto 0.6 X10*3/uL (0.1-1.2); Monocytes Percent Auto 7.7 % (2-11); Neutrophils Absolute Auto 5.9 x10*3/uL (2.0-8.3); Neutrophils Percent Auto 73.1 % (45-73); Platelet Count 231 X10*3/uL (160-400); Red Blood Count 4.76 X10*6/uL (4.20-5.50); Red Cell Distribution Width 13.1 % (11.0-16.0)
[2024-07-15 12:03] LABS: Bacteria Urine Trace (None Seen); Hyaline Casts Urine 0-2 /LPF (0-2); RBC Urine 0-2 /HPF (0-2); UACC Culture Trigger YES
[2024-07-15 12:07] LABS: Alanine Aminotransferase 36 U/L (0-31); Albumin Level 4.3 g/dL (3.5-5.0); Alkaline Phosphatase 63 U/L (39-117); Anion Gap 10 (12-20); Aspartate Amino Transferase 31 U/L (5-31); Bilirubin Direct 0.4 mg/dL (0.0-0.5); Bilirubin Total 1.3 mg/dL (0.0-1.0); Blood Urea Nitrogen 13 mg/dL (9-16); Calcium 9.4 mg/dL (8.4-10.2); Carbon Dioxide 28 mmol/L (22-29); Chloride 109 mmol/L (96-108); Creatinine Clr Calc Pharmacy 65.1; Estimated Glomerular Filt Rate > 60; Glucose Random 103 mg/dL (60-115); Magnesium 1.9 mg/dL (1.6-2.6); Sodium 143 mmol/L (135-145); Total Protein 6.7 g/dL (6.5-8.0)
--- OUTSIDE RECORDS SUMMARY | 2024-07-15 12:45 | XMS_ITS ---
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 In Name Role Phone Edward Webber MD Primary Care Provider UnavailWesley Iglesias [phone] Sandee BENNETT, Chinmay Unavailable Unavailable Medications Medication SIG (Take, Route, Fr equency, Duration) Notes Start Date End Date Status Augmentin 500-125 MG 1 tablet Orally michael ry 12 hrs for Diverticulitis for 7 days 04/19/2023 Ac tive Encounters Encounter Location Date Provider Diagnosis [facility] [address] [address] 08/23/2023 Wesley Burgos Plan Of Treatment Medication Medication Name Sig Start Date Stop Date Notes Augmentin 500-125 MG 1 tablet Orally michael ry 12 hrs for Diverticulitis for 7 days 04/19/2023 Progress Notes * SHANTANU OAKLEYDOB: [birth year] (67 yo F)Acc No.[id number]:08/23/2023 Patient:?SHANTANU OAKLEY :1955???Age:67 Y???Sex:Female Address:[address] [place] [id number] * Refills? Refill Augmentin Tablet, 500-125 MG, Orally, 14, 1 tablet, every 12 hrs for Diverticulitis, 7 days, Refills=0 * true * Date:? Generated for Cassie singh/Danielle/Pratimaitting on:?07/15/2024 12:44 PM EDT
[2024-07-15] MEDS: diazePAM 10 MG/2 ML CARTRIDGE 2.5 MG IVPUSH ×2 (12:50→15:57)
[2024-07-15 12:57] VITALS: BP 155/80; PULSE 76; RESP 18; TEMP 36.5; O2SAT 96
[2024-07-15] MEDS: iohexoL 350 MG/ML 100 ML INFUS..BTL IV (14:18)
[2024-07-15 14:29] VITALS: BP 133/67; PULSE 88; RESP 20; TEMP 36.9; O2SAT 97
--- NOTE | 2024-07-15 14:50 | MHC.EDTECH ---
Pt walked to bathroom.
[2024-07-15 16:34] VITALS: BP 133/75; PULSE 86; RESP 16; TEMP 36.7; O2SAT 94
== END 2024-07-15 16:35 | disposition home or self-care (01) ==
PROVIDERS: Emergency Provider Emergency Medicine; PCP Internal Medicine
DX: R11.2 Nausea with vomiting, unspecified (principal); R10.32 Left lower quadrant pain; R53.1 Weakness; R10.2 Pelvic and perineal pain; Z79.899 Other long term (current) drug therapy; Z87.891 Personal history of nicotine dependence
CPT/HCPCS: 36415; 74177; 80053; 81001; 82248; 83735; 85025; 87086; 93005; 96361; 96374; 96375; 96376; 99284; 99285; J2405; J3360; Q9967

== ENCOUNTER → 2024-07-15 11:30 | Outpatient (BNV) | payer OTHER, SELFPAY | PROVIDERS: Emergency Provider Emergency Medicine; PCP Internal Medicine; Visit Provider Radiology Diagnostic Radiology | DX: K57.30 Diverticulosis of large intestine without perforation or abscess without bleeding (principal) | CPT/HCPCS: 74177 ==

== ENCOUNTER → 2024-07-15 12:31 | Outpatient (BNV) | payer OTHER, SELFPAY | PROVIDERS: Emergency Provider Emergency Medicine; PCP Internal Medicine; Visit Provider Internal Medicine | DX: R53.1 Weakness (principal) | CPT/HCPCS: 93010 ==

== ENCOUNTER 2024-07-18 14:31 | Outpatient (REF) | payer OTHER, SELFPAY ==
--- OUTSIDE RECORDS SUMMARY | 2024-07-18 17:11 | XMS_ITS ---
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 Name Role Phone Edward Webber MD Primary Care Provider UnavailWesley Iglesias [phone] Sandee BENNETT, Chinmay Unavailable Unavailable Medications Medication SIG (Take, Route, Fr equency, Duration) Notes Start Date End Date Status Augmentin 500-125 MG 1 tablet Orally michael ry 12 hrs for Diverticulitis for 7 days 04/19/2023 Ac tive Encounters Encounter Location Date Provider Diagnosis [facility] [address] [address] 08/23/2023 Wesley Burgos Plan Of Treatment Medication Medication Name Sig Start Date Stop Date Notes Augmentin 500-125 MG 1 tablet Orally michael ry 12 hrs for Diverticulitis for 7 days 04/19/2023 Progress Notes * SHANTANU OAKLEYDOB: [birth year] (67 yo F)Acc No.[id number]:08/23/2023 Patient:?SHANTANU OAKLEY :1955???Age:67 Y???Sex:Female Address:[address] [place] [id number] * Refills? Refill Augmentin Tablet, 500-125 MG, Orally, 14, 1 tablet, every 12 hrs for Diverticulitis, 7 days, Refills=0 * true * Date:? Generated for Cassie singh/Danielle/Pratimaitting on:?07/18/2024 05:11 PM EDT
== END 2024-07-18 14:32 | disposition home or self-care (01) ==
LOC: HO.LAB 14:31
PROVIDERS: PCP Internal Medicine; Visit Provider Internal Medicine
DX: Z13.89 Encounter for screening for other disorder (principal)

== ENCOUNTER 2024-07-26 09:09 | Outpatient (AMB) | payer OTHER, SELFPAY ==
--- NOTE | 2024-07-26 09:23 | A.OFFVIS_ITS ---
Vital Signs 07/26/24 09:24 Height 5 ft 1 in Weight 155 lb BMI 29.3 BP 141/60 H Blood Pressure Location Lt brachial Position Sitting Respiration 16 Pulse 73 Pulse Source Pulse Oximeter Pulse Oximetry (%) 97 Oxygen Delivery Method Room Air Intake Visit Reasons: s/p SIJ inj Business Affairs Manager Required: No Allergies cefaclor (From Ceclor) Allergy (Severe, Verified 07/26/24 09:25) RASH & HIVES NSAIDS (Non-Steroidal Anti-Inflamma (Nsaids) Allergy (Severe, Verified 07/26/24 09:25) HIVES propantheline (From Pro-Banthine) Allergy (Severe, Verified 07/26/24 09:25) HIVES aspirin (Aspirin) Allergy (Unknown, Verified 07/26/24 09:25) HIVES adhesive tape Allergy (Verified 07/26/24 09:25) Rash Medication List - Last Reconciled 07/26/24 by Gisele Torres, NON DESTRUCTIVE TESTING INSPECTOR acetaminophen (Tylenol) 650 mg PO Q6H PRN calcium carbonate (Calcium 500) 500 mg PO DAILY cholecalciferol (vitamin D3) 25 mcg PO DAILY flecainide 50 mg PO Q12H levothyroxine 25 mcg PO DAILY loratadine (Claritin) 10 mg PO DAILY PRN metoprolol succinate ER (Toprol XL) 50 mg PO DAILY omeprazole 20 mg PO DAILY@0630 ondansetron 4 mg PO Q8H PRN penciclovir 1% (Denavir) 1 appl topical Q2H PRN rosuvastatin 5 mg PO DAILY sucralfate (Carafate) 10 mL PO QID 7 days tramadol 50 mg PO BID PRN HPI HPI s/p SIJ inj: Details: History of Present Illness The patient is a 68-year-old female presenting for follow-up after receiving a right sacroiliac joint injection. Following the procedure, she engaged in physical activities which seemed to exacerbate her condition, leading to reports of pain and weakness predominantly in the left side, consistent with left hip joint arthritis. Concerns were raised regarding potential cauda equina syndrome due to weakness, but imaging ruled out central stenosis. The adverse effects post-injection included gastrointestinal distress necessitating an emergency department visit, likely secondary to the corticosteroid used. Visual inspection noted scoliosis and potential hip fluid accumulation, although no medical evidence of fluid was observed. Currently, she experiences nighttime nerve-like pain which interferes with restful sleep, for which she finds some relief using a stabilization belt. Pain Description - Onset & Timing: Pain occurs particularly after physical activity and persists at night. - Quality & Character: Described as nerve-like pain. - Primary Location: Primarily the left hip and lower back. - Areas of Radiation: Radiates from the lower back downward toward the legs. - Exacerbating Factors: Overexertion; movements in bed at night. - Relieving Factors: Narrow stabilization belt at night; potential use of Boa SI belt. - Interference with Activities: Limits ambulation for fear of exacerbating pain. Physical Exam - Musculoskeletal- Inspection of both hips revealed structural anomalies attributed to scoliosis. Results - Tests and Diagnostics: CAT scan indicating arthritis in the hip. Pain Management - Affect: Pain impacts nighttime rest due to discomfort during movements. - Analgesia: Corticosteroid injection led to adverse effects; gabapentin use questioned but deemed unnecessary; described pain as not neuropathic. - Adverse Effects: Vomiting and ear discoloration post-injection. - Activities of Daily Living: Avoids ambulation due to fear of exacerbating condition. - Aberrant Drug Related Behaviors: None reported. [facility] Medical History Atypical chest pain TIA (transient ischemic attack) GERD (gastroesophageal reflux disease) ELLIOT (obstructive sleep apnea) Nocturnal hypoxia Chronic allergic rhinitis Has daytime drowsiness Asthma MGUS (monoclonal gammopathy of unknown significance) Diverticular disease Osteopenia Hypothyroid Meniere disease Pulmonary nodule, left PVC (premature ventricular contraction) Hyperlipidemia HTN (hypertension) CAD (coronary artery disease) Surgical History Hx of section History of cholecystectomy History of laparotomy Hx of colonoscopy History of endometrial ablation Family History Father CVD (cardiovascular disease) Mother No problems noted. Brother CVD (cardiovascular disease) Sister Breast cancer Social History Household Members: Spouse Housing: House Are you a primary care transition coordinator to a significant other at home: No Do you presently have visiting nurse or other home services: No Alcohol intake: current Alcohol intake frequency: a few times a month Alcohol type: wine Comment: 1 drink 3-4 x a week. (01/2024 1/2 glass 2-3 x a week) Patient Tobacco Use Status: Former Tobacco user Years Smoked: 1969 e-Cigarette/Vaping Use: Never Used Second Hand Smoke Exposure: No service: No Current occupational status: employed Cognitive needs: No Hearing needs: No Vision needs: Yes Physical Exam Vital Signs: Last Vital Signs Pulse 73 07/26/24 09:24 Resp 16 07/26/24 09:24 BP 141/60 H 07/26/24 09:24 Pulse Ox 97 07/26/24 09:24 Oxygen Delivery Method Room Air 07/26/24 09:24 BMI result Body Mass Index 29.3 Assessment & Plan Assessment & Plan (1) Sacroiliac joint pain: Code(s): M53.3 - Sacrococcygeal disorders, not elsewhere classified Category: Medical Plan Plan - Recommend a Boa SI belt to stabilize the sacroiliac joint for nighttime pressure relief. - Suggest alternative anesthetic injections instead of corticosteroids for pain exacerbations. - Advise using a pillow between the knees if comfortably sleeping on the side can be tolerated. - Discourage gabapentin considering the nature of the pain reported. - Emphasize stabilizing the joint over physical therapy for managing sacroiliac joint pain. Patient was informed and verbally consented to the use of an ambient scribe for clinic note documentation during this visit. Discussion Notes I discussed the patient's symptoms and management strategies for sacroiliac joint pain. We addressed her concerns about cauda equina syndrome, assured her based on imaging findings, and concluded the central stenosis was not present. Considering her adverse reaction to corticosteroid injections, I recommended avoiding them in the future, favoring local anesthetic options. I advised obtain ing a Boa SI belt online to provide stabilization and discussed the limited role of physical therapy, advocating instead for stabilization strategies during ambulation. I reassured her regarding gabapentin's limited applicability to her current symptoms and encouraged methods for safely managing nights despite back pain. Patient Instructions - Get a Boa SI belt online for joint stabilization. - Avoid overexertion and ease into physical activity. - Consider using a pillow between the knees for side sleeping. - Monitor reactions to any subsequent joint injections. - Notify the clinic if pain management with stabilization techniques is ineffective. - Maintain open communication with healthcare providers about any new or worsening symptoms. Coding Level of Care Code Est Pt Level 3 (74272) Diagnoses Sacroiliac joint pain M53.3
[2024-07-26 09:24] VITALS: BP 141/60; PULSE 73; RESP 16; O2SAT 97; BMI 29.3
--- OUTSIDE RECORDS SUMMARY | 2024-07-26 09:30 | XMS_ITS ---
Author Organization [facility] Address [address] [place] [address] Care Team Providers Care Tank Truck Loader Name Role Phone Edward eWbber MD Primary Care Provider UnavailWesley Iglesias [phone] Sandee BENNETT, Chinmay Unavailable Unavailable Medications Medication SIG (Take, Route, Fr equency, Duration) Notes Start Date End Date Status Augmentin 500-125 MG 1 tablet Orally michael ry 12 hrs for Diverticulitis for 7 days 04/19/2023 Ac tive Encounters Encounter Location Date Provider Diagnosis [facility] [address] [address] 08/23/2023 Wesley Burgos Plan Of Treatment Medication Medication Name Sig Start Date Stop Date Notes Augmentin 500-125 MG 1 tablet Orally michael ry 12 hrs for Diverticulitis for 7 days 04/19/2023 Progress Notes * SHANTANU OAKLEYDOB: [birth year] (67 yo F)Acc No.[id number]:08/23/2023 Patient:?SHANTANU OAKLEY :1955???Age:67 Y???Sex:Female Address:[address] [place] [address] * Refills? Refill Augmentin Tablet, 500-125 MG, Orally, 14, 1 tablet, every 12 hrs for Diverticulitis, 7 days, Refills=0 * true * Date:? Generated for Cassie singh/Danielle/Pratimaitting on:?07/26/2024 09:30 AM EDT
== END 2024-07-26 09:35 | disposition home or self-care (01) ==
LOC: HO.PMC 09:10
PROVIDERS: PCP Internal Medicine; Visit Provider Internal Medicine
DX: M53.3 Sacrococcygeal disorders, not elsewhere classified (principal)
CPT/HCPCS: 99213

== ENCOUNTER → 2024-07-26 09:09 | Outpatient (BNVA) | payer OTHER, SELFPAY | PROVIDERS: PCP Internal Medicine; Visit Provider Internal Medicine ==

== ENCOUNTER → 2024-09-05 08:02 | Outpatient (REF) | payer OTHER, SELFPAY ==
--- NOTE | ~2024-09-05 | NM_ITS ---
EXERCISE MYOCARDIAL PERFUSION STUDY INDICATION: Chest pain to evaluate for myocardial ischemia TECHNIQUE: The patient was brought in for an exercise perfusion study on 09/05/2024. Patient performed exercise as per Aureliano protocol and was injected 25 mCi of sestamibi once target heart rate was achieved. Images were obtained using the SPECT gamma camera interlaced with the gating device. Images were obtained in supine position. Resting perfusion study was performed on 09/06/2024. Patient was administered 25 mCi of sestamibi intravenously at rest. Images were then obtained in supine position. Images obtained without without CT attenuation. Total DLP 164 mGy-cm. Images were processed with the software and compared side to side in short axis, horizontal long axis and vertical long axis views. FINDINGS: Raw images were reviewed The stress perfusion study showed nonattenuated images show minimal thinning of the distal lateral wall of the LV myocardium otherwise normal uptake ordered images in all segments of the LV myocardium. There is suggestion of left ventricular hypertrophy. Attenuated corrected images show minimal thinning of the distal anterior and apical wall of the LV myocardium.. The gated study shows normal LV systolic function with calculated LVEF of 73%. LV cavity is normal in size. The gated study shows normal systolic wall thickening and contraction of segments. Resting study shows no change in perfusion pattern compared to stress perfusion study. Gating at rest reveals normal systolic wall motion with ejection fraction at 66%. The findings are consistent with no reversible defect suggestive of ischemia. Overall normal myocardial perfusion. NM/NM cardiolite stress test IMPRESSION: 1. Myocardial perfusion imaging study shows normal myocardial perfusion. 2. Gated LVEF is 73%. 3. Transient ischemic dilatation not present. EKG revealed negative for ischemia. Electronically signed by: Jose Almendarez MD 09/06/2024 02:01 PM EDT
--- NOTE | 2024-09-05 08:05 | CA_ITS ---
Acquisition Time: 2024-09-05 08:10:23 Total Exercise Time: 00:05:35 Test Indications: CP,Abnormal Treadmill Test Medications: LEVOTHYROXINE FLECAINIDE METOPROLOL OMEPRAZOLE ROSUVASTATIN LORATADINE Protocol: GENE Max HR: 133 BPM 88% of Pred: 151 BPM Max BP: 138/86 mmHG Max Work Load: 7.0 METS Exercise stress test with exercise 5 mins 35 secs of Gene Protocol, achieving 86% MPHR, with reports of mild SOB, no chest pain, without any arrythmias, with normotensive response to exercise. Without any EKG changes meeting criteria for ischemia. In recovery, breathing returned to baseline. Nuclear images pending. Test reviewed with Dr. Mcqueen. Referred By: Cayden Cazares Electronically Signed By: Cayden Cazares
--- OUTSIDE RECORDS SUMMARY | 2024-09-05 08:05 | XMS_ITS | Patient Health Record ---
Author Organization [facility] Address [address] [place] [address] Care Team Providers Care Website Designer Name Role Phone Edward Webber MD Primary Care Provider Wesley Sylvester Unavailable [phone] Sandee BENNETT, Chinmay Unavailable Unavailable Allergies Allergen (clinical drug ingredient) Drug/Non Drug Allergy documented on EMR Reaction Allergy Type Onset Date Status Non-steroidal anti-inflammatory agent (FN) NSAIDs Unknown Drug Allergy Active ibuprofen Ibuprofen Unknown Drug Allergy Active aspirin Aspirin Unknown Drug Allergy Active Results Component Value Reference Range Notes Erythrocyte Sedimentation Ra te Reviewed date:09/15/2023 11:19:10 PM Interpretation: Performing Lab:[address] [address] Notes/Report: Erythrocyte Sedimentation Rate 7 0-20 MM/HR Patients with polycythemia and many hemoglobin abnormalities may have depressed sed rates whereas patients with anemia may have elevated sed rates. C Reactive Protein Reviewed date:09/15/2023 11:19:19 PM Interpretation: Performing Lab:[facility], [address] [place] [phone] Notes/Report: C Reactive Protein 0.14 < or = 0.50 mg/dL Transglutaminase Ab IgG Reviewed date:09/28/2023 12:35:52 PM Interpretation: Performing Lab:[facility], [address] [place] [phone] Notes/Report: Transglutaminase Ab IgG <1.0 Value Interpretation ----- <15.0 Antibody not detected > or = 15.0 Antibody detected THIS TEST WAS PERFORMED AT: [facility] [address] [place] [phone] WEN JULIO MD Transglutaminase IgA Reviewed date:09/28/2023 12:35:59 PM Interpretation: Performing Lab:[facility], [address] [place] [phone] Notes/Report: Transglutaminase IgA <1.0 Value Interpretation ----- <15.0 Antibody not detected > or = 15.0 Antibody detected THIS TEST WAS PERFORMED AT: [facility] [address] [place] [phone] WEN JULIO MD Gliadin Ab Panel Reviewed date:09/29/2023 08:05:57 PM Interpretation: Performing Lab:[facility], [address] [place] [phone] Notes/Report: Gliadin Deamidated IgA Ab <1.0 Value Interpretation ----- <15.0 Antibody not detected > or = 15.0 Antibody detected Gliadin Deamidated IgG Ab <1.0 Value Interpretation ----- <15.0 Antibody not detected > or = 15.0 Antibody detected THIS TEST WAS PERFORMED AT: [facility] [address] [place] [phone] WEN JULIO MD Endomysial IgA rflx Titer Reviewed date:09/28/2023 12:36:44 PM Interpretation: Performing Lab:[facility], [address] [place] [phone] Notes/Report: Endomysial IgA Antibody Negative Negative THIS TEST WAS PERFORMED AT: [facility]/[address] [phone] DIMAS JERRY MD,PHD Endomysial Titer TNP Reason [...] Problem Status W/U Status Risk Notes Problem 4154229 Diverticulitis o f large intestine without perforation or abscess without bleeding (K57.32) Active confirmed Problem Diarrhea (51451474) Diarrhea (R19.7) Active confirmed Problem 320639222 Irritable bowel syndrome with diarrhea (K58.0) Active confirmed Problem 562578266 Elevated liver enzymes (R74.8) Active confirmed Problem 334587913 Gastroesophageal reflux disease, esophagitis presence not specified (K21.9) Active confirmed Problem Diverticulitis of colon (894763223) Diverticulitis of colon (K57.32) Active confirmed Problem 689032903 Abdominal pain, left lower quadrant (R10.32) Active confirmed Problem 151998296192348 History of diverticulitis (Z87.19) Active confirmed Problem 998462249 Abnormal CT scan , sigmoid colon (R93.3) Active confirmed Problem 51002364 Diarrhea, unspecified type (R19.7) Active confirmed Problem Chronic diarrhea (998657863) Chronic diarrhea (K52.9) Active confirmed Problem 48728889 Irritable bowel syndrome, unspecified type (K58.9) Active confirmed Problem Left lower quadrant pain (036600995) LLQ abdominal pain (R10.32) Active confirmed Problem 523219664 Sore mouth (K13.79) Active confirmed Encounters Encounter Location Date Provider Diagnosis [facility] [address] [place] [address] 09/13/2023 Wesley Burgos Chronic diarrhea K52.9 [facility] [address] [place] [address] 07/18/2024 Wesley Burgos Diarrhea R19.7 Assessments Encounter Date Diagnosis (ICD Code) Assessment Notes Treatment Notes Treatment Clinical Notes Section Notes 09/13/2023 Chronic diarrhea (ICD-10 - K52.9) 07/18/2024 Diarrhea (ICD-10 - R19.7) Plan Of Treatment Pending Test Test Name Order Date CHEM 7 PROFILE 07/23/2020 CHEM 7 PROFILE 06/26/2023 LIVER PROFILE 07/23/2020 LIVER PROFILE 09/26/2017 LIVER PROFILE 06/26/2023 AMYLASE 07/23/2020 LIPASE 07/23/2020 CRP 08/09/2023 CRP 09/13/2023 CRP 09/02/2014 CRP 07/23/2020 CBC w DIFF 06/26/2023 CBC w DIFF 09/02/2014 CBC w DIFF 07/23/2020 SED RATE (ESR) 07/23/2020 SED RATE (ESR) 08/09/2023 SED RATE (ESR) 09/13/2023 SED RATE (ESR) 09/02/2014 CLOSTRIDIUM DIFF TOXIN A&B (C DIFF) 03/17 CLOSTRIDIUM DIFF TOXIN A&B (C DIFF) 08/14 URINALYSIS + MICROSCOPIC 07/23/2020 URINALYSIS + MICROSCOPIC, CLEAN CATCH STOOL WBC 09/02/2014 CELIAC PANEL #10 09/13/2023 TRYPSIN,STOOL 09/13/2023 OVA & PARASITES (O&P) 09/02/2014 OVA & PARASITES (O&P) 07/23/2020 CULTURE, STOOL 09/02/2014 CULTURE, STOOL 07/23/2020 CT ABD & PELVIS WITH CONTRAST 07/23/2020 CT ABD & PELVIS WITH CONTRAST 06/26/2023 STOOL WBC 07/23/2020 STOOL WBC 08/09/2023 C DIFFICILE RFLX PCR 07/23/2020 C DIFFICILE RFLX PCR 08/09/2023 CDiff with Reflex to PCR 07/18/2024 Giardia Ag Stool EIA 08/10/2023 Giardia Ag Stool EIA 07/23/2020 Giardia Ag Stool EIA 08/09/2023 Pancreatic Elastase-1 09/13/2023 Fecal Fat Qualitative 09/13/2023 Calprotectin, Fecal 07/18/2024 GI PANEL 07/18/2024 Future Test Test Name Order Date UPPER GI ENDOSCOPY 09/26/2017 COLONOSCOPY 09/26/2017 Insurance Providers Payer Name Payer Address Payer Phone Subscriber Number Group Number Insured Name Patient Relationship to Insured Coverage Start Date Coverage End Date [employer] [place] [address] [address] [place] [address] [id number] SHANTANU OAKLEY Self - patient is the insured Medical [...] no esophagitis, minimal HH GERD Hypothyoidism Sees [facility] regularly--had a neg. pelvic U/ S in the spring Denies MO,DM,CVA,Lung disease,renal dise ase Irritable bowel syndrome wit h extensive workup over the past many years including 3 colonoscopies with negative biopsies for microscopic colitis, upper endoscopy with normal duodenal biopsies, small bowel series, CAT scans, and treatments including Lotronex. Sigmoid diverticulitis-03/2016 and 06/2017 -hospitalized for IV antibiotics Cardiac cath approx 2017 with mild CAD --no intervention-Dr. Almendarez Sleep [...]
== END ==
LOC: HO.CARD 08:02
PROVIDERS: PCP Internal Medicine
DX: R07.89 Other chest pain (principal)
CPT/HCPCS: 78452; 93017; A9500

== ENCOUNTER → 2024-09-05 08:05 | Outpatient (BNV) | payer OTHER, SELFPAY | PROVIDERS: PCP Internal Medicine | DX: R07.9 Chest pain, unspecified (principal); R94.31 Abnormal electrocardiogram [ECG] [EKG] | CPT/HCPCS: 78452; 93016; 93018 ==

== ENCOUNTER → 2024-10-22 07:57 | Outpatient (REF) | payer OTHER, SELFPAY ==
--- NOTE | 2024-10-22 08:00 | CA_ITS ---
Transthoracic Echocardiogram Patient (Last, First, Middle): Kristine Pires, Gender: F Date of : 1955 Age: 69 Procedure Date: 10/22/2024 Procedure Type: Transthoracic Echocardiogram Location: OP Height: 154.94 cm Weight: 70.31 kg BSA: 1.70 m2 Heart Rate: 63 bpm Sociology Instructor: JUDITH Referring MD: Jose Almendarez MD Civil Drafter: Jose Almendarez MD Symptoms: I47.1 - Supraventricular tachycardia Study Quality: Adequate ECG Rhythm: Sinus Conclusions: - 1. Normal LV ejection fraction of 60 65% 2. Cardiac valvular Dopplers within normal limits 3. Normal RV systolic pressure 4. Upper limits of normal ascending aortic size at 3.5 cm 5. No gross pericardial effusion Findings Left Ventricle Normal left ventricular size, thickness, and systolic function. The visually estimated ejection fraction is between 60-65%. Spectral Doppler is indicative of a normal filling pattern. Right Ventricle Normal right ventricular cavity size and systolic function. Atria The left atrium is likely dilated. There is no evidence of interatrial shunt. The right atrium is normal in size. There is a prominent eustachian valve. Aortic Valve Normal aortic valve structure and function. There is no aortic valve stenosis. There is no aortic valve regurgitation. Mitral Valve Normal mitral valve structure and function. There is trace mitral valve regurgitation. There is no mitral valve stenosis. Pulmonic Valve The pulmonic valve was not well visualized. Tricuspid Valve Likely normal tricuspid valve structure and function. There is trace tricuspid valve regurgitation. The right ventricular systolic pressure is normal. The right ventricular systolic pressure is 25 mmHg. Normal right atrial pressure. There is no evidence of pulmonary hypertension. Great Vessels All visible segments of the aorta are normal in size. The pulmonary artery was not well visualized. There is no dilatation of the ascending aorta measuring 3.50 cm. Venous The inferior vena cava is normal in size and collapses greater than 50% with inspiration. Pericardium/Pleural There is no evidence of pericardial effusion. Prior Study Comparison No significant change compared to prior study dated: 09/27/2023. Measurements 2D Linear Measurements IVSd: 0.75 0.6-0.9/0.6-1.0 cm LVIDd: 5.06 3.9-5.3/4.2-5.9 cm LVIDd Index: 2.98 2.4-3.2/2.2-3.1 cm/m2 LVIDs: 3.48 2.0-3.6 cm LVPWd: 0.75 0.7-1.1 cm LA Diam: 3.80 2.7-3.8/3.0-4.0 cm LAIDs Index: 2.24 1.5-2.3 cm/m2 LV Mass: 159.26 67-162/88-224 g LV Mass Index: 93.68 43-95/49-115 g/m2 LVOT Diam: 2.10 3.0+(-)1.3 cm 2D Systolic Function EF 4C: 57.40 >55% EF 2C: 67.20 >55% EF BiP: 62.40 >55% Mitral Valve MV Pk E: 0.68 MV PK A: 0.45 MV Decel Time: 273.00 E/A: 1.50 E'Lateral: 8.59 E'Medial: 5.44 E/E' Med: 12.40 E/E' Lat: 7.90 PHT: 80.00 MVA PHT: 2.75 Decel White: 2.48 Aortic Valve AoV Pk Jerry: 0.96 AoV Pk Grad: 4.00 ARABELLA: 2.74 LVOT LVOT Pk Jerry: 0.79 LVOT Mn Jerry: 0.53 LVOT VTI: 0.18 LVOT Pk Grad: 3.00 LVOT Mn Grad: 1.00 LVOT Diam: 2.10 LVOT Area: 3.46 Diastolic Function MV Pk E: 0.68 MV Pk A: 0.45 E/A: 1.50 E'Medial: 5.44 E/E' Med: 12.40 E' Laterial: 8.59 E/E' Lat: 7.90 Right Ventricle TAPSE (mm): 19.20 TVS' Jerry: 8.50 Tricuspid Valve TR Pk Jerry: 2.37 TR Pk Grad: 22.00 RA Press: 3.00 RVSP: 25.00 Great Vessels Aorta Sinus of Valsalva: 3.00 2.0-3.5 cm Ao Asc: 3.50 2.1-3.4 cm Pulmonary Veins Pulm Vein S/D 0.90 Pulmonary Valve PV Pk Jerry: 0.76 Peak PV Grad: 2.00 MN Pk Jerry: 1.61 Updated in Other Vendor System with Status of Final Jose Almendarez MD electronically signed on 10/23/2024 12:22:55 PM with status of Final
--- OUTSIDE RECORDS SUMMARY | 2024-10-22 08:05 | XMS_ITS | Patient Health Record ---
Author Organization [facility] Address [address] [place] [address] Care Team Providers Care Director Systems Name Role Phone Edward Webber MD Primary Care Provider UnavailWesley Iglesias Unavailable [phone] Sandee BENNETT, Chinmay Unavailable Unavailable Allergies Allergen (clinical drug ingredient) Drug/Non Drug Allergy documented on EMR Reaction Allergy Type Onset Date Status Non-steroidal anti-inflammatory agent (FN) NSAIDs Unknown Drug Allergy Active ibuprofen Ibuprofen Unknown Drug Allergy Active aspirin Aspirin Unknown Drug Allergy Active Reason For Referral No Information Medications Medication [...] Problem Status W/U Status Risk Notes Problem 2876247 Diverticulitis o f large intestine without perforation or abscess without bleeding (K57.32) Active confirmed Problem Diarrhea (06624954) Diarrhea (R19.7) Active confirmed Problem 825514208 Irritable bowel syndrome with diarrhea (K58.0) Active confirmed Problem 769929653 Elevated liver enzymes (R74.8) Active confirmed Problem 338021295 Gastroesophageal reflux disease, esophagitis presence not specified (K21.9) Active confirmed Problem Diverticulitis of colon (720164257) Diverticulitis of colon (K57.32) Active confirmed Problem 193670589 Abdominal pain, left lower quadrant (R10.32) Active confirmed Problem 615778374276488 History of diverticulitis (Z87.19) Active confirmed Problem 603254536 Abnormal CT scan , sigmoid colon (R93.3) Active confirmed Problem 07458339 Diarrhea, unspecified type (R19.7) Active confirmed Problem Chronic diarrhea (176219941) Chronic diarrhea (K52.9) Active confirmed Problem 25485281 Irritable bowel syndrome, unspecified type (K58.9) Active confirmed Problem Left lower quadrant pain (878035943) LLQ abdominal pain (R10.32) Active confirmed Problem 554126080 Sore mouth (K13.79) Active confirmed Encounters Encounter Location Date Provider Diagnosis [facility] [address] [place] [address] 07/18/2024 Wesley Burgos Diarrhea R19.7 Assessments Encounter Date Diagnosis (ICD Code) Assessment Notes Treatment Notes Treatment Clinical Notes Section Notes 07/18/2024 Diarrhea (ICD-10 - R19.7) Plan Of Treatment Pending Test Test Name Order Date CHEM 7 PROFILE 07/23/2020 CHEM 7 PROFILE 06/26/2023 LIVER PROFILE 07/23/2020 LIVER PROFILE 09/26/2017 LIVER PROFILE 06/26/2023 AMYLASE 07/23/2020 LIPASE 07/23/2020 CRP 07/23/2020 CRP 08/09/2023 CRP 09/13/2023 CRP 09/02/2014 CBC w DIFF 07/23/2020 CBC w DIFF [...] STOOL WBC 08/09/2023 C DIFFICILE RFLX PCR 08/09/2023 C DIFFICILE RFLX PCR 07/23/2020 CDiff with Reflex to PCR 07/18/2024 Giardia Ag Stool EIA 07/23/2020 Giardia Ag [...] End Date [employer] [place] [address] [address] [place] [address] [id number] 97 ADIN SHANTANU Self - patient is the insured Medical (General) History Medical History History ICD Code Colonoscopies 02-16-2009,2003, 1996--the colonoscopy in 2009 was negative for any inflammatory bowel disease, and biopsies from the ileum and colon were negative for any underlying inflammation; she was noted to have some mild sigmoid diverticulosis--no history of tubular adenomas EGD 09-26-2008--normal duoden al biopsies, neg. H.pylori, no esophagitis, minimal HH GERD Hypothyoidism Sees GUEST ADVISOR regularly--had a neg. pelvic U/ S in the spring Denies [place],DM,CVA,Lung disease,renal dise ase Irritable bowel syndrome wit [...]
== END ==
LOC: HO.CARD 07:57
PROVIDERS: PCP Internal Medicine; Visit Provider Internal Medicine Cardiovascular Disease
DX: I48.0 Paroxysmal atrial fibrillation (principal); I25.10 Atherosclerotic heart disease of native coronary artery without angina pectoris; I47.10 Supraventricular tachycardia, unspecified
CPT/HCPCS: 93306

== ENCOUNTER → 2024-10-22 08:00 | Outpatient (BNV) | payer OTHER, SELFPAY | PROVIDERS: PCP Internal Medicine; Visit Provider Internal Medicine Cardiovascular Disease | DX: I47.10 Supraventricular tachycardia, unspecified (principal) | CPT/HCPCS: 93306 ==

== ENCOUNTER 2024-10-24 14:50 | Outpatient (AMB) | payer OTHER, SELFPAY ==
[2024-10-24 14:55] VITALS: BP 122/80; PULSE 72; BMI 29.4
--- NOTE | 2024-10-24 14:55 | A.OFFVIS_ITS ---
Vital Signs 10/24/24 14:55 Height 5 ft 2 in Weight 160 lb 14.999 oz BMI 29.4 BP 122/80 Blood Pressure Location Lt brachial Position Sitting Pulse 72 Intake Visit Reasons: 6m follow up w EKG Intake Note: 6 month follow-up with ekg Paper Wrapping Machine Operator Required: No Allergies cefaclor (From Ceclor) Allergy (Severe, Verified 08/22/24 16:11) RASH & HIVES NSAIDS (Non-Steroidal Anti-Inflamma (Nsaids) Allergy (Severe, Verified 08/22/24 16:11) HIVES propantheline (From Pro-Banthine) Allergy (Severe, Verified 08/22/24 16:11) HIVES aspirin (Aspirin) Allergy (Unknown, Verified 08/22/24 16:11) HIVES adhesive tape Allergy (Verified 08/22/24 16:11) Rash Medication List - Last Reconciled 10/24/24 by Jose Almendarez MD acetaminophen (Tylenol) 650 mg PO Q6H PRN calcium carbonate (Calcium 500) 500 mg PO DAILY cholecalciferol (vitamin D3) 25 mcg PO DAILY flecainide 50 mg PO Q12H levothyroxine 25 mcg PO DAILY loratadine (Claritin) 10 mg PO DAILY PRN metoprolol succinate ER 50 mg PO DAILY omeprazole 20 mg PO DAILY@0630 ondansetron 4 mg PO Q8H PRN penciclovir 1% (Denavir) 1 appl topical Q2H PRN rosuvastatin 5 mg PO DAILY HPI Comments Details: Nori comes for follow-up. Overall she has been doing very well. She has not had any episodes of prolonged palpitation irregular heartbeats and feels very well. However she notices that sometimes of heart rates in the upper 40s but mostly low 50s. However she also notices when she goes up a flight of stairs the heart rate quickly climbs 210. She has not had any lightheadedness, syncope. Blood pressures been well controlled. Denies any exertional chest pain or shortness of breath. He has not been able to exercise much due to orthopedic issues. [facility] Medical History Atypical chest pain TIA (transient ischemic attack) GERD (gastroesophageal reflux disease) ELLIOT (obstructive sleep apnea) Nocturnal hypoxia Chronic allergic rhinitis Has daytime drowsiness Asthma MGUS (monoclonal gammopathy of unknown significance) Diverticular disease Osteopenia Hypothyroid Meniere disease Pulmonary nodule, left PVC (premature ventricular contraction) Hyperlipidemia HTN (hypertension) CAD (coronary artery disease) Surgical History Hx of section History of cholecystectomy History of laparotomy Hx of colonoscopy History of endometrial ablation Family History Father CVD (cardiovascular disease) Mother No problems noted. Brother CVD (cardiovascular disease) Sister Breast cancer Social History Household Members: Spouse Housing: House Are you a primary chronic care nurse to a significant other at home: No Do you presently have visiting nurse or other home services: No Alcohol intake: current Alcohol intake frequency: a few times a month Alcohol type: wine Comment: 1 drink 3-4 x a week. (01/2024 1/2 glass 2-3 x a week) Patient Tobacco Use Status: Former Tobacco user Years Smoked: 1969 e-Cigarette/Vaping Use: Never Used Second Hand Smoke Exposure: No service: No Current occupational status: employed Cognitive needs: No Hearing needs: No Vision needs: Yes Review of Systems Const Denies chills, Denies fatigue, Denies fever(s), Denies frequent falls, Denies weakness, Denies weight gain and Denies weight loss ENT Denies dizziness Card Denies chest pain, Denies leg edema, Denies lightheadedness, Denies palpitations, Denies dyspnea, Denies dyspnea on exertion, Denies orthopnea and Denies other (loss of consciousness) Resp Denies cough, Denies dyspnea and Denies dyspnea on exertion GI Denies hematochezia and Denies change in stool character Musc Denies abnormal gait, Denies muscle weakness, Denies numbness, Denies radiating pain into limb and Denies tingling Neuro Denies abnormal gait, Denies dizziness, Denies frequent falls, Denies numbness, Denies tingling and Denies weakness Endo Denies fatigue and Denies palpitations Physical Exam Vital Signs: Last Vital Signs Pulse 72 10/24/24 14:55 BP 122/80 10/24/24 14:55 BMI result Body Mass Index 29.4 Const General: cooperative, comfortable, alert and awake Nutritional Appearance: overweight Orientation/consciousness: patient oriented x3 Limitations: no limitations Resp Effort & Inspection: normal respiratory effort Auscultation: clear to auscultation bilaterally Cardio Jugular venous distension: no JVD Rate: regular rate Rhythm: abnormal rhythm with ectopic beats Heart sounds: S1 normal heart sound present and S2 normal heart sound present Neuro General: patient oriented x3 and no focal motor deficits Psych Appearance: grossly normal Office Procedures EKG Details: EKGs shows normal sinus rhythm with poor R-wave progression most likely lead placement [id number], Complete Assessment & Plan Assessment & Plan (1) Paroxysmal atrial fibrillation: Code(s): I48.0 - Paroxysmal atrial fibrillation Category: Medical Plan: Highly symptomatic paroxysmal atrial fibrillation which has been suppressed on flecainide therapy. She has done very well with symptom control of her atrial fibrillation. Tolerating therapy well. Needs concomitant metoprolol therapy. Noted slow heart rate without any symptoms. No pacing indication. Continue flecainide therapy. However he had a detailed discussion with her about stroke prophylaxis given her risk factors. She is currently very scared about pursuing anticoagulation therapy given her prior history of epistaxis and is care to start oral anticoagulation therapy. Will refer to for Watchman evalu ation to see if she would be a candidate for the same. Discussed with her about the Watchman procedure. (2) CAD (coronary artery disease): Comment: nonobstructive by CTA March 2017 Code(s): I25.10 - Atherosclerotic heart disease of paimiut coronary artery without angina pectoris Category: Medical Plan: CAD which is nonobstructive. Continue current medical therapy. Currently on low-dose rosuvastatin therapy. Target goal LDL less than 70 mg/dL. Continue aggressive blood pressure control which is currently well optimized. Importance of good blood pressure control was discussed. Increasing exercise activity was discussed as well. Will follow up in the clinic in 6 months for EKG in 1 year with me. Thank you for allowing me to partake in his care Coding Level of Care Code Est Pt Level 4 (57375) Complex EM visit Add On G2211 Diagnoses Paroxysmal atrial fibrillation I48.0 CAD (coronary artery disease) I25.10 CPT Codes EKG - CPT: 63792-Qlqetdrkywldoynvk, Complete ([id number])
--- OUTSIDE RECORDS SUMMARY | 2024-10-24 18:21 | XMS_ITS | Patient Health Record ---
Author Organization [facility] Address [address] [place] [address] Care Team Providers Care Dough Mixing Machine Operator Name Role Phone Edward Webber MD Primary Care Provider UnavailWesley Iglesias Unavailable [phone] Sandee BENNETT, Chinmay Unavailable Unavailable Allergies Allergen [...] Problem Status W/U Status Risk Notes Problem 4214315 Diverticulitis o f large intestine without perforation or abscess without bleeding (K57.32) Active confirmed Problem Diarrhea (36781995) Diarrhea (R19.7) Active confirmed Problem 563107275 Irritable bowel syndrome with diarrhea (K58.0) Active confirmed Problem 415968532 Elevated liver enzymes (R74.8) Active confirmed Problem 426774323 Gastroesophageal reflux disease, esophagitis presence not specified (K21.9) Active confirmed Problem Diverticulitis of colon (659650680) Diverticulitis of colon (K57.32) Active confirmed Problem 261425301 Abdominal pain, left lower quadrant (R10.32) Active confirmed Problem 872681376457206 History of diverticulitis (Z87.19) Active confirmed Problem 825942797 Abnormal CT scan , sigmoid colon (R93.3) Active confirmed Problem 05381402 Diarrhea, unspecified type (R19.7) Active confirmed Problem Chronic diarrhea (504502574) Chronic diarrhea (K52.9) Active confirmed Problem 79716735 Irritable bowel syndrome, unspecified type (K58.9) Active confirmed Problem Left lower quadrant pain (075620460) LLQ abdominal pain (R10.32) Active confirmed Problem 350478273 Sore mouth (K13.79) Active confirmed Encounters Encounter Location Date Provider Diagnosis [facility] [address] [place] [address] 07/18/2024 Wesley Burgos Diarrhea R19.7 Assessments Encounter [...] End Date [employer] [place] [address] [address] [place] [address] [id number] 97 ADIN SHANTANU Self - patient is [...] no esophagitis, minimal HH GERD Hypothyoidism Sees INFANT LEAD TEACHER regularly--had a neg. pelvic U/ S in the spring Denies [place],DM,CVA,Lung disease,renal dise ase Irritable bowel syndrome wit [...]
== END 2024-10-24 15:42 | disposition home or self-care (01) ==
LOC: HO.HCS 14:50
PROVIDERS: PCP Internal Medicine; Visit Provider Internal Medicine Cardiovascular Disease
DX: I48.0 Paroxysmal atrial fibrillation (principal); I25.10 Atherosclerotic heart disease of native coronary artery without angina pectoris
CPT/HCPCS: 93010; 99214

== ENCOUNTER → 2024-10-24 14:50 | Outpatient (BNVA) | payer OTHER, SELFPAY | PROVIDERS: PCP Internal Medicine; Visit Provider Internal Medicine Cardiovascular Disease | DX: I48.0 Paroxysmal atrial fibrillation (principal) | CPT/HCPCS: 93005 ==

== ENCOUNTER 2024-10-29 09:12 | Outpatient (REF) | payer OTHER, SELFPAY ==
--- OUTSIDE RECORDS SUMMARY | 2024-10-29 11:33 | XMS_ITS | Patient Health Record ---
Author Organization [facility] Address [address] [place] [address] Care Team Providers Care Mechanical Manufacturing Engineer Name Role Phone Edward Webber MD Primary Care Provider UnavailWesley Iglesias Unavailable [phone] Sanede BENNETT, Chinmay Unavailable Unavailable Allergies Allergen (clinical [...] Problem Status W/U Status Risk Notes Problem 9857066 Diverticulitis o f large intestine without perforation or abscess without bleeding (K57.32) Active confirmed Problem Diarrhea (72539287) Diarrhea (R19.7) Active confirmed Problem 863308321 Irritable bowel syndrome with diarrhea (K58.0) Active confirmed Problem 427812098 Elevated liver enzymes (R74.8) Active confirmed Problem 850035774 Gastroesophageal reflux disease, esophagitis presence not specified (K21.9) Active confirmed Problem Diverticulitis of colon (897998810) Diverticulitis of colon (K57.32) Active confirmed Problem 138089696 Abdominal pain, left lower quadrant (R10.32) Active confirmed Problem 017105997258544 History of diverticulitis (Z87.19) Active confirmed Problem 989221950 Abnormal CT scan , sigmoid colon (R93.3) Active confirmed Problem 41443158 Diarrhea, unspecified type (R19.7) Active confirmed Problem Chronic diarrhea (573193531) Chronic diarrhea (K52.9) Active confirmed Problem 55219088 Irritable bowel syndrome, unspecified type (K58.9) Active confirmed Problem Left lower quadrant pain (660964523) LLQ abdominal pain (R10.32) Active confirmed Problem 489969957 Sore mouth (K13.79) Active confirmed Encounters Encounter Location Date Provider Diagnosis [facility] [address] [place] [address] 07/18/2024 Wesley Burgos Diarrhea R19.7 Assessments Encounter [...] End Date [employer] [place] [address] [address] [place] [address] [id number] 97 ADIN SHANTANU Self - patient is [...] no esophagitis, minimal HH GERD Hypothyoidism Sees PROTECTIVE SERVICES OFFICER regularly--had a neg. pelvic U/ S in the spring Denies [place],DM,CVA,Lung disease,renal dise ase Irritable bowel syndrome wit [...]
== END 2024-10-29 09:13 | disposition home or self-care (01) ==
LOC: HO.LAB 09:12
PROVIDERS: PCP Internal Medicine; Visit Provider Internal Medicine Cardiovascular Disease
DX: I48.0 Paroxysmal atrial fibrillation (principal); Z79.899 Other long term (current) drug therapy
CPT/HCPCS: 36415; 80181

== ENCOUNTER 2024-12-18 15:20 | Outpatient (REF) | payer OTHER, SELFPAY ==
--- OUTSIDE RECORDS SUMMARY | 2024-12-15 23:59 | XMS_ITS | Continuity of Care Document ---
Author Organization [facility] Address [address] [place] [address] Care Team Providers Care Marketing Strategy Manager Name Role Phone Edward Webber MD Primary Care Physician Encounter [facility] [place] Date(s): 11/15/24 - 12/15/24 [facility] [address] [place] [address]- Attending Physician: Moira Walker Admitting Physician: Moira Walker Referring Physician: trMoira Encounter Type: Triage Allergies, Adverse Reactions, Alerts Substance Criticality Severity Reaction Reaction Severity Status aspirin Active Pro-Banthine Active NSAIDs Active Ceclor Active Medications flecainide 50 mg oral tablet 50 mg, 1, tablet, By Mouth, Every 12 hours, # 180 tablet, Refills 0, Maintenance, 11/15/24 8:49:00 AM EDT, Partial fill upon patient request if the prescription is for a schedule II opioid drug. Start Date: 11/15/24 Status: Ordered Medication Dispense Status: Completed Quantity: 180.0 Unit: tablet Total Allowed Fills: 1 Fills Dispensed: 0 metoprolol 25 mg oral tablet, extended release 50 mg, By Mouth, Daily, # 30 tablet, Refills 0, Maintenance, 05/11/18 10:12:12 AM EDT Start Date: 05/11/18 Status: Ordered Medication Dispense Status: Completed Quantity: 30.0 Unit: tablet Total Allowed Fills: 1 Fills Dispensed: 0 omeprazole 20 mg oral enteric coated capsule 0 Refills, Maintenance, 11/15/24 8:50:00 AM EDT, Partial fill upon patient request if the prescription is for a schedule II opioid drug. Start Date: 11/15/24 Status: Ordered Medication Dispense Status: Completed Total Allowed Fills: 1 Fills Dispensed: 0 rosuvastatin 5 mg oral tablet 1 tablet = 5 mg, By Mouth, Daily at bedtime, # 90 tablet, 0 Refills, Maintenance, 11/15/24 8:50:00 AM EDT, Tablet, Partial fill upon patient request if the prescription is for a schedule II opioid drug. Start Date: 11/15/24 Status: Ordered Medication Dispense Status: Completed Quantity: 90.0 Unit: tablet Total Allowed Fills: 1 Fills Dispensed: 0 Synthroid 0.025 mg oral tablet 1 tablet = 25 mcg, By Mouth, Daily, # 30 tablet, 0 Refills, Maintenance, 05/11/18 10:13:03 AM EDT, Tablet Start Date: 05/11/18 Status: Ordered Medication Dispense Status: Completed Quantity: 30.0 Unit: tablet Total Allowed Fills: 1 Fills Dispensed: 0 Vitamin D3 oral tablet 1 tablet = 10 mcg, By Mouth, Daily, # 30 tablet, 0 Refills, Maintenance, 11/15/24 8:50:00 AM EDT, Tablet, Partial fill upon patient request if the prescription is for a schedule II opioid drug. Start Date: 11/15/24 Status: Ordered Medication Dispense Status: Completed Quantity: 30.0 Unit: tablet Total Allowed Fills: 1 Fills Dispensed: 0 Social History Social History Type Response Smoking Status Never (less than 100 in lifetime) entered on: 11/15/24 Sex Sex Representation Female (finding) Patient Care team information Care Team Personnel Name: Edward Webber MD Position: Reference Physician Member Role: PCP Address: [address] [place] [address] Telecom: Care Team Related Persons Name: WILBERT OAKLEY Insurance Providers Guarantor name: SHANTANU MCGUIRERAYA Health Plan Information #: 1 Payer: [employer] PPO Payer Identifier: JACOB Member Number: [id number] Group Number: [id number] Subscriber Identifier: NA Relationship to Subscriber: self Coverage Type: BLUE CROSS/BLUE SHIELD Coverage Verification Date: JACOB Telecom: JACOB Address:
--- OUTSIDE RECORDS SUMMARY | 2024-12-18 18:17 | XMS_ITS | Patient Health Record ---
Author Organization [facility] Address [address] [place] [address] Care Team Providers Care Forecast Analyst Name Role Phone Edward Webber MD Primary Care Provider Wesley Sylvester Unavailable [phone] Chinmay Ignacio MD Unavailable Unavailable Allergies Allergen (clinical drug ingredient) [...] or Twice a day as needed for diarrhea; Duration: 30 day(s) 08/26/2015 Not-Taking Diphenoxylate-Atropin e 2.5-0.025 MG TAKE 1 OR 2 TABLETS BY MOUTH EVERY 4 TO 6 HOURS NEEDED FOR DIARRHEA. YOU CAN ALSO TAKE EVERY MORNING BEFORE BREAKFAST AND THEN BEFORE YOUR OTHER MEALS TO TRY TO PREVENT DIARRHEA IN THE FIRST PLACE; Duration: 11/02/2023 Active Hyoscyamine Sulfate 0.125 MG 1-2 tablets Orally Q 4-6 hours prn abdominal discomfort; Duration: 30 days 07/24/2013 Not-Taking Metoprolol Succinate Active Hyoscyamine Sulfate ER 0.375 MG 1 tablet Orally every 12 hrs(Twice a day); Duration: 30 day(s) Please advise her to stop her dicyclomine when she starts using the Hyoscyamine. Thanks 09/13/2023 Active Vitamin D 400 UNIT Orally A ctive Rosuvastatin Calcium 5 MG Oral; Duration: 90 Active Dicyclomine HCl 10 MG 1-2 Orally Every 6 hours as needed for abdominal bloating/gas/dis comfort/cramps; Duration: 30 days 04/07/2016 Active Cholestyramine 4 GM/DOSE Use anywhere from 1/4 of a scoop to up to 1 scoop in 8 ouces of fluid Orally Once or Twice a day to control diarrhea; Duration: 30 day(s) Please advise her to stop her dicyclomine when she starts using the Hyoscyamine. Thanks 09/13/2023 Active Synthroid 25 MCG 1 tablet on an empty stomach in the morning Orally Once a day Active Omeprazole 20 MG TAKE 1 CAPSULE BY MOUTH DAILY; Duration: 90 Active Zoloft 100 MG 1 tablet Orally Once a day; Duration: 30 day(s) Active Augmentin 500-125 MG 1 tablet Orally every 12 hrs for Diverticulitis; Duration: 7 days 04/19/2023 Active Immunizations Vaccine Route [...] Problem Status W/U Status Risk Notes Problem Diverticulitis of colon (412893749) Diverticulitis of large intestine without perforation or abscess without bleeding (K57.32) Active confirmed Problem Diarrhea (51504100) Diarrhea (R19.7) Active con firmed Problem Irritable bowel syndrome with diarrhea (842319246) Irritable bowel syndrome with diarrhea (K58.0) Active confirmed Problem Elevated liver enzymes level (933228077) Elevated liver enzymes (R74.8) Active confirmed Problem Gastroesophageal reflux disease (072128868) Gastroesophageal reflux disease, esophagitis presence not specified (K21.9) Active confirmed Problem Diverticulitis of colon (379371276) Diverticulitis of colon (K57.32) Active confirmed Problem Left lower quadrant pain (783479088) Abdominal pain, left lower quadrant (R10.32) Active confirmed Problem History of diverticulitis (943270817520297) History of diverticulitis (Z87.19) Active confirmed Problem Abnormal CT scan , sigmoid colon (R93.3) Active confirmed Problem Diarrhea (90372543) Diarrhea, unspecified type (R19.7) Active confirmed Problem Chronic diarrhea (472445800) Chronic diarrhea (K52.9) Active confirmed Problem Irritable bowel syndrome (94893275) Irritable bowel syndrome, unspecified type (K58.9) Active confirmed Problem Left lower quadrant pain (415816420) LLQ abdominal pain (R10.32) Active confirmed Problem Sore mouth (121283599) Sore mouth (K13.79) Active confirmed Encounters Encounter Location Date Provider Diagnosis [facility] [address] [place] [address] 07/18/2024 Wesley Burgos Diarrhea R19.7 Assessments Encounter [...] 09/13/2023 TRYPSIN,STOOL 09/13/2023 OVA & PARASITES (O&P) 07/23/2020 OVA & PARASITES (O&P) 09/02/2014 CULTURE, STOOL 09/02/2014 CULTURE, STOOL 07/23/2020 CT [...] End Date [employer] [place] [address] [address] [place] [address] [id number] 97 SHANTANU OAKLEY Self - patient is the insured Medical (General) History Medical History History ICD Code Colonoscopies 02-16-2009,2004, 1996--the colonoscopy in 2009 was negative for any inflammatory bowel disease, and biopsies from the ileum and colon were negative for any underlying inflammation; she was noted to have some mild sigmoid diverticulosis--no history of tubular adenomas EGD 09-26-2008--normal duoden al biopsies, neg. H.pylori, no esophagitis, minimal HH GERD Hypothyoidism Sees EVENT SECURITY OFFICER regularly--had a neg. pelvic U/ S in the Spring of 2013 Denies [place],DM,CVA,Lung disease,renal dise ase Irritable bowel syndrome wit [...]
== END 2024-12-18 15:21 | disposition home or self-care (01) ==
LOC: HO.MAMMO 15:20
PROVIDERS: PCP Internal Medicine; Visit Provider Internal Medicine
DX: Z12.31 Encounter for screening mammogram for malignant neoplasm of breast (principal)
CPT/HCPCS: 77063; 77067

== ENCOUNTER → 2024-12-18 15:30 | Outpatient (BNV) | payer OTHER, SELFPAY | PROVIDERS: PCP Internal Medicine; Visit Provider Internal Medicine | DX: Z12.31 Encounter for screening mammogram for malignant neoplasm of breast (principal) | CPT/HCPCS: 77063; 77067 ==

== ENCOUNTER 2025-02-11 13:47 | Outpatient (REF) | payer OTHER, SELFPAY ==
[2025-02-11 14:43] LABS: Resp Syncy Virus RNA Qual PCR NEGATIVE (Negative); SARS COV2 PCR INHOUSE NEGATIVE (Negative)
--- OUTSIDE RECORDS SUMMARY | 2025-02-11 17:36 | XMS_ITS | Patient Health Record ---
Author Organization [facility] Address [address] [place] [phone] Care Team Providers Care Galley Boy Name Role Phone Edward Webber MD Primary Care Provider UnavailWesley Iglesias Unavailable [phone] Sandee BENNETT, Chinmay Unavailable Unavailable Allergies Allergen (clinical drug ingredient) Drug/Non Drug Allergy documented on EMR Reaction Allergy Type Onset Date Status aspirin Aspirin Unknown Drug Allergy Active ibuprofen Ibuprofen Unknown Drug Allergy Active Non-steroidal anti-inflammatory agent (FN) NSAIDs Unknown Drug Allergy Active Reason For Referral No Information Medications Medication SIG (Take, Route, Frequency, Duration) Notes Start Date End Date Status Cholestyramine 4 GM Powder 1 scoop in water or orange juice Orally Once or Twice a day as needed for diarrhea; Duration: 30 day(s) 08/26/2015 Not-Taking/P RN Diphenoxylate-Atropi ne 2.5-0.025 MG Tablet TAKE 1 OR 2 TABLETS BY MOUTH EVERY 4 TO 6 HOURS NEEDED FOR DIARRHEA. YOU CAN ALSO TAKE EVERY MORNING BEFORE BREAKFAST AND THEN BEFORE YOUR OTHER MEALS TO TRY TO PREVENT DIARRHEA IN THE FIRST PLACE; Duration: 11/02/2023 Active Hyoscyamine Sulfate 0.125 MG Tablet 1-2 tablets Orally Q 4-6 hours prn abdominal discomfort; Duration: 30 days 07/24/2013 Not-Taking/P RN Metoprolol Succinate Active Hyoscyamine Sulfate ER 0.375 MG Tablet Extended Release 12 Hour 1 tablet Orally every 12 hrs(Twice a day); Duration: 30 day(s) Please advise her to stop her dicyclomine when she starts using the Hyoscyamine. Thanks 09/13/2023 Active Vitamin D 400 UNIT Capsule Orally Active Rosuvastatin Calcium 5 MG Tablet Oral; Duration: 90 Active Dicyclomine HCl 10 MG Capsule 1-2 Orally Every 6 hours as needed for abdominal bloating/gas/dis comfort/cramps; Duration: 30 days 04/07/2016 Active Cholestyramine 4 GM/DOSE Powder Use anywhere from 1/4 of a scoop to up to 1 scoop in 8 ouces of fluid Orally Once or Twice a day to control diarrhea; Duration: 30 day(s) Please advise her to stop her dicyclomine when she starts using the Hyoscyamine. Thanks 09/13/2023 Active Synthroid 25 MCG Tablet 1 tablet on an empty stomach in the morning Orally Once a day Active Omeprazole 20 MG Capsule Delayed Release TAKE 1 CAPSULE BY MOUTH DAILY; Duration: 90 Active Zoloft 100 MG Tablet 1 tablet Orally Once a day; Duration: 30 day(s) Active Augmentin 500-125 MG Tablet 1 tablet Orally every 12 hrs for Diverticulitis; Duration: 7 days 04/19/2023 Active Immunizations Vaccine Route Administration Date Status Comme nts Influenza Unknown 11/13/2020 Administered Social History Social History Drugs/Alcohol: Social Info Question Answer Notes Alcohol Screen Did you have a drink containing alcohol in the past year? Yes How often did you have a drink containing alcohol in the past year? 2 to 3 times a week (3 points) How many drinks did you have on a typical day when you were drinking in the past year? 1 or 2 drinks (0 point) How often did you have 6 or more drinks on one occasion in the past year? 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 Section Notes: Nonsmoker; no sig alcohol Nonsmoker; no sig alcohol Nonsmoker; no sig. alcohol Nonsmoker; no sig. alcohol Problems Problem Type SNOMED Code ICD Code Onset Dates Problem Status W/U Status Risk Notes Problem Diverticulitis of colon (069786269) Diverticulitis of large intestine without perforation or abscess without bleeding (K57.32) Active confirmed Problem Diarrhea (53564287) Diarrhea (R19.7) Active con firmed Problem Irritable bowel syndrome with diarrhea (876551229) Irritable bowel syndrome with diarrhea (K58.0) Active confirmed Problem Elevated liver enzymes level (652749126) Elevated liver enzymes (R74.8) Active confirmed Problem Gastroesophageal reflux disease (344963387) Gastroesophageal reflux disease, esophagitis presence not specified (K21.9) Active confirmed Problem Diverticulitis of colon (375710455) Diverticulitis of colon (K57.32) Active confirmed Problem Left lower quadrant pain (755806856) Abdominal pain, left lower quadrant (R10.32) Active confirmed Problem History of diverticulitis (427017895394857) History of diverticulitis (Z87.19) Active confirmed Problem Abnormal CT scan , sigmoid colon (R93.3) Active confirmed Problem Diarrhea (06961651) Diarrhea, unspecified type (R19.7) Active confirmed Problem Chronic diarrhea (277915739) Chronic diarrhea (K52.9) Active confirmed Problem Irritable bowel syndrome (59233187) Irritable bowel syndrome, unspecified type (K58.9) Active confirmed Problem Left lower quadrant pain (475768614) LLQ abdominal pain (R10.32) Active confirmed Problem Sore mouth (048581448) Sore mouth (K13.79) Active confirmed Encounters Encounter Location Date Provider Diagnosis [facility] [address] [facility] [address] [place] [phone] 07/18/2024 Wesley Burgos Diarrhea R19.7 Assessments Encounter Date Diagnosis (ICD Code) Assessment Notes Treatment Notes Treatment Clinical Notes Section Notes 07/18/2024 Diarrhea (ICD-10 - R19.7) Plan Of Treatment Pending Test Test Name Order Date CHEM 7 PROFILE 07/23/2020 CHEM 7 PROFILE 06/26/2023 LIVER PROFILE 06/26/2023 LIVER PROFILE 07/23/2020 LIVER PROFILE 09/26/2017 AMYLASE 07/23/2020 LIPASE 07/23/2020 CRP 09/02/2014 CRP 07/23/2020 CRP 08/09/2023 CRP 09/13/2023 CBC w DIFF 06/26/2023 CBC w DIFF 07/23/2020 CBC w DIFF 09/02/2014 SED RATE (ESR) [...] ADMINISTRATO RS [facility] 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 pelvic U/ S in the spring Denies NM,DM,CVA,Lung disease,renal dise ase Irritable bowel syndrome wit [...]
== END 2025-02-11 13:48 | disposition home or self-care (01) ==
LOC: HO.LAB 13:47
PROVIDERS: PCP Internal Medicine; Visit Provider Internal Medicine
DX: Z00.01 Encounter for general adult medical examination with abnormal findings (principal); J06.9 Acute upper respiratory infection, unspecified; R05.9 Cough, unspecified; I48.0 Paroxysmal atrial fibrillation; R23.2 Flushing; R30.0 Dysuria; L68.0 Hirsutism; J02.8 Acute pharyngitis due to other specified organisms; Z71.85 Encounter for immunization safety counseling
CPT/HCPCS: 87637

== ENCOUNTER 2025-02-11 14:03 | Outpatient (AMB) | payer OTHER, SELFPAY ==
--- NOTE | 2025-02-11 14:26 | A.OFFPC_ITS ---
Vital Signs 02/11/25 14:27 Height 5 ft 2 in Weight 155 lb BMI 28.3 BP 158/92 H Blood Pressure Location Lt brachial Position Sitting Pulse 74 Pulse Source Pulse Oximeter Pulse Oximetry (%) 97 Oxygen Delivery Method Room Air Intake Visit Reasons: pe Allergies cefaclor (From Ceclor) Allergy (Severe, Verified 02/11/25 14:28) RASH & HIVES NSAIDS (Non-Steroidal Anti-Inflamma (Nsaids) Allergy (Severe, Verified 02/11/25 14:28) HIVES propantheline (From Pro-Banthine) Allergy (Severe, Verified 02/11/25 14:28) HIVES aspirin (Aspirin) Allergy (Unknown, Verified 02/11/25 14:28) HIVES adhesive tape Allergy (Verified 02/11/25 14:28) Rash Medication List - Last Reconciled 02/11/25 by Edward Webber MD acetaminophen (Tylenol) 650 mg PO Q6H PRN calcium carbonate (Calcium 500) 500 mg PO DAILY cholecalciferol (vitamin D3) 25 mcg PO DAILY flecainide 50 mg PO Q12H levothyroxine 50 mcg PO QAM metoprolol succinate ER 50 mg PO DAILY omeprazole 20 mg PO DAILY@0630 penciclovir 1% (Denavir) 1 appl topical Q2H PRN psyllium husk (Metamucil) 0.4 grams PO BEDTIME rosuvastatin 5 mg PO DAILY Tobacco use date assessed: 02/11/25 Fall risk assessment: No Falls in past year Last assessed Fall Risk: 02/11/25 Dental Screening Dental Screen Date: 02/11/25 Did you have a dental visit in the last 12 months?: Yes Did you have a dental problem in the last 6 months where you did not have access to dental care?: No Was dental information given to patient?: Patient has dentist HPI pe HPI Details flushed feeling, concern about blood sugar. cough started 3 days, sore throat, mild chills, , congested, no sob, no n no v HPI Comments History of Present Illness Details History of Present Illness The patient is a 69-year-old female presenting for an annual physical examination and chronic condition management. Her medical history includes hypertension, hypercholesterolemia, obstructive sleep apnea, nonobstructive coronary artery disease confirmed by a 2018 CTA, monoclonal gammopathy of undetermined significance (MGUS), lumbar spondylosis, history of supraventricular tachycardia (SVT), and low bone density. Regarding her paroxysmal atrial fibrillation, the patient reports one episode on her watch two days after a COVID vaccination. Due to a history of epistaxis, she is hesitant to start anticoagulation and has consulted with cardiology regarding an atrial appendage closure (Watchman device), for which she had a pre-procedure CT scan. She is on flecainide, which has helped reduce her palpitations from an 8% burden on a prior monitor, and also takes metoprolol 50 mg once a day. Her [id number] score is 3. For hypercholesterolemia, she takes rosuvastatin 5 mg, with a target LDL of less than 70; her last LDL was 78 in February 2024. A cardiac stress test in August 2024 showed normal perfusion with an EF of 73%, and an echocardiogram from October showed a normal LVEF of 60-65%. The patient follows with hematology/oncology for MGUS and with pain management for sacroiliac joint pain, for which she uses an SI belt and had a cortisone injection in June that provided relief but caused side effects. She has hypothyroidism managed with medication and GERD managed with omeprazole, which she has difficulty stopping due to rebound heartburn. New concerns include facial flushing for the past year, symptoms of hypoglycemia (weakness, dizziness, shakiness) relieved with orange juice, recurrent mouth sores on her palate, paresthesias in her feet and legs, and an increase in facial hair. She also has an acute onset of a productive cough, sore throat, congestion, chills, and headache which started on Monday. She has allergies to aspirin, NSAIDs, and cefaclor. For health maintenance, her last colonoscopy was in 2017, and her last bone density scan was in February 2023. She is scheduled for a mammogram in December 2024. Health Maintenance A comprehensive fasting blood work panel has been ordered. Vaccinations were discussed; the patient is hesitant to receive the shingles and pneumonia vaccines. She will continue her thyroid medication, and a TSH level will be checked. She will continue to follow up with hematology/oncology for MGUS. 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 - Alcohol Use: The patient reports consu maria elena alcohol two to three times per week, a reduction from her previous habits due to her atrial fibrillation diagnosis. - Nutrition: The patient is eating roshni r, with more vegetables and less meat, though certain vegetables can cause gastrointestinal cramping. - Nutrition: She is trying to reduce sug ar intake due to a family history of diabetes. - Activity: The patient is active throug h her work. - Hydration: The patient acknowledges sh e could improve her water intake. Results - Labs (August 2024): Blood count, electro lytes, and renal function were normal. Blood sugar was 111. Liver function tests were normal. - Labs (February 2024): LDL cholesterol w as 78 mg/dL. - Labs (Recent): Hemoglobin A1c was 5.7% . - Imaging (2017): Coronary CTA showed no nobstructive arteries. - Imaging (October): Echocardiogram sh owed an LVEF of 60-65% with normal valvular function. - Imaging (August 2024): Myocardial perfus ion scan was normal with an EF of 73%. - Diagnostics (prior): A heart monitor s howed an 8% burden of palpitations. - Diagnostics (recent): Testing for harry l illness was negative. [facility] Medical History Atypical chest pain TIA (transient ischemic attack) GERD (gastroesophageal reflux disease) ELLIOT (obstructive sleep apnea) Nocturnal hypoxia Chronic allergic rhinitis Has daytime drowsiness Asthma MGUS (monoclonal gammopathy of unknown significance) Diverticular disease Osteopenia Hypothyroid Meniere disease Pulmonary nodule, left PVC (premature ventricular contraction) Hyperlipidemia HTN (hypertension) CAD (coronary artery disease) Surgical History Hx of section History of cholecystectomy History of laparotomy Hx of colonoscopy History of endometrial ablation Family History Father CVD (cardiovascular disease) Mother No problems noted. Brother CVD (cardiovascular disease) Sister Breast cancer Social History (Updated 02/11/25 @ 14:58 by Edward Webber MD) Household Members: Spouse Housing: House Are you a primary manager career to a significant other at home: No Do you presently have visiting nurse or other home services: No Alcohol intake: current Alcohol intake frequency: a few times a month Alcohol type: wine Comment: 1 drink 3-4 x a week. (01/2024 1/2 glass 2-3 x a week), 2-3x a week glass Patient Tobacco Use Status: Former Tobacco user Tobacco use type: Cigarette Years Smoked: 1969 e-Cigarette/Vaping Use: Never Used Second Hand Smoke Exposure: No service: No Current occupational status: employed Cognitive needs: No Hearing needs: No Vision needs: Yes Questionnaire PHQ-9 Over the last 2 weeks, how often have you been bothered by any of the following problems? 1. Little interest or pleasure in doing things: not at all 2. Feeling down, depressed, or hopeless: not at all 3. Trouble falling or staying asleep, or sleeping too much: not at all 4. Feeling tired or having little energy: not at all 5. Poor appetite or overeating: not at all 6. Feeling bad about yourself - or that you are a failure or have let yourself or your family down: not at all 7. Trouble concentrating on things, such as reading the newspaper or watching television: not at all 8. Moving or speaking so slowly that other people could have noticed. Or the opposite - being so fidgety or restless that you have been moving around a lot more than usual: not at all 9. Thoughts that you would be better off or of hurting yourself in some way: not at all Total score: 0 Depression Screening Interpretation: Negative Depression Screening Done: Yes Source: Developed by Drs. Wesley Covarrubias, Shanika Smart, Corona Collado and colleagues, with an educational grazyna from [employer]. Thrive Questionnaire Date Thrive assessed: 02/11/25 I am a: Patient What is your living situation today?: I have a steady place to live Within the past 12 months, did the food you bought not last and you didn't have the money to get more?: Never true Within the past 12 months, did you worry whether your food would run out before you got money to buy more?: Never true Do you have trouble paying for medicines?: No Do you have trouble getting transportation to medical appointments?: No Do you have trouble paying your heating and electricity bill?: No Do you have trouble taking care of your child, family member or friend?: No Do you have trouble with day-to-day activities such as bathing, preparing meals, shopping, managing finances, etc.?: No Are you currently unemployed and looking for a job?: No Are you interested in more education?: No Please select the resources that you would like help with: None Currently or been in a relationship where the following occur: No concerns reported THRIVE Score: 0 AUDIT C Alcohol Use Questionnaire (AUDIT-C) 1. How often do you have a drink containing alcohol?: 2-3 times a week 2. How many drinks containing alcohol do you have on a typical day when you are drinking?: 1 or 2 3. How often do you have six or more drinks on one occasion?: Less than monthly Total Score: 4 NAHOMY-7 AMB Questionnaire NAHOMY-7 Date NAHOMY - 7 assessed: 02/11/25 Feeling nervous, anxious, or on edge: 0 = Not at all Not being able to stop or control worryin = Not at all Worrying too much about different things: 0 = Not at all Trouble relaxin = Not at all Being so restless that it is hard to sit still: 0 = Not at all Becoming easily annoyed or irritable: 0 = Not at all Feeling afraid as if something awful might happen: 0 = Not at all Total NAHOMY-7 score (0-4 normal; 5-9 mild; 10-14 moderate; 15-21 severe): 0 Source: Developed by Drs. Wesley Covarrubias, Shanika Smart, Corona Collado and colleagues, with an educational grazyna from [employer]. Review of Systems Narrative Review of Systems - Constitutional: Reports intermittent episodes of weakness, dizziness, and shakiness consistent with hypoglycemia. - General: Denies fever, reports recent onset of chills. - HEENT: Reports recurrent sores on the palate, which is currently bothersome. - HEENT: Reports recurrent epistaxis and chronic rhinorrhea. - HEENT: Reports a persistent loss of taste attributed to allergies. - Eyes: Reports moderate cataracts. - Neurological: Reports paresthesias described as pins and needles in her feet and legs. - Neurological: Reports a mild headache. - Cardiovascular: Reports occasional palpitations. - Respiratory: Reports a productive cough and congestion. Denies shortness of breath. - Gastrointestinal: Reports heartburn when not taking omeprazole, and cramping with some vegetables. Denies nausea, vomiting, or constipation. - Musculoskeletal: Reports morning stiffness and sacroiliac pain with sciatica down her leg. - Skin/Integumentary: Reports facial flushing for the past year and increased facial hair. - Skin/Integumentary: Reports swelling under the left arm. Const Denies poor appetite and Denies weakness Eyes Denies no additional complaints ENT Reports Normal hearing present, Denies dizziness, Denies nasal congestion, Denies tinnitus and Denies sore throat Card Denies chest pain, Denies syncope, Denies rapid heart rate and Denies dyspnea Resp Denies cough and Denies dyspnea GI Denies change in stool character, Reports constipation, Denies diarrhea, Denies nausea and Denies vomiting Denies urinary frequency, Denies difficulty voiding and Denies dysuria Neuro Reports Normal hearing present, Denies confusion, Denies dizziness, Denies syncope and Denies weakness Psych Denies confusion Physical exam (Primary Care) Vital Signs: Last Vital Signs Pulse 74 02/11/25 14:27 BP 158/92 H 02/11/25 14:27 Pulse Ox 97 02/11/25 14:27 Oxygen Delivery Method Room Air 02/11/25 14:27 BMI result Body Mass Index 28.3 Tobacco/Smoking Status: Tobacco use Status Tobacco use date assessed 02/11/25 02/11/25 14:33 Patient Tobacco Use Status Former Tobacco user 02/11/25 14:58 Tobacco use type Cigarette 02/11/25 14:58 e-Cigarette/Vaping Use Never Used 02/11/25 14:58 PHQ-9: PHQ-9 Score PHQ-9: Total score 0 02/11/25 14:46 Depression Screening Interpretation: Negative Thrive Assessment: Date of Thrive Assessment Date Thrive assessed 02/11/25 02/11/25 14:33 Currently or been in a relationship where the following occur: No concerns reported Narrative Physical Exam General: Cooperative, healthy appearing, comfortable, no acute distress and well developed Orientation: Patient oriented x3 Limitations: No limitations Head: Normal to inspection Ears: Hearing grossly normal bilaterally Nose: Normal external nose present Face and sinus: Flushed face noted Eyes: Appearance normal, both eyes and all related structures Neck: Normal visual inspection and Yes full ROM Respiratory: Normal respiratory effort and able to speak in complete sentences. Clear to auscultation bilaterally Cardiovascular: Regular rate and rhythm. Normal S1 and S2 GI: Normal to inspection. Soft to palpation and nontender Skin: No rashes or lesions noted Neuro: Patient oriented x3 Extremities: Normal to inspection, slight swelling in legs noted Const General: No confusion Orientation/consciousness: No confusion HENMT Head: Yes normocephalic Ears: external ears normal and TM's normal bilaterally Face and sinus: Yes normal facial exam Mouth: moist mucous membranes Throat: Yes tonsils normal Eyes Conjunctivae: conjunctivae normal Pupils: Equal, round and reactive pupils present and Pupil accommodation reflex normal Direct Ophthalmoscopy: normal light reflex Neck Neck: No lymphadenopathy Thyroid: Thyroid normal Chest Chest palpation & inspection: normal inspection of the chest Resp Effort & Inspection: normal respiratory effort and no audible wheezes Auscultation: clear to auscultation bilaterally, no crackles, no wheezes and lung sounds not diminished Cardio Rate: regular rate Rhythm: regular rhythm Peripheral pulses: radial pulses present and dorsalis pedis present GI Palpation (GI): no masses Auscultation: normal bowel sounds and normoactive bowel sounds Rectal Exam - Female: deferred Skin General skin exam: no rashes or lesions noted Rashes: no rashes Neuro General: No confusion Cranial nerves: Yes Equal, round and reactive pupils present and Yes Normal hearing present Cognition (Neuro): normal cognition Gait exam (Neuro): Normal gait present Motor exam (neuro): 5/5 motor strength present throughout Deep tendon reflexes (DTR's): Right brachioradialis reflex intensity grade: 2+, Left brachioradialis reflex intensity grade: 2+, Right patellar reflex intensity grade: 2+ and Left patellar reflex intensity grade: 2+ Extrem General: No edema Coding Level of Care Code Est Pt Prev Care >65y(78035) Diagnoses Annual physical exam Z00.00 CAD (coronary artery disease) I25.10 Essential hypertension I10 Hypertension type: essential hypertension Paroxysmal atrial fibrillation I48.0 Pure hypercholesterolemia E78.00 Hyperlipidemia type: pure hypercholesterolemia Acquired hypothyroidism E03.9 Hypothyroidism type: acquired Gastroesophageal reflux disease without esophagitis K21.9 Esophagitis presence: without esophagitis MGUS (monoclonal gammopathy of unknown significance) D47.2 Assessment & Plan Assessment & Plan (1) Annual physical exam: Code(s): Z00.00 - Encounter for general adult medical examination without abnormal findings Category: Medical Plan: Patient is advised to eat healthy, keep well hydrated, keep active and have adequate sleep. (2) CAD (coronary artery disease): Comment: nonobstructive by CTA March 2017 Code(s): I25.10 - Atherosclerotic heart disease of [place] coronary artery without angina pectoris Category: Medical Plan: Control the cholesterol, weight, blood pressure, patient is supposed to be on blood thinners. (3) HTN (hypertension): Code(s): I10 - Essential (primary) hypertension Category: Medical Qualifiers: Hypertension type: essential hypertension Qualified Code(s): I10 - Essential (primary) hypertension Plan: Continue with blood pressure medication. Decrease salt intake and exercise takes metoprolol 50 mg once a day (4) Paroxysmal atrial fibrillation: Code(s): I48.0 - Paroxysmal atrial fibrillation Category: Medical Plan: Continue with flecainide and has been advise anticoagulation but would like to not use them and so was sent to Cardiology in [facility] for left atrial appendage closure. (5) Hyperlipidemia: Code(s): E78.5 - Hyperlipidemia, unspecified Category: Medical Qualifiers: Hyperlipidemia type: pure hypercholesterolemia Qualified Code(s): E78.00 - Pure hypercholesterolemia, unspecified Plan: Avoid fried foods, chicken skin, eggs, butter margarine, pastries and meat. Be it pork or beef they have a lot of cholesterol LDL goal of less than 70 and triglyceride of less than 150 on rosuvastatin 5 mg once a day patient needs to get blood work (6) Hypothyroid: Code(s): E03.9 - Hypothyroidism, unspecified Category: Medical Qualifiers: Hypothyroidism type: acquired Qualified Code(s): E03.9 - Hypothyroidism, unspecified Plan: Continue with thyroid medication needs to get blood work (7) GERD (gastroesophageal reflux disease): Code(s): K21.9 - Gastro-esophageal reflux disease without esophagitis Category: Medical Qualifiers: Esophagitis presence: without esophagitis Qualified Code(s): K21.9 - Gastro-esophageal reflux disease without esophagitis Plan: Avoid the foods that causes that usually spicy foods, tomato products, juices, coffee, soda and foods that your sensitive to. After eating do not lie down, allow 3-4 hours before in lie down. And keep the head of bed above 30 degrees to avoid the acid from going up. (8) MGUS (monoclonal gammopathy of unknown significance): Code(s): D47.2 - Monoclonal gammopathy Category: Medical Plan: Continue to follow-up with Hematology-Oncology Plan Plan Patient was informed and verbally consented to the use of an ambient scribe for clinic note documentation during this visit. 1. Paroxysmal Atrial Fibrillation The patient has a [id number] score of 3 and has been advised to be on anticoagulation. However, due to a history of epistaxis, she is hesitant and has refused. She was referred to cardiology for a left atrial appendage closure (Watchman) consultation and has undergone pre-procedure imaging, but is deferring the procedure at this time. She will continue taking flecainide for rhythm control, which she reports has been helpful for palpitations, and metoprolol 50 mg daily. 2. Hypercholesterolemia The LDL goal is less than 70 mg/dL. The patient will continue rosuvastatin 5 mg once daily. A fasting blood work panel, including a lipid panel, has been ordered to re-evaluate her cholesterol levels. 3. Hirsutism The patient is concerned about an increase in facial hair. Spironolactone was discussed as a potential treatment option, noting its function as a diuretic and blood pressure medication, as well as its potential to cause hair loss on the scalp and face. 4. Constitutional And Neurological Symptoms To investigate the patient's symptoms of facial flushing, recurrent mouth sores, and paresthesias, blood work has been ordered, including a vitamin B12 level, ESR, and CRP to assess for inflammatory or autoimmune processes. 5. Acute Viral Illness The patient presents with symptoms of a common cold, including a productive cough, sore throat, congestion, and headache, which began on Monday. Testing for other viruses was negative, suggesting a common cold virus. Symptomatic care is recommended. Discussion Notes I reviewed the patient's extensive medical history and current concerns during this annual physical visit. We discussed her atrial fibrillation and her reluctance to use anticoagulants due to epistaxis. I acknowledged her decision to defer the Watchman procedure for now, given she has only had one documented episode of AFib, and we agreed to continue her current regimen of flecainide and metoprolol. I explained the importance of lowering her LDL cholesterol and ordered a fasting lipid panel to monitor her response to rosuvastatin. We addressed her new symptoms of flushing, mouth sores, and paresthesias by ordering blood work to investigate for an underlying inflammatory or autoimmune cause, including an ESR, CRP, and B12 level. Regarding her concern about increased facial hair, I presented spironolactone as a potential option and explained its primary use as a heart/blood pressure medication and its side effect profile. I assured her that her current upper respiratory symptoms appear to be from a common cold virus, as testing for other causes was negative. We also reviewed her vaccination status, and while she is hesitant about the shingles and pneumonia vaccines, I provided information about obtaining the pneumonia shot at a local pharmacy should she change her mind. I encouraged her to continue her healthy diet modifications and improve hydration. Patient Instructions - Please go to the lab to get your fasting blood work done. - Continue taking your medications as prescribed, including those for your heart, cholesterol, and thyroid. - For your current cold, which tested negative for other viruses, get plenty of rest and stay hydrated. - Continue your efforts to eat a healthy diet with more vegetables and less sugar. - We discussed the pneumonia vaccine. - Follow up to review your lab results. Orders: Orders Thyroid Stimulating Hormone Today I48.0 - Paroxysmal atrial fibrillation Lipid Panel Today E78.00 - Pure hypercholesterolemia, unspecified, I48.0 - Paroxysmal atrial fibrillation Vitamin D 25-OH Total Today I48.0 - Paroxysmal atrial fibrillation Hemoglobin A1c Today I48.0 - Paroxysmal atrial fibrillation UA CC w/rflx Micro + Cult Today I48.0 - Paroxysmal atrial fibrillation, R30.0 - Dysuria Uric Acid Today I48.0 - Paroxysmal atrial fibrillation Complete Blood Count Auto Diff Today I48.0 - Paroxysmal atrial fibrillation Comprehensive Met. Panel Today I48.0 - Paroxysmal atrial fibrillation Free T4 (Free Thyroxine) Today I48.0 - Paroxysmal atrial fibrillation Magnesium Today I48.0 - Paroxysmal atrial fibrillation Vitamin B12 and Folate Today I48.0 - Paroxysmal atrial fibrillation NT Pro B Type Natriuretic Pept Today I48.0 - Paroxysmal atrial fibrillation Erythrocyte Sedimentation Rate Today I48.0 - Paroxysmal atrial fibrillation C Reactive Protein Today I48.0 - Paroxysmal atrial fibrillation
[2025-02-11 14:27] VITALS: BP 158/92; PULSE 74; O2SAT 97; BMI 28.3
== END 2025-02-11 15:19 | disposition home or self-care (01) ==
LOC: HO.HMCH 14:04
PROVIDERS: PCP Internal Medicine; Visit Provider Internal Medicine
DX: Z00.00 Encounter for general adult medical examination without abnormal findings (principal); I25.10 Atherosclerotic heart disease of native coronary artery without angina pectoris; I10 Essential (primary) hypertension; I48.0 Paroxysmal atrial fibrillation; E78.00 Pure hypercholesterolemia, unspecified; E03.9 Hypothyroidism, unspecified; K21.9 Gastro-esophageal reflux disease without esophagitis; D47.2 Monoclonal gammopathy

== ENCOUNTER 2025-02-12 07:27 | Outpatient (REF) | payer OTHER, SELFPAY ==
--- OUTSIDE RECORDS SUMMARY | 2025-02-12 07:30 | XMS_ITS | Patient Health Record ---
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 alcohol Nonsmoker; no sig. alcohol Problems Problem Type SNOMED Code ICD Code Onset Dates Problem Status W/U Status Risk Notes Problem Diverticulitis of colon (267856072) Diverticulitis of large intestine without perforation or abscess without bleeding (K57.32) Active confirmed Problem Diarrhea (14304850) Diarrhea (R19.7) Active con firmed Problem Irritable bowel syndrome with diarrhea (489410200) Irritable bowel syndrome with diarrhea (K58.0) Active confirmed Problem Elevated liver enzymes level (774659595) Elevated liver enzymes (R74.8) Active confirmed Problem Gastroesophageal reflux disease (582457335) Gastroesophageal reflux disease, esophagitis presence not specified (K21.9) Active confirmed Problem Diverticulitis of colon (743903586) Diverticulitis of colon (K57.32) Active confirmed Problem Left lower quadrant pain (395250441) Abdominal pain, left lower quadrant (R10.32) Active confirmed Problem History of diverticulitis (734596085587484) History of diverticulitis (Z87.19) Active confirmed Problem Abnormal CT scan , sigmoid colon (R93.3) Active confirmed Problem Diarrhea (58853398) Diarrhea, unspecified type (R19.7) Active confirmed Problem Chronic diarrhea (979903698) Chronic diarrhea (K52.9) Active confirmed Problem Irritable bowel syndrome (06290183) Irritable bowel syndrome, unspecified type (K58.9) Active confirmed Problem Left lower quadrant pain (962449875) LLQ abdominal pain (R10.32) Active confirmed Problem Sore mouth (955309484) Sore mouth (K13.79) Active confirmed Encounters Encounter Location Date Provider Diagnosis [facility] [address] [facility] [address] [place] [phone] 07/18/2024 Wesley Burgos Diarrhea R19.7 Assessments Encounter [...] Coverage End Date [employer] [facility] 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 pelvic U/ S in the spring Denies CO,DM,CVA,Lung disease,renal dise ase Irritable bowel syndrome wit [...]
[2025-02-12 07:42] LABS: MANUAL DIFF FLAG NO
[2025-02-12 08:16] LABS: Hematocrit 44.2 % (37.0-47.0); Hemoglobin 14.3 g/dl (12.0-16.0); Imm Gran Abs Auto 0.06 X10*3/uL (0.00-0.03); Imm Gran Pct Auto 0.5 % (0.0-0.4); Lymphocytes Absolute Auto 2.0 X10*3/uL (1.2-4.9); Mean Corpuscular HGB Conc 32.4 g/dl (31.0-35.0); Mean Corpuscular Hemoglobin 28.7 pg (27.0-33.0); Mean Corpuscular Volume 88.8 fL (80.0-98.0); NRBC Abs Auto 0.000 X10*3/uL (0.0-0.012); NRBC Pct Auto 0.0 /100WBC (0.0-0.2); Platelet Count 251 X10*3/uL (160-400); Red Blood Count 4.98 X10*6/uL (4.20-5.50); White Blood Count 13.0 X10*3/uL (4.8-10.8)
[2025-02-12 08:47] LABS: Alanine Aminotransferase 37 U/L (0-31); Albumin Level 4.7 g/dL (3.5-5.0); Alkaline Phosphatase 81 U/L (39-117); Anion Gap 13 (12-20); Aspartate Amino Transferase 44 U/L (5-31); Blood Urea Nitrogen 12 mg/dL (9-16); Calcium 10.5 mg/dL (8.4-10.2); Carbon Dioxide 25 mmol/L (22-29); Chloride 107 mmol/L (96-108); Cholesterol 144 mg/dL (<200); Estimated Glomerular Filt Rate > 60; HDL Cholesterol 56 mg/dL (>40); Magnesium 2.1 mg/dL (1.6-2.6); Potassium 3.9 mmol/L (3.3-5.1); Sodium 141 mmol/L (135-145); Total Protein 7.3 g/dL (6.5-8.0); Triglycerides 94 mg/dL (<150); Uric Acid 4.2 mg/dL (2.4-5.7)
[2025-02-12 08:52] LABS: NT Pro B Type Natriuretic Pept 236.4 pg/mL (<300)
[2025-02-12 09:00] LABS: Appearance Urine Hazy; Glucose Urine UA 100 mg/dL (Negative); PH 6.0 (5.0-9.0); UMIC TRIGGER UACC YES
[2025-02-12 09:03] LABS: Specific Gravity - Urine 1.025 (1.005-1.025)
[2025-02-12 09:03] LABS: Free T4 (Free Thyroxine) 1.24 ng/dL (0.71-1.85); Thyroid Stimulating Hormone 1.20 uIU/mL (0.32-4.0)
[2025-02-12 09:17] LABS: Folate 9.0 ng/mL (> or = 4.0); Vitamin B12 373 pg/mL (200-900)
[2025-02-12 09:25] LABS: UACC Culture Trigger YES
== END 2025-02-12 07:28 | disposition home or self-care (01) ==
LOC: HO.LAB 07:27
PROVIDERS: PCP Internal Medicine; Visit Provider Internal Medicine
DX: I48.0 Paroxysmal atrial fibrillation (principal); E78.00 Pure hypercholesterolemia, unspecified; Z13.1 Encounter for screening for diabetes mellitus; Z13.21 Encounter for screening for nutritional disorder
CPT/HCPCS: 36415; 80053; 80061; 81001; 81003; 82306; 82607; 82746; 83036; 83735; 83880; 84439; 84443; 84550; 85025; 85652; 86140; 87086